=== PATIENT | female | born 1975 | race Caucasian/White ===

== ENCOUNTER 2018-01-10 06:19 | Inpatient (IN) ==
[2018-01-10] MEDS ORDERED: ASPIRIN 81 MG TAB.CHEW CHEWED ONE (06:25)
[2018-01-10] MEDS ORDERED: ASPIRIN 81 MG TAB.CHEW ONE (06:30)
[2018-01-10] MEDS ORDERED: LORazepam 2 MG/ML VIAL IV ONE ×2 (06:34→07:02)
--- NOTE | 2018-01-10 07:05 | Emergency Department Note ---
Chest Pain HPI - General Chief Complaint: Chest Pain Stated Complaint: chest pain Time Seen by Provider: 01/10/18 07:00 Source: patient Mode of arrival: ambulatory Limitations: no limitations - History of Present Illness HPI Narrative: This patient complains of chest pain with anxiety for last 2 hours. She was seen at [facility] several days ago with the same symptoms and workup was negative. She admits to using methamphetamine last which was 2 days ago. Pain is in the center of her chest. - Related Data Home Medications Medication Instructions Recorded Confirmed No Known Home Meds 01/10/18 01/10/18 Allergies Allergy/AdvReac Type Severity Reaction Status Date / Time Amoxicillin Allergy Unknown Verified 01/10/18 06:24 azithromycin [From Zithromax] Allergy Unknown Verified 01/10/18 06:24 Review of Systems All systems ED: reviewed and negative except as stated. Chest Pain PMH - Past Medical History Medical history: Reports: other (Methamphetamine drug abuse) - Social History smoking status: Current every day smoker Physical Exam Limitations: no limitations General appearance: alert, anxious Head: atraumatic Eye: Present: normal appearance ENT: normal exam Neck: Present: normal inspection Chest: Present: normal inspection Respiratory: Present: normal lung sounds bilaterally Cardiovascular: Present: regular rate, normal rhythm, normal heart sounds Abdominal: Present: soft. Absent: distention, tenderness Neurological: Present: alert Psychiatric: Present: normal affect Skin: Present: warm, dry, intact Course Vital Signs Temperature 97.5 F 01/10/18 06:19 Pulse Rate 79 01/10/18 06:19 Respiratory Rate 18 01/10/18 06:19 Blood Pressure 183/96 01/10/18 06:19 Pulse Oximetry (%) 99 01/10/18 06:19 Temperature 97.5 F 01/10/18 06:19 Pulse Rate 58 L 01/10/18 08:50 Respiratory Rate 15 01/10/18 08:50 Blood Pressure 180/108 01/10/18 08:50 Pulse Oximetry (%) 98 01/10/18 08:50 Chest Pain - [facility] Narrative Medical decision making narrative: This patient initially was treated with Ativan but when her labs came back showing elevated alk phos and liver function tests I ordered an ultrasound of her gallbladder. Final disposition will be per Dr. Null. - Lab Data Result diagrams: 01/10/18 06:37 01/10/18 06:37 Lab Results 01/10/18 01/10/18 01/10/18 Range/Units 06:33 06:37 06:37 WBC 9.1 (4.5-11.0) K/mcL RBC 4.20 (4.00-5.20) M/mcL Hgb 11.5 L (12.0-15.0) g/dL Hct 35.7 L (36.0-48.0) % MCV 85.0 (80.0-100.0) fL MCH 27.4 (26.0-34.0) pg MCHC 32.2 (31.0-36.0) g/dL RDW 17.0 H (11.5-14.5) % Plt Count 546 H (140-440) K/mcL MPV 8.4 (7.4-10.4) fL Gran % 76.0 (38.0-78.0) % Lymph % (Auto) 13.5 L (15.5-49.0) % [place] % (Auto) 8.6 (1.0-12.0) % Eos % (Auto) 1.5 (0.0-7.0) % Baso % (Auto) 0.4 (0.0-2.0) % Gran # 6.9 (1.8-8.0) K/mcL Lymph # (Auto) 1.2 L (1.5-4.8) K/mcL [place] # (Auto) 0.8 (0.1-0.9) K/mcL Eos # (Auto) 0.1 (0.0-0.7) K/mcL Baso # (Auto) 0 (0.0-0.3) K/mcL Sodium 137 (133-145) mmol/L Potassium 3.9 (3.3-5.1) mmol/L Chloride 100 (96-108) mmol/L Carbon Dioxide 27 (22-30) mmol/L Anion Gap 10.0 (8-16) BUN 13 (6-20) mg/dl Creatinine 0.8 (0.6-1.1) mg/dl GFR Calculation 90 Glucose 102 (70-105) mg/dL Calcium 9.5 (8.6-10.4) mg/dl Total Bilirubin 0.7 (0.0-1.0) mg/dL AST 202 H (0-37) U/l ALT 118 H (0-40) U/l Alkaline Phosphatase 507 H (39-117) U/L Total Creatine Kinase 24 (24-170) IU/L CK-MB (CK-2) < 1.0 (0-2.9) ng/ml Troponin T (0-0.03) ng/ml Total Protein 7.5 (5.9-8.4) gm/dL Albumin 3.6 (3.2-5.2) gm/dL Globulin 3.9 H (2.2-3.7) gm/dL Albumin/Globulin Ratio 0.9 L (1.0-2.3) 01/10/18 Range/Units 06:37 WBC (4.5-11.0) K/mcL RBC (4.00-5.20) M/mcL Hgb (12.0-15.0) g/dL Hct (36.0-48.0) % MCV (80.0-100.0) fL MCH (26.0-34.0) pg MCHC (31.0-36.0) g/dL RDW (11.5-14.5) % Plt Count (140-440) K/mcL MPV (7.4-10.4) fL Gran % (38.0-78.0) % Lymph % (Auto) (15.5-49.0) % [place] % (Auto) (1.0-12.0) % Eos % (Auto) (0.0-7.0) % Baso % (Auto) (0.0-2.0) % Gran # (1.8-8.0) K/mcL Lymph # (Auto) (1.5-4.8) K/mcL Scre[place] # (Auto) (0.1-0.9) K/mcL Eos # (Auto) (0.0-0.7) K/mcL Baso # (Auto) (0.0-0.3) K/mcL Sodium (133-145) mmol/L Potassium (3.3-5.1) mmol/L Chloride (96-108) mmol/L Carbon Dioxide (22-30) mmol/L Anion Gap (8-16) BUN (6-20) mg/dl Creatinine (0.6-1.1) mg/dl GFR Calculation Glucose (70-105) mg/dL Calcium (8.6-10.4) mg/dl Total Bilirubin (0.0-1.0) mg/dL AST (0-37) U/l ALT (0-40) U/l Alkaline Phosphatase (39-117) U/L Total Creatine Kinase (24-170) IU/L CK-MB (CK-2) (0-2.9) ng/ml Troponin T < 0.01 (0-0.03) ng/ml Total Protein (5.9-8.4) gm/dL Albumin (3.2-5.2) gm/dL Globulin (2.2-3.7) gm/dL Albumin/Globulin Ratio (1.0-2.3) Disposition Pt seen by DIRECTOR OF REIMBURSEMENT/PA only: No Clinical Impression: Chest pain Disposition: Still a Patient Referrals: No,PCP [Primary Care Provider] -
[2018-01-10] MEDS ORDERED: ONDANSETRON 4 MG/2 ML VIAL IV ONE (07:08)
[2018-01-10 07:19] LABS: Basophils # (Auto) 0 K/mcL (0.0-0.3); Basophils % (Auto) 0.4 % (0.0-2.0); Eosinophils # (Auto) 0.1 K/mcL (0.0-0.7); Eosinophils % (Auto) 1.5 % (0.0-7.0); Lymphocytes # (Auto) 1.2 K/mcL (1.5-4.8); Lymphocytes % (Auto) 13.5 % (15.5-49.0); Mean Corpuscular HGB Conc 32.2 g/dL (31.0-36.0); Mean Corpuscular Hemoglobin 27.4 pg (26.0-34.0); Monocytes # (Auto) 0.8 K/mcL (0.1-0.9); Monocytes % (Auto) 8.6 % (1.0-12.0); Platelet Count 546 K/mcL (140-440)
[2018-01-10 07:35] LABS: Creatine Kinase MB < 1.0 ng/ml (0-2.9)
[2018-01-10 07:36] LABS: Creatine Kinase 24 IU/L (24-170)
[2018-01-10 07:37] LABS: ALT/SGPT 118 U/l (0-40); Albumin 3.6 gm/dL (3.2-5.2); Albumin/Globulin Ratio 0.9 (1.0-2.3); Alkaline Phosphatase 507 U/L (39-117); Blood Urea Nitrogen 13 mg/dl (6-20)
--- NOTE | 2018-01-10 08:35 | XRay Report ---
HISTORY: Chest pain FINDINGS: The lungs are clear and well expanded. The heart size, pulmonary vasculature, mediastinum, ivon and bones are normal. IMPRESSION: Normal chest Interpreted and Authenticated by: John Thomason 01/10/18
--- NOTE | 2018-01-10 09:18 | Emergency Department Note ---
Chest Pain HPI - General Chief Complaint: Chest Pain Stated Complaint: chest pain Time Seen by Provider: 01/10/18 07:00 Source: patient Mode of arrival: ambulatory Limitations: no limitations - History of Present Illness HPI Narrative: See history and physical by Dr. Gresham. I am seeing patient because of change in shift. Location of her pain is the low substernal area or xiphoid area. - Related Data Home Medications Medication Instructions Recorded Confirmed No Known Home Meds 01/10/18 01/10/18 Allergies Allergy/AdvReac Type Severity Reaction Status Date / Time Amoxicillin Allergy Unknown Verified 01/10/18 06:24 azithromycin [From Zithromax] Allergy Unknown Verified 01/10/18 06:24 Chest Pain PMH - Past Medical History Medical history: Reports: other (Methamphetamine drug abuse) Family history: Reports: other (mother - angina.) - Social History smoking status: Current every day smoker Physical Exam Limitations: no limitations General appearance: alert, anxious Course Vital Signs Temperature 97.5 F 01/10/18 06:19 Pulse Rate 79 01/10/18 06:19 Respiratory Rate 18 01/10/18 06:19 Blood Pressure 183/96 01/10/18 06:19 Pulse Oximetry (%) 99 01/10/18 06:19 Temperature 97.5 F 01/10/18 06:19 Pulse Rate 58 L 01/10/18 08:50 Respiratory Rate 23 H 01/10/18 09:03 Blood Pressure 192/139 01/10/18 09:01 Pulse Oximetry (%) 98 01/10/18 08:50 Chest Pain - [facility] Narrative Medical decision making narrative: 9:45 AM Ultrasound demonstrates gallbladder wall is thickened with stones present. The common bile duct is enlarged at 13 mm but no visible stone. Intrahepatic biliaryducts are also dilated. 10:04 AM I spoke with Dr. Rahul Gamez, general surgeon, who kindly agrees to accept this patient's care inpatient for additional treatment of her cholecystitis. We discussed antibiotic choices for her. With her having an amoxicillin reaction in the past will go with meropenem and will provide pain control. - Lab Data Result diagrams: 01/10/18 06:37 01/10/18 06:37 Lab Results 01/10/18 01/10/18 01/10/18 Range/Units 06:33 06:37 06:37 WBC 9.1 (4.5-11.0) K/mcL RBC 4.20 (4.00-5.20) M/mcL Hgb 11.5 L (12.0-15.0) g/dL Hct 35.7 L (36.0-48.0) % MCV 85.0 (80.0-100.0) fL MCH 27.4 (26.0-34.0) pg MCHC 32.2 (31.0-36.0) g/dL RDW 17.0 H (11.5-14.5) % Plt Count 546 H (140-440) K/mcL MPV 8.4 (7.4-10.4) fL Gran % 76.0 (38.0-78.0) % Lymph % (Auto) 13.5 L (15.5-49.0) % [place] % (Auto) 8.6 (1.0-12.0) % Eos % (Auto) 1.5 (0.0-7.0) % Baso % (Auto) 0.4 (0.0-2.0) % Gran # 6.9 (1.8-8.0) K/mcL Lymph # (Auto) 1.2 L (1.5-4.8) K/mcL [place] # (Auto) 0.8 (0.1-0.9) K/mcL Eos # (Auto) 0.1 (0.0-0.7) K/mcL Baso # (Auto) 0 (0.0-0.3) K/mcL Sodium 137 (133-145) mmol/L Potassium 3.9 (3.3-5.1) mmol/L Chloride 100 (96-108) mmol/L Carbon Dioxide 27 (22-30) mmol/L Anion Gap 10.0 (8-16) BUN 13 (6-20) mg/dl Creatinine 0.8 (0.6-1.1) mg/dl GFR Calculation 90 Glucose 102 (70-105) mg/dL Calcium 9.5 (8.6-10.4) mg/dl Total Bilirubin 0.7 (0.0-1.0) mg/dL AST 202 H (0-37) U/l ALT 118 H (0-40) U/l Alkaline Phosphatase 507 H (39-117) U/L Total Creatine Kinase 24 (24-170) IU/L CK-MB (CK-2) < 1.0 (0-2.9) ng/ml Troponin T (0-0.03) ng/ml Total Protein 7.5 (5.9-8.4) gm/dL Albumin 3.6 (3.2-5.2) gm/dL Globulin 3.9 H (2.2-3.7) gm/dL Albumin/Globulin Ratio 0.9 L (1.0-2.3) 01/10/18 Range/Units 06:37 WBC (4.5-11.0) K/mcL RBC (4.00-5.20) M/mcL Hgb (12.0-15.0) g/dL Hct (36.0-48.0) % MCV (80.0-100.0) fL MCH (26.0-34.0) pg MCHC (31.0-36.0) g/dL RDW (11.5-14.5) % Plt Count (140-440) K/mcL MPV (7.4-10.4) fL Gran % (38.0-78.0) % Lymph % (Auto) (15.5-49.0) % Vernon % (Auto) (1.0-12.0) % Eos % (Auto) (0.0-7.0) % Baso % (Auto) (0.0-2.0) % Gran # (1.8-8.0) K/mcL Lymph # (Auto) (1.5-4.8) K/mcL Vernon # (Auto) (0.1-0.9) K/mcL Eos # (Auto) (0.0-0.7) K/mcL Baso # (Auto) (0.0-0.3) K/mcL Sodium (133-145) mmol/L Potassium (3.3-5.1) mmol/L Chloride (96-108) mmol/L Carbon Dioxide (22-30) mmol/L Anion Gap (8-16) BUN (6-20) mg/dl Creatinine (0.6-1.1) mg/dl GFR Calculation Glucose (70-105) mg/dL Calcium (8.6-10.4) mg/dl Total Bilirubin (0.0-1.0) mg/dL AST (0-37) U/l ALT (0-40) U/l Alkaline Phosphatase (39-117) U/L Total Creatine Kinase (24-170) IU/L CK-MB (CK-2) (0-2.9) ng/ml Troponin T < 0.01 (0-0.03) ng/ml Total Protein (5.9-8.4) gm/dL Albumin (3.2-5.2) gm/dL Globulin (2.2-3.7) gm/dL Albumin/Globulin Ratio (1.0-2.3) Disposition Pt seen by GALLERY ASSISTANT/PA only: No Clinical Impression: Thrombocytosis, Elevated LFTs, Elevated alkaline phosphatase level, Elevated blood pressure reading, Methamphetamine abuse, episodic, Anxiety, generalized, Acute cholecystitis, Dilated cbd, acquired Chest pain Qualifiers: Chest pain type: other chest pain Qualified Code(s): R07.89 - Other chest pain ; R07.8 - Other chest pain Anemia Qualifiers: Anemia type: unspecified type Qualified Code(s): D64.9 - Anemia, unspecified Cholelithiases Qualifiers: Cholelithiasis location: gallbladder Cholecystitis presence: with cholecystitis Cholecystitis acuity: acute Biliary obstruction: with biliary obstruction Qualified Code(s): K80.01 - Calculus of gallbladder with acute cholecystitis with obstruction Disposition: Xfer As Inpt ([facility] Condition: Fair Referrals: No,PCP [Primary Care Provider] -
[2018-01-10] MEDS ORDERED: ONDANSETRON 4 MG/2 ML VIAL IV PRN (10:10)
[2018-01-10 11:09] LABS: Appearance,Urine CLOUDY; Bacteria,Urine 0 /hpf (0); Bilirubin,Urine NEG (NEG); Color,Urine YELLOW; Glucose,Urine (UA) NEGATIVE (NEG); Leukocyte Esterase,Urine NEG /uL (NEG); Mucus,Urine FEW /hpf (0); Protein,Urine 30 mg/dL (NEG); Specific Gravity,Urine 1.016 (1.000-1.035); Sperm,Urine PRESENT /hpf (ABSENT); Urine Amorphous Crystals MANY /hpf (0); Urine Blood 0.2 mg/dL (<0.03); Urine Hyaline Cast 2 /lpf (0-2); Urine RBC 17 /hpf (0-1); Urine Squamous Epithelial Cell 4 /hpf (0-4); Urine WBC 0 /hpf (0-4)
[2018-01-10 11:29] LABS: Amphetamine Screen,Urine SUSPECT POSITIVE (NONDETECTED); Benzodiazepines Screen,Urine NONE DETECTED (NONDETECTED); Cocaine Screen,Urine NONE DETECTED (NONDETECTED); Opiate Screen,Urine NONE DETECTED (NONDETECTED); Oxycodone, Urine Screen NONE DETECTED (NONDETECTED)
[2018-01-10] MEDS: LACTATED RINGERS 1,000 ML IV SCH ×3 (12:52→20:35)
--- NOTE | 2018-01-10 13:36 | General Surg History&Physical ---
History of Present Illness Patient information: Note initiated : 01/10/18 at 1:27 pm Service Date, if different from initiated Date: [] Patient: Mojgan Mesa a 42 y/o F admitted on 01/10/18 for chest pain. Chief Complaint: [recurrent abdominal pain with nausea and vomiting] HPI: Ms. Mesa is a 42 year old F is admitted with severe abdominal pain, nausea and vomiting. She was awakened at 4 AM with epigastric pain and nausea. This continued over the next 2 hours and she was seen in the emergency room. On evaluation she was noted to have a tender abdomen. Lab work revealed elevated transaminases. Abdominal ultrasound shows increase thickness of the gallbladder wall with multiple gallstones. She also had dilated common bile duct and hepatic ducts. Her bilirubin, however, was only 0.7. Patient is admitted with cholelithiasis and cholecystitis with probable choledocholithiasis. Review of Systems All systems PM: reviewed and no additional remarkable complaints except as stated - Constitutional fatigue, weakness, no weight loss - EENT Nose, mouth and throat: bleeding gums, dental pain, dizziness, vertigo - Cardiovascular palpatations, rapid heart rate, no chest pain with activity, no dyspnea on exertion, no pedal edema - Respiratory no cough, no dyspnea on exertion, no wheezing, no chest congestion - Gastrointestinal abdominal pain, heartburn, nausea, vomiting - Psychiatric anxiety, depression Past History Past medical history: No documented chronic medical illness Past surgical history: Past family history: Mother age 65. Healthy without illness.. Father due to coronary artery disease. Grandparents with coronary artery disease Past social history: . Unemployed. Prior tobacco use 18 years, stopped 18 months ago. Occasional use of alcohol. Frequent marijuana and methamphetamine use; last methamphetamine use. 3 days prior to admission Medications and Allergies Home Medications Medication Instructions Recorded Confirmed Type Ibuprofen [I-Prin] 2 tab PO DAILYP PRN 01/10/18 01/10/18 History Allergies Allergy/AdvReac Type Severity Reaction Status Date / Time Amoxicillin Allergy Unknown Verified 01/10/18 06:24 azithromycin [From Zithromax] Allergy Unknown Verified 01/10/18 06:24 Exam Temp Pulse Resp BP Pulse Ox 97.8 F 84 16 109/70 99 01/10/18 12:00 01/10/18 11:26 01/10/18 12:00 01/10/18 12:00 01/10/18 12:00 - General physical appearance well developed, well nourished, no distress, chronically ill - Eyes PERRL, normal ocular movement - ENT normal pinna, normal nares, normal mucosa, no hearing loss, no congestion, poor longterm (severe dentition with no healthy teeth and most of teeth eroded down to the gums) - Head Head exam IM: Present: atraumatic, normocephalic - Neck no masses, no bruits, trachea midline, no lymphadectomy, no venous distension - Cardiovascular Cardiovascular exam IM: Present: normal rate and rhythm - Respiratory normal expansion, normal respiratory effort, clear to percussion, clear to auscultation - Abdomen Abdomen: Present: soft, tender (, mild epigastric tenderness;; no palpable masses), bowel sounds Hernia: Present: none - Genitourinary Present: normal external genitalia - Integumentary Present: no rash, no growths, no abnormal pigmentation - Neurologic Present: normal coordination, normal sensation - Musculoskeletal Present: normal gait, normal posture - Psychiatric Present: oriented to time, oriented to person, oriented to place, speech is normal, memory intact Assessment and Plan (1) Cholelithiasis and cholecystitis without obstruction Status: Acute (2) Choledocholithiasis with acute cholecystitis with obstruction We'll make arrangements for ERCP after which cholecystectomy will be completed. Zosyn 3.375 g IV every 6. Hours. Follow-up enzymes in the morning Status: Acute (3) Polysubstance dependence including opioid type drug, episodic abuse Status: Acute
[2018-01-10] MEDS ORDERED: traZODone HCL 50 MG TABLET PO PRN (13:39)
[2018-01-10] MEDS ORDERED: HYDROmorphone 2 MG/ML VIAL IV PRN (13:39)
[2018-01-10] MEDS: 0.9 % SODIUM CHLORIDE 10 ML SYRINGE IV SCH ×2 (13:51→22:29)
[2018-01-10] MEDS ORDERED: MEROPENEM 0.5 GM VIAL IV SCH (14:00)
[2018-01-10 14:13] LABS: Amylase 157 U/L (28-100); Lipase 226 U/L (7-60)
--- NOTE | 2018-01-10 14:27 | Ultrasound Report ---
History: Chest and upper abdominal pain FINDINGS: The gallbladder is filled with numerous small to intermediate size calcified stones. The wall is borderline thickened measuring 3.1 mm. The patient was nontender while scanning over the gallbladder. The common bile duct measures 13.3 mm proximally. This tapers distally. Distal common duct is difficult to clearly visualize and no obvious stone is seen within the duct. The liver is normal in size and homogeneous. The pancreas appears normal without evidence for mass or inflammation. The right kidney is normal in size. There is relative thinning of the renal cortex. No kidney stone or hydronephrosis are present. IMPRESSION: Cholelithiasis and dilated bile ducts suggesting a nonvisualized distal common bile duct stone Interpreted and Authenticated by: John Thomason 01/10/18
--- NOTE | 2018-01-10 14:30 | Magnetic Resonance Report ---
CLINICAL INFORMATION: Cholelithiasis and dilated bile ducts with elevated liver enzymes COMPARISON: Ultrasound on 01/10/18 TECHNIQUE: MRCP was performed using 3D FRFSE respiratory triggered and single-shot FSE thick slab technique. Axial T2 SSFSE and coronal SSFSE images were obtained through the upper abdomen as well. FINDINGS: The gallbladder contains numerous calcified stones. The range from 3 to 8 mm in size. The gallbladder wall is upper limits of normal in thickness. There is no para cholecystic fluid collection. The intra and extrahepatic bile ducts are dilated. Common bile duct measures up to 12 mm. There is a stone in the distal common bile duct above the ampulla. Measures approximately 5 x 6 mm. The pancreas and pancreatic duct are normal without evidence of inflammation or mass. The liver and spleen are normal in size and homogeneous. There couple small cysts in the right kidney. The kidneys otherwise appear normal. The cortex of the right kidney does not appear thin on the MRI scan. The aorta is normal in caliber. No ascites is present. IMPRESSION: Cholelithiasis and choledocholithiasis Dr. Gamez was called with results Interpreted and Authenticated by: John Thomason 01/10/18
[2018-01-10] MEDS: MEROPENEM 1 GM in 0.9 % SODIUM CHLORIDE 50 ML IV SCH ×2 (16:34→22:29)
[2018-01-11] MEDS: LACTATED RINGERS 1,000 ML IV SCH ×5 (00:28→19:44)
[2018-01-11 05:29] LABS: Basophils # (Auto) 0.1 K/mcL (0.0-0.3); Basophils % (Auto) 1.5 % (0.0-2.0); Eosinophils # (Auto) 0.2 K/mcL (0.0-0.7); Eosinophils % (Auto) 4.5 % (0.0-7.0); Granulocytes % (Auto) 56.8 % (38.0-78.0); Lymphocytes # (Auto) 1.4 K/mcL (1.5-4.8); Lymphocytes % (Auto) 26.9 % (15.5-49.0); Mean Cell Volume 84.9 fL (80.0-100.0); Mean Corpuscular HGB Conc 32.6 g/dL (31.0-36.0); Mean Corpuscular Hemoglobin 27.7 pg (26.0-34.0); Monocytes # (Auto) 0.5 K/mcL (0.1-0.9); Monocytes % (Auto) 10.3 % (1.0-12.0); Platelet Count 451 K/mcL (140-440); RBC 3.75 M/mcL (4.00-5.20); Red Cell Distribution Width 16.7 % (11.5-14.5)
[2018-01-11] MEDS: MEROPENEM 1 GM in 0.9 % SODIUM CHLORIDE 50 ML IV SCH ×3 (05:40→21:35)
[2018-01-11] MEDS: 0.9 % SODIUM CHLORIDE 10 ML SYRINGE IV SCH ×3 (05:43→21:35)
[2018-01-11 05:52] LABS: ALT/SGPT 175 U/l (0-40); Albumin 2.8 gm/dL (3.2-5.2); Albumin/Globulin Ratio 0.9 (1.0-2.3); Alkaline Phosphatase 441 U/L (39-117); Bilirubin,Direct 0.3 mg/dL (0.0-0.3); Blood Urea Nitrogen 6 mg/dl (6-20); Gamma Glutamyl Transpeptidase 606 U/L (5-36); Uric Acid 3.8 mg/dL (2.5-8.0)
--- NOTE | 2018-01-11 12:07 | General Surgery Progress Note ---
Subjective Patient reports: feels better, pain is less, flatus, no bowel movement, afebrile Narrative: Note initiated : 01/11/18 at 12:06 pm Service Date, if different from initiated Date: [] Patient: Mojgan Mesa 42 y/o F admitted on 01/10/18 for chest pain. Chief Complaint: [patient states that she feels better. She has not had any significant pain. She denies nausea, vomiting. She has been afebrile.er white blood count is normal. Transaminases are all elevated with bilirubin is only 0.8. Phosphorus 2.2..] Objective Temp Pulse Resp BP Pulse Ox 97.9 F 82 16 133/91 100 01/11/18 11:49 01/11/18 03:53 01/11/18 11:49 01/11/18 11:49 01/11/18 11:49 - Additional Data Intake & Output - Last 24 hours: Intake & Output 01/09/18 01/10/18 01/11/18 01/12/18 05:59 05:59 05:59 05:59 Intake Total 2905 / 2905 550 / 550 Output Total 1300 / 1300 1550 / 1550 Balance 1605 / 1605 -1000 / -1000 Weight 121 lb 8 oz - General physical appearance well developed, well nourished, no distress, severe distress - Eyes PERRL, normal ocular movement - ENT normal pinna, normal nares, normal mucosa, no hearing loss, no congestion, poor group home - Neck no masses, no bruits, trachea midline, no venous distension - Respiratory normal expansion, normal respiratory effort, clear to auscultation - Cardiovascular Cardiovascular exam: Present: normal rate and rhythm, RRR, +S1, +S2. Absent: JVD, tachycardia - Abdomen non tender, bowel sounds (present), surgical scars (none), masses (none) - Integumentary no rash, no growths, no abnormal pigmentation - Neurologic normal coordination, normal sensation - Musculoskeletal normal gait, normal posture - Psychiatric oriented to time, oriented to person, oriented to place, speech is normal, memory intact - Labs 01/11/18 04:05 01/11/18 04:05 Diabetes panel 01/11/18 Range/Units 04:05 Sodium 137 (133-145) mmol/L Potassium 3.9 (3.3-5.1) mmol/L Chloride 103 (96-108) mmol/L Carbon Dioxide 26 (22-30) mmol/L BUN 6 (6-20) mg/dl Creatinine 0.7 (0.6-1.1) mg/dl Glucose 81 (70-105) mg/dL Calcium 8.7 (8.6-10.4) mg/dl AST 251 H (0-37) U/l ALT 175 H (0-40) U/l Alkaline Phosphatase 441 H (39-117) U/L Total Protein 6.0 (5.9-8.4) gm/dL Albumin 2.8 L (3.2-5.2) gm/dL Triglycerides 98 (<150) mg/dl Calcium panel 01/11/18 Range/Units 04:05 Calcium 8.7 (8.6-10.4) mg/dl Phosphorus 2.2 L (2.7-4.5) mg/dL Albumin 2.8 L (3.2-5.2) gm/dL Pituitary panel 01/11/18 Range/Units 04:05 Sodium 137 (133-145) mmol/L Potassium 3.9 (3.3-5.1) mmol/L Chloride 103 (96-108) mmol/L Carbon Dioxide 26 (22-30) mmol/L BUN 6 (6-20) mg/dl Creatinine 0.7 (0.6-1.1) mg/dl Glucose 81 (70-105) mg/dL Calcium 8.7 (8.6-10.4) mg/dl Adrenal panel 01/11/18 Range/Units 04:05 Sodium 137 (133-145) mmol/L Potassium 3.9 (3.3-5.1) mmol/L Chloride 103 (96-108) mmol/L Carbon Dioxide 26 (22-30) mmol/L BUN 6 (6-20) mg/dl Creatinine 0.7 (0.6-1.1) mg/dl Glucose 81 (70-105) mg/dL Calcium 8.7 (8.6-10.4) mg/dl Total Bilirubin 0.8 (0.0-1.0) mg/dL AST 251 H (0-37) U/l ALT 175 H (0-40) U/l Alkaline Phosphatase 441 H (39-117) U/L Total Protein 6.0 (5.9-8.4) gm/dL Albumin 2.8 L (3.2-5.2) gm/dL Assessment and Plan (1) Cholelithiasis and cholecystitis without obstruction Status: Acute Assessment and plan: We'll wait for ERCP with stone extraction to be completed before cholecystectomy Current Visit: Yes (2) Choledocholithiasis with acute cholecystitis with obstruction Status: Acute Assessment and plan: We will get consultation with Dr. Lee in the morning to evaluate for ERCP with stone extraction Current Visit: Yes (3) Polysubstance dependence including opioid type drug, episodic abuse Status: Acute Assessment and plan: No current evidence of withdrawal Current Visit: Yes - Time Spent With Patient Total time spent is greater than 50% in coordination of care (as documented) at patient's floor/unit and/or counseling patient:
[2018-01-12] MEDS: LACTATED RINGERS 1,000 ML IV SCH ×3 (05:01→17:27)
[2018-01-12] MEDS: MEROPENEM 1 GM in 0.9 % SODIUM CHLORIDE 50 ML IV SCH ×3 (05:10→21:13)
[2018-01-12] MEDS: 0.9 % SODIUM CHLORIDE 10 ML SYRINGE IV SCH ×3 (05:10→21:56)
[2018-01-12 06:35] LABS: Basophils # (Auto) 0.1 K/mcL (0.0-0.3); Basophils % (Auto) 1.7 % (0.0-2.0); Eosinophils # (Auto) 0.3 K/mcL (0.0-0.7); Eosinophils % (Auto) 4.7 % (0.0-7.0); Granulocytes % (Auto) 52.6 % (38.0-78.0); Lymphocytes # (Auto) 1.7 K/mcL (1.5-4.8); Lymphocytes % (Auto) 29.9 % (15.5-49.0); Mean Cell Volume 84.6 fL (80.0-100.0); Mean Corpuscular HGB Conc 33.1 g/dL (31.0-36.0); Mean Corpuscular Hemoglobin 28.1 pg (26.0-34.0); Monocytes # (Auto) 0.6 K/mcL (0.1-0.9); Monocytes % (Auto) 11.1 % (1.0-12.0); Platelet Count 468 K/mcL (140-440); RBC 3.84 M/mcL (4.00-5.20); Red Cell Distribution Width 17.2 % (11.5-14.5)
[2018-01-12 07:05] LABS: ALT/SGPT 121 U/l (0-40); Albumin 3.1 gm/dL (3.2-5.2); Alkaline Phosphatase 381 U/L (39-117); Bilirubin,Direct < 0.2 mg/dL (0.0-0.3); Blood Urea Nitrogen 3 mg/dl (6-20); Gamma Glutamyl Transpeptidase 497 U/L (5-36); Uric Acid 3.9 mg/dL (2.5-8.0)
[2018-01-12] MEDS ORDERED: POTASSIUM PHOSPHATE 40 MEQ in DEXTROSE 5% IN WATER 500 ML IV ONE (11:31)
[2018-01-12] MEDS ORDERED: SCOPOLAMINE 1 PATCH PATCH TOPICAL PRN (12:00)
[2018-01-12] MEDS ORDERED: IPRATROPIUM/ALBUTEROL 3 ML AMPUL.NEB NEB PRN (12:00)
--- NOTE | 2018-01-12 12:56 | Internal Medicine Consult Note ---
Medical - CN: HPI - Data of Consult Patient: new to practice Consult date: 01/12/18 Requesting Physician: Rahul Gamez MD Primary Care Provider: PCP Marcy Family Provider: Leonidas Moya - Consult Narrative Reason for consult: Choledocholithiasis History of present illness: Ms. Mesa is a 42 year old F who presents for evaluation of a 1 year history of intermittent attacks of chest and epigastric pain that radiate throughout to the back. Pain is unaffected by eating and often awakens her at night time. Pain can last several hours at a time. She has not been jaundiced or febrile. On 01/10/18, she presented to ED with a particularly severe episode and was found to have an elevated alk phos (500) and elevated transaminases with normal bilirubin, so US was undertaken, which revealed a dilated common bile duct 13mm with cholelithiasis. MRCP showed choledocholithiasis with a 5mm stone in the distal common bile duct. Lipase elevated at 226. Today, she has been NPO for several days and denies any ongoing abdominal pain. Significant other is at the bedside. CC: Rahul Gamez MD - Constitutional Constitutional: Absent: anorexia, fever(s) - Gastrointestinal Gastrointestinal: Absent: change in bowel habits Medical - CN: PMH Medical history: Methamphetamine use. Surgical history: . Pertinent family history: Denies any family history. Social history: . Unemployed. Functional capacity: independent ambulation Smoking status: Current every day smoker Have you smoked in the last 12 months: Yes Drug use: other Alcohol use: none Medical - CN: Meds Home Medications Medication Instructions Recorded Confirmed Type Ibuprofen [I-Prin] 2 tab PO DAILYP PRN 01/10/18 01/10/18 History Allergies Allergy/AdvReac Type Severity Reaction Status Date / Time Amoxicillin Allergy Unknown Verified 01/10/18 06:24 azithromycin [From Zithromax] Allergy Unknown Verified 01/10/18 06:24 Medical - CN: Exam - Constitutional Vitals: Temp Pulse Resp BP Pulse Ox 98.2 F 74 16 130/80 97 01/12/18 11:47 01/12/18 11:47 01/12/18 11:47 01/12/18 11:47 01/12/18 11:47 General appearance: average body habitus, cooperative, no acute distress - Head Head exam: Present: atraumatic, normal inspection - Neck Neck exam: Present: normal inspection. Absent: lymphadenopathy, thyromegaly - Respiratory Respiratory exam: Present: normal respiratory exam, CTAB - Cardiovascular Cardiovascular exam: Present: normal rate and rhythm. Absent: rubs, systolic murmur - GI/Abdominal GI/Abdominal exam: Present: normal bowel sounds, soft. Absent: guarding, organomegaly, tenderness - Psychiatric Psychiatric exam: Present: normal affect, normal mood - Skin Skin exam: Present: dry, warm Medical - CN: Result - Labs CBC & Chem 7: 01/12/18 04:10 01/12/18 04:10 Labs: Short CBC 01/12/18 Range/Units 04:10 WBC 5.6 (4.5-11.0) K/mcL Hgb 10.8 L (12.0-15.0) g/dL Hct 32.5 L (36.0-48.0) % Plt Count 468 H (140-440) K/mcL BMP 01/12/18 04:10 Sodium 139 Potassium 3.8 Chloride 102 Carbon Dioxide 29 BUN 3 L Creatinine 0.6 Glucose 85 Calcium 8.8 Liver Function 01/12/18 Range/Units 04:10 Total Bilirubin 0.4 (0.0-1.0) mg/dL Direct Bilirubin < 0.2 (0.0-0.3) mg/dL GGT 497 H (5-36) U/L AST 85 H (0-37) U/l ALT 121 H (0-40) U/l Alkaline Phosphatase 381 H (39-117) U/L Albumin 3.1 L (3.2-5.2) gm/dL Medical - CN: A/P (1) Choledocholithiasis with acute cholecystitis with obstruction Status: Acute Assessment and plan: Discussed case with Dr. Lee. We will arrange for ERCP with stone extraction without any undue delay. I reviewed the procedure with the patient using an illustration to describe the procedure. We discussed the risks of bleeding, perforation, infection and pancreatitis. The patient and her significant other appear to understand and agree to proceed. Cholecystectomy to be undertaken when ERCP has been performed. Patient should follow up with me in clinic as an outpatient one week following ERCP.
[2018-01-12] MEDS ORDERED: INDOMETHACIN 25 MG CAPSULE PO ONE (14:00)
[2018-01-12] MEDS ORDERED: NITROGLYCERIN 0.6 MG/HR PATCH TD ONE (14:00)
--- NOTE | 2018-01-12 14:27 | General Surgery Progress Note ---
Subjective Patient reports: feels better, flatus, no bowel movement, afebrile Narrative: Note initiated : 01/12/18 at 2:24 pm Service Date, if different from initiated Date: [] Patient: Mojgan Mesa 42 y/o F admitted on 01/10/18 for Chest Pain/ Cholelithiasis and Cholecystitis. Chief Complaint: [Patient is doing well. She states that she does not have pain at this time. She denies nausea. She has been seen by GI and is scheduled for ERCP with stone extraction later today. Discussed with the patient the plan to proceed with cholecystectomy tomorrow.] Objective Temp Pulse Resp BP Pulse Ox 98.2 F 74 16 130/80 97 01/12/18 11:47 01/12/18 11:47 01/12/18 11:47 01/12/18 11:47 01/12/18 11:47 - Additional Data Intake & Output - Last 24 hours: Intake & Output 01/10/18 01/11/18 01/12/18 01/13/18 05:59 05:59 05:59 05:59 Intake Total 2905 / 2905 4490 / 4490 543 / 543 Output Total 1300 / 1300 6000 / 6000 500 / 500 Balance 1605 / 1605 -1510 / -1510 43 / 43 Weight 121 lb 8 oz 123 lb 8 oz - General physical appearance well developed, well nourished, no distress - Eyes PERRL, normal ocular movement - ENT normal pinna, normal nares, normal mucosa, no hearing loss, no congestion - Neck no masses, no bruits, trachea midline, no venous distension - Respiratory normal expansion, normal respiratory effort, clear to auscultation - Cardiovascular Cardiovascular exam: Present: normal rate and rhythm, RRR, +S1, +S2. Absent: JVD, tachycardia - Abdomen non tender, bowel sounds (present), surgical scars (none), masses (none) - Integumentary no rash, no growths, no abnormal pigmentation - Neurologic normal coordination, normal sensation - Musculoskeletal normal gait, normal posture - Psychiatric oriented to time, oriented to person, oriented to place, speech is normal, memory intact - Labs 01/12/18 04:10 01/12/18 04:10 Diabetes panel 01/12/18 Range/Units 04:10 Sodium 139 (133-145) mmol/L Potassium 3.8 (3.3-5.1) mmol/L Chloride 102 (96-108) mmol/L Carbon Dioxide 29 (22-30) mmol/L BUN 3 L (6-20) mg/dl Creatinine 0.6 (0.6-1.1) mg/dl Glucose 85 (70-105) mg/dL Calcium 8.8 (8.6-10.4) mg/dl AST 85 H (0-37) U/l ALT 121 H (0-40) U/l Alkaline Phosphatase 381 H (39-117) U/L Total Protein 6.2 (5.9-8.4) gm/dL Albumin 3.1 L (3.2-5.2) gm/dL Triglycerides 115 (<150) mg/dl Calcium panel 01/12/18 Range/Units 04:10 Calcium 8.8 (8.6-10.4) mg/dl Phosphorus 2.4 L (2.7-4.5) mg/dL Albumin 3.1 L (3.2-5.2) gm/dL Pituitary panel 01/12/18 Range/Units 04:10 Sodium 139 (133-145) mmol/L Potassium 3.8 (3.3-5.1) mmol/L Chloride 102 (96-108) mmol/L Carbon Dioxide 29 (22-30) mmol/L BUN 3 L (6-20) mg/dl Creatinine 0.6 (0.6-1.1) mg/dl Glucose 85 (70-105) mg/dL Calcium 8.8 (8.6-10.4) mg/dl Adrenal panel 01/12/18 Range/Units 04:10 Sodium 139 (133-145) mmol/L Potassium 3.8 (3.3-5.1) mmol/L Chloride 102 (96-108) mmol/L Carbon Dioxide 29 (22-30) mmol/L BUN 3 L (6-20) mg/dl Creatinine 0.6 (0.6-1.1) mg/dl Glucose 85 (70-105) mg/dL Calcium 8.8 (8.6-10.4) mg/dl Total Bilirubin 0.4 (0.0-1.0) mg/dL AST 85 H (0-37) U/l ALT 121 H (0-40) U/l Alkaline Phosphatase 381 H (39-117) U/L Total Protein 6.2 (5.9-8.4) gm/dL Albumin 3.1 L (3.2-5.2) gm/dL Assessment and Plan (1) Cholelithiasis and cholecystitis without obstruction Status: Acute Assessment and plan: We'll wait for ERCP with stone extraction to be completed before cholecystectomy Current Visit: Yes (2) Choledocholithiasis with acute cholecystitis with obstruction Status: Acute Assessment and plan: Discussed with Dr. Lee and he will proceed with ERCP later today Current Visit: Yes (3) Polysubstance dependence including opioid type drug, episodic abuse Status: Acute Assessment and plan: No current evidence of withdrawal Current Visit: Yes - Time Spent With Patient Total time spent is greater than 50% in coordination of care (as documented) at patient's floor/unit and/or counseling patient:
[2018-01-12] MEDS ORDERED: MIDAZOLAM 2 MG/2 ML VIAL ONE (14:39)
[2018-01-12] MEDS ORDERED: PROPOFOL 20 ML IV ONE ×2 (14:39)
[2018-01-12] MEDS ORDERED: IOPAMIDOL 100 ML BOTTLE IJ ONE (15:00)
[2018-01-12] MEDS ORDERED: MIDAZOLAM 2 MG/2 ML VIAL IV ONE (15:00)
[2018-01-12] MEDS ORDERED: PROPOFOL 200 MG/20 ML VIAL IV ONE (15:00)
[2018-01-12] MEDS ORDERED: ACETAMINOPHEN 325 MG TABLET PO ONE (21:42)
[2018-01-13] MEDS: LACTATED RINGERS 1,000 ML IV SCH ×7 (00:06→23:07)
[2018-01-13 05:14] LABS: Basophils # (Auto) 0.1 K/mcL (0.0-0.3); Basophils % (Auto) 0.7 % (0.0-2.0); Eosinophils # (Auto) 0.3 K/mcL (0.0-0.7); Eosinophils % (Auto) 2.9 % (0.0-7.0); Granulocytes % (Auto) 74.7 % (38.0-78.0); Lymphocytes # (Auto) 1.5 K/mcL (1.5-4.8); Lymphocytes % (Auto) 14.1 % (15.5-49.0); Mean Cell Volume 84.1 fL (80.0-100.0); Mean Corpuscular Hemoglobin 27.8 pg (26.0-34.0); Monocytes # (Auto) 0.8 K/mcL (0.1-0.9); Monocytes % (Auto) 7.6 % (1.0-12.0); Platelet Count 446 K/mcL (140-440); RBC 3.83 M/mcL (4.00-5.20)
[2018-01-13 05:46] LABS: ALT/SGPT 86 U/l (0-40); Albumin 3.1 gm/dL (3.2-5.2); Albumin/Globulin Ratio 1.1 (1.0-2.3); Alkaline Phosphatase 328 U/L (39-117); Bilirubin,Direct < 0.2 mg/dL (0.0-0.3); Blood Urea Nitrogen 5 mg/dl (6-20); Gamma Glutamyl Transpeptidase 440 U/L (5-36); Uric Acid 3.3 mg/dL (2.5-8.0)
[2018-01-13] MEDS: MEROPENEM 1 GM in 0.9 % SODIUM CHLORIDE 50 ML IV SCH ×3 (05:50→22:16)
[2018-01-13] MEDS: 0.9 % SODIUM CHLORIDE 10 ML SYRINGE IV SCH ×4 (05:51→23:08)
--- NOTE | 2018-01-13 10:57 | ERCP Procedure Note ---
ERCP Procedure Notes - Procedure Information Patient information: Note initiated : 01/13/18 at 10:56 am Service Date: 01/12/18 Patient: Mojgan Mesa 42 y/o F admitted on 01/10/18 for Chest Pain/ Cholelithiasis and Cholecystitis. Pre-op diagnosis general: Common bile duct stone. Post-op diagnosis general: Common bile duct stone. Procedure: ERCP Procedure narrative: The procedures, alternatives and risks were discussed with the patient and the patient's questions were answered. With endoscopist-administered intravenous sedation, the Olympus side viewing operating duodenoscope was introduced into the esophagus and advanced to the second part of the duodenum without difficulty. The ampulla of Vater appeared normal; papillotomy was performed. The bile duct was selectively cannulated taking care to avoid the pancreatic duct and cholangiogram obtained. The bile duct was markedly dilated and obstructed with a common duct stone. All visible stones were extracted with balloon technique. At the end of the procedure, the bile duct appeared to be cleared of all stones. The scope was withdrawn. Assessment: Common bile duct stone.
[2018-01-13] MEDS ORDERED: GLYCOPYRROLATE 0.2 MG/ML VIAL IV ONE (11:10)
[2018-01-13] MEDS ORDERED: PROPOFOL 200 MG/20 ML VIAL IV ONE (11:10)
[2018-01-13] MEDS ORDERED: ONDANSETRON 4 MG/2 ML VIAL IV ONE (11:10)
[2018-01-13] MEDS ORDERED: MIDAZOLAM 2 MG/2 ML VIAL IV ONE (11:10)
[2018-01-13] MEDS ORDERED: ROCURONIUM 10 MG/ML ML IV ONE (11:10)
[2018-01-13] MEDS ORDERED: fentaNYL 100 MCG/2 ML VIAL IV ONE (11:10)
[2018-01-13] MEDS ORDERED: NEOSTIGMINE 1 MG/ML VIAL IV ONE (11:10)
[2018-01-13] MEDS ORDERED: KETAMINE 100 MG/ML ML IV ONE (11:10)
[2018-01-13] MEDS ORDERED: IPRATROPIUM/ALBUTEROL 3 ML AMPUL.NEB NEB PRN (11:46)
[2018-01-13] MEDS ORDERED: MEPERIDINE 50 MG/ML INJECTION IM PRN (11:46)
[2018-01-13] MEDS ORDERED: PROMETHAZINE 25 MG/ML VIAL IM PRN (11:46)
[2018-01-13] MEDS ORDERED: PROMETHAZINE 25 MG/ML VIAL IV PRN (11:46)
[2018-01-13] MEDS ORDERED: KETOROLAC 30 MG/ML VIAL IV PRN (11:46)
[2018-01-13] MEDS ORDERED: MEPERIDINE 25 MG/ML SYRINGE IV PRN (11:46)
[2018-01-13] MEDS ORDERED: LACTATED RINGERS 1,000 ML IV SCH (12:00)
--- NOTE | 2018-01-13 12:04 | Brief Operative Note ---
Date of procedure: 01/13/18 Pre-op diagnosis: CHOLELITHIASIS WITH CHOLECYSTITIS Post-op diagnosis: other (CHOLELITHIASI WITH EMPYEMA OF GALLBLADDER) Procedure: LAPAROSCOPIC CHOLECYSTECTOMY Grafts/Implants: No Anesthesia: GETA Findings: SEVERE INFLAMMATION OF GALLBLADDER WITH CYSTIC DUCT OBSTRUCTION AND GALLBLADDER FILLED WITH PUS Complications: none Surgeon: Rahul Gamez Estimated blood loss (cc): 5 Specimens Removed/Pathology: other (GALLBLADDER) Condition: stable Disposition: PACU
[2018-01-13] MEDS: fentaNYL 100 MCG/2 ML VIAL IV PRN ×4 (12:35→12:52)
[2018-01-13] MEDS ORDERED: traZODone HCL 50 MG TABLET PO PRN (13:20)
[2018-01-13] MEDS ORDERED: ONDANSETRON 4 MG/2 ML VIAL IV PRN (13:20)
[2018-01-13] MEDS: HYDROmorphone 2 MG/ML VIAL IV PRN ×3 (13:25→23:06)
[2018-01-14] MEDS: HYDROmorphone 2 MG/ML VIAL IV PRN ×4 (02:17→14:43)
[2018-01-14] MEDS: 0.9 % SODIUM CHLORIDE 10 ML SYRINGE IV SCH ×4 (02:18→14:43)
[2018-01-14] MEDS: LACTATED RINGERS 1,000 ML IV SCH ×3 (02:38→09:58)
[2018-01-14] MEDS: MEROPENEM 1 GM in 0.9 % SODIUM CHLORIDE 50 ML IV SCH ×2 (06:17→14:43)
--- NOTE | 2018-01-14 12:32 | Surgical Pathology Report ---
HISTOLOGY SPECIMEN MICROSCOPIC DIAGNOSIS GALLBLADDER, CHOLECYSTECTOMY: -- CHRONIC CHOLECYSTITIS. -- CHOLELITHIASIS. (DMT:delphine) PROCEDURAL IMPRESSION Acute cholecystitis with cholelithiasis without obstruction. GROSS DESCRIPTION Received in formalin labeled "A", is an 8.4 x 3.5 x 1.8 cm pink-myers gallbladder. There are three metal clips identified, none of which are on the duct. The duct does appear to be stapled. The lumen contains multiple multifaceted, smooth yellow stones ranging in size from 0.4 to 1.3 cm. The mucosa is velvety pink-myers. The wall is up to 0.2 cm. [employer] sections submitted - one cassette. (GAS:delphine) Electronically Signed by: Walter Ewing M.D.
--- NOTE | 2018-01-14 14:31 | Discharge Summary ---
Providers - Providers Patient information: Note initiated : 01/14/18 at 2:27 pm Service Date, if different from initiated Date: [] Patient: Mojgan Mesa 42 y/o F admitted on 01/10/18 for Chest Pain/ Cholelithiasis and Cholecystitis. Chief Complaint: [] Date of admission: 01/10/18 Discharge date: 01/14/18 Attending physician: Rahul Lee Hospitalization Hospital course: 2-year-old female admitted via the ER on 10 January with severe abdominal pain, elevated transaminases and normal bilirubin. Upper abdominal exam reveal mild right subcostal tenderness. Ultrasound shows multiple gallstones, but with normal common bile duct. MRCP revealed a distal common bile duct stone. We were unable to get any assistance with ERCP, so her treatment was delayed until she was seen on 12 January by GI. An ERCP with stone extraction was performed. She tolerated that well and a laparoscopic cholecystectomy was performed on 13 January. She has done well and has no complaints. Her bilirubin remains normal, but there is still some elevation in her transaminases. Her pain is well controlled at this time and she is discharged home in stable satisfactory condition. Discharge diagnosis: acute . Cholecystitis with cholelithiasis Secondary discharge diagnosis: Choledocholithiasis Exam Temp Pulse Resp BP Pulse Ox 97.6 F 72 16 135/81 98 01/14/18 12:00 01/14/18 12:00 01/14/18 12:00 01/14/18 12:00 01/14/18 12:00 - General physical appearance well developed, well nourished, no distress - Eyes PERRL, normal ocular movement - ENT normal pinna, normal nares, normal mucosa, no hearing loss, no congestion, poor usp - Head Head exam IM: Present: atraumatic, normocephalic - Neck no masses, no bruits, trachea midline, no lymphadectomy, no venous distension - Cardiovascular Cardiovascular exam IM: Present: normal rate and rhythm - Respiratory normal expansion, normal respiratory effort, clear to percussion, clear to auscultation - Abdomen Abdomen: Present: soft, non tender, bowel sounds, distended (mild abdominal distention with active bowel sounds; port sites unremarkable) Hernia: Present: none - Genitourinary Present: normal external genitalia - Integumentary Present: no rash, no growths, no abnormal pigmentation - Neurologic Present: normal coordination, normal sensation - Musculoskeletal Present: normal gait, normal posture - Psychiatric Present: oriented to time, oriented to person, oriented to place, speech is normal, memory intact Discharge Plan - Patient/Caregiver Discharge Instructions Activity: increase activity as tolerated Diet: Regular Diet Additional Instructions: Keep dressings intact until you return to the office. Follow-up in the office in 2 weeks Prescriptions: oxyCODONE HCL/ACETAMINOPHEN [Endocet 10-325 mg Tablet] 1 tab PO Q4H PRN #30 tab PRN Reason: Pain - Follow up Plan Follow up with: No,PCP [Primary Care Provider] - Disposition: Home, Self-Care Prognosis: Good Rehab Potential: Good I certify that the patient requires SNF services.: No Overall status at discharge: patient is not back to baseline Pending Studies Resuscitation Status Full Code Diet Regular Diet Start FriJan 14 0736 Hydromorphone HCl (Dilaudid) 1 mg IV Q2HP PRN PRN Reason: PAIN LEVEL > 6 Last Admin: 01/14/18 11:56 Dose: 1 mg Admin: 01/14/18 06:17 Dose: 1 mg Admin: 01/14/18 02:17 Dose: 1 mg Admin: 01/13/18 23:06 Dose: 1 mg Admin: 01/13/18 19:47 Dose: 1 mg Admin: 01/13/18 13:25 Dose: 1 mg Lactated Ringer's (Lactated Ringers) 1,000 mls @ 150 mls/hr IV .Q6H40M [facility] Last Admin: 01/14/18 09:58 Dose: Not Given Admin: 01/14/18 06:57 Dose: 150 mls/hr Infusion: 01/14/18 06:56 Dose: 0 mls/hr Admin: 01/14/18 02:38 Dose: Not Given Admin: 01/13/18 23:07 Dose: 150 mls/hr Admin: 01/13/18 19:34 Dose: Not Given Admin: 01/13/18 13:29 Dose: Not Given Meropenem 1 gm/ Sodium (Chloride) 50 mls @ 100 mls/hr IV Q8H [facility] Last Infusion: 01/14/18 06:47 Dose: 0 mls/hr Admin: 01/14/18 06:17 Dose: 100 mls/hr Infusion: 01/13/18 22:50 Dose: 0 mls/hr Admin: 01/13/18 22:16 Dose: 100 mls/hr Infusion: 01/13/18 18:36 Dose: 0 mls/hr Admin: 01/13/18 14:50 Dose: 100 mls/hr Sodium Chloride (Saline Flush) 10 ml IV Q8 [facility] Last Admin: 01/14/18 06:18 Dose: 10 ml Admin: 01/14/18 02:19 Dose: 10 ml Admin: 01/14/18 02:18 Dose: 10 ml Admin: 01/13/18 23:08 Dose: 10 ml Admin: 01/13/18 22:16 Dose: 10 ml Admin: 01/13/18 14:50 Dose: 10 ml Trazodone HCl (Desyrel) 25 mg PO HSP PRN PRN Reason: Insomnia Last Admin: 01/14/18 02:16 Dose: 25 mg Shift Summary 01/14/18 03:05 Shift Summary by Nidhi Patten. A&Ox4. Medicated for pain x 3 tonight with 0.5mg IV Dilaudid. Lap luisito sites covered with film dressing with scant drainage. Full liquid diet tolerated without nausea. Up with SBA to bathroom. IV to R wrist running LR at 150mls/hr. Possible discharge this afternoon. Initialized on 01/14/18 03:05 - END OF NOTE
--- NOTE | 2018-01-22 12:45 | Operative Note ---
DATE OF OPERATION: 01/13/2018 PREOPERATIVE DIAGNOSES: Cholelithiasis with cholecystitis. POSTOPERATIVE DIAGNOSES: Cholelithiasis with cholecystitis and empyema of the gallbladder. PROCEDURE: Laparoscopic cholecystectomy. SURGEON: Rahul Gamez M.D. FINDINGS: Severe inflammation of gallbladder with cystic duct obstruction, multiple large stones in the gallbladder filled with pus. DESCRIPTION: Under general anesthesia, the patient's abdomen was prepped and draped in a sterile field. Timeout procedure was carried out as per protocol. Supraumbilical midline incision was made and Veress needle was inserted uneventfully. Abdomen was insufflated with 2 liters of CO2. A 10 mm port was placed. Laparoscope was placed. Under videoscopic guidance, a 12 mm port and two 5 mm ports were placed in the right subcostal region. The gallbladder was too tensely inflamed and dilated to be grasped, so it was decompressed using a Weck needle. After this was done, the gallbladder was grasped and positioned. There was a large stone at the cystic duct and the infundibulum. This had to be gently pushed back in order to get good grasp of the infundibulum. Cystic duct was then identified and dissected. Cystic artery showed the major branch and then two dividing branches. Each divided branch was dissected, clipped with three clips and divided. This allowed more stretch of the cystic duct. The cystic duct was then followed back to the gallbladder where it was transected using an Endo EDUARDO stapler. The gallbladder was from the infrahepatic bed using electrocautery and blunt dissection. It was placed in an Endopouch and retrieved. Irrigation was carried out until the fluid was clear. CO2 was allowed to escape from the abdomen and the ports were removed. Fascia at the umbilicus was closed with 0 Vicryl interrupted. Skin incisions were closed with filiberto. Tegaderm dressings were placed. The patient tolerated the procedure well. She was awakened, transferred to a bed, and taken to the postanesthetic care unit in a stable, satisfactory condition. LCS:roseanne Job ID: [id number] Doc ID: [id number] Rahul Gamez M.D.
== END 2018-01-14 15:45 | disposition home or self-care (01) | DRG 418 ==
LOC: MEDSUR 06:19 → ED 06:19 → MEDSUR 12:17 → OBSVTOIN 12:20
PROVIDERS: ADMIT Family Medicine Adult Medicine; ATTEND Family Medicine Adult Medicine
PROC: ERCPSTO (2018-01-12 15:00)

== ENCOUNTER 2019-08-18 17:23 | Inpatient (IN) ==
[2019-08-18] MEDS ORDERED: IOPAMIDOL 100 ML BOTTLE IV ONE (17:24)
[2019-08-18] MEDS ORDERED: ONDANSETRON 4 MG/2 ML VIAL IV ONE ×2 (17:54→21:12)
[2019-08-18] MEDS ORDERED: 0.9 % SODIUM CHLORIDE 1,000 ML IV ONE ×2 (17:54→18:43)
--- NOTE | 2019-08-18 17:59 | Emergency Department Note ---
Abdominal Pain HPI - General Chief Complaint: Abdominal Pain Stated Complaint: abdominal pain Time Seen by Provider: 08/18/19 17:53 Source: patient Mode of arrival: wheelchair Limitations: no limitations - History of Present Illness HPI Narrative: Patient is a 43-year-old female comes in the emergency department this evening with complaint of abdominal pain, swelling, and redness to the right lower quadrant of her abdomen that began 3 days ago and has grown larger in size with increasing redness, and pain. She describes the pain as sharp and aching sensation. She rates the pain 6 out of 10 on a 0-10 numerical pain scale. Pain is aggravated with palpation. She has had some constipation. She denies any melena or hematochezia. She does have mild nausea without vomiting. She denies having any fevers, but has felt chilled at times. - Related Data Home Medications Medication Instructions Recorded Confirmed No Known Home Meds 08/18/19 08/18/19 Allergies Allergy/AdvReac Type Severity Reaction Status Date / Time Amoxicillin Allergy Unknown Verified 08/18/19 17:28 ampicillin Allergy Verified 08/18/19 17:28 Erythromycin Base Allergy Unknown Verified 08/18/19 17:28 contact metal agent AdvReac Intermediate Other Verified 08/18/19 17:28 Review of Systems All systems ED: reviewed and negative except as stated. Abdominal Pain PMH - Past Medical History LMP comments: week(s) (2 weeks ago) Medical history: Reports: other (Methamphetamine drug abuse) Surgical history ED: Reports: Family history: Reports: other (mother - angina.) - Social History Smoking status: Current every day smoker Physical Exam Limitations: no limitations General appearance: alert, in no apparent distress Head: atraumatic, normocephalic Eye: Present: normal appearance ENT: Present: normal oropharynx, mucous membranes moist Neck: Present: normal inspection. Absent: lymphadenopathy Chest: Present: symmetric chest wall rise Respiratory: Present: normal lung sounds bilaterally. Absent: respiratory distress, rales/crackles, wheezes, stridor, accessory muscle use, prolonged expiratory phase Cardiovascular: Present: normal rhythm, tachycardia. Absent: systolic murmur, diastolic murmur Abdominal: Present: other (Abdomen has a 9 cm in diameter circular raised firm tender mass in the right lower quadrant. Erythema to the skin. Area is mildly warm to touch. Significantly tender to palpate.) Extremities: Present: normal inspection, full ROM, normal capillary refill. Absent: pedal edema, pretibial edema, calf tenderness Back: Present: normal inspection, full ROM. Absent: CVA tenderness (R), CVA tenderness (L), spinous process tenderness Neurological: Present: alert, oriented X3 Psychiatric: Present: normal affect, normal mood Skin: Present: warm, dry, intact Course Vital Signs Temperature 97.7 F 08/18/19 17:24 Pulse Rate 127 H 08/18/19 17:24 Respiratory Rate 20 08/18/19 17:24 Blood Pressure 117/81 08/18/19 17:24 Pulse Oximetry (%) 99 08/18/19 17:24 Temperature 97.7 F 08/18/19 17:24 Pulse Rate 126 H 08/18/19 18:46 Respiratory Rate 20 08/18/19 18:46 Blood Pressure 90/55 08/18/19 18:46 Pulse Oximetry (%) 100 08/18/19 18:46 Abdominal Pain - MDM Narrative Medical decision making narrative: Patient was assessed and ordered a POC chem 8 to proceed with abdominal CT scan. Abdominal CT Steed to my review shows an incarcerated hernia. I reviewed the CT today with Dr. Cooper. Radiology reports are pending at this time. Spoke with general surgeon, Dr. Gamez at 1825 about the patient and the findings seen on CT scan. Dr. Gamez will accept the patient for admission to the [facility] floor, and he will evaluate the patient on the floor to see about surgical procedure. Spoke with Dr. Bayron Gamez again at 1840 about patient's CBC that shows H emoglobin 7 and hematocrit 23.5. White count 22.5. Platelets 981. Ordered 1 additional liter of normal saline IV for a total of 2 L. H&H is being typed and crossed with 2 units of packed red blood cells per standby. Dr. Gamez will come into the hospital to the patient and plan on surgery. - Lab Data Result diagrams: 08/18/19 18:03 08/18/19 18:03 Lab Results 08/18/19 08/18/19 Range/Units 18:03 18:03 WBC 22.5 H (4.50-11.00) K/mcL RBC 3.12 L (3.59-5.38) M/mcL Hgb 7.0 L* (11.2-15.7) g/dL Hct 23.5 L (34.1-44.9) % POC Hct 22.0 L (36.0-48.0) % MCV 75.3 L (80.0-100.0) fL MCH 22.4 L (26.0-34.0) pg MCHC 29.8 L (31.0-36.0) g/dL RDW 19.2 H (11.5-14.5) % Plt Count 981 H* (140-440) K/mcL MPV 8.3 (7.4-10.4) fL Gran % 87.6 H (38.0-78.0) % Lymph % (Auto) 4.1 L (15.5-49.0) % Pickett % (Auto) 7.5 (1.0-12.0) % Eos % (Auto) 0.5 (0.0-7.0) % Baso % (Auto) 0.3 (0.0-2.0) % Gran # 19.67 H (1.80-8.00) K/mcL Lymph # (Auto) 0.92 L (1.50-4.80) K/mcL Pickett # (Auto) 1.69 H (0.10-0.90) K/mcL Eos # (Auto) 0.11 (0.00-0.70) K/mcL Baso # (Auto) 0.06 (0.00-0.30) K/mcL POC Sodium 133 (133-145) mmol/L Sodium 132 L (133-145) mmol/L POC Potassium 3.2 L (3.3-5.1) mmol/L Potassium 3.2 L (3.3-5.1) mmol/L POC Chloride 98 (96-108) mmol/L Chloride 93 L (96-108) mmol/L Carbon Dioxide 23 (22-30) mmol/L POC Total CO2 27 (22-30) mmol/L Anion Gap 16.0 (8-16) POC BUN 11 (6-20) mg/dl BUN 12 (6-20) mg/dl Creatinine 0.8 (0.6-1.1) mg/dl POC Creatinine 0.8 (0.6-1.1) mg/dl GFR Calculation 90 Glucose 113 H (70-105) mg/dL POC Glucose 102 (70-105) mg/dL Calcium 9.1 (8.6-10.4) mg/dl POC WB Ioniz Calcium 1.17 (1.16-1.32) mmol/L Total Bilirubin 0.3 (0.0-1.0) mg/dL AST 8 (0-37) U/l ALT 5 (0-40) U/l Alkaline Phosphatase 139 H (39-117) U/L Total Protein 7.1 (5.9-8.4) gm/dL Albumin 2.3 L (3.2-5.2) gm/dL Globulin 4.8 H (2.2-3.7) gm/dL Albumin/Globulin Ratio 0.5 L (1.0-2.3) - Radiology Data Ordering Physician: Lucho Simental Date of Service: 08/18/19 Procedure(s): CT abdomen pelvis w con Accession Number(s): [id number] CLINICAL INFORMATION: Abdominal pain COMPARISON: 01/16/[address] TECHNIQUE: Following enteric contrast, 80 cc of Isovue-370 were injected intravenously, and 60 seconds later, 0.625 mm helical slices were obtained from the mid heart through the subtrochanteric regions. Following reconstruction, 2.5 mm sagittal, coronal and axial reformatted images were processed and reviewed at bone, lung and soft tissue windows. Five minutes later, 0.625 mm helical slices were obtained from the mid heart through the kidneys and viewed at soft tissue windows.The exam was performed using radiation dose optimization techniques including, but not limited to, automated exposure control, adjustment of the mA and/or kV according to patient size and use of iterative reconstruction technique. FINDINGS: The lung bases show no abnormality - no effusion. The visualized heart is normal. Abdominal images show mild fatty change of the liver which are stable. Gallbladder is surgically absent. Common bile duct is mildly dilated to 9 mm compatible with post cholecystectomy state. Both kidneys, adrenal glands, spleen, pancreas and aorta including aortic branches are normal in size, configuration and attenuation without focal lesion. Pelvic images show urinary bladder is unremarkable. Uterus is anteflexed and normal size: 8 x 4 cm. Endometrium is normal thickness 12 mm. Both ovaries are normal. There is moderate wall thickening of a 10 cm segment of the mid sigmoid colon. In this same region, there is also moderate wall thickening of the terminal ileum and cecum. On image 114, in the right lower quadrant, there is a 6 mm calcification which may represent an appendicolith - the appendix, if present may be obscured by phlegmon. A 7 x 4 cm thick walled fluid collection in the retrocecal region contains air almost certainly representing a retrocecal abscess. A second 7.5 cm thick-walled fluid collection containing gas in the anterior mesenteric cavity of the false pelvis transgressed through the anterior abdominal wall into Camper's fascia. Stomach, small and large bowel show mild symmetric dilatation compatible with ileus - no evidence of obstruction. There is moderate inflammation in the adjacent right psoas suggest superimposed infection. The bone windows show no osseous abnormality IMPRESSION: 1. In the right lower quadrant, there is a complex constellation of findings including: Moderate wall thickening of the cecum, terminal ileum and adjacent an 10 cm segment of mid sigmoid colon. There is also moderate phlegmon. A 6 mm calcification in the right lower quadrant may represent an appendicolith indicating appendicitis. The appendix, if present, may be obscured by surrounding phlegmon. In addition, there are are two local abscesses: 7 cm in the posterior pericecal region and 7.5 cm the anterior central mesenteric cavity of the false pelvis just transgressed through the anterior abdominal wall into Camper's fascia. Suggest surgical consult. Interpreted and Authenticated by: Iván Espinoza 08/18/19 Disposition Pt seen by [facility]/PA only: No (Dr. Gamez) Clinical Impression: Incarcerated hernia of abdominal cavity, Abdominal pain Disposition: Xfer As Inpt ([facility]) Condition: Fair Referrals: No,PCP [Primary Care Provider] -
[2019-08-18] MEDS ORDERED: HYDROmorphone* 2 MG/ML VIAL IV SCH (18:00)
[2019-08-18 18:11] LABS: POC Blood Urea Nitrogen 11 mg/dl (6-20); POC CO2 27 mmol/L (22-30); POC Calcium, Ionized 1.17 mmol/L (1.16-1.32); POC Chloride 98 mmol/L (96-108); POC Creatinine 0.8 mg/dl (0.6-1.1); POC Glucose, Random 102 mg/dL (70-105); POC Potassium 3.2 mmol/L (3.3-5.1); POC Sodium 133 mmol/L (133-145)
[2019-08-18 18:30] LABS: Basophils # (Auto) 0.06 K/mcL (0.00-0.30); Basophils % (Auto) 0.3 % (0.0-2.0); Eosinophils # (Auto) 0.11 K/mcL (0.00-0.70); Eosinophils % (Auto) 0.5 % (0.0-7.0); Granulocytes % (Auto) 87.6 % (38.0-78.0); Hematocrit 23.5 % (34.1-44.9); Lymphocytes # (Auto) 0.92 K/mcL (1.50-4.80); Lymphocytes % (Auto) 4.1 % (15.5-49.0); Mean Cell Volume 75.3 fL (80.0-100.0); Mean Corpuscular HGB Conc 29.8 g/dL (31.0-36.0); Mean Platelet Volume 8.3 fL (7.4-10.4); Monocytes # (Auto) 1.69 K/mcL (0.10-0.90); Monocytes % (Auto) 7.5 % (1.0-12.0); Platelet Count 981 K/mcL (140-440); RBC 3.12 M/mcL (3.59-5.38); Red Cell Distribution Width 19.2 % (11.5-14.5); WBC 22.5 K/mcL (4.50-11.00)
[2019-08-18] MEDS ORDERED: LEVOFLOXACIN 750 MG/150 ML BAG IV ONE (18:30)
[2019-08-18] MEDS ORDERED: HYDROmorphone* 2 MG/ML VIAL IV PRN ×3 (18:31→23:57)
[2019-08-18] MEDS ORDERED: ONDANSETRON 4 MG/2 ML VIAL IV PRN ×5 (18:31→23:57)
[2019-08-18 18:45] LABS: ALT/SGPT 5 U/l (0-40); AST/SGOT 8 U/l (0-37); Albumin 2.3 gm/dL (3.2-5.2); Albumin/Globulin Ratio 0.5 (1.0-2.3); Alkaline Phosphatase 139 U/L (39-117); Bilirubin,Total 0.3 mg/dL (0.0-1.0); Blood Urea Nitrogen 12 mg/dl (6-20); Calcium 9.1 mg/dl (8.6-10.4); Carbon Dioxide 23 mmol/L (22-30); Globulin 4.8 gm/dL (2.2-3.7); Glomerular Filtration Rate 90; Glucose 113 mg/dL (70-105)
[2019-08-18] MEDS ORDERED: 0.9 % SODIUM CHLORIDE 250 ML IV SCH ×3 (18:45→23:57)
[2019-08-18] MEDS ORDERED: LEVOFLOXACIN 500 MG/100 ML BAG IV SCH (18:45)
[2019-08-18 18:53] LABS: Chloride 93 mmol/L (96-108)
--- NOTE | 2019-08-18 18:55 | Cat Scan Report ---
CLINICAL INFORMATION: Abdominal pain COMPARISON: 01/16/[address] TECHNIQUE: Following enteric contrast, 80 cc of Isovue-370 were injected intravenously, and 60 seconds later, 0.625 mm helical slices were obtained from the mid heart through the subtrochanteric regions. Following reconstruction, 2.5 mm sagittal, coronal and axial reformatted images were processed and reviewed at bone, lung and soft tissue windows. Five minutes later, 0.625 mm helical slices were obtained from the mid heart through the kidneys and viewed at soft tissue windows.The exam was performed using radiation dose optimization techniques including, but not limited to, automated exposure control, adjustment of the mA and/or kV according to patient size and use of iterative reconstruction technique. FINDINGS: The lung bases show no abnormality - no effusion. The visualized heart is normal. Abdominal images show mild fatty change of the liver which are stable. Gallbladder is surgically absent. Common bile duct is mildly dilated to 9 mm compatible with post cholecystectomy state. Both kidneys, adrenal glands, spleen, pancreas and aorta including aortic branches are normal in size, configuration and attenuation without focal lesion. Pelvic images show urinary bladder is unremarkable. Uterus is anteflexed and normal size: 8 x 4 cm. Endometrium is normal thickness 12 mm. Both ovaries are normal. There is moderate wall thickening of a 10 cm segment of the mid sigmoid colon. In this same region, there is also moderate wall thickening of the terminal ileum and cecum. On image 114, in the right lower quadrant, there is a 6 mm calcification which may represent an appendicolith - the appendix, if present may be obscured by phlegmon. A 7 x 4 cm thick walled fluid collection in the retrocecal region contains air almost certainly representing a retrocecal abscess. A second 7.5 cm thick-walled fluid collection containing gas in the anterior mesenteric cavity of the false pelvis transgressed through the anterior abdominal wall into Camper's fascia. Stomach, small and large bowel show mild symmetric dilatation compatible with ileus - no evidence of obstruction. There is moderate inflammation in the adjacent right psoas suggest superimposed infection. The bone windows show no osseous abnormality IMPRESSION: 1. In the right lower quadrant, there is a complex constellation of findings including: Moderate wall thickening of the cecum, terminal ileum and adjacent an 10 cm segment of mid sigmoid colon. There is also moderate phlegmon. A 6 mm calcification in the right lower quadrant may represent an appendicolith indicating appendicitis. The appendix, if present, may be obscured by surrounding phlegmon. In addition, there are are two local abscesses: 7 cm in the posterior pericecal region and 7.5 cm the anterior central mesenteric cavity of the false pelvis just transgressed through the anterior abdominal wall into Camper's fascia. Suggest surgical consult. Interpreted and Authenticated by: Iván Espinoza 08/18/19
[2019-08-18 19:12] LABS: C-Reactive Protein 33.2 mg/dl (0.0-0.8)
[2019-08-18 19:27] LABS: Erythrocyte Sedimentation Rate > 120 mm/hr (0-20)
[2019-08-18] MEDS ORDERED: ALBUMIN HUMAN 25 GM/100 ML BAG IV ONE (20:04)
[2019-08-18] MEDS ORDERED: ALBUMIN HUMAN 50 GM/200 ML BAG IV ONE ×2 (20:19→20:30)
--- NOTE | 2019-08-18 20:31 | General Surg History&Physical ---
History of Present Illness Patient information: Note initiated : 08/18/19 at 8:27 pm Service Date, if different from initiated Date: [] Patient: Mojgan Mesa 43 y/o F admitted on 08/18/19 for abdominal pain. Chief Complaint: [] HPI: Ms. Mesa is a 43 year old F admitted with extensive abscesses in the right i liopsoas area, retrocecal area and right sided abdominal wall. The abscess extends through the abdominal wall. 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 She presents with sepsis and hypotension with white count 22,000. The patient has been sick for greater than a while but has not come to the hospital because of lack of insurance. She states that the pain has persisted in the right lower quadrant. During this time and she finally came to the emergency room when she could no longer the pain. She denies having nausea vomiting. She has had some fever chills. She is extremely emaciated. Patient has been given IV fluids and started on antibiotics. Her blood pressure has risen from 80-104 systolic. She will be explored tonight with drainage of the multiple abscesses. Review of Systems - Constitutional chills, fatigue, fever(s), malaise, weakness, weight loss - Cardiovascular rapid heart rate, no dyspnea on exertion, no pedal edema, no syncope - Respiratory no cough, no wheezing, no chest congestion - Gastrointestinal abdominal pain, change in bowel habits, constipation, nausea - Genitourinary Genitourinary: flank pain, urinary hesitancy, urinary urgency - Musculoskeletal abnormal gait, muscle weakness, no back pain - Integumentary no pruritus, no rash - Neurological abnormal gait, weakness, no syncope, no vertigo - Psychiatric anxiety, depression - Endocrine fatigue - Hematologic/Lymphatic no easy bleeding, no easy bruising, no lymphadenopathy - Allergic/Immunologic no tongue swelling, no throat swelling, no uticaria, no wheezing, no lip swelling Past History Past medical history: No chronic medical illness Past surgical history: Laparoscopic cholecystectomy 2018 ERCP 2018 Past family history: Father with history of coronary artery disease. Grandparents with coronary artery disease Past social history: Employment Prior history of alcohol use. Prior history of polysubstance abuse including marijuana and amphetamine Medications and Allergies Home Medications Medication Instructions Recorded Confirmed Type Ibuprofen [Addaprin] 400 mg PO Q4-6HP PRN 08/18/19 08/18/19 History Allergies Allergy/AdvReac Type Severity Reaction Status Date / Time Amoxicillin Allergy Unknown Verified 08/18/19 17:28 ampicillin Allergy Unknown Verified 08/18/19 19:28 Erythromycin Base Allergy Unknown Verified 08/18/19 17:28 contact metal agent AdvReac Intermediate Other Verified 08/18/19 19:28 Exam Temp Pulse Resp BP Pulse Ox 97.7 F 126 H 20 90/55 100 08/18/19 17:24 08/18/19 18:46 08/18/19 18:46 08/18/19 18:46 08/18/19 18:46 - General physical appearance severe distress, severe pain, cachectic, chronically ill - Eyes PERRL, normal ocular movement - ENT normal pinna, normal nares, normal mucosa, no hearing loss, no congestion - Head Head exam IM: Present: atraumatic, normocephalic - Neck no masses, no bruits, trachea midline, no lymphadenopathy, no venous distension - Cardiovascular Cardiovascular exam IM: Present: normal rate and rhythm, RRR, +S1, +S2, tachycardia. Absent: JVD - Respiratory normal expansion, normal respiratory effort, clear to auscultation - Abdomen Abdomen: Present: tender (distended, large palpable tenderness, inflammatory mass right lower quadrant abdominal), bowel sounds Hernia: Present: none - Genitourinary Present: normal external genitalia - Integumentary Present: no rash, no growths, no abnormal pigmentation - Neurologic Present: normal coordination, normal sensation - Musculoskeletal Present: other ( positive psoas sign with inability to straighten right lower extremity due to iliopsoas abscess) - Psychiatric Present: oriented to time, oriented to person, oriented to place, speech is normal, memory intact Assessment and Plan (1) Iliopsoas abscess on right Normal saline 2 L. Albumin 50 g IV. Levaquin 750 mg IV. Flagyl 500 mg IV. operating room tonight for laparotomy with drainage of multiple abscesses Status: Acute (2) Abdominal wall abscess Status: Acute (3) Sepsis Status: Acute
[2019-08-18] MEDS ORDERED: SENNOSIDES 1 TABLET PO SCH (21:00)
[2019-08-18] MEDS ORDERED: DOCUSATE SODIUM 100 MG CAPSULE PO SCH (21:00)
[2019-08-18] MEDS ORDERED: metroNIDAZOLE 500 MG/100 ML BAG IV SCH ×2 (21:00→23:57)
[2019-08-18] MEDS: LACTATED RINGERS 1,000 ML IV SCH (21:01)
[2019-08-18 21:11] LABS: Amphetamine Screen,Urine SUSPECT POSITIVE (NONDETECTED); Barbiturate Screen,Urine NONE DETECTED (NONDETECTED); Benzodiazepines Screen,Urine NONE DETECTED (NONDETECTED); Cannabinoid Screen,Urine SUSPECT POSITIVE (NONDETECTED); Cocaine Screen,Urine NONE DETECTED (NONDETECTED); Opiate Screen,Urine NONE DETECTED (NONDETECTED); Oxycodone, Urine Screen NONE DETECTED (NONDETECTED); Phencyclidine Screen,Urine NONE DETECTED (NONDETECTED)
[2019-08-18] MEDS ORDERED: SUGAMMADEX SODIUM 200 MG/2 ML VIAL IV ONE (21:12)
[2019-08-18] MEDS ORDERED: fentaNYL 250 MCG/5 ML VIAL IV ONE (21:12)
[2019-08-18] MEDS ORDERED: LIDOCAINE HCL/PF 100 MG/5 ML SYRINGE IV ONE (21:12)
[2019-08-18] MEDS ORDERED: DEXAMETHASONE 10 MG/ML VIAL IV ONE (21:12)
[2019-08-18] MEDS ORDERED: PROPOFOL 200 MG/20 ML VIAL IV ONE (21:12)
[2019-08-18] MEDS ORDERED: KETAMINE 100 MG/ML ML IV ONE (21:12)
[2019-08-18] MEDS ORDERED: ROCURONIUM 10 MG/ML ML IV ONE (21:12)
[2019-08-18] MEDS ORDERED: TRANEXAMIC ACID 1,000 MG/10 ML VIAL IV ONE (21:12)
[2019-08-18] MEDS ORDERED: 0.9 % SODIUM CHLORIDE 10 ML SYRINGE IV SCH (22:00)
[2019-08-18] MEDS ORDERED: ACETAMINOPHEN 1,000 MG/100 ML BOTTLE IV ONE ×2 (22:14→23:04)
[2019-08-18] MEDS ORDERED: PROMETHAZINE 25 MG/ML VIAL IV PRN ×3 (22:14→23:57)
[2019-08-18] MEDS ORDERED: IPRATROPIUM/ALBUTEROL 3 ML AMPUL.NEB NEB PRN ×2 (22:14→23:57)
[2019-08-18] MEDS ORDERED: KETOROLAC 30 MG/ML VIAL IV PRN ×2 (22:14→23:57)
[2019-08-18] MEDS ORDERED: MEPERIDINE 25 MG/ML SYRINGE IV PRN ×2 (22:14→23:57)
[2019-08-18] MEDS ORDERED: NALOXONE HCL 0.4 MG/ML VIAL IV PRN ×2 (22:14→23:57)
[2019-08-18] MEDS ORDERED: diphenhydrAMINE 50 MG/ML VIAL IV PRN ×2 (22:14→23:57)
[2019-08-18] MEDS ORDERED: LACTATED RINGERS 250 ML IV PRN ×2 (22:14→23:57)
[2019-08-18] MEDS ORDERED: LACTATED RINGERS 1,000 ML IV SCH ×3 (22:15→23:57)
--- NOTE | 2019-08-18 22:44 | Brief Operative Note ---
Date of procedure: 08/18/19 Pre-op diagnosis: subcutaneous,retrocecal and iliopsoas abscess Post-op diagnosis: same (subcutaneous,retrocecal and iliopsoas abscess) Procedure: exploratory laparotomy with drainage of subcutaneous,retrocecal and iliopsoas abscess Grafts/Implants: No Anesthesia: GETA Findings: large abscess that extended from retrocecal area to iliopsoas area superiorly and inferiorly in retroperitoneal space to supravesicle area and through lower rectus fascia into subcutaneous space appendix not definitively identified;right tube secondarily involved but not destroyed Complications: none Surgeon: Rahul Gamez Estimated blood loss (cc): 200 Specimens Removed/Pathology: other (fluid for culture) Condition: stable Disposition: ICU
[2019-08-18] MEDS ORDERED: GELATIN SPONGE,ABSORBABLE 1 EACH SPONGE TOPICAL ONE ×2 (23:00→23:57)
[2019-08-18] MEDS ORDERED: fentaNYL 100 MCG/2 ML VIAL IV ONE (23:10)
[2019-08-18] MEDS: fentaNYL 100 MCG/2 ML VIAL IV PRN ×4 (23:11→23:30)
[2019-08-18] MEDS: HYDROmorphone* 2 MG/ML VIAL IV PRN ×2 (23:33→23:44)
[2019-08-18] MEDS ORDERED: LEVOFLOXACIN 750 MG/150 ML BAG IV SCH (23:57)
[2019-08-18] MEDS ORDERED: fentaNYL 100 MCG/2 ML VIAL IV PRN (23:57)
[2019-08-19] MEDS: LACTATED RINGERS 1,000 ML IV SCH ×4 (00:10→19:50)
[2019-08-19] MEDS: ACETAMINOPHEN 1,000 MG in PREMIX 1 BAG IV SCH ×2 (00:32→11:45)
[2019-08-19] MEDS ORDERED: HYDROmorphone* 2 MG/ML VIAL ONE ×2 (01:31→03:40)
[2019-08-19] MEDS: HYDROmorphone* 2 MG/ML VIAL IV PRN ×4 (01:39→15:42)
[2019-08-19 01:47] LABS: Appearance,Urine CLEAR; Bacteria,Urine MOD /hpf (0); Bilirubin,Urine NEG (NEG); Color,Urine STRAW; Culture Indicated,Urine YES; Glucose,Urine (UA) NEGATIVE (NEG); Ketones,Urine NEG (NEG); Leukocyte Esterase,Urine NEG /uL (NEG); Nitrate,Urine POS (NEG); Protein,Urine NEG (NEG); Specific Gravity,Urine 1.024 (1.000-1.035); Urine Blood 0.2 mg/dL (<0.03); Urine RBC 2 /hpf (0-1); Urine Squamous Epithelial Cell 2 /hpf (0-4); Urine WBC 3 /hpf (0-4); Urobilinogen,Urine NEG (NEG)
[2019-08-19] MEDS ORDERED: metroNIDAZOLE 500 MG/100 ML BAG IV ONE (02:36)
[2019-08-19] MEDS: metroNIDAZOLE 500 MG/100 ML BAG IV SCH ×5 (02:42→17:39)
[2019-08-19] MEDS ORDERED: ONDANSETRON 4 MG/2 ML VIAL ONE (05:53)
[2019-08-19] MEDS: 0.9 % SODIUM CHLORIDE 10 ML SYRINGE IV SCH ×3 (06:12→22:00)
[2019-08-19 06:18] LABS: Basophils # (Auto) 0.04 K/mcL (0.00-0.30); Basophils % (Auto) 0.1 % (0.0-2.0); Eosinophils # (Auto) 0.01 K/mcL (0.00-0.70); Eosinophils % (Auto) 0 % (0.0-7.0); Granulocytes % (Auto) 96.3 % (38.0-78.0); Hematocrit 29.4 % (34.1-44.9); Hemoglobin 9.4 g/dL (11.2-15.7); Lymphocytes % (Auto) 2.6 % (15.5-49.0); Mean Cell Volume 81.7 fL (80.0-100.0); Mean Platelet Volume 8.3 fL (7.4-10.4); Monocytes # (Auto) 0.27 K/mcL (0.10-0.90); Platelet Count 712 K/mcL (140-440); Red Cell Distribution Width 19.5 % (11.5-14.5); WBC 27.2 K/mcL (4.50-11.00)
[2019-08-19 06:52] LABS: ALT/SGPT 5 U/l (0-40); AST/SGOT 9 U/l (0-37); Albumin 2.6 gm/dL (3.2-5.2); Albumin/Globulin Ratio 0.7 (1.0-2.3); Alkaline Phosphatase 113 U/L (39-117); Bilirubin,Direct 0.2 mg/dL (0.0-0.3); Bilirubin,Total 0.5 mg/dL (0.0-1.0); Blood Urea Nitrogen 8 mg/dl (6-20); Calcium 8.6 mg/dl (8.6-10.4); Carbon Dioxide 21 mmol/L (22-30); Chloride 101 mmol/L (96-108); Globulin 3.7 gm/dL (2.2-3.7); Glomerular Filtration Rate 111; Glucose 128 mg/dL (70-105); Lactate Dehydrogenase 151 U/L (94-250); Phosphorous 3.8 mg/dL (2.7-4.5); Triglycerides 71 mg/dl (<150); Uric Acid 3.5 mg/dL (2.5-8.0)
[2019-08-19] MEDS: PANTOPRAZOLE 40 MG VIAL IV SCH ×2 (07:43→17:27)
[2019-08-19] MEDS: ACETAMINOPHEN 650 MG/65 ML BOTTLE IV SCH ×2 (07:45→12:39)
[2019-08-19] MEDS ORDERED: DOCUSATE SODIUM 100 MG CAPSULE PO SCH (09:00)
[2019-08-19] MEDS ORDERED: METHYLNALTREXONE BROMIDE 12 MG/0.6 ML SYRINGE SQ SCH (09:00)
[2019-08-19] MEDS ORDERED: LEVOFLOXACIN 750 MG/150 ML BAG IV SCH (09:00)
[2019-08-19] MEDS ORDERED: MAGNESIUM SULFATE 32.48 MEQ in DEXTROSE 5% IN WATER 50 ML IV ONE (09:25)
[2019-08-19] MEDS ORDERED: MAGNESIUM SULFATE 4 GM/100 ML BAG IV ONE (10:00)
[2019-08-19] MEDS: METOCLOPRAMIDE 10 MG/2 ML VIAL IV SCH ×3 (12:06→17:40)
--- NOTE | 2019-08-19 15:55 | Operative Note ---
DATE OF OPERATION: 08/18/2019 PREOPERATIVE DIAGNOSES: Subcutaneous retrocecal and iliopsoas abscess. POSTOPERATIVE DIAGNOSES: Subcutaneous retrocecal and iliopsoas abscess. PROCEDURE: Exploratory laparotomy with drainage of subcutaneous retrocecal and iliopsoas abscess. SURGEON: Rahul Gamez M.D. FINDINGS: Large abscess that extended from retrocecal area to iliopsoas area with further extension superiorly and inferiorly in the retroperitoneal space to the supravesical area and the dome of the bladder, extending through the lower rectus fascia into the subcutaneous area in the hypogastrium. Large inflammatory, tender mass ___ lower quadrant. The right tube was secondarily involved but was not severely destroyed. The appendix was not definitively identified, though it is my impression that all of this started with a ruptured appendix. DESCRIPTION OF PROCEDURE: Under general anesthesia, the patient's abdomen was prepped and draped in a sterile field. Timeout procedure was carried out as per protocol. An 18-gauge needle was used to aspirate the large abscess on the right lower abdominal wall. The abscess contained a large amount of creamy, purulent fluid but was extremely thick. An incision was then made in the midline, starting supraumbilically and then extending infraumbilically in the midline. The abscess cavity of the abdominal wall was entered and cultures were taken, and this area was then irrigated. Once this was irrigated, at the end of the abscess cavity immediately above the pubis, there was evidence of destruction of the muscle, and there was a tract that extended into the retroperitoneal space behind the pubis, along the course of the dome of the bladder. This was copiously irrigated. The fascia was then opened and the peritoneal cavity was entered. There was a small amount of clear fluid. There was an extensive amount of inflammation involving the cecum. The cecum was densely adherent to the lateral wall in the right gutter and into the pelvis. Using blunt dissection, the right tube and ovary were from the inflammatory mass. They appeared to be viable and were not transected. Once this was done, the abscess at the base of the cecum was entered, and it was irrigated and suctioned. Lateral to this abscess, there was another tract that extended into the deep right retrocecal area and extended up close to the lower margin of the ascending colon. This also extended laterally along the path of the psoas muscle. Using blunt dissection, finger fractionation was carried out and the fluid was irrigated. Next, the cecum was further dissected until it was elevated. The end of the cecum was seen, but there was no appendix identifiable, although the tissue was extremely friable and inflamed. It was my impression based on the path of this abscess that it started as a retrocecal appendix with perforation. I copiously irrigated each of the three major cavities and decided that I would reevaluate her in about 48 hours to make sure that all purulence was removed. Once all of the abscesses were adequately drained and irrigated, sponge, needle, instrument, and blade counts were verified as correct. Because of oozing from the retroperitoneum, multiple sheets of Gelfoam were placed in the deep cavity that extended along the iliopsoas. A Zafar drain was placed in this cavity and brought out in the right lower quadrant. Another drain was placed in the retrocecal area and brought out in the right lower quadrant. The pelvis was irrigated once more and the fascia was approximated using #1 Vicryl. The abscess cavity of the abdominal wall was packed with Aquacel AG gauze. The skin was left open. Next, 4 x 4s and Tegaderm dressings were placed. The patient was awakened, transferred to a bed, and taken to the postanesthetic care unit in much improved condition with stable vital signs. LCS:roseanne Job ID: [id number] Doc ID: [id number] Rahul Gamez M.D.
--- NOTE | 2019-08-19 16:11 | General Surgery Progress Note ---
Subjective Patient reports: still having pain, no flatus, no bowel movement, afebrile Narrative: Note initiated : 08/19/19 at 4:09 pm Service Date, if different from initiated Date: [] Patient: Mojgan Mesa 43 y/o F admitted on 08/18/19 for abdominal pain. Chief Complaint: [patient has been clinically stable. She has been afebrile. Her pain is still not well controlled. She denies nausea. She has not had fl atus or bowel movement. YISEL drains have a modest amount of serosanguineous drainage. White blood count 27.2, hemoglobin 9.4, hematocrit 29.4, potassium 3.7, magnesium 1.5. Urine drug screen from last evening shows positive THC and amphetamine. I was able to talk to patient she finally admits that she use amphetamines as recent As prior to coming to the hospital.] Objective Temp Pulse Resp BP Pulse Ox 97.2 F 79 18 115/59 96 08/19/19 12:02 08/19/19 12:13 08/19/19 12:13 08/19/19 12:02 08/19/19 12:13 - Additional Data Intake & Output - Last 24 hours: Intake & Output 08/17/19 08/18/19 08/19/19 08/20/19 05:59 05:59 05:59 05:59 Intake Total 5197 1615 Output Total 1335 440 Balance 3862 1175 Weight 98 lb 98 lb - General physical appearance severe pain, cachectic, chronically ill - Eyes PERRL, normal ocular movement - ENT normal pinna, normal nares, normal mucosa, no hearing loss, no congestion - Neck no masses, no bruits, trachea midline, no lymphadenopathy, no venous distension - Respiratory normal expansion, normal respiratory effort, clear to auscultation - Cardiovascular Cardiovascular exam: Present: normal rate and rhythm, RRR, +S1, +S2. Absent: JVD, tachycardia - Abdomen tender (tender abdomen diffusely), distended (. Moderate abdominal distention with a few active bowel sounds) - Integumentary no rash, no growths, no abnormal pigmentation - Neurologic normal coordination, normal sensation - Musculoskeletal normal gait, normal posture - Psychiatric oriented to time, oriented to person, oriented to place, speech is normal, memory intact - Labs 08/19/19 05:00 08/19/19 05:00 Diabetes panel 08/18/19 08/19/19 Range/Units 18:03 05:00 Sodium 132 L 137 (133-145) mmol/L Potassium 3.2 L 3.7 (3.3-5.1) mmol/L Chloride 93 L 101 (96-108) mmol/L Carbon Dioxide 23 21 L (22-30) mmol/L BUN 12 8 (6-20) mg/dl Creatinine 0.8 0.6 (0.6-1.1) mg/dl Glucose 113 H 128 H (70-105) mg/dL Calcium 9.1 8.6 (8.6-10.4) mg/dl AST 8 9 (0-37) U/l ALT 5 5 (0-40) U/l Alkaline Phosphatase 139 H 113 (39-117) U/L Total Protein 7.1 6.3 (5.9-8.4) gm/dL Albumin 2.3 L 2.6 L (3.2-5.2) gm/dL Triglycerides 71 (<150) mg/dl Calcium panel 08/18/19 08/19/19 Range/Units 18:03 05:00 Calcium 9.1 8.6 (8.6-10.4) mg/dl Phosphorus 3.8 (2.7-4.5) mg/dL Albumin 2.3 L 2.6 L (3.2-5.2) gm/dL Pituitary panel 08/18/19 08/19/19 Range/Units 18:03 05:00 Sodium 132 L 137 (133-145) mmol/L Potassium 3.2 L 3.7 (3.3-5.1) mmol/L Chloride 93 L 101 (96-108) mmol/L Carbon Dioxide 23 21 L (22-30) mmol/L BUN 12 8 (6-20) mg/dl Creatinine 0.8 0.6 (0.6-1.1) mg/dl Glucose 113 H 128 H (70-105) mg/dL Calcium 9.1 8.6 (8.6-10.4) mg/dl Adrenal panel 08/18/19 08/19/19 Range/Units 18:03 05:00 Sodium 132 L 137 (133-145) mmol/L Potassium 3.2 L 3.7 (3.3-5.1) mmol/L Chloride 93 L 101 (96-108) mmol/L Carbon Dioxide 23 21 L (22-30) mmol/L BUN 12 8 (6-20) mg/dl Creatinine 0.8 0.6 (0.6-1.1) mg/dl Glucose 113 H 128 H (70-105) mg/dL Calcium 9.1 8.6 (8.6-10.4) mg/dl Total Bilirubin 0.3 0.5 (0.0-1.0) mg/dL AST 8 9 (0-37) U/l ALT 5 5 (0-40) U/l Alkaline Phosphatase 139 H 113 (39-117) U/L Total Protein 7.1 6.3 (5.9-8.4) gm/dL Albumin 2.3 L 2.6 L (3.2-5.2) gm/dL Assessment and Plan (1) Iliopsoas abscess on right Status: Acute Assessment and plan: Patient is clinically improved. It is anticipated that her white blood count will decrease tomorrow. Discussed with patient the need for second look procedure. Further debridement and drainage as well as placement of wound VAC. This will be performed tomorrow Current Visit: Yes (2) Abdominal wall abscess Status: Acute Current Visit: Yes (3) Sepsis Status: Acute Current Visit: Yes - Time Spent With Patient Total time spent is greater than 50% in coordination of care (as documented) at patient's floor/unit and/or counseling patient:
[2019-08-19] MEDS ORDERED: PROMETHAZINE 25 MG/ML VIAL IV PRN (17:28)
[2019-08-19] MEDS ORDERED: ONDANSETRON 4 MG/2 ML VIAL IV PRN (17:28)
[2019-08-19] MEDS ORDERED: ACETAMINOPHEN 650 MG/65 ML BOTTLE IV SCH (19:00)
[2019-08-19] MEDS: DOCUSATE SODIUM 100 MG CAPSULE PO SCH (22:00)
[2019-08-20] MEDS: METOCLOPRAMIDE 10 MG/2 ML VIAL IV SCH ×5 (00:02→23:52)
[2019-08-20] MEDS: metroNIDAZOLE 500 MG/100 ML BAG IV SCH ×5 (00:02→23:51)
[2019-08-20] MEDS: HYDROmorphone* 2 MG/ML VIAL IV PRN ×7 (00:10→22:47)
[2019-08-20] MEDS: LACTATED RINGERS 1,000 ML IV SCH ×5 (00:41→21:49)
[2019-08-20] MEDS: 0.9 % SODIUM CHLORIDE 10 ML SYRINGE IV SCH ×3 (06:18→20:54)
[2019-08-20 06:24] LABS: Basophils # (Auto) 0.02 K/mcL (0.00-0.30); Basophils % (Auto) 0.1 % (0.0-2.0); Eosinophils # (Auto) 0 K/mcL (0.00-0.70); Eosinophils % (Auto) 0 % (0.0-7.0); Granulocytes % (Auto) 92.2 % (38.0-78.0); Hematocrit 26.2 % (34.1-44.9); Hemoglobin 8.4 g/dL (11.2-15.7); Lymphocytes # (Auto) 0.91 K/mcL (1.50-4.80); Lymphocytes % (Auto) 3.9 % (15.5-49.0); Mean Cell Volume 80.4 fL (80.0-100.0); Mean Corpuscular HGB Conc 32.1 g/dL (31.0-36.0); Mean Platelet Volume 8.3 fL (7.4-10.4); Monocytes # (Auto) 0.89 K/mcL (0.10-0.90); Monocytes % (Auto) 3.8 % (1.0-12.0); Platelet Count 747 K/mcL (140-440); RBC 3.26 M/mcL (3.59-5.38); Red Cell Distribution Width 20.5 % (11.5-14.5); WBC 23.6 K/mcL (4.50-11.00)
[2019-08-20 07:03] LABS: Chloride 99 mmol/L (96-108)
[2019-08-20 07:15] LABS: ALT/SGPT < 5 U/l (0-40); AST/SGOT 10 U/l (0-37); Albumin 2.2 gm/dL (3.2-5.2); Albumin/Globulin Ratio 0.6 (1.0-2.3); Alkaline Phosphatase 116 U/L (39-117); Bilirubin,Direct < 0.2 mg/dL (0.0-0.3); Bilirubin,Total 0.3 mg/dL (0.0-1.0); Blood Urea Nitrogen 7 mg/dl (6-20); Calcium 8.4 mg/dl (8.6-10.4); Carbon Dioxide 24 mmol/L (22-30); Globulin 3.6 gm/dL (2.2-3.7); Glomerular Filtration Rate 105; Glucose 96 mg/dL (70-105); Lactate Dehydrogenase 166 U/L (94-250); Phosphorous 2.9 mg/dL (2.7-4.5); Triglycerides 45 mg/dl (<150); Uric Acid 4.1 mg/dL (2.5-8.0)
[2019-08-20] MEDS ORDERED: PANTOPRAZOLE 40 MG VIAL IV SCH (07:30)
[2019-08-20] MEDS: METHYLNALTREXONE BROMIDE 12 MG/0.6 ML SYRINGE SQ SCH ×2 (08:38→13:20)
[2019-08-20] MEDS ORDERED: ALBUMIN HUMAN 25 GM/100 ML BAG IV ONE ×3 (08:51→13:27)
[2019-08-20] MEDS ORDERED: LEVOFLOXACIN 750 MG/150 ML BAG IV SCH (09:00)
[2019-08-20] MEDS ORDERED: DEXAMETHASONE 10 MG/ML VIAL IV ONE (09:10)
[2019-08-20] MEDS ORDERED: LIDOCAINE HCL/PF 100 MG/5 ML SYRINGE IV ONE (09:10)
[2019-08-20] MEDS ORDERED: ONDANSETRON 4 MG/2 ML VIAL IV ONE (09:10)
[2019-08-20] MEDS ORDERED: ROCURONIUM 10 MG/ML ML IV ONE (09:10)
[2019-08-20] MEDS ORDERED: KETAMINE 100 MG/ML ML IV ONE (09:10)
[2019-08-20] MEDS ORDERED: SUCCINYLCHOLINE 20 MG/ML ML IV ONE (09:10)
[2019-08-20] MEDS ORDERED: SUGAMMADEX SODIUM 200 MG/2 ML VIAL IV ONE (09:10)
[2019-08-20] MEDS ORDERED: PROPOFOL 200 MG/20 ML VIAL IV ONE (09:10)
[2019-08-20] MEDS ORDERED: fentaNYL 100 MCG/2 ML VIAL IV ONE (09:10)
[2019-08-20] MEDS ORDERED: FLU VACC QS2019-20(6MOS UP)/PF 60 MCG/0.5 ML SYRINGE IM ONE (10:00)
[2019-08-20] MEDS ORDERED: NALOXONE HCL 0.4 MG/ML VIAL IV PRN (10:47)
[2019-08-20] MEDS ORDERED: HYDROmorphone* 2 MG/ML VIAL IV PRN (10:47)
[2019-08-20] MEDS ORDERED: fentaNYL 100 MCG/2 ML VIAL IV PRN (10:47)
[2019-08-20] MEDS ORDERED: METOPROLOL TARTRATE 5 MG/5 ML VIAL IV PRN (10:47)
[2019-08-20] MEDS ORDERED: PROMETHAZINE 25 MG/ML VIAL IV PRN (10:47)
[2019-08-20] MEDS ORDERED: ePHEDrine 50 MG/ML AMPUL IV PRN (10:47)
[2019-08-20] MEDS ORDERED: MEPERIDINE 25 MG/ML SYRINGE IV PRN (10:47)
[2019-08-20] MEDS ORDERED: ATROPINE SULFATE 0.4 MG/ML VIAL IV PRN (10:47)
[2019-08-20] MEDS ORDERED: IPRATROPIUM/ALBUTEROL 3 ML AMPUL.NEB NEB PRN (10:47)
[2019-08-20] MEDS ORDERED: ONDANSETRON 4 MG/2 ML VIAL IV PRN (10:47)
[2019-08-20] MEDS ORDERED: diphenhydrAMINE 50 MG/ML VIAL IV PRN (10:47)
[2019-08-20] MEDS ORDERED: METHOCARBAMOL 1,000 MG/10 ML VIAL IV PRN (10:47)
[2019-08-20] MEDS ORDERED: LACTATED RINGERS 1,000 ML IV SCH (11:00)
[2019-08-20] MEDS ORDERED: BACITRACIN 50,000 UNIT VIAL IR ONE ×2 (11:08→11:15)
[2019-08-20] MEDS: DOCUSATE SODIUM 100 MG CAPSULE PO SCH ×2 (11:25→20:14)
--- NOTE | 2019-08-20 11:44 | Brief Operative Note ---
Date of procedure: 08/20/19 Pre-op diagnosis: multiple peritoneal and retroperitoneal absceses Post-op diagnosis: other (multiple peritoneal and retroperitoneal abscesses;terminal ileum perforation) Procedure: exploratory laparotomy (second look );peritoneal washout;closure of ileum pe rforation;wound vac placement Grafts/Implants: No (padma drain x 3) Anesthesia: GETA Findings: very small amount of succus entericus noted upon opening the incision close to junction of terminal ileum and cecum; very short appendiceal stump but without leak;old perforation of terminal ileum about 3cm proximal to ileocecal junction;no residual pus noted Complications: none Surgeon: Rahul Gamez Estimated blood loss (cc): 50 Specimens Removed/Pathology: none sent Condition: stable Disposition: PACU
--- NOTE | 2019-08-20 14:50 | Operative Note ---
DATE OF OPERATION: 08/20/2019 PREOPERATIVE DIAGNOSIS: Multiple peritoneal and retroperitoneal abscesses. POSTOPERATIVE DIAGNOSIS: Multiple peritoneal and retroperitoneal abscesses with perforation of the terminal ileum. PROCEDURE: Exploratory laparotomy, second-look procedure; peritoneal washout; closure of ileum perforation; wound V.A.C. placement. SURGEON: Rahul Gamez M.D. FINDINGS: Very small amount of succuss entericus noted upon entering the incision close to the junction of the terminal ileum and cecum. A very short appendiceal stump, but no leak from the appendix. Old perforation of terminal ileum about 3 cm proximal to the ileocecal valve. No residual purulence noted. DESCRIPTION OF PROCEDURE: Under general anesthesia, the patient's abdomen was prepped and draped in a sterile field. A time-out procedure was carried out as per protocol. The old incision was opened and upon entering the peritoneal cavity there was a very small, about 2 mL puddle of succuss entericus noted. Initial evaluation of this area did not reveal any evidence of perforation. The cecum was further mobilized until I could bring it into the operative field. It was mobilized up to the hepatic flexure. The very tip of the appendix was noted and using blunt dissection, it was dissected back to its junction with the cecum. The appendix was very short, but there was no evidence of leak coming from this stump. The stump was transected using a TA30 and the residual stump was invaginated using interrupted 3-0 silk. All the adhesions to the area were taken down so that the terminal ileum and cecum could be thoroughly evaluated. I could not find an opening, so I was able to gently push that in the small bowel towards the ileocecal valve. At an area about 2.5 to 3 cm proximal to the ileocecal junction, a small amount of gas escaped with a very few drops of succuss noted. There was an old chronically inflamed opening in this area. This was felt to be the area of probable contamination origination. The tissue surrounding this area was cleaned very thoroughly. There was no major contamination other than what had been cleared out previously. Rather than do a resection for this tiny perforation of the small bowel, it was elected to close it. The opening was closed with two layers of 3-0 Vicryl and imbricating layer of 3-0 Prolene. There were some epiploica that were in the area and these were sutured over the area of the closure to give a good patch over the opening. This was done with interrupted 3-0 silk. Copious irrigation was carried out once more. The pelvis was inspected. Rectum was inspected. No other abnormalities were noted. Drains were placed in the pelvis and in the retroperitoneum along the psoas muscle on the right side. Another drain was placed in the base of the mesentery close to the area of the patch. Sponge, needle, instrument and blade counts were verified as correct. The fascia was closed with interrupted #1 Vicryl. The superior portion of the incision was closed with 2-0 Monocryl on the subcutaneous tissue and filiberto on the skin and down to the umbilicus. The lower incision was covered with a wound V.A.C., using black foam. There was adequate closure without a leak. The drains were secured with 2-0 nylon. The patient was awakened from anesthesia uneventfully, transferred to a bed and taken to the postanesthetic care unit in stable, satisfactory condition. LCS:armin Job ID: [id number] Doc ID: [id number] Rahul Gamez M.D.
[2019-08-20] MEDS: PANTOPRAZOLE 40 MG VIAL IV SCH (17:33)
[2019-08-21] MEDS: HYDROmorphone* 2 MG/ML VIAL IV PRN ×9 (01:14→20:59)
[2019-08-21] MEDS: LACTATED RINGERS 1,000 ML IV SCH ×4 (02:25→15:21)
[2019-08-21] MEDS: metroNIDAZOLE 500 MG/100 ML BAG IV SCH ×3 (05:37→19:56)
[2019-08-21] MEDS: METOCLOPRAMIDE 10 MG/2 ML VIAL IV SCH ×3 (05:37→18:07)
[2019-08-21] MEDS: 0.9 % SODIUM CHLORIDE 10 ML SYRINGE IV SCH ×3 (06:10→22:57)
[2019-08-21] MEDS: PANTOPRAZOLE 40 MG VIAL IV SCH ×2 (06:54→16:29)
[2019-08-21] MEDS ORDERED: METHYLNALTREXONE BROMIDE 12 MG/0.6 ML SYRINGE SQ SCH (09:00)
--- NOTE | 2019-08-21 09:06 | General Surgery Progress Note ---
Subjective Patient reports: no new complaints, feels better, no flatus, no bowel movement Narrative: Note initiated : 08/21/19 at 9:04 am Service Date, if different from initiated Date: [] Patient: Mojgan Mesa 43 y/o F admitted on 08/18/19 for abdominal pain. Chief Complaint: [] Objective Temp Pulse Resp BP Pulse Ox 99.1 F H 103 H 20 115/78 98 08/21/19 07:00 08/21/19 07:00 08/21/19 07:00 08/21/19 07:00 08/21/19 07:00 - Additional Data Intake & Output - Last 24 hours: Intake & Output 08/19/19 08/20/19 08/21/19 08/22/19 05:59 05:59 05:59 05:59 Intake Total 5197 3720 6190 100 Output Total 1335 1677.5 910 Balance 3862 2042.5 5280 100 Weight 98 lb 106 lb 1.6 oz 114 lb - General physical appearance well developed, well nourished, no distress - Eyes PERRL, normal ocular movement - Respiratory normal expansion - Cardiovascular Cardiovascular exam: Present: normal rate and rhythm - Abdomen soft, non tender, wound (Multiple drains in place all draining serro-sanguinous fluid, no magdalena puss, VAC in place) Hernia: none - Genitourinary other (landon in place will D/C today) - Labs 08/20/19 05:10 08/20/19 05:10 Assessment and Plan (1) Iliopsoas abscess on right Status: Acute Assessment and plan: continue with present drainage Current Visit: Yes (2) Abdominal wall abscess Status: Acute Assessment and plan: drainage Current Visit: Yes (3) Sepsis Status: Resolved Assessment and plan: Sepsis resolving but WBC still up. Cultures still pending gram stain not helpful. will continue same antibiotics Current Visit: Yes - Time Spent With Patient Total time spent is greater than 50% in coordination of care (as documented) at patient's floor/unit and/or counseling patient: 15 - 24 minutes
[2019-08-21] MEDS: DOCUSATE SODIUM 100 MG CAPSULE PO SCH ×2 (09:22→21:00)
[2019-08-21] MEDS: LEVOFLOXACIN 750 MG/150 ML BAG IV SCH (09:24)
[2019-08-21] MEDS ORDERED: 0.9 % SODIUM CHLORIDE 500 ML IV ONE (16:11)
[2019-08-22] MEDS: HYDROmorphone* 2 MG/ML VIAL IV PRN ×7 (00:34→19:22)
[2019-08-22] MEDS: METOCLOPRAMIDE 10 MG/2 ML VIAL IV SCH ×5 (00:34→23:20)
[2019-08-22] MEDS: LACTATED RINGERS 1,000 ML IV SCH ×5 (00:35→23:20)
[2019-08-22] MEDS: metroNIDAZOLE 500 MG/100 ML BAG IV SCH ×5 (00:36→23:20)
[2019-08-22] MEDS: 0.9 % SODIUM CHLORIDE 10 ML SYRINGE IV SCH ×3 (05:02→21:32)
[2019-08-22 07:11] LABS: Basophils # (Auto) 0.03 K/mcL (0.00-0.30); Basophils % (Auto) 0.2 % (0.0-2.0); Eosinophils # (Auto) 0.02 K/mcL (0.00-0.70); Eosinophils % (Auto) 0.1 % (0.0-7.0); Granulocytes % (Auto) 91.2 % (38.0-78.0); Hematocrit 25.5 % (34.1-44.9); Lymphocytes # (Auto) 0.84 K/mcL (1.50-4.80); Lymphocytes % (Auto) 4.3 % (15.5-49.0); Mean Corpuscular HGB Conc 31.4 g/dL (31.0-36.0); Mean Platelet Volume 8.5 fL (7.4-10.4); Monocytes # (Auto) 0.83 K/mcL (0.10-0.90); Monocytes % (Auto) 4.2 % (1.0-12.0); Platelet Count 755 K/mcL (140-440); RBC 3.11 M/mcL (3.59-5.38); Red Cell Distribution Width 21.6 % (11.5-14.5); WBC 19.7 K/mcL (4.50-11.00)
[2019-08-22 07:22] LABS: ALT/SGPT 5 U/l (0-40); AST/SGOT 11 U/l (0-37); Albumin/Globulin Ratio 0.7 (1.0-2.3); Alkaline Phosphatase 64 U/L (39-117); Bilirubin,Direct < 0.2 mg/dL (0.0-0.3); Bilirubin,Total 0.3 mg/dL (0.0-1.0); Blood Urea Nitrogen 8 mg/dl (6-20); Calcium 7.9 mg/dl (8.6-10.4); Carbon Dioxide 21 mmol/L (22-30); Chloride 95 mmol/L (96-108); Glomerular Filtration Rate 118; Glucose 82 mg/dL (70-105); Lactate Dehydrogenase 129 U/L (94-250); Phosphorous 2.1 mg/dL (2.7-4.5); Triglycerides 78 mg/dl (<150); Uric Acid 4.8 mg/dL (2.5-8.0)
[2019-08-22] MEDS: PANTOPRAZOLE 40 MG VIAL IV SCH ×2 (07:34→17:53)
[2019-08-22] MEDS: DOCUSATE SODIUM 100 MG CAPSULE PO SCH ×2 (08:34→21:31)
[2019-08-22] MEDS: LEVOFLOXACIN 750 MG/150 ML BAG IV SCH (09:30)
--- NOTE | 2019-08-22 10:04 | General Surgery Progress Note ---
Subjective Patient reports: no new complaints, feels better, pain is less, tolerating liquids well, flatus, no bowel movement Narrative: Note initiated : 08/22/19 at 10:01 am Service Date, if different from initiated Date: [] Patient: Mojgan Mesa 43 y/o F admitted on 08/18/19 for abdominal pain. Chief Complaint: [] Objective Temp Pulse Resp BP Pulse Ox 97.8 F 94 H 18 130/76 96 08/22/19 07:59 08/22/19 08:00 08/22/19 08:00 08/22/19 07:59 08/22/19 08:00 - Additional Data Intake & Output - Last 24 hours: Intake & Output 08/20/19 08/21/19 08/22/19 08/23/19 05:59 05:59 05:59 05:59 Intake Total 3720 6190 2950 1500 Output Total 1677.5 910 1230 758 Balance 2042.5 5280 1720 742 Weight 106 lb 1.6 oz 114 lb 119 lb 1.6 oz - General physical appearance no distress - Eyes PERRL, normal ocular movement - Respiratory normal expansion, clear to auscultation - Cardiovascular Cardiovascular exam: Present: normal rate and rhythm - Abdomen tender (as expected in incision, and around drains) - Genitourinary other (voiding better) - Labs 08/22/19 06:11 08/22/19 06:11 Diabetes panel 08/22/19 Range/Units 06:11 Sodium 131 L (133-145) mmol/L Potassium 3.4 (3.3-5.1) mmol/L Chloride 95 L (96-108) mmol/L Carbon Dioxide 21 L (22-30) mmol/L BUN 8 (6-20) mg/dl Creatinine 0.5 L (0.6-1.1) mg/dl Glucose 82 (70-105) mg/dL Calcium 7.9 L (8.6-10.4) mg/dl AST 11 (0-37) U/l ALT 5 (0-40) U/l Alkaline Phosphatase 64 (39-117) U/L Total Protein 5.0 L (5.9-8.4) gm/dL Albumin 2.0 L (3.2-5.2) gm/dL Triglycerides 78 (<150) mg/dl Calcium panel 08/22/19 Range/Units 06:11 Calcium 7.9 L (8.6-10.4) mg/dl Phosphorus 2.1 L (2.7-4.5) mg/dL Albumin 2.0 L (3.2-5.2) gm/dL Pituitary panel 08/22/19 Range/Units 06:11 Sodium 131 L (133-145) mmol/L Potassium 3.4 (3.3-5.1) mmol/L Chloride 95 L (96-108) mmol/L Carbon Dioxide 21 L (22-30) mmol/L BUN 8 (6-20) mg/dl Creatinine 0.5 L (0.6-1.1) mg/dl Glucose 82 (70-105) mg/dL Calcium 7.9 L (8.6-10.4) mg/dl Adrenal panel 08/22/19 Range/Units 06:11 Sodium 131 L (133-145) mmol/L Potassium 3.4 (3.3-5.1) mmol/L Chloride 95 L (96-108) mmol/L Carbon Dioxide 21 L (22-30) mmol/L BUN 8 (6-20) mg/dl Creatinine 0.5 L (0.6-1.1) mg/dl Glucose 82 (70-105) mg/dL Calcium 7.9 L (8.6-10.4) mg/dl Total Bilirubin 0.3 (0.0-1.0) mg/dL AST 11 (0-37) U/l ALT 5 (0-40) U/l Alkaline Phosphatase 64 (39-117) U/L Total Protein 5.0 L (5.9-8.4) gm/dL Albumin 2.0 L (3.2-5.2) gm/dL Assessment and Plan (1) Abdominal wall abscess Status: Acute Assessment and plan: drainage improving Current Visit: Yes (2) Iliopsoas abscess on right Status: Acute Assessment and plan: continue with present drainage Current Visit: Yes (3) Sepsis Status: Resolved Assessment and plan: Sepsis resolving but WBC still up. Cultures still pending gram stain not helpful. will continue same antibiotics Current Visit: Yes (4) Oligouria Status: Resolved Assessment and plan: Voiding better on her own Current Visit: Yes - Time Spent With Patient Total time spent is greater than 50% in coordination of care (as documented) at patient's floor/unit and/or counseling patient: 15 - 24 minutes
[2019-08-22] MEDS: oxyCODONE/APAP 5/325MG TABLET PO PRN (22:14)
[2019-08-22] MEDS ORDERED: oxyCODONE/APAP 5/325MG TABLET PO ONE (22:15)
[2019-08-23] MEDS ORDERED: DIAZEPAM 5 MG TABLET ONE (02:58)
[2019-08-23] MEDS: DIAZEPAM 5 MG TABLET PO PRN (02:58)
[2019-08-23] MEDS: ONDANSETRON 4 MG/2 ML VIAL IV PRN ×2 (03:06→08:57)
[2019-08-23] MEDS: PROMETHAZINE 25 MG/ML VIAL IV PRN (05:12)
[2019-08-23] MEDS: HYDROmorphone* 2 MG/ML VIAL IV PRN (05:13)
[2019-08-23] MEDS: METOCLOPRAMIDE 10 MG/2 ML VIAL IV SCH ×3 (05:40→16:30)
[2019-08-23] MEDS: metroNIDAZOLE 500 MG/100 ML BAG IV SCH ×3 (05:41→17:41)
[2019-08-23] MEDS: 0.9 % SODIUM CHLORIDE 10 ML SYRINGE IV SCH ×4 (05:41→22:08)
[2019-08-23] MEDS ORDERED: BISACODYL 10 MG SUPP.RECT PR PRN (08:53)
[2019-08-23] MEDS: PANTOPRAZOLE 40 MG VIAL IV SCH ×2 (08:57→16:30)
[2019-08-23] MEDS: oxyCODONE/APAP 5/325MG TABLET PO PRN ×2 (08:58→20:03)
[2019-08-23] MEDS: DOCUSATE SODIUM 100 MG CAPSULE PO SCH ×2 (08:59→20:04)
--- NOTE | 2019-08-23 09:02 | General Surgery Progress Note ---
Subjective Patient reports: feels better, tolerating liquids well, tolerating a regular diet, voiding w/o difficulty, flatus, no bowel movement, nausea (Mild Nausea no BM yet but overall improving) Narrative: Note initiated : 08/23/19 at 8:59 am Service Date, if different from initiated Date: [] Patient: Mojgan Mesa 43 y/o F admitted on 08/18/19 for abdominal pain. Chief Complaint: [] Objective Temp Pulse Resp BP Pulse Ox 97.7 F 92 H 16 131/86 99 08/23/19 03:07 08/23/19 03:07 08/23/19 03:07 08/23/19 03:07 08/23/19 03:07 - Additional Data Intake & Output - Last 24 hours: Intake & Output 08/21/19 08/22/19 08/23/19 08/24/19 05:59 05:59 05:59 05:59 Intake Total 6190 2950 3830 Output Total 910 1230 3378 Balance 5280 1720 452 Weight 114 lb 119 lb 1.6 oz 119 lb 1.6 oz - General physical appearance no distress, moderate pain - Eyes PERRL, normal ocular movement - Respiratory normal expansion, clear to percussion, clear to auscultation - Cardiovascular Cardiovascular exam: Present: normal rate and rhythm - Abdomen non tender, wound (Multiple drains , no puss, clear serrous fluid only, VAC in place) - Labs 08/22/19 06:11 08/22/19 06:11 Assessment and Plan (1) Abdominal wall abscess Status: Acute Assessment and plan: drainage improving Current Visit: Yes (2) Iliopsoas abscess on right Status: Acute Assessment and plan: continue with present drainage Current Visit: Yes (3) Sepsis Status: Resolved Assessment and plan: Sepsis resolving but WBC still up. Cultures still pending gram stain not helpful. will continue same antibiotics Current Visit: Yes (4) Surgical wound present Problem details: VAC in place to prevent wound infection Status: Acute Assessment and plan: VAC change today. SHe will probably be D/C'd with VAC in place Current Visit: Yes - Time Spent With Patient Total time spent is greater than 50% in coordination of care (as documented) at patient's floor/unit and/or counseling patient: 15 - 24 minutes
--- NOTE | 2019-08-23 13:33 | Surgical Pathology Report ---
HISTOLOGY SPECIMEN MICROSCOPIC DIAGNOSIS APPENDIX, SUBMITTED "TIP", EXCISION: -- SEROSAL ACUTE AND CHRONIC INFLAMMATION WITH ATTACHED FIBRINOPURULENT EXUDATE, CONSISTENT WITH ACUTE SEROSITIS; SEE COMMENT. -- FIBROUS OBLITERATION OF THE APPENDICEAL LUMEN. (DMT:adj) COMMENT: Sections show a fibromuscular wall with central luminal replacement by fibroadipose tissue, consistent with fibrous obliteration of the appendiceal tip. The surface of the appendix has marked acute serositis. The absence of an appendiceal lumen suggests that the serositis is not secondary to appendicitis at the appendiceal tip. Appendicitis involving unsampled proximal appendix or other non-appendiceal causes for acute serositis should be considered. Clinical correlation is necessary. PROCEDURAL IMPRESSION Sepsis. GROSS DESCRIPTION Received in formalin designated appendix tip per requisition, is a jordan-myers segment of tissue. It is 2.1 cm in length by up to 0.9 cm in diameter. The margin is opened. It is inked black. The serosal surface is pink-myers. Cut surfaces are myers with no fecal material identified. Bisected, entirely submitted in one cassette. (SCB:adj) Electronically Signed by: Walter Ewing M.D.
[2019-08-23] MEDS: LEVOFLOXACIN 750 MG/150 ML BAG IV SCH (13:47)
[2019-08-23] MEDS: LACTATED RINGERS 1,000 ML IV SCH (17:44)
[2019-08-24] MEDS: metroNIDAZOLE 500 MG/100 ML BAG IV SCH ×5 (01:14→23:01)
[2019-08-24] MEDS: METOCLOPRAMIDE 10 MG/2 ML VIAL IV SCH ×5 (01:15→23:00)
[2019-08-24] MEDS: HYDROmorphone* 2 MG/ML VIAL IV PRN ×2 (05:19→18:08)
[2019-08-24 06:11] LABS: Basophils # (Auto) 0.03 K/mcL (0.00-0.30); Basophils % (Auto) 0.2 % (0.0-2.0); Eosinophils # (Auto) 0.01 K/mcL (0.00-0.70); Eosinophils % (Auto) 0.1 % (0.0-7.0); Granulocytes % (Auto) 92.1 % (38.0-78.0); Hematocrit 27.1 % (34.1-44.9); Hemoglobin 8.5 g/dL (11.2-15.7); Lymphocytes # (Auto) 0.68 K/mcL (1.50-4.80); Lymphocytes % (Auto) 3.4 % (15.5-49.0); Mean Cell Volume 81.9 fL (80.0-100.0); Mean Corpuscular HGB Conc 31.4 g/dL (31.0-36.0); Mean Platelet Volume 8.4 fL (7.4-10.4); Monocytes # (Auto) 0.82 K/mcL (0.10-0.90); Monocytes % (Auto) 4.2 % (1.0-12.0); Platelet Count 737 K/mcL (140-440); RBC 3.31 M/mcL (3.59-5.38); Red Cell Distribution Width 23.1 % (11.5-14.5); WBC 19.7 K/mcL (4.50-11.00)
[2019-08-24] MEDS: 0.9 % SODIUM CHLORIDE 10 ML SYRINGE IV SCH ×3 (06:19→20:21)
[2019-08-24 06:34] LABS: Blood Urea Nitrogen 3 mg/dl (6-20); Calcium 7.8 mg/dl (8.6-10.4); Carbon Dioxide 18 mmol/L (22-30); Chloride 96 mmol/L (96-108); Glomerular Filtration Rate 127; Glucose 93 mg/dL (70-105)
--- NOTE | 2019-08-24 09:02 | General Surgery Progress Note ---
Subjective Patient reports: no new complaints, feels better, tolerating a regular diet, voiding w/o difficulty, flatus, no bowel movement Narrative: Note initiated : 08/24/19 at 9:00 am Service Date, if different from initiated Date: [] Patient: Mojgan Mesa 43 y/o F admitted on 08/18/19 for abdominal pain. Chief Complaint: [] Objective Temp Pulse Resp BP Pulse Ox 98.0 F 90 18 128/82 95 08/24/19 03:23 08/24/19 03:23 08/24/19 03:23 08/24/19 03:23 08/24/19 03:23 - Additional Data Intake & Output - Last 24 hours: Intake & Output 08/22/19 08/23/19 08/24/19 08/25/19 05:59 05:59 05:59 05:59 Intake Total 2950 3830 1520 Output Total 1230 3378 2240 Balance 1720 452 -720 Weight 119 lb 1.6 oz 119 lb 1.6 oz 119 lb 8 oz - General physical appearance well developed, well nourished - Respiratory normal expansion, normal respiratory effort, clear to percussion, clear to auscultation - Cardiovascular Cardiovascular exam: Present: normal rate and rhythm - Abdomen soft, non tender, wound - Labs 08/24/19 05:32 08/24/19 05:32 Diabetes panel 08/24/19 Range/Units 05:32 Sodium 134 (133-145) mmol/L Potassium 3.0 L (3.3-5.1) mmol/L Chloride 96 (96-108) mmol/L Carbon Dioxide 18 L (22-30) mmol/L BUN 3 L (6-20) mg/dl Creatinine 0.4 L (0.6-1.1) mg/dl Glucose 93 (70-105) mg/dL Calcium 7.8 L (8.6-10.4) mg/dl Calcium panel 08/24/19 Range/Units 05:32 Calcium 7.8 L (8.6-10.4) mg/dl Pituitary panel 08/24/19 Range/Units 05:32 Sodium 134 (133-145) mmol/L Potassium 3.0 L (3.3-5.1) mmol/L Chloride 96 (96-108) mmol/L Carbon Dioxide 18 L (22-30) mmol/L BUN 3 L (6-20) mg/dl Creatinine 0.4 L (0.6-1.1) mg/dl Glucose 93 (70-105) mg/dL Calcium 7.8 L (8.6-10.4) mg/dl Adrenal panel 08/24/19 Range/Units 05:32 Sodium 134 (133-145) mmol/L Potassium 3.0 L (3.3-5.1) mmol/L Chloride 96 (96-108) mmol/L Carbon Dioxide 18 L (22-30) mmol/L BUN 3 L (6-20) mg/dl Creatinine 0.4 L (0.6-1.1) mg/dl Glucose 93 (70-105) mg/dL Calcium 7.8 L (8.6-10.4) mg/dl Assessment and Plan (1) Abdominal wall abscess Status: Acute Assessment and plan: drainage improving Current Visit: Yes (2) Iliopsoas abscess on right Status: Acute Assessment and plan: continue with present drainage Current Visit: Yes (3) Sepsis Status: Resolved Assessment and plan: Sepsis resolving but WBC still up. Cultures still pending gram stain not helpful. will continue same antibiotics Current Visit: Yes (4) Surgical wound present Problem details: VAC in place to prevent wound infection Status: Acute Assessment and plan: VAC change today. SHe will probably be D/C'd with VAC in place Current Visit: Yes - Time Spent With Patient Total time spent is greater than 50% in coordination of care (as documented) at patient's floor/unit and/or counseling patient:
[2019-08-24 09:34] LABS: Cannabinoid Confirmation POSITIVE (N)
[2019-08-24] MEDS: LEVOFLOXACIN 750 MG/150 ML BAG IV SCH (10:12)
[2019-08-24] MEDS: PANTOPRAZOLE 40 MG VIAL IV SCH ×2 (10:14→17:15)
[2019-08-24] MEDS: DOCUSATE SODIUM 100 MG CAPSULE PO SCH ×2 (10:17→20:20)
[2019-08-24] MEDS: HYDROCODONE/APAP 7.5/325MG TABLET PO PRN ×3 (10:33→20:19)
[2019-08-24] MEDS ORDERED: POTASSIUM CHLORIDE 20 MEQ TABLET PO SCH (17:30)
[2019-08-24] MEDS: DIAZEPAM 5 MG TABLET PO PRN (22:59)
[2019-08-25] MEDS: metroNIDAZOLE 500 MG/100 ML BAG IV SCH ×4 (05:37→23:33)
[2019-08-25] MEDS: 0.9 % SODIUM CHLORIDE 10 ML SYRINGE IV SCH ×3 (05:38→23:33)
[2019-08-25] MEDS: METOCLOPRAMIDE 10 MG/2 ML VIAL IV SCH ×4 (05:38→23:33)
[2019-08-25 06:23] LABS: Basophils # (Auto) 0.03 K/mcL (0.00-0.30); Basophils % (Auto) 0.2 % (0.0-2.0); Eosinophils # (Auto) 0 K/mcL (0.00-0.70); Eosinophils % (Auto) 0 % (0.0-7.0); Hematocrit 27.5 % (34.1-44.9); Hemoglobin 8.9 g/dL (11.2-15.7); Lymphocytes # (Auto) 0.72 K/mcL (1.50-4.80); Lymphocytes % (Auto) 4.1 % (15.5-49.0); Mean Cell Volume 80.6 fL (80.0-100.0); Mean Corpuscular HGB Conc 32.4 g/dL (31.0-36.0); Mean Platelet Volume 8.7 fL (7.4-10.4); Monocytes # (Auto) 0.99 K/mcL (0.10-0.90); Monocytes % (Auto) 5.7 % (1.0-12.0); Platelet Count 792 K/mcL (140-440); RBC 3.41 M/mcL (3.59-5.38); Red Cell Distribution Width 23.6 % (11.5-14.5); WBC 17.5 K/mcL (4.50-11.00)
[2019-08-25 06:53] LABS: Blood Urea Nitrogen 3 mg/dl (6-20); Calcium 7.8 mg/dl (8.6-10.4); Chloride 98 mmol/L (96-108); Glomerular Filtration Rate 127; Glucose 112 mg/dL (70-105)
[2019-08-25 06:56] LABS: Carbon Dioxide 24 mmol/L (22-30)
[2019-08-25] MEDS: PANTOPRAZOLE 40 MG VIAL IV SCH ×2 (07:33→16:21)
[2019-08-25] MEDS: POTASSIUM CHLORIDE 20 MEQ TABLET PO SCH ×2 (09:22→16:43)
[2019-08-25] MEDS: LEVOFLOXACIN 750 MG/150 ML BAG IV SCH (09:23)
[2019-08-25] MEDS: DOCUSATE SODIUM 100 MG CAPSULE PO SCH ×2 (09:23→20:41)
[2019-08-25] MEDS: HYDROmorphone* 2 MG/ML VIAL IV PRN ×3 (09:30→18:44)
--- NOTE | 2019-08-25 09:37 | General Surgery Progress Note ---
Subjective Patient reports: no new complaints, feels better, still having pain, tolerating a regular diet, flatus, bowel movement Narrative: Note initiated : 08/25/19 at 9:35 am Service Date, if different from initiated Date: [] Patient: Mojgan Mesa 43 y/o F admitted on 08/18/19 for abdominal pain. Chief Complaint: [] Objective Temp Pulse Resp BP Pulse Ox 98.7 F 87 18 130/82 95 08/25/19 08:00 08/25/19 08:00 08/25/19 08:00 08/25/19 08:00 08/25/19 08:00 - Additional Data Intake & Output - Last 24 hours: Intake & Output 08/23/19 08/24/19 08/25/19 08/26/19 05:59 05:59 05:59 05:59 Intake Total 3830 1520 1700 Output Total 3378 2240 1950 Balance 452 -720 -250 Weight 119 lb 1.6 oz 119 lb 8 oz 122 lb 4.8 oz - General physical appearance well developed, well nourished, no distress - Respiratory normal expansion, clear to percussion, clear to auscultation - Cardiovascular Cardiovascular exam: Present: normal rate and rhythm - Abdomen soft, tender, wound (multiple J-P drains, draining serrous fluid, VAC in place ) - Labs 08/25/19 05:21 08/25/19 05:21 Diabetes panel 08/25/19 Range/Units 05:21 Sodium 137 (133-145) mmol/L Potassium 2.7 L* (3.3-5.1) mmol/L Chloride 98 (96-108) mmol/L Carbon Dioxide 24 (22-30) mmol/L BUN 3 L (6-20) mg/dl Creatinine 0.4 L (0.6-1.1) mg/dl Glucose 112 H (70-105) mg/dL Calcium 7.8 L (8.6-10.4) mg/dl Calcium panel 08/25/19 Range/Units 05:21 Calcium 7.8 L (8.6-10.4) mg/dl Pituitary panel 08/25/19 Range/Units 05:21 Sodium 137 (133-145) mmol/L Potassium 2.7 L* (3.3-5.1) mmol/L Chloride 98 (96-108) mmol/L Carbon Dioxide 24 (22-30) mmol/L BUN 3 L (6-20) mg/dl Creatinine 0.4 L (0.6-1.1) mg/dl Glucose 112 H (70-105) mg/dL Calcium 7.8 L (8.6-10.4) mg/dl Adrenal panel 08/25/19 Range/Units 05:21 Sodium 137 (133-145) mmol/L Potassium 2.7 L* (3.3-5.1) mmol/L Chloride 98 (96-108) mmol/L Carbon Dioxide 24 (22-30) mmol/L BUN 3 L (6-20) mg/dl Creatinine 0.4 L (0.6-1.1) mg/dl Glucose 112 H (70-105) mg/dL Calcium 7.8 L (8.6-10.4) mg/dl Assessment and Plan (1) Abdominal wall abscess Status: Acute Assessment and plan: drainage improving Current Visit: Yes (2) Iliopsoas abscess on right Status: Acute Assessment and plan: continue with present drainage Current Visit: Yes (3) Sepsis Status: Resolved Assessment and plan: Sepsis resolving but WBC still up. Cultures still pending gram stain not helpful. will continue same antibiotics Current Visit: Yes (4) Surgical wound present Problem details: VAC in place to prevent wound infection Status: Acute Assessment and plan: VAC change today. SHe will probably be D/C'd with VAC in place Current Visit: Yes - Time Spent With Patient Total time spent is greater than 50% in coordination of care (as documented) at patient's floor/unit and/or counseling patient:
[2019-08-25] MEDS ORDERED: IOPAMIDOL 100 ML BOTTLE IV ONE (11:04)
--- NOTE | 2019-08-25 11:34 | Cat Scan Report ---
CLINICAL INFORMATION: Follow-up without abscess drainage COMPARISON: Preoperative abdomen and pelvic CT one week prior - 08/18/2019 TECHNIQUE: Following enteric contrast, 80 cc of Isovue-370 were injected intravenously, and 60 seconds later, 0.625 mm helical slices were obtained from the mid heart through the subtrochanteric regions. Following reconstruction, 2.5 mm sagittal, coronal and axial reformatted images were processed and reviewed at bone, lung and soft tissue windows. Five minutes later, 0.625 mm helical slices were obtained from the mid heart through the kidneys and viewed at soft tissue windows.The exam was performed using radiation dose optimization techniques including, but not limited to, automated exposure control, adjustment of the mA and/or kV according to patient size and use of iterative reconstruction technique. FINDINGS: Lung bases show new small bilateral pleural effusions and moderate subsegmental atelectasis in both posterior lower lobes. The visualized heart is normal. Abdominal images show mild fatty changes of the liver, but no focal hepatic lesion. The gallbladder is surgically absent. Common bile duct is mildly dilated, 10 mm, compatible with post cholecystectomy state. This is stable. The pancreas, both adrenal glands, spleen, kidneys and aorta are normal in size configuration and attenuation without focal lesion. There is no free air. A small amount of free fluid is present within the right upper quadrant of the true pelvis Images should the pelvis show urinary bladder, ovaries and uterus are unremarkable. Since the previous exam the appendix and cecum have been resected. Primary anastomosis is seen between distal ileum and the mid right colon. The two abscesses, previously seen in the retrocecal region and the anterior mesenteric cavity of the false pelvis, have been drained and there are surgical drains within these regions: One in the retrocecal region and a second drain extending through the anterior abdominal wall in the left upper quadrant traversing rightward and inferiorly to be within the central mesenteric cavity. The stomach, residual small bowel and large bowel show moderate symmetric dilatation compatible with moderate ileus. Bone windows show no osseous abnormalities IMPRESSION: 1. Interval resection of the cecum and appendix with primary anastomosis of the distal ileum to the mid right colon. The abscesses, previously seen in the retrocecal and anterior mesenteric cavity false pelvis, have been successfully drained. Surgical drains as described. 2. Marked ileus 3. New small bilateral pleural effusions and subsegmental atelectasis in both posterior lower lobes. Interpreted and Authenticated by: Iván Espinoza 08/25/19
[2019-08-25 13:16] LABS: POC Blood Urea Nitrogen < 3 mg/dl (6-20); POC CO2 26 mmol/L (22-30); POC Calcium, Ionized 1.04 mmol/L (1.16-1.32); POC Chloride 94 mmol/L (96-108); POC Creatinine 0.4 mg/dl (0.6-1.1); POC Glucose, Random 103 mg/dL (70-105); POC Potassium 2.8 mmol/L (3.3-5.1); POC Sodium 134 mmol/L (133-145)
[2019-08-25] MEDS: HYDROCODONE/APAP 7.5/325MG TABLET PO PRN ×2 (16:43→22:16)
[2019-08-26] MEDS: HYDROCODONE/APAP 7.5/325MG TABLET PO PRN ×5 (02:15→19:30)
[2019-08-26] MEDS: metroNIDAZOLE 500 MG/100 ML BAG IV SCH (05:22)
[2019-08-26] MEDS: METOCLOPRAMIDE 10 MG/2 ML VIAL IV SCH ×3 (05:23→17:25)
[2019-08-26] MEDS: 0.9 % SODIUM CHLORIDE 10 ML SYRINGE IV SCH ×3 (05:23→21:29)
[2019-08-26] MEDS: PANTOPRAZOLE 40 MG VIAL IV SCH ×2 (07:35→17:24)
[2019-08-26] MEDS: POTASSIUM CHLORIDE 20 MEQ TABLET PO SCH ×2 (07:35→17:25)
--- NOTE | 2019-08-26 08:23 | General Surgery Progress Note ---
Subjective Patient reports: no new complaints, feels better, still having pain, flatus, bowel movement (Having small BM's but still bloated and x-rays show small bowel ileus) Narrative: Note initiated : 08/26/19 at 8:21 am Service Date, if different from initiated Date: [] Patient: Mojgan Mesa 43 y/o F admitted on 08/18/19 for abdominal pain. Chief Complaint: [] Objective Temp Pulse Resp BP Pulse Ox 98.3 F 132 H 14 119/82 96 08/26/19 03:36 08/26/19 03:36 08/26/19 03:36 08/26/19 03:36 08/26/19 03:36 - Additional Data Intake & Output - Last 24 hours: Intake & Output 08/24/19 08/25/19 08/26/19 08/27/19 05:59 05:59 05:59 05:59 Intake Total 1520 1700 1610 100 Output Total 2240 1950 2413 170 Balance -720 -250 -803 -70 Weight 119 lb 8 oz 122 lb 4.8 oz 121 lb 4.8 oz - General physical appearance well developed, well nourished, no distress - Respiratory normal expansion, normal respiratory effort - Cardiovascular Cardiovascular exam: Present: normal rate and rhythm - Abdomen soft, non tender, bowel sounds, wound - Labs 08/25/19 05:21 08/25/19 05:21 - Imaging CT scan - abdomen: report reviewed, image reviewed Assessment and Plan (1) Abdominal wall abscess Status: Acute Assessment and plan: drainage improving Current Visit: Yes (2) Iliopsoas abscess on right Status: Acute Assessment and plan: continue with present drainage Current Visit: Yes (3) Sepsis Status: Resolved Assessment and plan: Sepsis resolving but WBC still up. Cultures still pending gram stain not helpful. will continue same antibiotics Current Visit: Yes (4) Surgical wound present Status: Acute Assessment and plan: has drainage c/w small low output fistula, but not seen on CT. VAC removed will continue with dry dressing changes and follow. Current Visit: Yes - Time Spent With Patient Total time spent is greater than 50% in coordination of care (as documented) at patient's floor/unit and/or counseling patient: 15 - 24 minutes
[2019-08-26] MEDS: DOCUSATE SODIUM 100 MG CAPSULE PO SCH ×2 (09:34→21:29)
[2019-08-26] MEDS: LEVOFLOXACIN 750 MG/150 ML BAG IV SCH (09:35)
[2019-08-26] MEDS: HYDROmorphone* 2 MG/ML VIAL IV PRN ×2 (11:49→21:47)
[2019-08-27] MEDS: HYDROCODONE/APAP 7.5/325MG TABLET PO PRN ×4 (00:01→19:22)
[2019-08-27] MEDS: METOCLOPRAMIDE 10 MG/2 ML VIAL IV SCH ×4 (00:02→17:45)
[2019-08-27] MEDS: 0.9 % SODIUM CHLORIDE 10 ML SYRINGE IV SCH ×3 (05:27→22:05)
[2019-08-27 05:49] LABS: Basophils # (Auto) 0.04 K/mcL (0.00-0.30); Basophils % (Auto) 0.2 % (0.0-2.0); Eosinophils # (Auto) 0.08 K/mcL (0.00-0.70); Eosinophils % (Auto) 0.4 % (0.0-7.0); Granulocytes % (Auto) 89.7 % (38.0-78.0); Hematocrit 28.7 % (34.1-44.9); Hemoglobin 9.1 g/dL (11.2-15.7); Lymphocytes # (Auto) 0.76 K/mcL (1.50-4.80); Lymphocytes % (Auto) 4.1 % (15.5-49.0); Mean Cell Volume 83.7 fL (80.0-100.0); Mean Corpuscular HGB Conc 31.7 g/dL (31.0-36.0); Mean Platelet Volume 8.8 fL (7.4-10.4); Monocytes # (Auto) 1.03 K/mcL (0.10-0.90); Monocytes % (Auto) 5.6 % (1.0-12.0); Platelet Count 824 K/mcL (140-440); RBC 3.43 M/mcL (3.59-5.38); Red Cell Distribution Width 25.5 % (11.5-14.5); WBC 18.4 K/mcL (4.50-11.00)
[2019-08-27 06:22] LABS: ALT/SGPT 6 U/l (0-40); AST/SGOT 12 U/l (0-37); Albumin 2.4 gm/dL (3.2-5.2); Albumin/Globulin Ratio 0.8 (1.0-2.3); Alkaline Phosphatase 69 U/L (39-117); Bilirubin,Total 0.2 mg/dL (0.0-1.0); Calcium 8.2 mg/dl (8.6-10.4); Carbon Dioxide 30 mmol/L (22-30); Chloride 97 mmol/L (96-108); Globulin 3.1 gm/dL (2.2-3.7); Glomerular Filtration Rate 127; Glucose 107 mg/dL (70-105)
[2019-08-27 06:25] LABS: Blood Urea Nitrogen 6 mg/dl (6-20)
[2019-08-27] MEDS: PANTOPRAZOLE 40 MG VIAL IV SCH ×2 (07:22→16:46)
[2019-08-27] MEDS: DOCUSATE SODIUM 100 MG CAPSULE PO SCH ×2 (09:11→22:05)
[2019-08-27] MEDS: LEVOFLOXACIN 750 MG/150 ML BAG IV SCH (09:11)
--- NOTE | 2019-08-27 09:24 | General Surgery Progress Note ---
Subjective Patient reports: no new complaints, feels better, pain is less, tolerating a regular diet, flatus, bowel movement, other (Eating but not a lot. still distended and showing signs of ileus. ) Narrative: Note initiated : 08/27/19 at 9:22 am Service Date, if different from initiated Date: [] Patient: Mojgan Mesa 43 y/o F admitted on 08/18/19 for abdominal pain. Chief Complaint: [] Objective Temp Pulse Resp BP Pulse Ox 97.8 F 108 H 20 132/88 94 08/27/19 07:17 08/27/19 02:56 08/27/19 07:17 08/27/19 07:17 08/27/19 07:17 - Additional Data Intake & Output - Last 24 hours: Intake & Output 08/25/19 08/26/19 08/27/19 08/28/19 05:59 05:59 05:59 05:59 Intake Total 1700 1610 925 Output Total 9533 7550 1808 Balance -000 -513 -423 Weight 122 lb 4.8 oz 121 lb 4.8 oz 119 lb 3.2 oz - General physical appearance well developed, well nourished - Respiratory clear to percussion, clear to auscultation - Cardiovascular Cardiovascular exam: Present: normal rate and rhythm - Abdomen wound (wound drainage still dark and bile stained. J-P's minimal serrous output will D/C ), distended - Labs 08/27/19 05:15 08/27/19 05:15 Diabetes panel 08/27/19 Range/Units 05:15 Sodium 135 (133-145) mmol/L Potassium 4.1 (3.3-5.1) mmol/L Chloride 97 (96-108) mmol/L Carbon Dioxide 30 (22-30) mmol/L BUN 6 (6-20) mg/dl Creatinine 0.4 L (0.6-1.1) mg/dl Glucose 107 H (70-105) mg/dL Calcium 8.2 L (8.6-10.4) mg/dl AST 12 (0-37) U/l ALT 6 (0-40) U/l Alkaline Phosphatase 69 (39-117) U/L Total Protein 5.5 L (5.9-8.4) gm/dL Albumin 2.4 L (3.2-5.2) gm/dL Calcium panel 08/27/19 Range/Units 05:15 Calcium 8.2 L (8.6-10.4) mg/dl Albumin 2.4 L (3.2-5.2) gm/dL Pituitary panel 08/27/19 Range/Units 05:15 Sodium 135 (133-145) mmol/L Potassium 4.1 (3.3-5.1) mmol/L Chloride 97 (96-108) mmol/L Carbon Dioxide 30 (22-30) mmol/L BUN 6 (6-20) mg/dl Creatinine 0.4 L (0.6-1.1) mg/dl Glucose 107 H (70-105) mg/dL Calcium 8.2 L (8.6-10.4) mg/dl Adrenal panel 08/27/19 Range/Units 05:15 Sodium 135 (133-145) mmol/L Potassium 4.1 (3.3-5.1) mmol/L Chloride 97 (96-108) mmol/L Carbon Dioxide 30 (22-30) mmol/L BUN 6 (6-20) mg/dl Creatinine 0.4 L (0.6-1.1) mg/dl Glucose 107 H (70-105) mg/dL Calcium 8.2 L (8.6-10.4) mg/dl Total Bilirubin 0.2 (0.0-1.0) mg/dL AST 12 (0-37) U/l ALT 6 (0-40) U/l Alkaline Phosphatase 69 (39-117) U/L Total Protein 5.5 L (5.9-8.4) gm/dL Albumin 2.4 L (3.2-5.2) gm/dL Assessment and Plan (1) Abdominal wall abscess Status: Acute Assessment and plan: drainage improving Current Visit: Yes (2) Iliopsoas abscess on right Status: Acute Assessment and plan: continue with present drainage Current Visit: Yes (3) Sepsis Status: Resolved Assessment and plan: Sepsis resolving but WBC still up. Cultures still pending gram stain not helpful. will continue same antibiotics Current Visit: Yes (4) Surgical wound present Status: Acute Assessment and plan: has drainage c/w small low output fistula, but not seen on CT. VAC removed will continue with dry dressing changes and follow. Current Visit: Yes - Time Spent With Patient Total time spent is greater than 50% in coordination of care (as documented) at patient's floor/unit and/or counseling patient:
[2019-08-27] MEDS: HYDROmorphone* 2 MG/ML VIAL IV PRN ×2 (16:36→22:05)
[2019-08-28] MEDS: METOCLOPRAMIDE 10 MG/2 ML VIAL IV SCH ×5 (00:43→23:55)
[2019-08-28] MEDS: ONDANSETRON 4 MG/2 ML VIAL IV PRN ×2 (03:14→17:52)
[2019-08-28] MEDS: DIAZEPAM 5 MG TABLET PO PRN ×2 (03:14→20:56)
[2019-08-28] MEDS: HYDROmorphone* 2 MG/ML VIAL IV PRN (05:06)
[2019-08-28] MEDS: 0.9 % SODIUM CHLORIDE 10 ML SYRINGE IV SCH ×4 (05:25→20:56)
[2019-08-28] MEDS: PANTOPRAZOLE 40 MG VIAL IV SCH ×2 (07:33→17:16)
[2019-08-28] MEDS ORDERED: TPN PER PHARMACY PO ONE (08:11)
[2019-08-28] MEDS ORDERED: DEXTROSE 5% IN WATER 1,000 ML IV SCH (08:15)
--- NOTE | 2019-08-28 08:22 | General Surgery Progress Note ---
Subjective Patient reports: no new complaints, still having pain, no bowel movement Narrative: Note initiated : 08/28/19 at 8:20 am Service Date, if different from initiated Date: [] still has not progressed satisfactorily Objective Temp Pulse Resp BP Pulse Ox 98.5 F 110 H 16 122/76 94 08/28/19 07:21 08/28/19 03:10 08/28/19 07:36 08/28/19 07:21 08/28/19 07:21 - Additional Data Intake & Output - Last 24 hours: Intake & Output 08/26/19 08/27/19 08/28/19 08/29/19 05:59 05:59 05:59 05:59 Intake Total 2030 877 0201 Output Total 2413 1808 1730 200 Balance -803 -883 -400 -200 Weight 121 lb 4.8 oz 119 lb 3.2 oz 120 lb 9.6 oz - General physical appearance moderate pain, chronically ill - Abdomen tender, wound (minimal flatus and small BM's but she is still very distended. Wound still has bile stained drainage in small amounts), distended - Labs 08/27/19 05:15 08/27/19 05:15 Assessment and Plan (1) Abdominal wall abscess Status: Acute Assessment and plan: drainage improving Current Visit: Yes (2) Iliopsoas abscess on right Status: Acute Assessment and plan: continue with present drainage Current Visit: Yes (3) Sepsis Status: Resolved Assessment and plan: Sepsis resolving but WBC still up. Cultures still pending gram stain not helpful. will continue same antibiotics Current Visit: Yes (4) Surgical wound present Status: Acute Assessment and plan: has drainage c/w small low output fistula, but not seen on CT. VAC removed will continue with dry dressing changes and follow. Current Visit: Yes (5) Postoperative ileus Status: Acute Assessment and plan: post op day 8 and 10 and she still has a post op ileus. We have tried feeding her an elemental diet but without success. Will start a period of bowel rest and start TPN Current Visit: Yes - Time Spent With Patient Total time spent is greater than 50% in coordination of care (as documented) at patient's floor/unit and/or counseling patient:
[2019-08-28] MEDS: HYDROCODONE/APAP 7.5/325MG TABLET PO PRN ×2 (09:12→17:52)
[2019-08-28] MEDS: DOCUSATE SODIUM 100 MG CAPSULE PO SCH ×2 (09:12→20:56)
[2019-08-28] MEDS: LEVOFLOXACIN 750 MG/150 ML BAG IV SCH (09:13)
[2019-08-28] MEDS: BISACODYL 10 MG SUPP.RECT PR SCH (09:13)
[2019-08-28 09:29] LABS: ALT/SGPT 7 U/l (0-40); AST/SGOT 15 U/l (0-37); Albumin 2.7 gm/dL (3.2-5.2); Albumin/Globulin Ratio 1.1 (1.0-2.3); Alkaline Phosphatase 69 U/L (39-117); Bilirubin,Direct < 0.2 mg/dL (0.0-0.3); Bilirubin,Total 0.2 mg/dL (0.0-1.0); Blood Urea Nitrogen 8 mg/dl (6-20); Calcium 8.6 mg/dl (8.6-10.4); Carbon Dioxide 31 mmol/L (22-30); Globulin 2.5 gm/dL (2.2-3.7); Glucose 93 mg/dL (70-105); Lactate Dehydrogenase 190 U/L (94-250); Triglycerides 128 mg/dl (<150); Uric Acid 3.6 mg/dL (2.5-8.0)
[2019-08-28 09:37] LABS: Chloride 89 mmol/L (96-108); Glomerular Filtration Rate 118; Phosphorous 3.8 mg/dL (2.7-4.5)
[2019-08-28] MEDS: INSULIN LISPRO 1 UNIT/0.01 ML UNIT SQ SCH ×3 (11:34→23:55)
[2019-08-28] MEDS ORDERED: TPN PER PHARMACY IV SCH (12:30)
[2019-08-28] MEDS ORDERED: CALCIUM GLUCONATE IV SCH (14:00)
[2019-08-28] MEDS ORDERED: [UNRECOGNIZED DRUG - OTHER] IV SCH (14:00)
[2019-08-28] MEDS ORDERED: MVI IV SCH (14:00)
[2019-08-28] MEDS ORDERED: MAGNESIUM SULFATE IV SCH (14:00)
[2019-08-28] MEDS ORDERED: SODIUM CHLORIDE IV SCH (14:00)
--- NOTE | 2019-08-28 15:04 | XRay Report ---
CLINICAL INFORMATION: PICC PLACEMENT COMPARISON: 01/10/2018 FINDINGS: Left PICC line tip overlies the SVC /'right atrial junction. Heart size, mediastinum and pulmonary vessels are normal. The lungs are clear. No effusion. Bones and soft tissues normal IMPRESSION: Negative chest. PICC line in satisfactory position Interpreted and Authenticated by: Iván Espinoza 08/28/19
[2019-08-28] MEDS: FAT EMULSION 20% 250 ML in PREMIX 1 BAG IV SCH (17:16)
[2019-08-29] MEDS: HYDROCODONE/APAP 7.5/325MG TABLET PO PRN ×2 (00:10→14:30)
[2019-08-29] MEDS: HYDROmorphone* 2 MG/ML VIAL IV PRN ×4 (03:46→21:09)
[2019-08-29] MEDS: INSULIN LISPRO 1 UNIT/0.01 ML UNIT SQ SCH (05:28)
[2019-08-29] MEDS: 0.9 % SODIUM CHLORIDE 10 ML SYRINGE IV SCH ×3 (05:28→21:10)
[2019-08-29] MEDS: METOCLOPRAMIDE 10 MG/2 ML VIAL IV SCH ×4 (05:28→23:43)
[2019-08-29 06:28] LABS: Basophils # (Auto) 0.03 K/mcL (0.00-0.30); Basophils % (Auto) 0.2 % (0.0-2.0); Eosinophils # (Auto) 0.24 K/mcL (0.00-0.70); Eosinophils % (Auto) 1.3 % (0.0-7.0); Granulocytes % (Auto) 89.4 % (38.0-78.0); Hematocrit 27.7 % (34.1-44.9); Hemoglobin 8.5 g/dL (11.2-15.7); Lymphocytes # (Auto) 0.69 K/mcL (1.50-4.80); Lymphocytes % (Auto) 3.7 % (15.5-49.0); Mean Cell Volume 86.6 fL (80.0-100.0); Mean Corpuscular HGB Conc 30.7 g/dL (31.0-36.0); Mean Platelet Volume 9.4 fL (7.4-10.4); Monocytes # (Auto) 1.01 K/mcL (0.10-0.90); Monocytes % (Auto) 5.4 % (1.0-12.0); Platelet Count 739 K/mcL (140-440); WBC 18.6 K/mcL (4.50-11.00)
[2019-08-29 07:14] LABS: ALT/SGPT 7 U/l (0-40); AST/SGOT 14 U/l (0-37); Albumin 2.4 gm/dL (3.2-5.2); Albumin/Globulin Ratio 0.8 (1.0-2.3); Alkaline Phosphatase 61 U/L (39-117); Bilirubin,Direct < 0.2 mg/dL (0.0-0.3); Bilirubin,Total 0.2 mg/dL (0.0-1.0); Blood Urea Nitrogen 7 mg/dl (6-20); Calcium 8.4 mg/dl (8.6-10.4); Carbon Dioxide 32 mmol/L (22-30); Globulin 3.2 gm/dL (2.2-3.7); Glomerular Filtration Rate 127; Glucose 119 mg/dL (70-105); Lactate Dehydrogenase 181 U/L (94-250); Triglycerides 110 mg/dl (<150); Uric Acid 3.6 mg/dL (2.5-8.0)
[2019-08-29 07:15] LABS: Chloride 93 mmol/L (96-108); Phosphorous 4.8 mg/dL (2.7-4.5)
[2019-08-29] MEDS: PANTOPRAZOLE 40 MG VIAL IV SCH ×2 (08:01→17:37)
--- NOTE | 2019-08-29 09:08 | General Surgery Progress Note ---
Subjective Narrative: Note initiated : 08/29/19 at 9:06 am Service Date, if different from initiated Date: [] Patient: Mojgan Mesa 43 y/o F admitted on 08/18/19 for abdominal pain. Chief Complaint: [Abscess POST OP day # 10 and 8 after drainage of abdominal abscess and drainage of Psoas abscess] Day one of TPN for prolonged post operative ileus Tearful this AM ; she misses her family otherwise no new complaints Objective Temp Pulse Resp BP Pulse Ox 98.0 F 108 H 20 112/70 94 08/29/19 03:40 08/29/19 03:40 08/29/19 03:40 08/29/19 03:40 08/29/19 03:40 - Additional Data Intake & Output - Last 24 hours: Intake & Output 08/27/19 08/28/19 08/29/19 08/30/19 05:59 05:59 05:59 05:59 Intake Total 925 1330 825 Output Total 1808 1730 1475 200 Balance -883 -400 -650 -200 Weight 119 lb 3.2 oz 120 lb 9.6 oz 107 lb 8 oz - General physical appearance well developed, well nourished, no distress, chronically ill - Respiratory normal expansion, normal respiratory effort, clear to percussion, clear to auscultation - Cardiovascular Cardiovascular exam: Present: normal rate and rhythm - Abdomen soft, non tender, wound (Still has bile stained drainage from wound but small amopunts), distended - Labs 08/29/19 05:28 08/29/19 05:28 Diabetes panel 08/28/19 08/29/19 Range/Units 08:25 05:28 Sodium 130 L 135 (133-145) mmol/L Potassium 4.7 3.6 (3.3-5.1) mmol/L Chloride 89 L 93 L (96-108) mmol/L Carbon Dioxide 31 H 32 H (22-30) mmol/L BUN 8 7 (6-20) mg/dl Creatinine 0.5 L 0.4 L (0.6-1.1) mg/dl Glucose 93 119 H (70-105) mg/dL Calcium 8.6 8.4 L (8.6-10.4) mg/dl AST 15 14 (0-37) U/l ALT 7 7 (0-40) U/l Alkaline Phosphatase 69 61 (39-117) U/L Total Protein 5.2 L 5.6 L (5.9-8.4) gm/dL Albumin 2.7 L 2.4 L (3.2-5.2) gm/dL Triglycerides 128 110 (<150) mg/dl Calcium panel 08/28/19 08/29/19 Range/Units 08:25 05:28 Calcium 8.6 8.4 L (8.6-10.4) mg/dl Phosphorus 3.8 4.8 H (2.7-4.5) mg/dL Albumin 2.7 L 2.4 L (3.2-5.2) gm/dL Pituitary panel 08/28/19 08/29/19 Range/Units 08:25 05:28 Sodium 130 L 135 (133-145) mmol/L Potassium 4.7 3.6 (3.3-5.1) mmol/L Chloride 89 L 93 L (96-108) mmol/L Carbon Dioxide 31 H 32 H (22-30) mmol/L BUN 8 7 (6-20) mg/dl Creatinine 0.5 L 0.4 L (0.6-1.1) mg/dl Glucose 93 119 H (70-105) mg/dL Calcium 8.6 8.4 L (8.6-10.4) mg/dl Adrenal panel 08/28/19 08/29/19 Range/Units 08:25 05:28 Sodium 130 L 135 (133-145) mmol/L Potassium 4.7 3.6 (3.3-5.1) mmol/L Chloride 89 L 93 L (96-108) mmol/L Carbon Dioxide 31 H 32 H (22-30) mmol/L BUN 8 7 (6-20) mg/dl Creatinine 0.5 L 0.4 L (0.6-1.1) mg/dl Glucose 93 119 H (70-105) mg/dL Calcium 8.6 8.4 L (8.6-10.4) mg/dl Total Bilirubin 0.2 0.2 (0.0-1.0) mg/dL AST 15 14 (0-37) U/l ALT 7 7 (0-40) U/l Alkaline Phosphatase 69 61 (39-117) U/L Total Protein 5.2 L 5.6 L (5.9-8.4) gm/dL Albumin 2.7 L 2.4 L (3.2-5.2) gm/dL Assessment and Plan (1) Abdominal wall abscess Status: Acute Assessment and plan: drainage improving Current Visit: Yes (2) Iliopsoas abscess on right Status: Acute Assessment and plan: continue with present drainage Current Visit: Yes (3) Sepsis Status: Resolved Assessment and plan: Sepsis resolving but WBC still up. Cultures still pending gram stain not helpful. will continue same antibiotics Current Visit: Yes (4) Surgical wound present Status: Acute Assessment and plan: has drainage c/w small low output fistula, but not seen on CT. VAC removed will continue with dry dressing changes and follow. Current Visit: Yes (5) Postoperative ileus Status: Acute Assessment and plan: post op day 8 and 10 and she still has a post op ileus. We have tried feeding h er an elemental diet but without success. Day one of TPN started no significant change in ileus pattern Current Visit: Yes - Time Spent With Patient Total time spent is greater than 50% in coordination of care (as documented) at patient's floor/unit and/or counseling patient:
[2019-08-29] MEDS: LEVOFLOXACIN 750 MG/150 ML BAG IV SCH (09:26)
[2019-08-29] MEDS: DOCUSATE SODIUM 100 MG CAPSULE PO SCH ×3 (11:21→21:10)
[2019-08-29] MEDS: BISACODYL 10 MG SUPP.RECT PR SCH ×2 (11:22→11:50)
[2019-08-29] MEDS ORDERED: MVI IV SCH (14:00)
[2019-08-29] MEDS ORDERED: [UNRECOGNIZED DRUG - OTHER] IV SCH (14:00)
[2019-08-29] MEDS ORDERED: SODIUM CHLORIDE IV SCH (14:00)
[2019-08-29] MEDS ORDERED: CALCIUM GLUCONATE IV SCH (14:00)
[2019-08-29] MEDS ORDERED: MAGNESIUM SULFATE IV SCH (14:00)
[2019-08-29] MEDS: FAT EMULSION 20% 250 ML in PREMIX 1 BAG IV SCH (16:18)
[2019-08-29] MEDS: DIAZEPAM 5 MG TABLET PO PRN (23:54)
[2019-08-30] MEDS: HYDROCODONE/APAP 7.5/325MG TABLET PO PRN ×8 (01:46→23:36)
[2019-08-30] MEDS: ONDANSETRON 4 MG/2 ML VIAL IV PRN (01:51)
[2019-08-30] MEDS: METOCLOPRAMIDE 10 MG/2 ML VIAL IV SCH ×4 (06:04→23:36)
[2019-08-30] MEDS: 0.9 % SODIUM CHLORIDE 10 ML SYRINGE IV SCH ×3 (06:04→20:58)
[2019-08-30 07:00] LABS: ALT/SGPT 5 U/l (0-40); AST/SGOT 12 U/l (0-37); Albumin 2.5 gm/dL (3.2-5.2); Albumin/Globulin Ratio 0.7 (1.0-2.3); Alkaline Phosphatase 55 U/L (39-117); Bilirubin,Direct < 0.2 mg/dL (0.0-0.3); Bilirubin,Total 0.2 mg/dL (0.0-1.0); Blood Urea Nitrogen 10 mg/dl (6-20); Calcium 8.4 mg/dl (8.6-10.4); Carbon Dioxide 31 mmol/L (22-30); Chloride 98 mmol/L (96-108); Globulin 3.5 gm/dL (2.2-3.7); Glomerular Filtration Rate 118; Glucose 96 mg/dL (70-105); Lactate Dehydrogenase 174 U/L (94-250); Phosphorous 3.3 mg/dL (2.7-4.5); Triglycerides 114 mg/dl (<150); Uric Acid 3.2 mg/dL (2.5-8.0)
[2019-08-30] MEDS: PANTOPRAZOLE 40 MG VIAL IV SCH ×2 (08:02→17:07)
[2019-08-30] MEDS ORDERED: DEXTROSE 50% 50 ML VIAL IV PRN (08:09)
[2019-08-30] MEDS: DOCUSATE SODIUM 100 MG CAPSULE PO SCH ×2 (09:07→20:58)
[2019-08-30] MEDS: LEVOFLOXACIN 750 MG/150 ML BAG IV SCH (09:07)
[2019-08-30] MEDS: BISACODYL 10 MG SUPP.RECT PR SCH (09:08)
[2019-08-30] MEDS: SODIUM CHLORIDE IV SCH (09:28)
[2019-08-30] MEDS: MVI IV SCH (09:28)
[2019-08-30] MEDS: CALCIUM GLUCONATE IV SCH (09:28)
[2019-08-30] MEDS: MAGNESIUM SULFATE IV SCH (09:28)
[2019-08-30] MEDS: [UNRECOGNIZED DRUG - OTHER] IV SCH (09:28)
--- NOTE | 2019-08-30 11:12 | General Surgery Progress Note ---
Subjective Patient reports: no new complaints, other (TPN day # 3 ) Narrative: Note initiated : 08/30/19 at 11:10 am Service Date, if different from initiated Date: [] Patient: Mojgan Mesa 43 y/o F admitted on 08/18/19 for abdominal pain. Chief Complaint: [] Objective Temp Pulse Resp BP Pulse Ox 98.6 F 117 H 20 109/74 96 08/30/19 08:00 08/30/19 08:00 08/30/19 08:00 08/30/19 08:00 08/30/19 08:00 - Additional Data Intake & Output - Last 24 hours: Intake & Output 08/28/19 08/29/19 08/30/19 08/31/19 05:59 05:59 05:59 05:59 Intake Total 4843 862 0266 150 Output Total 1730 1475 2052 950 Balance -400 -500 -411 -800 Weight 120 lb 9.6 oz 107 lb 8 oz 105 lb 14.4 oz - General physical appearance well developed, well nourished, other (Depressed affect) - Abdomen wound (Growing Scarlett and lactobacillus), distended - Labs 08/29/19 05:28 08/30/19 05:31 Diabetes panel 08/30/19 Range/Units 05:31 Sodium 135 (133-145) mmol/L Potassium 4.3 (3.3-5.1) mmol/L Chloride 98 (96-108) mmol/L Carbon Dioxide 31 H (22-30) mmol/L BUN 10 (6-20) mg/dl Creatinine 0.5 L (0.6-1.1) mg/dl Glucose 96 (70-105) mg/dL Calcium 8.4 L (8.6-10.4) mg/dl AST 12 (0-37) U/l ALT 5 (0-40) U/l Alkaline Phosphatase 55 (39-117) U/L Total Protein 6.0 (5.9-8.4) gm/dL Albumin 2.5 L (3.2-5.2) gm/dL Triglycerides 114 (<150) mg/dl Calcium panel 08/30/19 Range/Units 05:31 Calcium 8.4 L (8.6-10.4) mg/dl Phosphorus 3.3 (2.7-4.5) mg/dL Albumin 2.5 L (3.2-5.2) gm/dL Pituitary panel 08/30/19 Range/Units 05:31 Sodium 135 (133-145) mmol/L Potassium 4.3 (3.3-5.1) mmol/L Chloride 98 (96-108) mmol/L Carbon Dioxide 31 H (22-30) mmol/L BUN 10 (6-20) mg/dl Creatinine 0.5 L (0.6-1.1) mg/dl Glucose 96 (70-105) mg/dL Calcium 8.4 L (8.6-10.4) mg/dl Adrenal panel 08/30/19 Range/Units 05:31 Sodium 135 (133-145) mmol/L Potassium 4.3 (3.3-5.1) mmol/L Chloride 98 (96-108) mmol/L Carbon Dioxide 31 H (22-30) mmol/L BUN 10 (6-20) mg/dl Creatinine 0.5 L (0.6-1.1) mg/dl Glucose 96 (70-105) mg/dL Calcium 8.4 L (8.6-10.4) mg/dl Total Bilirubin 0.2 (0.0-1.0) mg/dL AST 12 (0-37) U/l ALT 5 (0-40) U/l Alkaline Phosphatase 55 (39-117) U/L Total Protein 6.0 (5.9-8.4) gm/dL Albumin 2.5 L (3.2-5.2) gm/dL Assessment and Plan (1) Abdominal wall abscess Status: Acute Assessment and plan: drainage improving Current Visit: Yes (2) Iliopsoas abscess on right Status: Acute Assessment and plan: continue with present drainage Current Visit: Yes (3) Sepsis Status: Resolved Assessment and plan: Sepsis resolving but WBC still up. Cultures still pending gram stain not helpful. will continue same antibiotics Current Visit: Yes (4) Surgical wound present Status: Acute Assessment and plan: has drainage c/w small low output fistula, but not seen on CT. VAC removed will continue with dry dressing changes and follow. Current Visit: Yes (5) Postoperative ileus Status: Acute Assessment and plan: post op day 8 and 10 and she still has a post op ileus. We have tried feeding her an elemental diet but without success. TPN started no significant change in ileus pattern Current Visit: Yes - Time Spent With Patient Total time spent is greater than 50% in coordination of care (as documented) at patient's floor/unit and/or counseling patient:
[2019-08-30] MEDS: INSULIN LISPRO 1 UNIT/0.01 ML UNIT SQ SCH ×3 (13:02→23:39)
--- NOTE | 2019-08-30 14:31 | XRay Report ---
CLINICAL INFORMATION: Enterocutaneous fistula TECHNIQUE: An 8 Mongolian feeding tube was placed with in an enterocutaneous fistula. Water-soluble contrast material was injected. 50 seconds fluoroscopy utilized. 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 Contrast injection initially demonstrates a round cavity. There is communication with the cecum. There is also communication with dilated small bowel in the left side of the pelvis. No free intraperitoneal fluid. IMPRESSION: 1. Fistulous communication with the cecum 2. Fistulous communication with dilated small bowel in the left side of the pelvis Interpreted and Authenticated by: Iván Ulrich 08/30/19
[2019-08-30] MEDS: FAT EMULSION 20% 250 ML in PREMIX 1 BAG IV SCH (17:07)
[2019-08-31] MEDS: HYDROmorphone* 2 MG/ML VIAL IV PRN ×5 (00:46→23:59)
[2019-08-31] MEDS: CALCIUM GLUCONATE IV SCH ×2 (03:36→22:30)
[2019-08-31] MEDS: MVI IV SCH ×2 (03:36→22:30)
[2019-08-31] MEDS: SODIUM CHLORIDE IV SCH ×2 (03:36→22:30)
[2019-08-31] MEDS: MAGNESIUM SULFATE IV SCH ×2 (03:36→22:30)
[2019-08-31] MEDS: [UNRECOGNIZED DRUG - OTHER] IV SCH (03:36)
[2019-08-31] MEDS: HYDROCODONE/APAP 7.5/325MG TABLET PO PRN ×4 (05:42→22:31)
[2019-08-31] MEDS: METOCLOPRAMIDE 10 MG/2 ML VIAL IV SCH ×3 (05:43→17:48)
[2019-08-31] MEDS: 0.9 % SODIUM CHLORIDE 10 ML SYRINGE IV SCH ×3 (05:44→20:26)
[2019-08-31] MEDS: INSULIN LISPRO 1 UNIT/0.01 ML UNIT SQ SCH ×3 (05:56→17:36)
[2019-08-31 06:54] LABS: ALT/SGPT 7 U/l (0-40); AST/SGOT 14 U/l (0-37); Albumin 2.9 gm/dL (3.2-5.2); Albumin/Globulin Ratio 0.8 (1.0-2.3); Alkaline Phosphatase 62 U/L (39-117); Bilirubin,Direct < 0.2 mg/dL (0.0-0.3); Bilirubin,Total 0.2 mg/dL (0.0-1.0); Blood Urea Nitrogen 14 mg/dl (6-20); Calcium 8.6 mg/dl (8.6-10.4); Carbon Dioxide 28 mmol/L (22-30); Chloride 96 mmol/L (96-108); Globulin 3.7 gm/dL (2.2-3.7); Glomerular Filtration Rate 127; Glucose 121 mg/dL (70-105); Lactate Dehydrogenase 204 U/L (94-250); Triglycerides 108 mg/dl (<150); Uric Acid 2.7 mg/dL (2.5-8.0)
[2019-08-31 06:55] LABS: Phosphorous 2.1 mg/dL (2.7-4.5)
[2019-08-31 06:56] LABS: Prealbumin 17.4 mg/dl (20-40)
[2019-08-31] MEDS: DOCUSATE SODIUM 100 MG CAPSULE PO SCH ×2 (08:21→20:26)
[2019-08-31] MEDS: PANTOPRAZOLE 40 MG VIAL IV SCH ×2 (08:22→16:26)
[2019-08-31] MEDS: LEVOFLOXACIN 750 MG/150 ML BAG IV SCH (08:29)
--- NOTE | 2019-08-31 10:22 | General Surgery Progress Note ---
Subjective Patient reports: no new complaints, flatus, no bowel movement (Abd Still distended ileus persists ) Narrative: Note initiated : 08/31/19 at 10:19 am Service Date, if different from initiated Date: [] Patient: Mojgan Mesa 43 y/o F admitted on 08/18/19 for abdominal pain. Chief Complaint: [] Objective Temp Pulse Resp BP Pulse Ox 98.2 F 98 H 20 120/81 96 08/31/19 07:36 08/31/19 07:36 08/31/19 07:36 08/31/19 07:36 08/31/19 07:36 - Additional Data Intake & Output - Last 24 hours: Intake & Output 08/29/19 08/30/19 08/31/19 09/01/19 05:59 05:59 05:59 05:59 Intake Total 975 1641 3117.2526 Output Total 1475 2052 2450 350 Balance -500 -625 163.9863 -350 Weight 107 lb 8 oz 105 lb 14.4 oz 104 lb 4.8 oz - General physical appearance well developed - Eyes PERRL, normal ocular movement - Respiratory normal respiratory effort, clear to percussion, clear to auscultation - Cardiovascular Cardiovascular exam: Present: normal rate and rhythm - Abdomen wound (drainage persists bile stained ) - Labs 08/29/19 05:28 08/31/19 05:55 Diabetes panel 08/31/19 Range/Units 05:55 Sodium 130 L (133-145) mmol/L Potassium 4.3 (3.3-5.1) mmol/L Chloride 96 (96-108) mmol/L Carbon Dioxide 28 (22-30) mmol/L BUN 14 (6-20) mg/dl Creatinine 0.4 L (0.6-1.1) mg/dl Glucose 121 H (70-105) mg/dL Calcium 8.6 (8.6-10.4) mg/dl AST 14 (0-37) U/l ALT 7 (0-40) U/l Alkaline Phosphatase 62 (39-117) U/L Total Protein 6.6 (5.9-8.4) gm/dL Albumin 2.9 L (3.2-5.2) gm/dL Triglycerides 108 (<150) mg/dl Calcium panel 04/14/20 Range/Units 05:55 Calcium 8.6 (8.6-10.4) mg/dl Phosphorus 2.1 L (2.7-4.5) mg/dL Albumin 2.9 L (3.2-5.2) gm/dL Pituitary panel 08/31/19 Range/Units 05:55 Sodium 130 L (133-145) mmol/L Potassium 4.3 (3.3-5.1) mmol/L Chloride 96 (96-108) mmol/L Carbon Dioxide 28 (22-30) mmol/L BUN 14 (6-20) mg/dl Creatinine 0.4 L (0.6-1.1) mg/dl Glucose 121 H (70-105) mg/dL Calcium 8.6 (8.6-10.4) mg/dl Adrenal panel 08/31/19 Range/Units 05:55 Sodium 130 L (133-145) mmol/L Potassium 4.3 (3.3-5.1) mmol/L Chloride 96 (96-108) mmol/L Carbon Dioxide 28 (22-30) mmol/L BUN 14 (6-20) mg/dl Creatinine 0.4 L (0.6-1.1) mg/dl Glucose 121 H (70-105) mg/dL Calcium 8.6 (8.6-10.4) mg/dl Total Bilirubin 0.2 (0.0-1.0) mg/dL AST 14 (0-37) U/l ALT 7 (0-40) U/l Alkaline Phosphatase 62 (39-117) U/L Total Protein 6.6 (5.9-8.4) gm/dL Albumin 2.9 L (3.2-5.2) gm/dL - Imaging Abdominal x-ray: other (Fistula study shws connection to a small pocket and then to the Small bowel and Cecum ) Assessment and Plan (1) Abdominal wall abscess Status: Acute Assessment and plan: drainage improving Current Visit: Yes (2) Iliopsoas abscess on right Status: Acute Assessment and plan: continue with present drainage Current Visit: Yes (3) Sepsis Status: Resolved Assessment and plan: Sepsis resolving but WBC still up. Cultures still pending gram stain not helpful. will continue same antibiotics Current Visit: Yes (4) Surgical wound present Status: Acute Assessment and plan: has drainage c/w small low output fistula, but not seen on CT. VAC removed will continue with dry dressing changes and follow. Current Visit: Yes (5) Postoperative ileus Status: Acute Assessment and plan: post op day 8 and 10 and she still has a post op ileus. We have tried feeding her an elemental diet but without success. TPN started no significant change in ileus pattern Current Visit: Yes - Narrative A/P Narrative: Plan is to continue clear liquids only, TPN and wait untl the ileus resolves. She may need Out patient TPN to allow the fistula time to heal. - Time Spent With Patient Total time spent is greater than 50% in coordination of care (as documented) at patient's floor/unit and/or counseling patient: 15 - 24 minutes
[2019-08-31] MEDS: FAT EMULSION 20% 250 ML in PREMIX 1 BAG IV SCH (16:27)
[2019-08-31] MEDS: [UNRECOGNIZED DRUG - OTHER] IV SCH (22:30)
[2019-09-01] MEDS: METOCLOPRAMIDE 10 MG/2 ML VIAL IV SCH ×5 (00:10→23:37)
[2019-09-01] MEDS: INSULIN LISPRO 1 UNIT/0.01 ML UNIT SQ SCH ×5 (00:12→23:39)
[2019-09-01] MEDS: HYDROCODONE/APAP 7.5/325MG TABLET PO PRN ×5 (02:32→21:19)
[2019-09-01] MEDS: HYDROmorphone* 2 MG/ML VIAL IV PRN ×6 (04:05→23:28)
[2019-09-01] MEDS: 0.9 % SODIUM CHLORIDE 10 ML SYRINGE IV SCH ×4 (04:16→21:31)
[2019-09-01 05:29] LABS: ALT/SGPT 5 U/l (0-40); AST/SGOT 13 U/l (0-37); Albumin 2.8 gm/dL (3.2-5.2); Albumin/Globulin Ratio 0.8 (1.0-2.3); Alkaline Phosphatase 58 U/L (39-117); Bilirubin,Direct < 0.2 mg/dL (0.0-0.3); Bilirubin,Total < 0.2 mg/dL (0.0-1.0); Blood Urea Nitrogen 12 mg/dl (6-20); Calcium 8.6 mg/dl (8.6-10.4); Carbon Dioxide 27 mmol/L (22-30); Chloride 99 mmol/L (96-108); Globulin 3.4 gm/dL (2.2-3.7); Glomerular Filtration Rate 127; Glucose 107 mg/dL (70-105); Lactate Dehydrogenase 164 U/L (94-250); Triglycerides 114 mg/dl (<150); Uric Acid 2.4 mg/dL (2.5-8.0)
[2019-09-01 05:33] LABS: Phosphorous 2.8 mg/dL (2.7-4.5)
--- NOTE | 2019-09-01 07:25 | General Surgery Progress Note ---
Subjective Patient reports: no new complaints, feels better, flatus Narrative: Note initiated : 09/01/19 at 7:22 am Service Date, if different from initiated Date: [] Patient: Mojgan Mesa 43 y/o F admitted on 08/18/19 for abdominal pain. Chief Complaint: [] Objective Temp Pulse Resp BP Pulse Ox 98.1 F 115 H 12 120/80 96 09/01/19 03:39 09/01/19 03:39 09/01/19 03:39 09/01/19 03:39 09/01/19 03:39 - Additional Data Intake & Output - Last 24 hours: Intake & Output 08/30/19 08/31/19 09/01/19 09/02/19 05:59 05:59 05:59 05:59 Intake Total 1641 3117.2526 1840 Output Total 2 2450 2450 Balance -438 053.6781 -610 Weight 105 lb 14.4 oz 104 lb 4.8 oz 104 lb 3.2 oz - General physical appearance well developed, well nourished, chronically ill - Respiratory normal respiratory effort, clear to percussion, clear to auscultation - Cardiovascular Cardiovascular exam: Present: normal rate and rhythm - Abdomen soft, wound (Fistula drainage, small amount on dressings), distended - Labs 08/29/19 05:28 09/01/19 04:30 Diabetes panel 09/01/19 Range/Units 04:30 Sodium 135 (133-145) mmol/L Potassium 4.1 (3.3-5.1) mmol/L Chloride 99 (96-108) mmol/L Carbon Dioxide 27 (22-30) mmol/L BUN 12 (6-20) mg/dl Creatinine 0.4 L (0.6-1.1) mg/dl Glucose 107 H (70-105) mg/dL Calcium 8.6 (8.6-10.4) mg/dl AST 13 (0-37) U/l ALT 5 (0-40) U/l Alkaline Phosphatase 58 (39-117) U/L Total Protein 6.2 (5.9-8.4) gm/dL Albumin 2.8 L (3.2-5.2) gm/dL Triglycerides 114 (<150) mg/dl Calcium panel 09/01/19 Range/Units 04:30 Calcium 8.6 (8.6-10.4) mg/dl Phosphorus 2.8 (2.7-4.5) mg/dL Albumin 2.8 L (3.2-5.2) gm/dL Pituitary panel 09/01/19 Range/Units 04:30 Sodium 135 (133-145) mmol/L Potassium 4.1 (3.3-5.1) mmol/L Chloride 99 (96-108) mmol/L Carbon Dioxide 27 (22-30) mmol/L BUN 12 (6-20) mg/dl Creatinine 0.4 L (0.6-1.1) mg/dl Glucose 107 H (70-105) mg/dL Calcium 8.6 (8.6-10.4) mg/dl Adrenal panel 09/01/19 Range/Units 04:30 Sodium 135 (133-145) mmol/L Potassium 4.1 (3.3-5.1) mmol/L Chloride 99 (96-108) mmol/L Carbon Dioxide 27 (22-30) mmol/L BUN 12 (6-20) mg/dl Creatinine 0.4 L (0.6-1.1) mg/dl Glucose 107 H (70-105) mg/dL Calcium 8.6 (8.6-10.4) mg/dl Total Bilirubin < 0.2 (0.0-1.0) mg/dL AST 13 (0-37) U/l ALT 5 (0-40) U/l Alkaline Phosphatase 58 (39-117) U/L Total Protein 6.2 (5.9-8.4) gm/dL Albumin 2.8 L (3.2-5.2) gm/dL Assessment and Plan (1) Abdominal wall abscess Status: Acute Assessment and plan: drainage improving Current Visit: Yes (2) Iliopsoas abscess on right Status: Acute Assessment and plan: continue with present drainage Current Visit: Yes (3) Sepsis Status: Resolved Assessment and plan: Sepsis resolving but WBC still up. Cultures still pending gram stain not helpful. will continue same antibiotics Current Visit: Yes (4) Surgical wound present Status: Acute Assessment and plan: has drainage c/w small low output fistula, but not seen on CT. VAC removed will continue with dry dressing changes and follow. Current Visit: Yes (5) Postoperative ileus Status: Acute Assessment and plan: ileus persists but abdominal distension is less Current Visit: Yes (6) Fistula Status: Acute Assessment and plan: dressing changes, and follow, TPN Current Visit: Yes - Time Spent With Patient Total time spent is greater than 50% in coordination of care (as documented) at patient's floor/unit and/or counseling patient:
[2019-09-01] MEDS: PANTOPRAZOLE 40 MG VIAL IV SCH ×2 (07:35→17:05)
[2019-09-01] MEDS: DOCUSATE SODIUM 100 MG CAPSULE PO SCH ×2 (09:23→20:06)
[2019-09-01] MEDS: LEVOFLOXACIN 750 MG/150 ML BAG IV SCH (09:24)
[2019-09-01] MEDS: FAT EMULSION 20% 250 ML in PREMIX 1 BAG IV SCH (16:04)
[2019-09-01] MEDS: SODIUM CHLORIDE IV SCH (17:41)
[2019-09-01] MEDS: CALCIUM GLUCONATE IV SCH (17:41)
[2019-09-01] MEDS: [UNRECOGNIZED DRUG - OTHER] IV SCH (17:41)
[2019-09-01] MEDS: MAGNESIUM SULFATE IV SCH (17:41)
[2019-09-01] MEDS: MVI IV SCH (17:41)
[2019-09-01] MEDS: ZOLPIDEM 5 MG TABLET PO PRN (21:19)
[2019-09-02] MEDS: HYDROCODONE/APAP 7.5/325MG TABLET PO PRN ×4 (01:54→21:06)
[2019-09-02] MEDS: HYDROmorphone* 2 MG/ML VIAL IV PRN ×3 (03:39→15:50)
[2019-09-02] MEDS: 0.9 % SODIUM CHLORIDE 10 ML SYRINGE IV SCH ×3 (06:04→21:07)
[2019-09-02] MEDS: METOCLOPRAMIDE 10 MG/2 ML VIAL IV SCH ×4 (06:04→23:56)
[2019-09-02] MEDS: INSULIN LISPRO 1 UNIT/0.01 ML UNIT SQ SCH ×4 (06:06→23:56)
--- NOTE | 2019-09-02 08:19 | General Surgery Progress Note ---
Subjective Patient reports: no new complaints, feels better, pain is less Narrative: Note initiated : 09/02/19 at 8:17 am Service Date, if different from initiated Date: [] Patient: Mojgan Mesa 43 y/o F admitted on 08/18/19 for abdominal pain. Chief Complaint: [] Objective Temp Pulse Resp BP Pulse Ox 98.0 F 108 H 12 117/81 95 09/02/19 03:46 09/02/19 03:46 09/02/19 03:46 09/02/19 03:46 09/02/19 03:46 - Additional Data Intake & Output - Last 24 hours: Intake & Output 08/31/19 09/01/19 09/02/19 09/03/19 05:59 05:59 05:59 05:59 Intake Total 3117.2526 2090 2199.4193 Output Total 2450 2450 2125 Balance 667.2526 -360 74.4193 Weight 104 lb 4.8 oz 104 lb 3.2 oz 103 lb 3.2 oz - General physical appearance well developed, well nourished - Respiratory clear to percussion, clear to auscultation - Cardiovascular Cardiovascular exam: Present: normal rate and rhythm Additional comments: Occasional runs of Sinus Tach - Abdomen soft, non tender, distended - Labs 08/29/19 05:28 09/01/19 04:30 Assessment and Plan (1) Abdominal wall abscess Status: Acute Assessment and plan: drainage improving Current Visit: Yes (2) Iliopsoas abscess on right Status: Acute Assessment and plan: continue with present drainage Current Visit: Yes (3) Sepsis Status: Resolved Assessment and plan: Sepsis resolving but WBC still up. Cultures still pending gram stain not h elpful. will continue same antibiotics Current Visit: Yes (4) Surgical wound present Status: Acute Assessment and plan: has drainage c/w small low output fistula, but not seen on CT. VAC removed will continue with dry dressing changes and follow. Current Visit: Yes (5) Postoperative ileus Status: Acute Assessment and plan: passing flatus and liquid stools/ but still pretty distended and still tympanitic Current Visit: Yes (6) Fistula Status: Acute Assessment and plan: dressing changes, and follow, TPN Current Visit: Yes - Time Spent With Patient Total time spent is greater than 50% in coordination of care (as documented) at patient's floor/unit and/or counseling patient:
[2019-09-02] MEDS: PANTOPRAZOLE 40 MG VIAL IV SCH ×2 (09:12→15:49)
[2019-09-02] MEDS: DOCUSATE SODIUM 100 MG CAPSULE PO SCH ×2 (09:12→21:06)
[2019-09-02] MEDS: LEVOFLOXACIN 750 MG/150 ML BAG IV SCH (09:34)
[2019-09-02 10:01] LABS: ALT/SGPT 6 U/l (0-40); AST/SGOT 15 U/l (0-37); Albumin/Globulin Ratio 1.1 (1.0-2.3); Alkaline Phosphatase 63 U/L (39-117); Bilirubin,Direct < 0.2 mg/dL (0.0-0.3); Bilirubin,Total < 0.2 mg/dL (0.0-1.0); Blood Urea Nitrogen 15 mg/dl (6-20); Calcium 8.7 mg/dl (8.6-10.4); Carbon Dioxide 26 mmol/L (22-30); Chloride 99 mmol/L (96-108); Globulin 2.8 gm/dL (2.2-3.7); Glomerular Filtration Rate 127; Glucose 109 mg/dL (70-105); Lactate Dehydrogenase 220 U/L (94-250); Triglycerides 100 mg/dl (<150); Uric Acid 2.7 mg/dL (2.5-8.0)
--- NOTE | 2019-09-02 10:09 | XRay Report ---
INDICATION: follow up post op ileus TECHNIQUE: Supine and upright abdomen. COMPARISON: CT scans dated 08/25/2019, 08/18/2019. Previous fistulogram dated 08/30/2019 FINDINGS:There is contrast material within the colon and small bowel. There is some contrast material within the stomach. There is no record of oral contrast ingestion. Patient was given water-soluble contrast material during the fistulogram on 08/25/2019. The fistula did communicate with the GI tract as described previously. There is contrast material throughout the colon. No colonic dilatation. There is mild contrast within small bowel and even within the stomach. The stomach is mildly dilated. The small bowel is mildly prominent but less distended than on previous CT scans. Overall appearance appears improved. Findings are most consistent with ileus There are some small bowel air fluid levels on upright examination. There is no pneumoperitoneum. No pneumatosis. No biliary or portal venous gas. IMPRESSION: 1. Contrast material within the colon. There is some contrast material in small bowel and stomach. This is apparently secondary to previous fistulogram 2. Mildly prominent small bowel with air-fluid levels 3. No pneumoperitoneum. 4. No evidence for high-grade mechanical small bowel obstruction Interpreted and Authenticated by: Iván Ulrich 09/02/19
[2019-09-02] MEDS: SODIUM CHLORIDE IV SCH (13:30)
[2019-09-02] MEDS: CALCIUM GLUCONATE IV SCH (13:30)
[2019-09-02] MEDS: [UNRECOGNIZED DRUG - OTHER] IV SCH (13:30)
[2019-09-02] MEDS: MAGNESIUM SULFATE IV SCH (13:30)
[2019-09-02] MEDS: MVI IV SCH (13:30)
[2019-09-02] MEDS: FAT EMULSION 20% 250 ML in PREMIX 1 BAG IV SCH (15:49)
[2019-09-02] MEDS: DIAZEPAM 5 MG TABLET PO PRN (19:16)
[2019-09-02] MEDS: ZOLPIDEM 5 MG TABLET PO PRN (21:06)
[2019-09-03] MEDS: HYDROCODONE/APAP 7.5/325MG TABLET PO PRN ×5 (01:50→21:14)
[2019-09-03] MEDS: METOCLOPRAMIDE 10 MG/2 ML VIAL IV SCH ×4 (05:28→23:52)
[2019-09-03] MEDS: HYDROmorphone* 2 MG/ML VIAL IV PRN ×3 (05:28→23:53)
[2019-09-03] MEDS: INSULIN LISPRO 1 UNIT/0.01 ML UNIT SQ SCH ×4 (05:29→23:59)
[2019-09-03] MEDS: 0.9 % SODIUM CHLORIDE 10 ML SYRINGE IV SCH ×3 (05:29→21:15)
[2019-09-03] MEDS: ONDANSETRON 4 MG/2 ML VIAL IV PRN (05:41)
[2019-09-03 06:50] LABS: ALT/SGPT 6 U/l (0-40); AST/SGOT 14 U/l (0-37); Alkaline Phosphatase 68 U/L (39-117); Bilirubin,Direct < 0.2 mg/dL (0.0-0.3); Bilirubin,Total < 0.2 mg/dL (0.0-1.0); Blood Urea Nitrogen 14 mg/dl (6-20); Calcium 8.9 mg/dl (8.6-10.4); Carbon Dioxide 25 mmol/L (22-30); Chloride 96 mmol/L (96-108); Glucose 99 mg/dL (70-105); Lactate Dehydrogenase 185 U/L (94-250); Triglycerides 101 mg/dl (<150); Uric Acid 2.9 mg/dL (2.5-8.0)
[2019-09-03 06:55] LABS: Albumin/Globulin Ratio 0.8 (1.0-2.3); Glomerular Filtration Rate 118
--- NOTE | 2019-09-03 07:44 | General Surgery Progress Note ---
Subjective Patient reports: feels better, pain is less, tolerating liquids well Narrative: Note initiated : 09/03/19 at 7:42 am Service Date, if different from initiated Date: [] Patient: Mojgan Mesa 43 y/o F admitted on 08/18/19 for abdominal pain. Chief Complaint: [] Objective Temp Pulse Resp BP Pulse Ox 98.5 F 100 H 16 106/72 95 09/03/19 07:01 09/03/19 07:01 09/03/19 07:01 09/03/19 07:01 09/03/19 07:01 - Additional Data Intake & Output - Last 24 hours: Intake & Output 09/01/19 09/02/19 09/03/19 09/04/19 05:59 05:59 05:59 05:59 Intake Total 2090 2199.4193 750 Output Total 2450 2125 2450 Balance -360 74.4193 -1700 Weight 104 lb 3.2 oz 103 lb 3.2 oz 102 lb 1.6 oz - General physical appearance well developed, no pain - Respiratory clear to percussion, clear to auscultation - Cardiovascular Cardiovascular exam: Present: normal rate and rhythm - Abdomen soft, non tender, surgical scars (Fistula out put minimal but still present. Ileus appears to be resolving some ), wound - Labs 08/29/19 05:28 09/03/19 05:30 Diabetes panel 09/02/19 09/03/19 Range/Units 05:00 05:30 Sodium 136 131 L (133-145) mmol/L Potassium 4.5 4.4 (3.3-5.1) mmol/L Chloride 99 96 (96-108) mmol/L Carbon Dioxide 26 25 (22-30) mmol/L BUN 15 14 (6-20) mg/dl Creatinine 0.4 L 0.5 L (0.6-1.1) mg/dl Glucose 109 H 99 (70-105) mg/dL Calcium 8.7 8.9 (8.6-10.4) mg/dl AST 15 14 (0-37) U/l ALT 6 6 (0-40) U/l Alkaline Phosphatase 63 68 (39-117) U/L Total Protein 5.8 L 7.0 (5.9-8.4) gm/dL Albumin 3.0 L 3.0 L (3.2-5.2) gm/dL Triglycerides 100 101 (<150) mg/dl Calcium panel 09/02/19 09/03/19 Range/Units 05:00 05:30 Calcium 8.7 8.9 (8.6-10.4) mg/dl Phosphorus 4.0 3.0 (2.7-4.5) mg/dL Albumin 3.0 L 3.0 L (3.2-5.2) gm/dL Pituitary panel 09/02/19 09/03/19 Range/Units 05:00 05:30 Sodium 136 131 L (133-145) mmol/L Potassium 4.5 4.4 (3.3-5.1) mmol/L Chloride 99 96 (96-108) mmol/L Carbon Dioxide 26 25 (22-30) mmol/L BUN 15 14 (6-20) mg/dl Creatinine 0.4 L 0.5 L (0.6-1.1) mg/dl Glucose 109 H 99 (70-105) mg/dL Calcium 8.7 8.9 (8.6-10.4) mg/dl Adrenal panel 09/02/19 09/03/19 Range/Units 05:00 05:30 Sodium 136 131 L (133-145) mmol/L Potassium 4.5 4.4 (3.3-5.1) mmol/L Chloride 99 96 (96-108) mmol/L Carbon Dioxide 26 25 (22-30) mmol/L BUN 15 14 (6-20) mg/dl Creatinine 0.4 L 0.5 L (0.6-1.1) mg/dl Glucose 109 H 99 (70-105) mg/dL Calcium 8.7 8.9 (8.6-10.4) mg/dl Total Bilirubin < 0.2 < 0.2 (0.0-1.0) mg/dL AST 15 14 (0-37) U/l ALT 6 6 (0-40) U/l Alkaline Phosphatase 63 68 (39-117) U/L Total Protein 5.8 L 7.0 (5.9-8.4) gm/dL Albumin 3.0 L 3.0 L (3.2-5.2) gm/dL - Imaging Abdominal x-ray: report reviewed, image reviewed Assessment and Plan (1) Abdominal wall abscess Status: Acute Assessment and plan: drainage improving Current Visit: Yes (2) Iliopsoas abscess on right Status: Acute Assessment and plan: continue with present drainage Current Visit: Yes (3) Sepsis Status: Resolved Assessment and plan: Sepsis resolving but WBC still up. Cultures still pending gram stain not help ful. will continue same antibiotics Current Visit: Yes (4) Surgical wound present Status: Acute Assessment and plan: has drainage c/w small low output fistula, but not seen on CT. VAC removed will continue with dry dressing changes and follow. Current Visit: Yes (5) Postoperative ileus Status: Acute Assessment and plan: less distended, having more regular BM's X-rays show all contrast in Colon and minimal small bowel dilatation may be feady to start full liquids Current Visit: Yes (6) Fistula Status: Acute Assessment and plan: dressing changes, and follow, TPN Current Visit: Yes - Time Spent With Patient Total time spent is greater than 50% in coordination of care (as documented) at patient's floor/unit and/or counseling patient:
[2019-09-03] MEDS: DOCUSATE SODIUM 100 MG CAPSULE PO SCH ×2 (10:04→21:12)
[2019-09-03] MEDS: LEVOFLOXACIN 750 MG/150 ML BAG IV SCH (10:07)
[2019-09-03] MEDS: PANTOPRAZOLE 40 MG VIAL IV SCH ×2 (10:08→17:04)
[2019-09-03] MEDS: [UNRECOGNIZED DRUG - OTHER] IV SCH (10:08)
[2019-09-03] MEDS: MVI IV SCH ×2 (10:08)
[2019-09-03] MEDS: [UNRECOGNIZED DRUG - OTHER] IV SCH (10:08)
[2019-09-03] MEDS: SODIUM CHLORIDE IV SCH ×2 (10:08)
[2019-09-03] MEDS: MAGNESIUM SULFATE IV SCH ×2 (10:08)
[2019-09-03] MEDS: CALCIUM GLUCONATE IV SCH ×2 (10:08)
[2019-09-03] MEDS: FAT EMULSION 20% 250 ML in PREMIX 1 BAG IV SCH (15:50)
[2019-09-03] MEDS: ZOLPIDEM 5 MG TABLET PO PRN (21:12)
[2019-09-03] MEDS: DIAZEPAM 5 MG TABLET PO PRN (23:52)
[2019-09-04] MEDS: HYDROCODONE/APAP 7.5/325MG TABLET PO PRN ×6 (01:57→22:13)
[2019-09-04] MEDS: SODIUM CHLORIDE IV SCH (04:31)
[2019-09-04] MEDS: MVI IV SCH (04:31)
[2019-09-04] MEDS: MAGNESIUM SULFATE IV SCH (04:31)
[2019-09-04] MEDS: CALCIUM GLUCONATE IV SCH (04:31)
[2019-09-04] MEDS: [UNRECOGNIZED DRUG - OTHER] IV SCH (04:31)
[2019-09-04] MEDS: METOCLOPRAMIDE 10 MG/2 ML VIAL IV SCH ×4 (05:48→23:34)
[2019-09-04] MEDS: 0.9 % SODIUM CHLORIDE 10 ML SYRINGE IV SCH ×3 (05:48→21:30)
[2019-09-04] MEDS: INSULIN LISPRO 1 UNIT/0.01 ML UNIT SQ SCH ×4 (05:50→23:45)
[2019-09-04 07:02] LABS: ALT/SGPT 6 U/l (0-40); AST/SGOT 15 U/l (0-37); Albumin/Globulin Ratio 0.8 (1.0-2.3); Alkaline Phosphatase 74 U/L (39-117); Bilirubin,Direct < 0.2 mg/dL (0.0-0.3); Bilirubin,Total < 0.2 mg/dL (0.0-1.0); Blood Urea Nitrogen 20 mg/dl (6-20); Calcium 9.1 mg/dl (8.6-10.4); Carbon Dioxide 27 mmol/L (22-30); Chloride 97 mmol/L (96-108); Globulin 3.8 gm/dL (2.2-3.7); Glomerular Filtration Rate 118; Glucose 110 mg/dL (70-105); Lactate Dehydrogenase 198 U/L (94-250); Phosphorous 4.2 mg/dL (2.7-4.5); Triglycerides 115 mg/dl (<150); Uric Acid 2.8 mg/dL (2.5-8.0)
[2019-09-04] MEDS: PANTOPRAZOLE 40 MG VIAL IV SCH ×2 (07:44→16:27)
[2019-09-04] MEDS: HYDROmorphone* 2 MG/ML VIAL IV PRN (07:50)
--- NOTE | 2019-09-04 08:43 | General Surgery Progress Note ---
Subjective Patient reports: no new complaints, feels better, bowel movement, diarrhea Narrative: Note initiated : 09/04/19 at 8:41 am Service Date, if different from initiated Date: [] Patient: Mojgan Mesa 43 y/o F admitted on 08/18/19 for abdominal pain. Chief Complaint: [] She has a fistula from the cecum and small bowel to the wound, which is low output. She is malnourished with albumin around 3.0. She is taking moderately large amounts of Dilaudid IV also. Objective Temp Pulse Resp BP Pulse Ox 98.4 F 114 H 16 111/75 96 09/04/19 07:04 09/04/19 04:00 09/04/19 07:04 09/04/19 07:04 09/04/19 07:04 - Additional Data Intake & Output - Last 24 hours: Intake & Output 09/02/19 09/03/19 09/04/19 09/05/19 05:59 05:59 05:59 05:59 Intake Total 2199.4193 1000 3086.2526 Output Total 2125 2450 2050 Balance 74.4193 -1450 1036.2526 Weight 103 lb 3.2 oz 102 lb 1.6 oz 102 lb 4.8 oz - General physical appearance well developed, chronically ill, other (Bloated, with peripheral edema) - Respiratory normal expansion, normal respiratory effort, clear to percussion, clear to auscultation - Cardiovascular Cardiovascular exam: Present: normal rate and rhythm - Abdomen soft, non tender, wound (Wound has purulent bile stained drainage in small amounts. ) - Musculoskeletal normal gait, normal posture - Psychiatric oriented to time, oriented to person, oriented to place, speech is normal, memory intact - Labs 08/29/19 05:28 09/04/19 05:30 Diabetes panel 09/04/19 Range/Units 05:30 Sodium 134 (133-145) mmol/L Potassium 4.4 (3.3-5.1) mmol/L Chloride 97 (96-108) mmol/L Carbon Dioxide 27 (22-30) mmol/L BUN 20 (6-20) mg/dl Creatinine 0.5 L (0.6-1.1) mg/dl Glucose 110 H (70-105) mg/dL Calcium 9.1 (8.6-10.4) mg/dl AST 15 (0-37) U/l ALT 6 (0-40) U/l Alkaline Phosphatase 74 (39-117) U/L Total Protein 6.8 (5.9-8.4) gm/dL Albumin 3.0 L (3.2-5.2) gm/dL Triglycerides 115 (<150) mg/dl Calcium panel 09/04/19 Range/Units 05:30 Calcium 9.1 (8.6-10.4) mg/dl Phosphorus 4.2 (2.7-4.5) mg/dL Albumin 3.0 L (3.2-5.2) gm/dL Pituitary panel 09/04/19 Range/Units 05:30 Sodium 134 (133-145) mmol/L Potassium 4.4 (3.3-5.1) mmol/L Chloride 97 (96-108) mmol/L Carbon Dioxide 27 (22-30) mmol/L BUN 20 (6-20) mg/dl Creatinine 0.5 L (0.6-1.1) mg/dl Glucose 110 H (70-105) mg/dL Calcium 9.1 (8.6-10.4) mg/dl Adrenal panel 09/04/19 Range/Units 05:30 Sodium 134 (133-145) mmol/L Potassium 4.4 (3.3-5.1) mmol/L Chloride 97 (96-108) mmol/L Carbon Dioxide 27 (22-30) mmol/L BUN 20 (6-20) mg/dl Creatinine 0.5 L (0.6-1.1) mg/dl Glucose 110 H (70-105) mg/dL Calcium 9.1 (8.6-10.4) mg/dl Total Bilirubin < 0.2 (0.0-1.0) mg/dL AST 15 (0-37) U/l ALT 6 (0-40) U/l Alkaline Phosphatase 74 (39-117) U/L Total Protein 6.8 (5.9-8.4) gm/dL Albumin 3.0 L (3.2-5.2) gm/dL Assessment and Plan (1) Abdominal wall abscess Status: Resolved Assessment and plan: abscess pretty much resolved Current Visit: Yes (2) Iliopsoas abscess on right Status: Acute Assessment and plan: abscess resolved on most recent CT Current Visit: Yes (3) Sepsis Status: Resolved Assessment and plan: Sepsis resolving but WBC still up. Cultures still pending gram stain not helpful. will continue same antibiotics It has been 17 days on Levo and Flagyl ?? time to D/C antibiotics in spite of fistula?? Current Visit: Yes (4) Surgical wound present Status: Acute Assessment and plan: has drainage c/w small low output fistula, confirmed on Fistula gram; will continue with dry dressing changes and follow. Current Visit: Yes (5) Postoperative ileus Status: Acute Assessment and plan: less distended, having more regular BM's X-rays show all contrast in Colon and minimal small bowel dilatation may be ready to start full liquids Current Visit: Yes (6) Fistula Status: Acute Assessment and plan: dressing changes, and follow, TPN, possibly taper TPN if she tolerates PO diet Current Visit: Yes - Time Spent With Patient Total time spent is greater than 50% in coordination of care (as documented) at patient's floor/unit and/or counseling patient: 25 - 35 minutes
[2019-09-04] MEDS: DOCUSATE SODIUM 100 MG CAPSULE PO SCH ×2 (10:01→21:30)
[2019-09-04] MEDS: LEVOFLOXACIN 750 MG/150 ML BAG IV SCH (10:02)
[2019-09-04] MEDS: DIAZEPAM 5 MG TABLET PO PRN ×2 (10:39→16:27)
[2019-09-04] MEDS: FAT EMULSION 20% 250 ML in PREMIX 1 BAG IV SCH (16:27)
[2019-09-04] MEDS: ZOLPIDEM 5 MG TABLET PO PRN (22:16)
[2019-09-04] MEDS ORDERED: [UNRECOGNIZED DRUG - REMARK] IV SCH (23:00)
[2019-09-05] MEDS: ONDANSETRON 4 MG/2 ML VIAL IV PRN ×2 (00:05→23:53)
[2019-09-05] MEDS: HYDROCODONE/APAP 7.5/325MG TABLET PO PRN ×5 (02:30→21:37)
[2019-09-05] MEDS: METOCLOPRAMIDE 10 MG/2 ML VIAL IV SCH ×4 (06:06→23:44)
[2019-09-05] MEDS: 0.9 % SODIUM CHLORIDE 10 ML SYRINGE IV SCH ×3 (06:06→21:25)
[2019-09-05] MEDS: INSULIN LISPRO 1 UNIT/0.01 ML UNIT SQ SCH ×4 (06:09→23:51)
[2019-09-05 07:06] LABS: Basophils # (Auto) 0.05 K/mcL (0.00-0.30); Basophils % (Auto) 0.5 % (0.0-2.0); Eosinophils # (Auto) 0.12 K/mcL (0.00-0.70); Eosinophils % (Auto) 1.3 % (0.0-7.0); Granulocytes % (Auto) 80.1 % (38.0-78.0); Hematocrit 27.3 % (34.1-44.9); Hemoglobin 8.5 g/dL (11.2-15.7); Lymphocytes # (Auto) 0.59 K/mcL (1.50-4.80); Lymphocytes % (Auto) 6.5 % (15.5-49.0); Mean Cell Volume 87.2 fL (80.0-100.0); Mean Corpuscular HGB Conc 31.1 g/dL (31.0-36.0); Mean Platelet Volume 9.1 fL (7.4-10.4); Monocytes # (Auto) 1.06 K/mcL (0.10-0.90); Monocytes % (Auto) 11.6 % (1.0-12.0); Platelet Count 539 K/mcL (140-440); RBC 3.13 M/mcL (3.59-5.38); Red Cell Distribution Width 23.3 % (11.5-14.5); WBC 9.1 K/mcL (4.50-11.00)
[2019-09-05 07:17] LABS: ALT/SGPT 6 U/l (0-40); AST/SGOT 16 U/l (0-37); Albumin/Globulin Ratio 0.8 (1.0-2.3); Alkaline Phosphatase 82 U/L (39-117); Bilirubin,Direct < 0.2 mg/dL (0.0-0.3); Bilirubin,Total 0.2 mg/dL (0.0-1.0); Blood Urea Nitrogen 23 mg/dl (6-20); Calcium 9.3 mg/dl (8.6-10.4); Carbon Dioxide 28 mmol/L (22-30); Globulin 3.8 gm/dL (2.2-3.7); Glomerular Filtration Rate 127; Glucose 101 mg/dL (70-105); Lactate Dehydrogenase 179 U/L (94-250); Phosphorous 3.6 mg/dL (2.7-4.5); Triglycerides 91 mg/dl (<150); Uric Acid 2.6 mg/dL (2.5-8.0)
[2019-09-05 07:20] LABS: Chloride 95 mmol/L (96-108)
[2019-09-05] MEDS: PANTOPRAZOLE 40 MG VIAL IV SCH ×2 (07:50→17:15)
--- NOTE | 2019-09-05 08:50 | General Surgery Progress Note ---
Subjective Patient reports: bowel movement (BM+ afterEnema but still very distended, ), vomiting Narrative: Note initiated : 09/05/19 at 8:47 am Service Date, if different from initiated Date: [] Patient: Mojgan Mesa 43 y/o F admitted on 08/18/19 for abdominal pain. Chief Complaint: [] Objective Temp Pulse Resp BP Pulse Ox 98.3 F 120 H 16 119/73 95 09/05/19 04:25 09/05/19 07:34 09/05/19 07:34 09/05/19 04:25 09/05/19 07:34 - Additional Data Intake & Output - Last 24 hours: Intake & Output 09/03/19 09/04/19 09/05/19 09/06/19 05:59 05:59 05:59 05:59 Intake Total 1000 3236.2526 3270 Output Total 2450 2050 3250 Balance -1450 1186.2526 20 Weight 102 lb 1.6 oz 102 lb 4.8 oz 102 lb 12.8 oz - General physical appearance moderate pain, chronically ill - Respiratory normal expansion, clear to percussion, clear to auscultation - Cardiovascular Cardiovascular exam: Present: normal rate and rhythm - Abdomen wound (still draining bile stained and purulent), distended - Labs 09/05/19 05:00 09/05/19 05:00 Diabetes panel 09/05/19 Range/Units 05:00 Sodium 135 (133-145) mmol/L Potassium 4.0 (3.3-5.1) mmol/L Chloride 95 L (96-108) mmol/L Carbon Dioxide 28 (22-30) mmol/L BUN 23 H (6-20) mg/dl Creatinine 0.4 L (0.6-1.1) mg/dl Glucose 101 (70-105) mg/dL Calcium 9.3 (8.6-10.4) mg/dl AST 16 (0-37) U/l ALT 6 (0-40) U/l Alkaline Phosphatase 82 (39-117) U/L Total Protein 6.8 (5.9-8.4) gm/dL Albumin 3.0 L (3.2-5.2) gm/dL Triglycerides 91 (<150) mg/dl Calcium panel 09/05/19 Range/Units 05:00 Calcium 9.3 (8.6-10.4) mg/dl Phosphorus 3.6 (2.7-4.5) mg/dL Albumin 3.0 L (3.2-5.2) gm/dL Pituitary panel 09/05/19 Range/Units 05:00 Sodium 135 (133-145) mmol/L Potassium 4.0 (3.3-5.1) mmol/L Chloride 95 L (96-108) mmol/L Carbon Dioxide 28 (22-30) mmol/L BUN 23 H (6-20) mg/dl Creatinine 0.4 L (0.6-1.1) mg/dl Glucose 101 (70-105) mg/dL Calcium 9.3 (8.6-10.4) mg/dl Adrenal panel 09/05/19 Range/Units 05:00 Sodium 135 (133-145) mmol/L Potassium 4.0 (3.3-5.1) mmol/L Chloride 95 L (96-108) mmol/L Carbon Dioxide 28 (22-30) mmol/L BUN 23 H (6-20) mg/dl Creatinine 0.4 L (0.6-1.1) mg/dl Glucose 101 (70-105) mg/dL Calcium 9.3 (8.6-10.4) mg/dl Total Bilirubin 0.2 (0.0-1.0) mg/dL AST 16 (0-37) U/l ALT 6 (0-40) U/l Alkaline Phosphatase 82 (39-117) U/L Total Protein 6.8 (5.9-8.4) gm/dL Albumin 3.0 L (3.2-5.2) gm/dL Assessment and Plan (1) Abdominal wall abscess Status: Resolved Assessment and plan: abscess pretty much resolved WBC normal now Current Visit: Yes (2) Iliopsoas abscess on right Status: Acute Assessment and plan: abscess resolved on most recent CT Current Visit: Yes (3) Sepsis Status: Resolved Assessment and plan: Sepsis resolving but WBC still up. Cultures still pending gram stain not helpful. will continue same antibiotics It has been 19 days on Levo and Flagyl WBC normal now will D/C antibiotics and follow Current Visit: Yes (4) Surgical wound present Status: Acute Assessment and plan: has drainage c/w small low output fistula, confirmed on Fistula gram; will continue with dry dressing changes and follow. Current Visit: Yes (5) Postoperative ileus Status: Acute Assessment and plan: less distended, having more regular BM's X-rays show all contrast in Colon and minimal small bowel dilatation Tried full liquids but she is more distended today and she has vomited this AM. Had Large BM after enema but she still has too much gas. Current Visit: Yes (6) Fistula Status: Acute Assessment and plan: dressing changes, and follow, TPN, possibly taper TPN if she tolerates PO diet Current Visit: Yes - Time Spent With Patient Total time spent is greater than 50% in coordination of care (as documented) at patient's floor/unit and/or counseling patient:
[2019-09-05] MEDS: DOCUSATE SODIUM 100 MG CAPSULE PO SCH ×2 (09:05→21:23)
[2019-09-05] MEDS: FAT EMULSION 20% 250 ML in PREMIX 1 BAG IV SCH (16:06)
[2019-09-05] MEDS: [UNRECOGNIZED DRUG - REMARK] IV SCH (17:09)
[2019-09-05] MEDS: ZOLPIDEM 5 MG TABLET PO PRN (21:37)
[2019-09-06] MEDS: PROMETHAZINE 25 MG/ML VIAL IV PRN (02:30)
[2019-09-06] MEDS: HYDROCODONE/APAP 7.5/325MG TABLET PO PRN ×3 (02:31→21:48)
[2019-09-06] MEDS: 0.9 % SODIUM CHLORIDE 10 ML SYRINGE IV SCH ×3 (05:09→21:49)
[2019-09-06] MEDS: METOCLOPRAMIDE 10 MG/2 ML VIAL IV SCH ×3 (05:09→17:55)
[2019-09-06] MEDS: INSULIN LISPRO 1 UNIT/0.01 ML UNIT SQ SCH ×3 (05:14→17:55)
--- NOTE | 2019-09-06 06:53 | XRay Report ---
INDICATION: Ileus post op TECHNIQUE: Supine and upright abdomen. COMPARISON: Previous plain film examination dated 09/02/2019. Previous CT scans dated 08/25/2019 and 08/18/2019 FINDINGS:There continues to be contrast material within the ascending colon and transverse colon. There is some contrast material in the descending colon. There is persistent mildly dilated small bowel with air-fluid levels. Overall bowel gas pattern has not changed appreciably since 09/02/2019. Findings remain consistent with ileus. There is no pneumoperitoneum. No biliary or portal venous gas. No pneumatosis. No new abnormality. IMPRESSION: 1. No significant interval change since 09/02/2019 2. Mildly prominent gas-filled small bowel with air fluid levels. Appearance remains consistent with ileus Interpreted and Authenticated by: Iván Ulrich 09/06/19
[2019-09-06] MEDS: PANTOPRAZOLE 40 MG VIAL IV SCH ×2 (08:28→17:54)
[2019-09-06] MEDS: DOCUSATE SODIUM 100 MG CAPSULE PO SCH ×2 (08:28→21:49)
[2019-09-06 08:42] LABS: ALT/SGPT 7 U/l (0-40); AST/SGOT 14 U/l (0-37); Albumin 2.8 gm/dL (3.2-5.2); Albumin/Globulin Ratio 0.7 (1.0-2.3); Alkaline Phosphatase 81 U/L (39-117); Bilirubin,Direct < 0.2 mg/dL (0.0-0.3); Bilirubin,Total 0.2 mg/dL (0.0-1.0); Blood Urea Nitrogen 24 mg/dl (6-20); Calcium 9.2 mg/dl (8.6-10.4); Carbon Dioxide 27 mmol/L (22-30); Chloride 97 mmol/L (96-108); Globulin 3.8 gm/dL (2.2-3.7); Glucose 115 mg/dL (70-105); Lactate Dehydrogenase 168 U/L (94-250); Triglycerides 103 mg/dl (<150); Uric Acid 2.6 mg/dL (2.5-8.0)
[2019-09-06 08:44] LABS: Glomerular Filtration Rate 118
[2019-09-06] MEDS: [UNRECOGNIZED DRUG - REMARK] IV SCH (14:38)
[2019-09-06] MEDS: FAT EMULSION 20% 250 ML in PREMIX 1 BAG IV SCH (16:01)
--- NOTE | 2019-09-06 16:02 | General Surgery Progress Note ---
Subjective Patient reports: feels better, pain is less, voiding w/o difficulty, flatus, nausea, afebrile Narrative: Note initiated : 09/06/19 at 3:56 pm Service Date, if different from initiated Date: [] Patient: Mojgan Mesa 43 y/o F admitted on 08/18/19 for abdominal pain. Chief Complaint: [patient states that she is feeling much better. She states that she is passing gas, however her abdomen is significantly distended still. She has minimal drainage through her fistula and the abdominal wall is healing n icely. She denies nausea. She had a bowel movement with the enema but has not had any since that time. White blood count dropped from 18,000-9000, and this may be lab error. Her hemoglobin is 8.5, BUN is 24 and creatinine 0.5.] Objective Temp Pulse Resp BP Pulse Ox 99.2 F H 108 H 18 126/85 95 09/06/19 12:00 09/06/19 12:00 09/06/19 12:00 09/06/19 12:00 09/06/19 12:00 - Additional Data Intake & Output - Last 24 hours: Intake & Output 09/04/19 09/05/19 09/06/19 09/07/19 05:59 05:59 05:59 05:59 Intake Total 3236.2526 3270 120 1059.4193 Output Total 2050 3250 1225 900 Balance 1186.2526 20 -3738 310.7236 Weight 102 lb 4.8 oz 102 lb 12.8 oz 101 lb 11.2 oz - General physical appearance no distress, no pain, cachectic, chronically ill - Eyes PERRL, normal ocular movement - ENT normal pinna, normal nares, normal mucosa, no hearing loss, no congestion - Neck no masses, no bruits, trachea midline, no lymphadenopathy, no venous distension - Respiratory normal expansion, normal respiratory effort, clear to percussion, clear to auscultation - Cardiovascular Cardiovascular exam: Present: normal rate and rhythm, RRR, +S1, +S2, tachycardia. Absent: JVD - Abdomen tender (abdomen is distended and mildly tender. She does have good active bowel sounds), distended - Integumentary no rash, no growths, no abnormal pigmentation - Neurologic normal coordination, normal sensation - Musculoskeletal normal gait - Psychiatric oriented to time, oriented to person, oriented to place, speech is normal, memory intact - Labs 09/05/19 05:00 09/06/19 07:46 Diabetes panel 09/06/19 Range/Units 07:46 Sodium 135 (133-145) mmol/L Potassium 4.2 (3.3-5.1) mmol/L Chloride 97 (96-108) mmol/L Carbon Dioxide 27 (22-30) mmol/L BUN 24 H (6-20) mg/dl Creatinine 0.5 L (0.6-1.1) mg/dl Glucose 115 H (70-105) mg/dL Calcium 9.2 (8.6-10.4) mg/dl AST 14 (0-37) U/l ALT 7 (0-40) U/l Alkaline Phosphatase 81 (39-117) U/L Total Protein 6.6 (5.9-8.4) gm/dL Albumin 2.8 L (3.2-5.2) gm/dL Triglycerides 103 (<150) mg/dl Calcium panel 09/06/19 Range/Units 07:46 Calcium 9.2 (8.6-10.4) mg/dl Phosphorus 4.0 (2.7-4.5) mg/dL Albumin 2.8 L (3.2-5.2) gm/dL Pituitary panel 09/06/19 Range/Units 07:46 Sodium 135 (133-145) mmol/L Potassium 4.2 (3.3-5.1) mmol/L Chloride 97 (96-108) mmol/L Carbon Dioxide 27 (22-30) mmol/L BUN 24 H (6-20) mg/dl Creatinine 0.5 L (0.6-1.1) mg/dl Glucose 115 H (70-105) mg/dL Calcium 9.2 (8.6-10.4) mg/dl Adrenal panel 09/06/19 Range/Units 07:46 Sodium 135 (133-145) mmol/L Potassium 4.2 (3.3-5.1) mmol/L Chloride 97 (96-108) mmol/L Carbon Dioxide 27 (22-30) mmol/L BUN 24 H (6-20) mg/dl Creatinine 0.5 L (0.6-1.1) mg/dl Glucose 115 H (70-105) mg/dL Calcium 9.2 (8.6-10.4) mg/dl Total Bilirubin 0.2 (0.0-1.0) mg/dL AST 14 (0-37) U/l ALT 7 (0-40) U/l Alkaline Phosphatase 81 (39-117) U/L Total Protein 6.6 (5.9-8.4) gm/dL Albumin 2.8 L (3.2-5.2) gm/dL Assessment and Plan (1) Iliopsoas abscess on right Status: Acute Assessment and plan: Resolved Current Visit: Yes (2) Abdominal wall abscess Status: Resolved Current Visit: Yes (3) Sepsis Status: Resolved Current Visit: Yes (4) Enterocutaneous fistula Status: Acute Current Visit: Yes - Time Spent With Patient Total time spent is greater than 50% in coordination of care (as documented) at patient's floor/unit and/or counseling patient:
[2019-09-06] MEDS: METHYLNALTREXONE BROMIDE 12 MG/0.6 ML SYRINGE SQ SCH (17:54)
[2019-09-06] MEDS: METHOCARBAMOL 1,000 MG/10 ML VIAL IV PRN (17:55)
[2019-09-06] MEDS: ZOLPIDEM 5 MG TABLET PO PRN (21:49)
[2019-09-06] MEDS: ONDANSETRON 4 MG/2 ML VIAL IV PRN (21:53)
[2019-09-07] MEDS: INSULIN LISPRO 1 UNIT/0.01 ML UNIT SQ SCH ×4 (00:20→17:58)
[2019-09-07] MEDS: METOCLOPRAMIDE 10 MG/2 ML VIAL IV SCH ×5 (00:21→23:26)
[2019-09-07] MEDS: METHOCARBAMOL 1,000 MG/10 ML VIAL IV PRN ×3 (01:51→17:54)
[2019-09-07] MEDS: HYDROCODONE/APAP 7.5/325MG TABLET PO PRN ×4 (05:47→20:39)
[2019-09-07] MEDS: 0.9 % SODIUM CHLORIDE 10 ML SYRINGE IV SCH ×3 (05:48→20:29)
[2019-09-07 06:46] LABS: ALT/SGPT 7 U/l (0-40); AST/SGOT 14 U/l (0-37); Albumin/Globulin Ratio 0.9 (1.0-2.3); Alkaline Phosphatase 84 U/L (39-117); Bilirubin,Direct < 0.2 mg/dL (0.0-0.3); Bilirubin,Total 0.2 mg/dL (0.0-1.0); Blood Urea Nitrogen 21 mg/dl (6-20); Calcium 8.6 mg/dl (8.6-10.4); Carbon Dioxide 25 mmol/L (22-30); Chloride 99 mmol/L (96-108); Globulin 3.5 gm/dL (2.2-3.7); Glomerular Filtration Rate 127; Glucose 90 mg/dL (70-105); Lactate Dehydrogenase 151 U/L (94-250); Triglycerides 82 mg/dl (<150); Uric Acid 2.7 mg/dL (2.5-8.0)
[2019-09-07] MEDS ORDERED: DIATRIZOATE MEGLU/DIATRIZO SOD 30 ML BOTTLE PO ONE (10:03)
[2019-09-07] MEDS: PANTOPRAZOLE 40 MG VIAL IV SCH ×2 (10:07→16:24)
[2019-09-07] MEDS: DOCUSATE SODIUM 100 MG CAPSULE PO SCH ×2 (10:09→20:28)
[2019-09-07] MEDS: [UNRECOGNIZED DRUG - REMARK] IV SCH (10:30)
[2019-09-07] MEDS: METHYLNALTREXONE BROMIDE 12 MG/0.6 ML SYRINGE SQ SCH (10:30)
[2019-09-07] MEDS: [UNRECOGNIZED DRUG - REMARK] IV SCH (10:41)
--- NOTE | 2019-09-07 11:19 | XRay Report ---
INDICATION: to rule out distal colonic obstruction TECHNIQUE: Routine single contrast, nonprepped Gastrografin enema. COMPARISON: CT scan dated 08/25/2019. Fistulogram dated 08/30/2019. FINDINGS: Global Logistics Analyst film demonstrates multiple surgical clips in the right side of the abdomen. There is pneumobilia. There is contrast material within the ascending colon and transverse colon secondary to previous fistulogram. 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 This cutaneous cecal fistula is not opacified or visualized during this examination. The entire colon was opacified. There are no obstructing or constricting lesions. No diverticulosis. No focal abnormality. Post drainage examination demonstrates persistent contrast material transverse colon. There is moderate contrast material in the descending and sigmoid colons. Contrast material in the ascending colon is decreased from previous enema domestic technician film. IMPRESSION: 1. Normal appearance of the colon. No obstructing lesions. 2. Residual contrast material within the transverse colon. Mild residual contrast in the descending and sigmoid colons on postdrainage images. The decreased contrast material within the ascending colon as compared with domestic technician image. 3. Nonvisualization of the cutaneous cecal fistula Interpreted and Authenticated by: Iván Ulrich 09/07/19
--- NOTE | 2019-09-07 14:08 | General Surgery Progress Note ---
Subjective Patient reports: feels better, pain is less, tolerating liquids well, flatus, bowel movement, afebrile Narrative: Note initiated : 09/07/19 at 2:05 pm Service Date, if different from initiated Date: [] Patient: Mojgan Mesa 43 y/o F admitted on 08/18/19 for abdominal pain. Chief Complaint: [Patient feels better. She had barium enema earlier today which reveals that her colon is totally patent. She had moderate amount of output after the procedure. She remains dilated with most of this being from her small bowel. She has not had nausea or vomiting. She remains afebrile] Objective Temp Pulse Resp BP Pulse Ox 98.6 F 106 H 18 110/76 94 09/07/19 11:24 09/07/19 11:24 09/07/19 11:24 09/07/19 11:24 09/07/19 11:24 - Additional Data Intake & Output - Last 24 hours: Intake & Output 09/05/19 09/06/19 09/07/19 09/08/19 05:59 05:59 05:59 05:59 Intake Total 3270 370 1089.4193 1059.4193 Output Total 3250 1225 901 Balance 20 -009 328.3577 1059.4193 Weight 102 lb 12.8 oz 101 lb 11.2 oz 103 lb 2 oz - General physical appearance well developed, well nourished, no distress - Eyes PERRL, normal ocular movement - ENT normal pinna, normal nares, normal mucosa, no hearing loss, no congestion - Neck no masses, no bruits, trachea midline, no lymphadenopathy, no venous distension - Respiratory normal expansion, normal respiratory effort, clear to auscultation - Cardiovascular Cardiovascular exam: Present: normal rate and rhythm, RRR, +S1, +S2. Absent: JVD, tachycardia - Abdomen distended (abdomen is still moderately distended, diffusely; active bowel sounds; lower abdominal incision is clearing up nicely) - Integumentary no rash, no growths, no abnormal pigmentation - Musculoskeletal normal gait, normal posture - Psychiatric oriented to time, oriented to person, oriented to place, speech is normal, memory intact - Labs 09/05/19 05:00 09/07/19 05:12 Diabetes panel 09/07/19 Range/Units 05:12 Sodium 134 (133-145) mmol/L Potassium 4.2 (3.3-5.1) mmol/L Chloride 99 (96-108) mmol/L Carbon Dioxide 25 (22-30) mmol/L BUN 21 H (6-20) mg/dl Creatinine 0.4 L (0.6-1.1) mg/dl Glucose 90 (70-105) mg/dL Calcium 8.6 (8.6-10.4) mg/dl AST 14 (0-37) U/l ALT 7 (0-40) U/l Alkaline Phosphatase 84 (39-117) U/L Total Protein 6.5 (5.9-8.4) gm/dL Albumin 3.0 L (3.2-5.2) gm/dL Triglycerides 82 (<150) mg/dl Calcium panel 09/07/19 Range/Units 05:12 Calcium 8.6 (8.6-10.4) mg/dl Phosphorus 4.0 (2.7-4.5) mg/dL Albumin 3.0 L (3.2-5.2) gm/dL Pituitary panel 09/07/19 Range/Units 05:12 Sodium 134 (133-145) mmol/L Potassium 4.2 (3.3-5.1) mmol/L Chloride 99 (96-108) mmol/L Carbon Dioxide 25 (22-30) mmol/L BUN 21 H (6-20) mg/dl Creatinine 0.4 L (0.6-1.1) mg/dl Glucose 90 (70-105) mg/dL Calcium 8.6 (8.6-10.4) mg/dl Adrenal panel 09/07/19 Range/Units 05:12 Sodium 134 (133-145) mmol/L Potassium 4.2 (3.3-5.1) mmol/L Chloride 99 (96-108) mmol/L Carbon Dioxide 25 (22-30) mmol/L BUN 21 H (6-20) mg/dl Creatinine 0.4 L (0.6-1.1) mg/dl Glucose 90 (70-105) mg/dL Calcium 8.6 (8.6-10.4) mg/dl Total Bilirubin 0.2 (0.0-1.0) mg/dL AST 14 (0-37) U/l ALT 7 (0-40) U/l Alkaline Phosphatase 84 (39-117) U/L Total Protein 6.5 (5.9-8.4) gm/dL Albumin 3.0 L (3.2-5.2) gm/dL Assessment and Plan (1) Iliopsoas abscess on right Status: Acute Assessment and plan: Resolved Current Visit: Yes (2) Abdominal wall abscess Status: Resolved Assessment and plan: Wound is continuing to granulate in Current Visit: Yes (3) Sepsis Status: Resolved Current Visit: Yes (4) Enterocutaneous fistula Status: Acute Assessment and plan: No significant drainage on the dressings over the past 48 hours Current Visit: Yes - Time Spent With Patient Total time spent is greater than 50% in coordination of care (as documented) at patient's floor/unit and/or counseling patient:
[2019-09-07] MEDS: FAT EMULSION 20% 250 ML in PREMIX 1 BAG IV SCH (16:24)
[2019-09-07] MEDS: ZOLPIDEM 5 MG TABLET PO PRN (20:29)
[2019-09-07] MEDS: PROMETHAZINE 25 MG/ML VIAL IV PRN (23:42)
[2019-09-08] MEDS: INSULIN LISPRO 1 UNIT/0.01 ML UNIT SQ SCH ×5 (00:10→23:42)
[2019-09-08] MEDS: METHOCARBAMOL 1,000 MG/10 ML VIAL IV PRN ×3 (02:12→18:32)
[2019-09-08] MEDS: [UNRECOGNIZED DRUG - REMARK] IV SCH (04:51)
[2019-09-08] MEDS: METOCLOPRAMIDE 10 MG/2 ML VIAL IV SCH ×4 (05:38→23:37)
[2019-09-08] MEDS: 0.9 % SODIUM CHLORIDE 10 ML SYRINGE IV SCH ×3 (05:40→21:06)
[2019-09-08 06:20] LABS: ALT/SGPT 7 U/l (0-40); AST/SGOT 12 U/l (0-37); Albumin 2.9 gm/dL (3.2-5.2); Albumin/Globulin Ratio 0.8 (1.0-2.3); Alkaline Phosphatase 90 U/L (39-117); Bilirubin,Direct < 0.2 mg/dL (0.0-0.3); Bilirubin,Total 0.2 mg/dL (0.0-1.0); Blood Urea Nitrogen 20 mg/dl (6-20); Calcium 8.6 mg/dl (8.6-10.4); Carbon Dioxide 22 mmol/L (22-30); Chloride 100 mmol/L (96-108); Globulin 3.7 gm/dL (2.2-3.7); Glomerular Filtration Rate 127; Glucose 103 mg/dL (70-105); Lactate Dehydrogenase 192 U/L (94-250); Phosphorous 3.4 mg/dL (2.7-4.5); Triglycerides 78 mg/dl (<150)
[2019-09-08] MEDS: PANTOPRAZOLE 40 MG VIAL IV SCH ×2 (07:20→17:31)
[2019-09-08] MEDS: DOCUSATE SODIUM 100 MG CAPSULE PO SCH ×2 (08:45→21:06)
[2019-09-08] MEDS: METHYLNALTREXONE BROMIDE 12 MG/0.6 ML SYRINGE SQ SCH (08:45)
[2019-09-08] MEDS: HYDROCODONE/APAP 7.5/325MG TABLET PO PRN ×2 (08:48→21:07)
[2019-09-08] MEDS: ONDANSETRON 4 MG/2 ML VIAL IV PRN ×2 (12:10→23:51)
--- NOTE | 2019-09-08 14:59 | General Surgery Progress Note ---
Subjective Patient reports: feels better, pain is less, no flatus, no bowel movement, nausea, vomiting, afebrile Narrative: Note initiated : 09/08/19 at 2:56 pm Service Date, if different from initiated Date: [] Patient: Mojgan Mesa 43 y/o F admitted on 08/18/19 for abdominal pain. Chief Complaint: [patient had nausea and vomiting last evening. She has not had any flatus or bowel movement since that time. She does not have crampy abdominal pain. She still has some distention but her abdomen remained soft and she has good active bowel sounds. Abdominal x-rays were not done this morning. Serum potassium 3.9, BUN 20, creatinine 0.4. Culture of her wound, only grew out yeast.] Objective Temp Pulse Resp BP Pulse Ox 98.7 F 108 H 18 130/88 97 09/08/19 12:00 09/08/19 12:00 09/08/19 12:00 09/08/19 12:00 09/08/19 12:00 - Additional Data Intake & Output - Last 24 hours: Intake & Output 09/06/19 09/07/19 09/08/19 09/09/19 05:59 05:59 05:59 05:59 Intake Total 370 1339.4193 2388.4193 Output Total 1225 198 822 2044 Balance -064 788.4317 2188.4193 -1150 Weight 101 lb 11.2 oz 103 lb 2 oz 104 lb 9.6 oz - General physical appearance well developed, well nourished, no distress - Eyes PERRL, normal ocular movement - ENT normal pinna, normal nares, normal mucosa, no hearing loss, no congestion - Neck no masses, no bruits, trachea midline, no lymphadenopathy, no venous distension - Respiratory normal expansion, normal respiratory effort, clear to auscultation - Cardiovascular Cardiovascular exam: Present: normal rate and rhythm, RRR, +S1, +S2. Absent: JVD, tachycardia - Abdomen soft, non tender, distended (; no major drainage) - Integumentary no rash, no growths, no abnormal pigmentation - Neurologic normal coordination, normal sensation - Musculoskeletal normal gait, normal posture - Psychiatric oriented to time, oriented to person, oriented to place, speech is normal, memory intact - Labs 09/05/19 05:00 09/08/19 04:58 Diabetes panel 09/08/19 Range/Units 04:58 Sodium 133 (133-145) mmol/L Potassium 3.9 (3.3-5.1) mmol/L Chloride 100 (96-108) mmol/L Carbon Dioxide 22 (22-30) mmol/L BUN 20 (6-20) mg/dl Creatinine 0.4 L (0.6-1.1) mg/dl Glucose 103 (70-105) mg/dL Calcium 8.6 (8.6-10.4) mg/dl AST 12 (0-37) U/l ALT 7 (0-40) U/l Alkaline Phosphatase 90 (39-117) U/L Total Protein 6.6 (5.9-8.4) gm/dL Albumin 2.9 L (3.2-5.2) gm/dL Triglycerides 78 (<150) mg/dl Calcium panel 09/08/19 Range/Units 04:58 Calcium 8.6 (8.6-10.4) mg/dl Phosphorus 3.4 (2.7-4.5) mg/dL Albumin 2.9 L (3.2-5.2) gm/dL Pituitary panel 09/08/19 Range/Units 04:58 Sodium 133 (133-145) mmol/L Potassium 3.9 (3.3-5.1) mmol/L Chloride 100 (96-108) mmol/L Carbon Dioxide 22 (22-30) mmol/L BUN 20 (6-20) mg/dl Creatinine 0.4 L (0.6-1.1) mg/dl Glucose 103 (70-105) mg/dL Calcium 8.6 (8.6-10.4) mg/dl Adrenal panel 09/08/19 Range/Units 04:58 Sodium 133 (133-145) mmol/L Potassium 3.9 (3.3-5.1) mmol/L Chloride 100 (96-108) mmol/L Carbon Dioxide 22 (22-30) mmol/L BUN 20 (6-20) mg/dl Creatinine 0.4 L (0.6-1.1) mg/dl Glucose 103 (70-105) mg/dL Calcium 8.6 (8.6-10.4) mg/dl Total Bilirubin 0.2 (0.0-1.0) mg/dL AST 12 (0-37) U/l ALT 7 (0-40) U/l Alkaline Phosphatase 90 (39-117) U/L Total Protein 6.6 (5.9-8.4) gm/dL Albumin 2.9 L (3.2-5.2) gm/dL Assessment and Plan (1) Iliopsoas abscess on right Status: Acute Assessment and plan: Resolved Current Visit: Yes (2) Abdominal wall abscess Status: Resolved Assessment and plan: Wound is continuing to granulate in Current Visit: Yes (3) Sepsis Status: Resolved Current Visit: Yes (4) Enterocutaneous fistula Status: Acute Assessment and plan: No significant drainage on the dressings over the past 72 hr Current Visit: Yes - Time Spent With Patient Total time spent is greater than 50% in coordination of care (as documented) at patient's floor/unit and/or counseling patient:
[2019-09-08] MEDS: FAT EMULSION 20% 250 ML in PREMIX 1 BAG IV SCH (15:51)
[2019-09-08] MEDS: ZOLPIDEM 5 MG TABLET PO PRN (21:06)
[2019-09-08] MEDS: [UNRECOGNIZED DRUG - REMARK] IV SCH (23:31)
[2019-09-08] MEDS: DIAZEPAM 5 MG TABLET PO PRN (23:51)
[2019-09-09] MEDS: METHOCARBAMOL 1,000 MG/10 ML VIAL IV PRN ×3 (02:33→18:58)
[2019-09-09] MEDS: HYDROCODONE/APAP 7.5/325MG TABLET PO PRN ×2 (05:23→22:09)
[2019-09-09] MEDS: 0.9 % SODIUM CHLORIDE 10 ML SYRINGE IV SCH ×4 (05:24→20:28)
[2019-09-09] MEDS: INSULIN LISPRO 1 UNIT/0.01 ML UNIT SQ SCH ×3 (05:24→17:43)
[2019-09-09] MEDS: METOCLOPRAMIDE 10 MG/2 ML VIAL IV SCH ×3 (05:24→20:25)
[2019-09-09 06:26] LABS: Basophils # (Auto) 0.04 K/mcL (0.00-0.30); Basophils % (Auto) 0.6 % (0.0-2.0); Eosinophils # (Auto) 0.15 K/mcL (0.00-0.70); Eosinophils % (Auto) 2.2 % (0.0-7.0); Granulocytes % (Auto) 78.2 % (38.0-78.0); Hematocrit 30.1 % (34.1-44.9); Hemoglobin 9.2 g/dL (11.2-15.7); Lymphocytes # (Auto) 0.65 K/mcL (1.50-4.80); Lymphocytes % (Auto) 9.5 % (15.5-49.0); Mean Cell Volume 86.5 fL (80.0-100.0); Mean Corpuscular HGB Conc 30.6 g/dL (31.0-36.0); Mean Platelet Volume 9.5 fL (7.4-10.4); Monocytes # (Auto) 0.65 K/mcL (0.10-0.90); Monocytes % (Auto) 9.5 % (1.0-12.0); Platelet Count 433 K/mcL (140-440); RBC 3.48 M/mcL (3.59-5.38); Red Cell Distribution Width 22.1 % (11.5-14.5); WBC 6.8 K/mcL (4.50-11.00)
[2019-09-09 06:49] LABS: ALT/SGPT 10 U/l (0-40); AST/SGOT 24 U/l (0-37); Albumin 2.8 gm/dL (3.2-5.2); Albumin/Globulin Ratio 0.7 (1.0-2.3); Alkaline Phosphatase 95 U/L (39-117); Bilirubin,Direct < 0.2 mg/dL (0.0-0.3); Bilirubin,Total 0.2 mg/dL (0.0-1.0); Blood Urea Nitrogen 20 mg/dl (6-20); Calcium 8.8 mg/dl (8.6-10.4); Carbon Dioxide 22 mmol/L (22-30); Chloride 99 mmol/L (96-108); Globulin 3.9 gm/dL (2.2-3.7); Glomerular Filtration Rate 127; Glucose 92 mg/dL (70-105); Lactate Dehydrogenase 218 U/L (94-250); Phosphorous 3.6 mg/dL (2.7-4.5); Triglycerides 72 mg/dl (<150); Uric Acid 2.9 mg/dL (2.5-8.0)
[2019-09-09] MEDS: PANTOPRAZOLE 40 MG VIAL IV SCH ×2 (07:00→17:42)
[2019-09-09] MEDS: HYDROmorphone* 2 MG/ML VIAL IV PRN ×2 (07:00→15:57)
--- NOTE | 2019-09-09 07:18 | XRay Report ---
INDICATION: FOLLOW -UP OF SMALL BOWEL OBSTRUCTION TECHNIQUE: Supine and upright abdomen. COMPARISON: Previous Gastrografin enema dated 09/07/2019. Previous plain film examinations of the abdomen dated 09/06/2019, 09/02/2019. Previous CT scans dated 08/25/2019 and 08/18/2019. Patient also had a fistulogram dated 08/30/2019. FINDINGS:There is a left-sided PICC line with its tip within the heart. This may be within the proximal right ventricle or distal right atrium. There is gaseous distention of the stomach. Small bowel is partially gas filled and mildly distended. There continues to be contrast material within the colon. Colon is not significantly distended. There is no pneumoperitoneum. No biliary or portal venous gas. There are surgical clips in the right upper abdominal quadrant. IMPRESSION: 1. Gaseous distention of the stomach and mild small bowel 2. Persistent contrast material within the colon. Colon appears morphologically unremarkable Interpreted and Authenticated by: Iván Ulrich 09/09/19
[2019-09-09] MEDS: METHYLNALTREXONE BROMIDE 12 MG/0.6 ML SYRINGE SQ SCH (10:05)
[2019-09-09] MEDS: DOCUSATE SODIUM 100 MG CAPSULE PO SCH ×2 (10:05→20:25)
[2019-09-09] MEDS: FAT EMULSION 20% 250 ML in PREMIX 1 BAG IV SCH (15:56)
--- NOTE | 2019-09-09 17:32 | General Surgery Progress Note ---
Subjective Patient reports: feels better, pain is less, flatus, no bowel movement, afebrile Narrative: Note initiated : 09/09/19 at 5:29 pm Service Date, if different from initiated Date: [] Patient: Mojgan Mesa 43 y/o F admitted on 08/18/19 for abdominal pain. Chief Complaint: [patient states that she feels better. She has minimal pain. She is still having flatus, however. Her abdomen is mildly distended though soft. Plain films revealed dilated stomach and proximal bowel. The contrast in her large intestines Is still not moving significantly. Discussed with her the plan to do small bowel follow-through with Gastrografin tomorrow.] Objective Temp Pulse Resp BP Pulse Ox 98.7 F 97 H 16 118/84 96 09/09/19 12:00 09/09/19 12:00 09/09/19 12:00 09/09/19 12:00 09/09/19 12:00 - Additional Data Intake & Output - Last 24 hours: Intake & Output 09/07/19 09/08/19 09/09/19 09/10/19 05:59 05:59 05:59 05:59 Intake Total 1339.4193 2638.4193 950 Output Total 223 513 2937 Balance 438.4193 2438.4193 -800 Weight 103 lb 2 oz 104 lb 9.6 oz 101 lb 4 oz 101 lb 4 oz - General physical appearance well developed, well nourished, no distress - Eyes PERRL, normal ocular movement - ENT normal pinna, normal nares, normal mucosa, no hearing loss, no congestion - Neck no masses, no bruits, trachea midline, no lymphadenopathy, no venous distension - Respiratory normal expansion, normal respiratory effort, clear to auscultation - Cardiovascular Cardiovascular exam: Present: normal rate and rhythm, RRR, +S1, +S2. Absent: JVD, tachycardia - Abdomen distended (abdomen is distended but soft; she has good active bowel sounds; there is no significant tenderness; her abdominal wound continues to granulate i n and there is minimal drainage) - Integumentary no rash, no growths, no abnormal pigmentation - Neurologic normal coordination, normal sensation - Musculoskeletal normal gait, normal posture - Psychiatric oriented to time, oriented to person, oriented to place, speech is normal, memory intact - Labs 09/09/19 05:00 09/09/19 05:34 Diabetes panel 09/09/19 Range/Units 05:34 Sodium 132 L (133-145) mmol/L Potassium 4.2 (3.3-5.1) mmol/L Chloride 99 (96-108) mmol/L Carbon Dioxide 22 (22-30) mmol/L BUN 20 (6-20) mg/dl Creatinine 0.4 L (0.6-1.1) mg/dl Glucose 92 (70-105) mg/dL Calcium 8.8 (8.6-10.4) mg/dl AST 24 (0-37) U/l ALT 10 (0-40) U/l Alkaline Phosphatase 95 (39-117) U/L Total Protein 6.7 (5.9-8.4) gm/dL Albumin 2.8 L (3.2-5.2) gm/dL Triglycerides 72 (<150) mg/dl Calcium panel 09/09/19 Range/Units 05:34 Calcium 8.8 (8.6-10.4) mg/dl Phosphorus 3.6 (2.7-4.5) mg/dL Albumin 2.8 L (3.2-5.2) gm/dL Pituitary panel 09/09/19 Range/Units 05:34 Sodium 132 L (133-145) mmol/L Potassium 4.2 (3.3-5.1) mmol/L Chloride 99 (96-108) mmol/L Carbon Dioxide 22 (22-30) mmol/L BUN 20 (6-20) mg/dl Creatinine 0.4 L (0.6-1.1) mg/dl Glucose 92 (70-105) mg/dL Calcium 8.8 (8.6-10.4) mg/dl Adrenal panel 09/09/19 Range/Units 05:34 Sodium 132 L (133-145) mmol/L Potassium 4.2 (3.3-5.1) mmol/L Chloride 99 (96-108) mmol/L Carbon Dioxide 22 (22-30) mmol/L BUN 20 (6-20) mg/dl Creatinine 0.4 L (0.6-1.1) mg/dl Glucose 92 (70-105) mg/dL Calcium 8.8 (8.6-10.4) mg/dl Total Bilirubin 0.2 (0.0-1.0) mg/dL AST 24 (0-37) U/l ALT 10 (0-40) U/l Alkaline Phosphatase 95 (39-117) U/L Total Protein 6.7 (5.9-8.4) gm/dL Albumin 2.8 L (3.2-5.2) gm/dL Assessment and Plan (1) Iliopsoas abscess on right Status: Acute Assessment and plan: Resolved Current Visit: Yes (2) Abdominal wall abscess Status: Inactive Assessment and plan: Wound is continuing to granulate in Current Visit: Yes (3) Sepsis Status: Resolved Current Visit: Yes (4) Enterocutaneous fistula Status: Acute Assessment and plan: No significant drainage on the dressings over the past 72 hr Current Visit: Yes - Time Spent With Patient Total time spent is greater than 50% in coordination of care (as documented) at patient's floor/unit and/or counseling patient:
[2019-09-09] MEDS: [UNRECOGNIZED DRUG - REMARK] IV SCH (17:42)
[2019-09-09] MEDS: [UNRECOGNIZED DRUG - REMARK] IV SCH (19:10)
[2019-09-09] MEDS: ZOLPIDEM 5 MG TABLET PO PRN (20:25)
[2019-09-10] MEDS: METOCLOPRAMIDE 10 MG/2 ML VIAL IV SCH ×5 (00:16→23:25)
[2019-09-10] MEDS: 0.9 % SODIUM CHLORIDE 10 ML SYRINGE IV SCH ×4 (00:17→20:11)
[2019-09-10] MEDS: INSULIN LISPRO 1 UNIT/0.01 ML UNIT SQ SCH ×5 (00:17→22:48)
[2019-09-10] MEDS: HYDROmorphone* 2 MG/ML VIAL IV PRN ×7 (01:43→20:10)
[2019-09-10] MEDS: METHOCARBAMOL 1,000 MG/10 ML VIAL IV PRN ×3 (05:47→22:43)
[2019-09-10 06:37] LABS: Basophils # (Auto) 0.05 K/mcL (0.00-0.30); Basophils % (Auto) 0.9 % (0.0-2.0); Eosinophils # (Auto) 0.18 K/mcL (0.00-0.70); Eosinophils % (Auto) 3.1 % (0.0-7.0); Granulocytes % (Auto) 73.4 % (38.0-78.0); Hematocrit 29.9 % (34.1-44.9); Hemoglobin 9.2 g/dL (11.2-15.7); Lymphocytes % (Auto) 12.2 % (15.5-49.0); Mean Cell Volume 86.9 fL (80.0-100.0); Mean Corpuscular HGB Conc 30.8 g/dL (31.0-36.0); Mean Platelet Volume 9.3 fL (7.4-10.4); Monocytes % (Auto) 10.4 % (1.0-12.0); Platelet Count 501 K/mcL (140-440); RBC 3.44 M/mcL (3.59-5.38); WBC 5.8 K/mcL (4.50-11.00)
[2019-09-10] MEDS: ONDANSETRON 4 MG/2 ML VIAL IV PRN ×2 (07:05→13:36)
[2019-09-10] MEDS: PANTOPRAZOLE 40 MG VIAL IV SCH ×2 (07:08→17:31)
[2019-09-10 07:10] LABS: ALT/SGPT 10 U/l (0-40); AST/SGOT 18 U/l (0-37); Albumin 2.8 gm/dL (3.2-5.2); Albumin/Globulin Ratio 0.7 (1.0-2.3); Alkaline Phosphatase 102 U/L (39-117); Bilirubin,Direct < 0.2 mg/dL (0.0-0.3); Bilirubin,Total 0.2 mg/dL (0.0-1.0); Blood Urea Nitrogen 20 mg/dl (6-20); Carbon Dioxide 23 mmol/L (22-30); Chloride 101 mmol/L (96-108); Globulin 3.8 gm/dL (2.2-3.7); Glomerular Filtration Rate 127; Glucose 75 mg/dL (70-105); Lactate Dehydrogenase 176 U/L (94-250); Phosphorous 3.7 mg/dL (2.7-4.5); Triglycerides 60 mg/dl (<150)
[2019-09-10] MEDS: DOCUSATE SODIUM 100 MG CAPSULE PO SCH ×2 (08:32→20:11)
[2019-09-10] MEDS: HYDROCODONE/APAP 7.5/325MG TABLET PO PRN ×4 (08:32→17:31)
[2019-09-10] MEDS: DIAZEPAM 5 MG TABLET PO PRN (08:32)
[2019-09-10] MEDS: [UNRECOGNIZED DRUG - REMARK] IV SCH (13:36)
--- NOTE | 2019-09-10 13:44 | General Surgery Progress Note ---
Subjective Patient reports: still having pain, no bowel movement, nausea, vomiting, afebrile Narrative: Note initiated : 09/10/19 at 1:42 pm Service Date, if different from initiated Date: [] Patient: Mojgan Mesa 43 y/o F admitted on 08/18/19 for abdominal pain. Chief Complaint: [Patient did not have flatus during the night. A small bowel follow-through was attempted but she does not have movement of contrast. She has major distention and would benefit from nasogastric decompression but she absolutely refuses to have NG tube placed. Patient was counseled for exploratory laparotomy which will be performed tomorrow. She is advised that she will have right colectomy with primary anastomosis of small bowel and ascending colon to correct her obstruction and remove the severely diseased bowel. She gives her informed consent. White blood count 5.8; hemoglobin 9.2; hematocrit 29.9; potassium 4.3; BUN 20; creatinine 0.4] Objective Temp Pulse Resp BP Pulse Ox 98.1 F 101 H 16 116/82 95 09/10/19 11:05 09/10/19 11:05 09/10/19 11:05 09/10/19 11:05 09/10/19 11:05 - Additional Data Intake & Output - Last 24 hours: Intake & Output 09/08/19 09/09/19 09/10/19 09/11/19 05:59 05:59 05:59 05:59 Intake Total 2638.4193 302 464 3785.4193 Output Total 200 1750 1150 Balance 2438.4193 -800 -240 1074.4193 Weight 104 lb 9.6 oz 101 lb 4 oz 107 lb 14.4 oz - General physical appearance moderate pain, cachectic, chronically ill - Eyes PERRL, normal ocular movement - ENT normal pinna, normal nares, normal mucosa, no hearing loss, no congestion, poor half-way - Neck no masses, no bruits, trachea midline, no lymphadenopathy, no venous distension - Respiratory normal expansion, normal respiratory effort, clear to auscultation - Cardiovascular Cardiovascular exam: Present: normal rate and rhythm, RRR, +S1, +S2. Absent: JVD, tachycardia - Abdomen distended (severely distended abdomen with hypoactive bowel sounds; tenderness of the upper abdomen; small amount of feculent drainage through lower abdominal incision) - Integumentary no rash, no growths, no abnormal pigmentation - Neurologic normal coordination, normal sensation - Musculoskeletal normal gait, normal posture - Psychiatric oriented to time, oriented to person, oriented to place, speech is normal, memory intact - Labs 09/10/19 04:43 09/10/19 04:43 Diabetes panel 09/10/19 Range/Units 04:43 Sodium 133 (133-145) mmol/L Potassium 4.3 (3.3-5.1) mmol/L Chloride 101 (96-108) mmol/L Carbon Dioxide 23 (22-30) mmol/L BUN 20 (6-20) mg/dl Creatinine 0.4 L (0.6-1.1) mg/dl Glucose 75 (70-105) mg/dL Calcium 9.0 (8.6-10.4) mg/dl AST 18 (0-37) U/l ALT 10 (0-40) U/l Alkaline Phosphatase 102 (39-117) U/L Total Protein 6.6 (5.9-8.4) gm/dL Albumin 2.8 L (3.2-5.2) gm/dL Triglycerides 60 (<150) mg/dl Calcium panel 09/10/19 Range/Units 04:43 Calcium 9.0 (8.6-10.4) mg/dl Phosphorus 3.7 (2.7-4.5) mg/dL Albumin 2.8 L (3.2-5.2) gm/dL Pituitary panel 09/10/19 Range/Units 04:43 Sodium 133 (133-145) mmol/L Potassium 4.3 (3.3-5.1) mmol/L Chloride 101 (96-108) mmol/L Carbon Dioxide 23 (22-30) mmol/L BUN 20 (6-20) mg/dl Creatinine 0.4 L (0.6-1.1) mg/dl Glucose 75 (70-105) mg/dL Calcium 9.0 (8.6-10.4) mg/dl Adrenal panel 09/10/19 Range/Units 04:43 Sodium 133 (133-145) mmol/L Potassium 4.3 (3.3-5.1) mmol/L Chloride 101 (96-108) mmol/L Carbon Dioxide 23 (22-30) mmol/L BUN 20 (6-20) mg/dl Creatinine 0.4 L (0.6-1.1) mg/dl Glucose 75 (70-105) mg/dL Calcium 9.0 (8.6-10.4) mg/dl Total Bilirubin 0.2 (0.0-1.0) mg/dL AST 18 (0-37) U/l ALT 10 (0-40) U/l Alkaline Phosphatase 102 (39-117) U/L Total Protein 6.6 (5.9-8.4) gm/dL Albumin 2.8 L (3.2-5.2) gm/dL Assessment and Plan (1) Iliopsoas abscess on right Status: Acute Assessment and plan: Resolved Current Visit: Yes (2) Abdominal wall abscess Status: Inactive Assessment and plan: Wound is continuing to granulate in Current Visit: Yes (3) Sepsis Status: Resolved Current Visit: Yes (4) Enterocutaneous fistula Status: Acute Assessment and plan: No significant drainage on the dressings over the past 72 hr Current Visit: Yes (5) Small bowel obstruction due to postoperative adhesions Status: Acute Assessment and plan: Patient is counseled for exploratory laparotomy and probable right colectomy. This will be performed tomorrow. Current Visit: Yes - Time Spent With Patient Total time spent is greater than 50% in coordination of care (as documented) at patient's floor/unit and/or counseling patient:
[2019-09-10] MEDS ORDERED: 0.9 % SODIUM CHLORIDE 250 ML IV SCH (14:00)
[2019-09-10] MEDS: LEVOFLOXACIN 750 MG/150 ML BAG IV SCH (14:48)
[2019-09-10] MEDS: FAT EMULSION 20% 250 ML in PREMIX 1 BAG IV SCH (14:48)
[2019-09-10] MEDS: metroNIDAZOLE 500 MG/100 ML BAG IV SCH ×2 (16:36→20:11)
--- NOTE | 2019-09-10 17:30 | XRay Report ---
INDICATION: Follow-up with small bowel obstruction TECHNIQUE: Oral Gastrografin was ingested. Overhead images were obtained at 2 hours and 4.5 hours post ingestion COMPARISON: Multiple previous plain film examinations FINDINGS: Human Performance Technologist film demonstrates persistent contrast material throughout the colon. There is gaseous distention of the small bowel and stomach. At 4.5 hours the small bowel appears to be completely opacified. Small bowel is dilated. Appearance is most consistent with ileus rather than mechanical small bowel obstruction. Contrast material within the colon is unchanged. Stomach remains distended and partially contrast-filled. Follow-up examination at 24 hours post ingestion will be ordered. IMPRESSION: 1. Dilated stomach and small bowel. 2. Small bowel appears to be completely opacified by 4.5 hours post ingestion. 24 hour follow-up will be performed. Interpreted and Authenticated by: Iván Ulrich 09/10/19
[2019-09-11] MEDS: HYDROmorphone* 2 MG/ML VIAL IV PRN ×4 (00:45→20:49)
[2019-09-11] MEDS: metroNIDAZOLE 500 MG/100 ML BAG IV SCH ×3 (03:16→17:58)
[2019-09-11] MEDS ORDERED: SCOPOLAMINE 1 PATCH PATCH TOPICAL PRN (05:00)
[2019-09-11] MEDS: METOCLOPRAMIDE 10 MG/2 ML VIAL IV SCH ×3 (05:10→18:35)
[2019-09-11] MEDS: INSULIN LISPRO 1 UNIT/0.01 ML UNIT SQ SCH ×3 (05:10→18:19)
[2019-09-11] MEDS: 0.9 % SODIUM CHLORIDE 10 ML SYRINGE IV SCH ×3 (05:10→21:41)
[2019-09-11 06:56] LABS: Basophils # (Auto) 0.06 K/mcL (0.00-0.30); Basophils % (Auto) 0.8 % (0.0-2.0); Eosinophils % (Auto) 3.8 % (0.0-7.0); Granulocytes % (Auto) 79.9 % (38.0-78.0); Hemoglobin 9.2 g/dL (11.2-15.7); Lymphocytes # (Auto) 0.44 K/mcL (1.50-4.80); Lymphocytes % (Auto) 5.6 % (15.5-49.0); Mean Corpuscular HGB Conc 30.7 g/dL (31.0-36.0); Mean Platelet Volume 9.5 fL (7.4-10.4); Monocytes # (Auto) 0.78 K/mcL (0.10-0.90); Monocytes % (Auto) 9.9 % (1.0-12.0); Platelet Count 468 K/mcL (140-440); RBC 3.45 M/mcL (3.59-5.38); Red Cell Distribution Width 21.3 % (11.5-14.5); WBC 7.9 K/mcL (4.50-11.00)
[2019-09-11] MEDS ORDERED: IPRATROPIUM/ALBUTEROL 3 ML AMPUL.NEB NEB PRN ×4 (07:00→15:58)
[2019-09-11 07:14] LABS: ALT/SGPT 13 U/l (0-40); AST/SGOT 19 U/l (0-37); Albumin/Globulin Ratio 0.8 (1.0-2.3); Alkaline Phosphatase 111 U/L (39-117); Bilirubin,Direct < 0.2 mg/dL (0.0-0.3); Bilirubin,Total 0.2 mg/dL (0.0-1.0); Calcium 9.1 mg/dl (8.6-10.4); Carbon Dioxide 23 mmol/L (22-30); Chloride 100 mmol/L (96-108); Globulin 3.7 gm/dL (2.2-3.7); Glomerular Filtration Rate 127; Glucose 98 mg/dL (70-105); Lactate Dehydrogenase 171 U/L (94-250); Phosphorous 3.9 mg/dL (2.7-4.5); Triglycerides 42 mg/dl (<150)
[2019-09-11 07:21] LABS: Blood Urea Nitrogen 27 mg/dl (6-20)
[2019-09-11] MEDS: DOCUSATE SODIUM 100 MG CAPSULE PO SCH ×2 (07:24→21:26)
[2019-09-11] MEDS ORDERED: MAGNESIUM SULFATE 2 GM/50 ML BAG IV ONE ×3 (08:31→15:58)
--- NOTE | 2019-09-11 08:44 | XRay Report ---
INDICATION: FOLLOW -UP OF SMALL BOWEL OBSTRUCTION TECHNIQUE: Supine and upright abdomen. COMPARISON: Multiple previous plain film examinations. Previous small bowel study dated 09/10/2019. FINDINGS:The patient ingested water-soluble contrast material approximately 24 hours prior to this examination. There is contrast material throughout the entire small and large bowel. There is small bowel dilatation. Appearance is most consistent with ileus. No high grade mechanical small bowel obstruction. There was contrast material within the colon from previous contrast study. There is more contrast material in the colon after this small bowel examination. This indicates there is no high-grade mechanical obstruction. There is no pneumoperitoneum. IMPRESSION: 1. Dilated contrast-filled small and large bowel. 2. No significant mechanical small bowel obstruction. Interpreted and Authenticated by: Iván Ulrich 09/11/19
[2019-09-11] MEDS ORDERED: METOPROLOL TARTRATE 5 MG/5 ML VIAL IV ONE (09:10)
[2019-09-11] MEDS ORDERED: LIDOCAINE HCL/PF 100 MG/5 ML SYRINGE IV ONE (09:10)
[2019-09-11] MEDS ORDERED: SUGAMMADEX SODIUM 200 MG/2 ML VIAL IV ONE (09:10)
[2019-09-11] MEDS ORDERED: METOCLOPRAMIDE 10 MG/2 ML VIAL IV ONE (09:10)
[2019-09-11] MEDS ORDERED: DEXAMETHASONE 10 MG/ML VIAL IV ONE (09:10)
[2019-09-11] MEDS ORDERED: KETAMINE 100 MG/ML ML IV ONE (09:10)
[2019-09-11] MEDS ORDERED: ONDANSETRON 4 MG/2 ML VIAL IV ONE (09:10)
[2019-09-11] MEDS ORDERED: fentaNYL 250 MCG/5 ML VIAL IV ONE (09:10)
[2019-09-11] MEDS ORDERED: MIDAZOLAM 5 MG/5 ML VIAL IV ONE (09:10)
[2019-09-11] MEDS ORDERED: CALCIUM CHLORIDE 1,000 MG/10 ML SYRINGE IV ONE (09:10)
[2019-09-11] MEDS ORDERED: FAMOTIDINE/PF 20 MG/2 ML VIAL IV ONE (09:10)
[2019-09-11] MEDS ORDERED: PHENYLEPHRINE 10 MG/ML VIAL IV ONE (09:10)
[2019-09-11] MEDS ORDERED: HETASTARCH 6% 500 ML BAG IV ONE (09:10)
[2019-09-11] MEDS ORDERED: GLYCOPYRROLATE 0.2 MG/ML VIAL IV ONE (09:10)
[2019-09-11] MEDS ORDERED: PROPOFOL 200 MG/20 ML VIAL IV ONE (09:10)
[2019-09-11] MEDS ORDERED: ROCURONIUM 10 MG/ML ML IV ONE (09:10)
[2019-09-11] MEDS ORDERED: METHOCARBAMOL 1,000 MG/10 ML VIAL IV PRN ×3 (09:39→15:58)
[2019-09-11] MEDS ORDERED: NALOXONE HCL 0.4 MG/ML VIAL IV PRN ×3 (09:39→15:58)
[2019-09-11] MEDS ORDERED: FLUMAZENIL 0.1 MG/ML ML IV PRN ×3 (09:39→15:58)
[2019-09-11] MEDS ORDERED: LACTATED RINGERS 250 ML IV PRN ×3 (09:39→15:58)
[2019-09-11] MEDS ORDERED: BENZOCAINE/MENTHOL 1 LOZENGE PO PRN (09:39)
[2019-09-11] MEDS ORDERED: MEPERIDINE 25 MG/ML SYRINGE IV PRN ×3 (09:39→15:58)
[2019-09-11] MEDS ORDERED: ACETAMINOPHEN 700 MG/70 ML BOTTLE IV ONE (09:39)
[2019-09-11] MEDS ORDERED: fentaNYL 100 MCG/2 ML VIAL IV PRN ×2 (09:39→15:58)
[2019-09-11] MEDS ORDERED: LACTATED RINGERS 1,000 ML IV SCH ×3 (09:45→15:58)
[2019-09-11] MEDS: PANTOPRAZOLE 40 MG VIAL IV SCH ×2 (10:17→17:25)
[2019-09-11] MEDS: [UNRECOGNIZED DRUG - REMARK] IV SCH ×2 (10:20→16:15)
[2019-09-11] MEDS ORDERED: BACITRACIN 50,000 UNIT VIAL IR ONE (11:34)
[2019-09-11] MEDS ORDERED: HYDROmorphone* 2 MG/ML VIAL IV PRN ×2 (14:35→15:58)
--- NOTE | 2019-09-11 15:05 | Brief Operative Note ---
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
[2019-09-11] MEDS ORDERED: ROPIVACAINE HCL/PF 20 ML VIAL IJ ONE (15:17)
[2019-09-11] MEDS: fentaNYL 100 MCG/2 ML VIAL IV PRN ×4 (15:44→15:50)
[2019-09-11] MEDS ORDERED: DIAZEPAM 5 MG TABLET PO PRN (15:58)
[2019-09-11] MEDS ORDERED: PROMETHAZINE 25 MG/ML VIAL IV PRN (15:58)
[2019-09-11] MEDS ORDERED: ONDANSETRON 4 MG/2 ML VIAL IV PRN (15:58)
[2019-09-11] MEDS ORDERED: TPN PER PHARMACY IV SCH (15:58)
[2019-09-11] MEDS ORDERED: DEXTROSE 50% 50 ML VIAL IV PRN (15:58)
[2019-09-11] MEDS ORDERED: LEVOFLOXACIN 750 MG/150 ML BAG IV SCH (16:00)
[2019-09-11] MEDS: FAT EMULSION 20% 250 ML in PREMIX 1 BAG IV SCH (16:15)
[2019-09-11] MEDS: METHOCARBAMOL 1,000 MG/10 ML VIAL IV PRN (17:21)
[2019-09-11] MEDS ORDERED: 0.9 % SODIUM CHLORIDE 1,000 ML IV ONE (17:33)
[2019-09-11] MEDS ORDERED: 0.9 % SODIUM CHLORIDE 250 ML IV SCH (17:45)
[2019-09-11] MEDS ORDERED: 0.9 % SODIUM CHLORIDE 1,000 ML IV SCH (17:45)
[2019-09-11] MEDS: ALBUMIN HUMAN 25 GM/100 ML BAG IV SCH (17:49)
[2019-09-11] MEDS ORDERED: METOCLOPRAMIDE 10 MG/2 ML VIAL IV SCH (18:00)
[2019-09-11] MEDS: LEVOFLOXACIN 750 MG/150 ML BAG IV SCH (18:19)
[2019-09-11] MEDS ORDERED: LORazepam 2 MG/ML VIAL ONE (20:14)
[2019-09-11] MEDS: LORazepam 2 MG/ML VIAL IV PRN (20:16)
[2019-09-11] MEDS ORDERED: ALBUMIN HUMAN 25 GM/100 ML BAG IV SCH ×2 (21:00)
[2019-09-11] MEDS ORDERED: FUROSEMIDE 20 MG/2 ML VIAL IV ONE ×2 (23:48→23:55)
[2019-09-11] MEDS ORDERED: ACETAMINOPHEN 1,000 MG/100 ML BOTTLE IV PRN (23:49)
[2019-09-12] MEDS ORDERED: ACETAMINOPHEN 1,000 MG/100 ML BOTTLE IV ONE (00:01)
[2019-09-12] MEDS: ALBUMIN HUMAN 25 GM/100 ML BAG IV SCH ×5 (00:02→23:33)
[2019-09-12] MEDS: METOCLOPRAMIDE 10 MG/2 ML VIAL IV SCH ×5 (00:02→23:32)
[2019-09-12] MEDS: INSULIN LISPRO 1 UNIT/0.01 ML UNIT SQ SCH ×5 (00:03→23:34)
[2019-09-12] MEDS: 0.9 % SODIUM CHLORIDE 1,000 ML IV SCH ×2 (00:03→17:04)
[2019-09-12] MEDS: metroNIDAZOLE 500 MG/100 ML BAG IV SCH ×5 (00:03→23:33)
[2019-09-12] MEDS: HYDROmorphone* 2 MG/ML VIAL IV PRN ×9 (00:19→23:04)
[2019-09-12 05:10] LABS: Basophils # (Auto) 0.03 K/mcL (0.00-0.30); Basophils % (Auto) 0.3 % (0.0-2.0); Eosinophils # (Auto) 0.05 K/mcL (0.00-0.70); Eosinophils % (Auto) 0.5 % (0.0-7.0); Granulocytes % (Auto) 87.7 % (38.0-78.0); Hematocrit 30.8 % (34.1-44.9); Hemoglobin 10.4 g/dL (11.2-15.7); Lymphocytes # (Auto) 0.55 K/mcL (1.50-4.80); Lymphocytes % (Auto) 5.3 % (15.5-49.0); Mean Cell Volume 85.1 fL (80.0-100.0); Mean Corpuscular HGB Conc 33.8 g/dL (31.0-36.0); Mean Platelet Volume 9.6 fL (7.4-10.4); Monocytes # (Auto) 0.64 K/mcL (0.10-0.90); Monocytes % (Auto) 6.2 % (1.0-12.0); Platelet Count 276 K/mcL (140-440); RBC 3.62 M/mcL (3.59-5.38); Red Cell Distribution Width 17.5 % (11.5-14.5); WBC 10.3 K/mcL (4.50-11.00)
[2019-09-12] MEDS ORDERED: LORazepam 2 MG/ML VIAL ONE (05:13)
[2019-09-12] MEDS: METHOCARBAMOL 1,000 MG/10 ML VIAL IV PRN ×2 (05:18→19:23)
[2019-09-12] MEDS: LORazepam 2 MG/ML VIAL IV PRN ×2 (05:19→19:23)
[2019-09-12] MEDS: 0.9 % SODIUM CHLORIDE 10 ML SYRINGE IV SCH ×3 (05:20→20:46)
[2019-09-12 05:32] LABS: ALT/SGPT 7 U/l (0-40); AST/SGOT 12 U/l (0-37); Albumin 2.9 gm/dL (3.2-5.2); Alkaline Phosphatase 45 U/L (39-117); Bilirubin,Direct < 0.2 mg/dL (0.0-0.3); Bilirubin,Total 0.4 mg/dL (0.0-1.0); Calcium 8.2 mg/dl (8.6-10.4); Carbon Dioxide 23 mmol/L (22-30); Chloride 104 mmol/L (96-108); Glucose 100 mg/dL (70-105); Lactate Dehydrogenase 116 U/L (94-250); Phosphorous 4.2 mg/dL (2.7-4.5); Uric Acid 3.1 mg/dL (2.5-8.0)
[2019-09-12 05:35] LABS: Albumin/Globulin Ratio 1.5 (1.0-2.3); Blood Urea Nitrogen 17 mg/dl (6-20); Globulin 1.9 gm/dL (2.2-3.7); Glomerular Filtration Rate 118; Triglycerides 19 mg/dl (<150)
[2019-09-12] MEDS ORDERED: MAGNESIUM SULFATE 2 GM/50 ML BAG IV ONE (07:58)
[2019-09-12] MEDS: METOPROLOL TARTRATE 5 MG/5 ML VIAL IV PRN ×6 (08:13→23:03)
[2019-09-12] MEDS ORDERED: METOPROLOL TARTRATE 5 MG/5 ML VIAL IV ONE (08:14)
[2019-09-12] MEDS: PANTOPRAZOLE 40 MG VIAL IV SCH ×2 (08:38→17:04)
[2019-09-12] MEDS: DOCUSATE SODIUM 100 MG CAPSULE PO SCH ×2 (08:40→20:40)
--- NOTE | 2019-09-12 10:04 | Internal Medicine Consult Note ---
Medical - CN: HPI - Data of Consult Patient: new to practice Consult date: 09/12/19 Requesting physician: Rahul Gamez Primary Care Provider: PCP No - Consult Narrative Reason for consult: SVT, VT History of present illness: Ms. Mesa is a 43 year old F with a complicated medical history including incarcerated hernia of abd cavity, enterocutaneous fistula, small bowel obstr uction, meds methamphetamine abuse, and anxiety who was admitted to our hospital on August 18, 2019 due to iliopsoas abscess on right, sepsis and abdominal wall abscess. In the hospital, she has been under care of Dr. Gamez. Hospitalist consult was requested by Dr. Gamez due to SVT and VT. Patient was seen and examined in her room. She complains of abdominal pain from surgical site. She denies palpitation, chest pain, dizziness, nausea, or vomiting. No diaphoresis or tremor. CC: Rahul Gamez MD Review of systems: Positive for abdominal pain all other systems were reviewed and are negative. Medical - CN: PMH Family history: reviewed and not pertinent (Mother has a hiatal hernia and COPD) Have you smoked in the last 12 months: No Drug use: marijuana Alcohol use: none Medical - CN: Meds Home Medications Medication Instructions Recorded Confirmed Type Ibuprofen [Addaprin] 400 mg PO Q4-6HP PRN 08/18/19 08/18/19 History Allergies Allergy/AdvReac Type Severity Reaction Status Date / Time Erythromycin Base Allergy Unknown Unknown Verified 08/25/19 12:04 Penicillins Allergy Unknown Unknown Verified 09/01/19 08:10 contact metal agent AdvReac Intermediate Other Verified 08/18/19 19:28 Medical - CN: Exam - Constitutional Vitals: Temp Pulse Resp BP Pulse Ox 98.9 F 126 H 17 137/86 97 09/12/19 04:00 09/12/19 09:00 09/12/19 09:31 09/12/19 09:31 09/12/19 09:00 - Additional findings Additional findings: General - thin, No acute distress Eyes - PERRLA, EOM intact ENT no rhinorrhea, no noticeable or palpable swelling, no redness or rash around throat or on face Neck supple, no JVD, no thyromegaly Respiratory: Lungs -clear, no wheezing or crackles. Cardiovascular - RRR no m/r/g, GI - surgical site not open, colostomy bag in place, moderately diffuse tenderness Extremities - No edema, cyanosis or clubbing Hemo/lymphatic/immune no lymphadenopathy Neurological Alert and oriented x 3, no focal neurological deficits. Psychiatry flat affect Medical - CN: Result - Labs CBC & Chem 7: 09/12/19 04:20 09/12/19 04:20 Labs: Short CBC 09/11/19 09/12/19 Range/Units 17:50 04:20 WBC 10.3 (4.50-11.00) K/mcL Hgb 7.2 L 10.4 L (11.2-15.7) g/dL Hct 30.8 L (34.1-44.9) % Plt Count 276 (140-440) K/mcL BMP 09/12/19 04:20 Sodium 136 Potassium 3.5 Chloride 104 Carbon Dioxide 23 BUN 17 Creatinine 0.5 L Glucose 100 Calcium 8.2 L Liver Function 09/12/19 Range/Units 04:20 Total Bilirubin 0.4 (0.0-1.0) mg/dL Direct Bilirubin < 0.2 (0.0-0.3) mg/dL GGT 18 (5-36) U/L AST 12 (0-37) U/l ALT 7 (0-40) U/l Alkaline Phosphatase 45 (39-117) U/L Albumin 2.9 L (3.2-5.2) gm/dL Medical - CN: A/P - Narrative A/P Narrative: Assessment: 1. Iliopsoas abscess on right, 2. Abdominal wall abscess, 3. Enterocutaneous fistula 4. Small bowel obstruction due to postoperative adhesions 5. Episodes of SVT? Non-sustained VT Plan: 1. Surgical problems are managed by Dr. Gamez 2. Regarding her cardiac arrhythmia, RN reported she possibly had episodes of VT. EKG troponin < 0.01 TSH K 3.3, mag 1.7, phos 3.4, will give 1 g of Mag today. repeat mag tomorrow Metoprolol 12.5mg bid via ng tube if BP tolerates 3. DVT prophylaxis: by surgical team 4. Code status: full. Thank you Dr. Gamez for the opportunity to participate in the care of the patient.
[2019-09-12 10:09] LABS: ALT/SGPT 7 U/l (0-40); AST/SGOT 11 U/l (0-37); Albumin 3.3 gm/dL (3.2-5.2); Albumin/Globulin Ratio 2.1 (1.0-2.3); Alkaline Phosphatase 39 U/L (39-117); Bilirubin,Direct 0.2 mg/dL (0.0-0.3); Bilirubin,Total 0.7 mg/dL (0.0-1.0); Blood Urea Nitrogen 17 mg/dl (6-20); Calcium 8.3 mg/dl (8.6-10.4); Carbon Dioxide 23 mmol/L (22-30); Chloride 104 mmol/L (96-108); Globulin 1.6 gm/dL (2.2-3.7); Glomerular Filtration Rate 118; Glucose 109 mg/dL (70-105); Lactate Dehydrogenase 110 U/L (94-250); Phosphorous 3.4 mg/dL (2.7-4.5); Triglycerides 17 mg/dl (<150); Uric Acid 2.9 mg/dL (2.5-8.0)
[2019-09-12] MEDS ORDERED: MAGNESIUM SULFATE 8.12 MEQ in DEXTROSE 5% IN WATER 50 ML IV ONE (10:29)
[2019-09-12] MEDS: LEVOFLOXACIN 750 MG/150 ML BAG IV SCH (10:31)
[2019-09-12] MEDS: METOPROLOL TARTRATE 25 MG TABLET PO SCH ×2 (11:06→20:45)
[2019-09-12] MEDS: [UNRECOGNIZED DRUG - REMARK] IV SCH (12:47)
--- NOTE | 2019-09-12 13:16 | General Surgery Progress Note ---
Subjective Patient reports: still having pain, no flatus, no bowel movement, afebrile Narrative: Note initiated : 09/12/19 at 1:13 pm Service Date, if different from initiated Date: [] Patient: Mojgan Mesa 43 y/o F admitted on 08/18/19 for abdominal pain. Chief Complaint: [patient had a fairly stable. Though she did have some tachycardia. She had mild hypotension in the early postoperative period. This was treated with 2 units of packed red cells and albumin every 6 hours. Her blood pressure stabilized, but she has had continued tachycardia. Her pattern appears to be SVT and she was treated with metoprolol with marginal results. Her blood pressure remained stable and her oxygenation is good. Urine output is excellent. White blood count 10.3, hemoglobin 10.4, hematocrit 30.8, potassium 3.3, BUN 17, creatinine 0.5, magnesium 1.7, troponin less than 0.01] Objective Temp Pulse Resp BP Pulse Ox 98.6 F 126 H 20 107/72 97 09/12/19 11:00 09/12/19 09:00 09/12/19 11:00 09/12/19 11:00 09/12/19 09:00 - Additional Data Intake & Output - Last 24 hours: Intake & Output 09/10/19 09/11/19 09/12/19 09/13/19 05:59 05:59 05:59 05:59 Intake Total 910 1804.4193 7077.4193 1174.4193 Output Total 4940 035 4696 Balance -240 1403.4193 1567.4193 1174.4193 Weight 107 lb 14.4 oz 108 lb 11.2 oz 103 lb 3.2 oz - General physical appearance severe pain, cachectic, chronically ill - Eyes PERRL, normal ocular movement - ENT normal pinna, normal nares, normal mucosa, no hearing loss, no congestion - Neck no masses, no bruits, trachea midline, no lymphadenopathy, no venous distension - Respiratory normal expansion, normal respiratory effort, clear to auscultation - Cardiovascular Cardiovascular exam: Present: +S1, +S2, tachycardia. Absent: JVD - Abdomen tender (moderate tenderness the entire abdomen; incision looks good; stoma is healthy; mild distention), bowel sounds (present), surgical scars (none), masses (none) - Integumentary no rash, no growths, no abnormal pigmentation - Neurologic normal coordination, normal sensation - Musculoskeletal normal gait, normal posture - Psychiatric oriented to time, oriented to person, oriented to place, speech is normal, memory intact - Labs 09/12/19 04:20 09/12/19 08:35 Diabetes panel 09/12/19 09/12/19 Range/Units 04:20 08:35 Sodium 136 136 (133-145) mmol/L Potassium 3.5 3.3 (3.3-5.1) mmol/L Chloride 104 104 (96-108) mmol/L Carbon Dioxide 23 23 (22-30) mmol/L BUN 17 17 (6-20) mg/dl Creatinine 0.5 L 0.5 L (0.6-1.1) mg/dl Glucose 100 109 H (70-105) mg/dL Calcium 8.2 L 8.3 L (8.6-10.4) mg/dl AST 12 11 (0-37) U/l ALT 7 7 (0-40) U/l Alkaline Phosphatase 45 39 (39-117) U/L Total Protein 4.8 L 4.9 L (5.9-8.4) gm/dL Albumin 2.9 L 3.3 (3.2-5.2) gm/dL Triglycerides 19 17 (<150) mg/dl Calcium panel 09/12/19 09/12/19 Range/Units 04:20 08:35 Calcium 8.2 L 8.3 L (8.6-10.4) mg/dl Phosphorus 4.2 3.4 (2.7-4.5) mg/dL Albumin 2.9 L 3.3 (3.2-5.2) gm/dL Pituitary panel 09/12/19 09/12/19 Range/Units 04:20 08:35 Sodium 136 136 (133-145) mmol/L Potassium 3.5 3.3 (3.3-5.1) mmol/L Chloride 104 104 (96-108) mmol/L Carbon Dioxide 23 23 (22-30) mmol/L BUN 17 17 (6-20) mg/dl Creatinine 0.5 L 0.5 L (0.6-1.1) mg/dl Glucose 100 109 H (70-105) mg/dL Calcium 8.2 L 8.3 L (8.6-10.4) mg/dl Adrenal panel 09/12/19 09/12/19 Range/Units 04:20 08:35 Sodium 136 136 (133-145) mmol/L Potassium 3.5 3.3 (3.3-5.1) mmol/L Chloride 104 104 (96-108) mmol/L Carbon Dioxide 23 23 (22-30) mmol/L BUN 17 17 (6-20) mg/dl Creatinine 0.5 L 0.5 L (0.6-1.1) mg/dl Glucose 100 109 H (70-105) mg/dL Calcium 8.2 L 8.3 L (8.6-10.4) mg/dl Total Bilirubin 0.4 0.7 (0.0-1.0) mg/dL AST 12 11 (0-37) U/l ALT 7 7 (0-40) U/l Alkaline Phosphatase 45 39 (39-117) U/L Total Protein 4.8 L 4.9 L (5.9-8.4) gm/dL Albumin 2.9 L 3.3 (3.2-5.2) gm/dL Assessment and Plan (1) Iliopsoas abscess on right Status: Acute Assessment and plan: Resolved Current Visit: Yes (2) Abdominal wall abscess Status: Inactive Assessment and plan: Wound is continuing to granulate in Current Visit: Yes (3) Sepsis Status: Resolved Current Visit: Yes (4) Enterocutaneous fistula Status: Resolved Current Visit: Yes (5) Small bowel obstruction due to postoperative adhesions Status: Acute Current Visit: Yes - Time Spent With Patient Total time spent is greater than 50% in coordination of care (as documented) at patient's floor/unit and/or counseling patient:
[2019-09-12] MEDS: FAT EMULSION 20% 250 ML in PREMIX 1 BAG IV SCH (15:15)
[2019-09-12] MEDS: ACETAMINOPHEN 700 MG/70 ML BOTTLE IV PRN ×2 (15:29→23:04)
[2019-09-13] MEDS: 0.9 % SODIUM CHLORIDE 1,000 ML IV SCH ×3 (02:21→16:03)
[2019-09-13] MEDS: LORazepam 2 MG/ML VIAL IV PRN ×3 (04:00→20:20)
[2019-09-13] MEDS: HYDROmorphone* 2 MG/ML VIAL IV PRN ×7 (04:00→20:19)
[2019-09-13 04:50] LABS: POC Blood Urea Nitrogen 9 mg/dl (6-20); POC CO2 21 mmol/L (22-30); POC Calcium, Ionized 1.23 mmol/L (1.16-1.32); POC Chloride 107 mmol/L (96-108); POC Creatinine 0.4 mg/dl (0.6-1.1); POC Glucose, Random 103 mg/dL (70-105); POC Potassium 2.8 mmol/L (3.3-5.1); POC Sodium 141 mmol/L (133-145)
[2019-09-13] MEDS ORDERED: POTASSIUM CHLORIDE 80 MEQ in DEXTROSE 5% IN WATER 500 ML IV ONE (04:54)
[2019-09-13] MEDS ORDERED: POTASSIUM CHLORIDE 20 MEQ/10 ML VIAL IV ONE (05:02)
[2019-09-13 05:24] LABS: Basophils # (Auto) 0.02 K/mcL (0.00-0.30); Basophils % (Auto) 0.2 % (0.0-2.0); Eosinophils # (Auto) 0.06 K/mcL (0.00-0.70); Eosinophils % (Auto) 0.5 % (0.0-7.0); Granulocytes % (Auto) 90.5 % (38.0-78.0); Hematocrit 25.5 % (34.1-44.9); Hemoglobin 8.4 g/dL (11.2-15.7); Lymphocytes # (Auto) 0.45 K/mcL (1.50-4.80); Lymphocytes % (Auto) 3.7 % (15.5-49.0); Mean Cell Volume 86.4 fL (80.0-100.0); Mean Corpuscular HGB Conc 32.9 g/dL (31.0-36.0); Mean Platelet Volume 9.4 fL (7.4-10.4); Monocytes # (Auto) 0.63 K/mcL (0.10-0.90); Monocytes % (Auto) 5.1 % (1.0-12.0); Platelet Count 300 K/mcL (140-440); RBC 2.95 M/mcL (3.59-5.38); Red Cell Distribution Width 18.3 % (11.5-14.5); WBC 12.3 K/mcL (4.50-11.00)
[2019-09-13] MEDS: METOCLOPRAMIDE 10 MG/2 ML VIAL IV SCH ×3 (05:24→17:23)
[2019-09-13] MEDS: ALBUMIN HUMAN 25 GM/100 ML BAG IV SCH ×3 (05:24→17:40)
[2019-09-13] MEDS: metroNIDAZOLE 500 MG/100 ML BAG IV SCH ×3 (05:24→17:24)
[2019-09-13] MEDS: INSULIN LISPRO 1 UNIT/0.01 ML UNIT SQ SCH ×3 (05:25→17:36)
[2019-09-13] MEDS: 0.9 % SODIUM CHLORIDE 10 ML SYRINGE IV SCH ×3 (05:25→22:11)
[2019-09-13] MEDS: [UNRECOGNIZED DRUG - REMARK] IV SCH ×2 (05:25→10:01)
[2019-09-13 06:01] LABS: ALT/SGPT 6 U/l (0-40); AST/SGOT 10 U/l (0-37); Albumin 3.6 gm/dL (3.2-5.2); Albumin/Globulin Ratio 2.3 (1.0-2.3); Alkaline Phosphatase 39 U/L (39-117); Bilirubin,Direct 0.2 mg/dL (0.0-0.3); Bilirubin,Total 0.7 mg/dL (0.0-1.0); Blood Urea Nitrogen 10 mg/dl (6-20); Calcium 8.3 mg/dl (8.6-10.4); Carbon Dioxide 21 mmol/L (22-30); Chloride 107 mmol/L (96-108); Globulin 1.6 gm/dL (2.2-3.7); Glomerular Filtration Rate 127; Glucose 100 mg/dL (70-105); Lactate Dehydrogenase 114 U/L (94-250); Thyroid Stimulating Hormone 3.05 uIU/ml (0.27-5.01)
[2019-09-13] MEDS: METOPROLOL TARTRATE 5 MG/5 ML VIAL IV PRN ×3 (06:06→14:34)
[2019-09-13] MEDS: ACETAMINOPHEN 700 MG/70 ML BOTTLE IV PRN ×3 (06:19→17:58)
[2019-09-13 06:24] LABS: Phosphorous 2.1 mg/dL (2.7-4.5); Triglycerides 19 mg/dl (<150); Uric Acid 2.2 mg/dL (2.5-8.0)
[2019-09-13] MEDS: PANTOPRAZOLE 40 MG VIAL IV SCH ×2 (07:09→17:23)
[2019-09-13] MEDS ORDERED: MAGNESIUM SULFATE 2 GM/50 ML BAG IV PRN (07:50)
[2019-09-13] MEDS ORDERED: POTASSIUM CHLORIDE 40 MEQ in DEXTROSE 5% IN WATER 500 ML IV PRN (07:50)
[2019-09-13] MEDS: DOCUSATE SODIUM 100 MG CAPSULE PO SCH ×2 (07:58→20:31)
[2019-09-13] MEDS: LEVOFLOXACIN 750 MG/150 ML BAG IV SCH (08:24)
[2019-09-13] MEDS: METOPROLOL TARTRATE 25 MG TABLET PO SCH (08:24)
--- NOTE | 2019-09-13 08:47 | XRay Report ---
CLINICAL INFORMATION: FOLLOW -UP OF SMALL BOWEL OBSTRUCTION COMPARISON: 09/11/2019 FINDINGS: NG tube is well placed - coiled in the gastric body. Interval right colectomy as been performed. Stomach and small bowel are now decompressed. Enteric contrast is now confined to the transverse, descending and rectosigmoid colon segments which are normal caliber. Surgical drains are seen in the right midabdomen and pelvis. IMPRESSION: Right colectomy changes. Negative Interpreted and Authenticated by: Iván Espinoza 09/13/19
--- NOTE | 2019-09-13 09:14 | Internal Med Progress Note ---
Medical - PN: Subj Patient information: Note initiated : 09/13/19 at 9:12 am Service Date, if different from initiated Date: [] Patient: Mojgan Mesa a 43 y/o F admitted on 08/18/19 for abdominal pain. Chief Complaint: [] Interval history: Ms. Mesa is a 43 year old F with a complicated medical history including incarcerated hernia of abd cavity, enterocutaneous fistula, small bowel obstruction, meds methamphetamine abuse, and anxiety who was admitted to our hospital on August 18, 2019 due to iliopsoas abscess on right, sepsis and abdominal wall abscess. In the hospital, she has been under care of [facility] Dr. Gamez. Hospitalist consult was requested by Dr. Gamez due to SVT and VT. Patient was seen and examined in her room. She complains of abdominal pain from surgical site. She denies palpitation, chest pain, dizziness, nausea, or vomiting. No diaphoresis or tremor. 09/12-rate much improved now around 120s. Potassium 2.8 on IV replacement. On TPN. Postoperative care/antibiotics as per surgery. T-max 100. White count up trending. Continue IV metoprolol as needed for episodes of SVTs. Cardiac enzymes negative. Monitor electrolytes and replace as indicated. - Constitutional Vitals: Vital Signs Temp Pulse Resp BP Pulse Ox 98.9 F 138 H 18 129/81 95 09/13/19 09:11 09/13/19 06:00 09/13/19 06:00 09/13/19 06:00 09/13/19 07:59 Period Temp Pulse Resp BP Sys/Christiansen Pulse Ox Last 24 Hr 98.4 F-100.0 F 111-138 14-41 92-138/60-86 93-100 Intake and Output 09/12/19 09/13/19 09/13/19 21:59 05:59 13:59 Intake Total 822 520 70 Output Total 1750 Balance -928 -1570 70 Weight 102 lb 8 oz Intake & Output: Intake & Output 09/12/19 09/13/19 09/13/19 21:59 05:59 13:59 Intake Total 822 520 70 Output Total 1750 Balance -928 -1570 70 Weight 102 lb 8 oz Intake: IV 622 520 70 Intralipid 20% 250 ml In Premix 250 1 Bag @ 25 mls/hr IV Q24H [facility] Rx#:[id number] Magnesium Sulfate 8.12 Meq In 52 Dextrose 5% in Water 50 ml @ 52 mls/hr IV ONCE ONE Rx#: [id number] Oral 200 Output: Gastric Drainage 700 800 NG/OG 700 800 Drainage 50 15 YISEL 1 45 5 YISEL 2 5 10 Urine Catheter Amount 1000 1200 Stool 75 Other: Urine Appearance Clear Uretheral ([place]) Clear Clear Urine Color Dark Yellow Uretheral ([place]) Dark Yellow Dark Yellow Exam: Resting comfortably Tachycardia telemetry PEG tube Nonlabored breathing [place]allero draining clear urine Medical - PN: Obj Da - Labs CBC & Chem 7: 09/13/19 04:40 09/13/19 04:40 Labs: Abnormal Lab Results 09/13/19 09/13/19 09/13/19 04:40 04:40 04:40 WBC 12.3 H RBC 2.95 L Hgb 8.4 L Hct 25.5 L POC Hct 26.0 L MCHC RDW 18.3 H Plt Count Gran % 90.5 H Lymph % (Auto) 3.7 L Gran # 11.10 H Lymph # (Auto) 0.45 L POC Potassium 2.8 L* Potassium 2.9 L* Carbon Dioxide 21 L POC Total CO2 21 L BUN Creatinine 0.4 L POC Creatinine 0.4 L Glucose Uric Acid 2.2 L Calcium 8.3 L Phosphorus 2.1 L Magnesium Total Protein 5.2 L Albumin Globulin 1.6 L Albumin/Globulin Ratio 09/12/19 09/12/19 09/12/19 08:35 04:20 04:20 WBC RBC Hgb 10.4 L Hct 30.8 L POC Hct MCHC RDW 17.5 H Plt Count Gran % 87.7 H Lymph % (Auto) 5.3 L Gran # 9.03 H Lymph # (Auto) 0.55 L POC Potassium Potassium Carbon Dioxide POC Total CO2 BUN Creatinine 0.5 L 0.5 L POC Creatinine Glucose 109 H Uric Acid Calcium 8.3 L 8.2 L Phosphorus Magnesium 1.5 L Total Protein 4.9 L 4.8 L Albumin 2.9 L Globulin 1.6 L 1.9 L Albumin/Globulin Ratio 09/11/19 09/11/19 09/11/19 17:50 05:13 05:13 WBC RBC 3.45 L Hgb 7.2 L 9.2 L Hct 30.0 L POC Hct MCHC 30.7 L RDW 21.3 H Plt Count 468 H Gran % 79.9 H Lymph % (Auto) 5.6 L Gran # Lymph # (Auto) 0.44 L POC Potassium Potassium Carbon Dioxide POC Total CO2 BUN 27 H Creatinine 0.4 L POC Creatinine Glucose Uric Acid Calcium Phosphorus Magnesium Total Protein Albumin 3.0 L Globulin Albumin/Globulin Ratio 0.8 L Meds: Medications Hydrocodone Bitart/Acetaminophen ([place] 7.5/325mg) 1 - 2 tab PO Q4HP PRN; Protocol PRN Reason: Per Pain Protocol Dextrose (Dextrose 50%) 0 ml IV UD PRN PRN Reason: Hypoglycemia Diagnostic Test (Pha) (Accu-Chek) 1 each FS Q6 [facility] Last Admin: 09/13/19 05:25 Dose: 1 each Documented by: Diazepam (Valium) 5 mg PO Q6-8HP PRN PRN Reason: Anxiety Docusate Sodium (Colace) 100 mg PO BID [facility] Last Admin: 09/13/19 07:58 Dose: Not Given Documented by: Heparin Sodium (Porcine) (Heparin Flush) 2 ml IV Q12 [facility] Last Admin: 09/13/19 07:58 Dose: Not Given Documented by: Hydromorphone HCl (Dilaudid) 1 mg IV Q2HP PRN; Protocol PRN Reason: Per Pain Protocol Last Admin: 09/13/19 09:04 Dose: 1 mg Documented by: Fat Emulsion Intravenous 250 (ml/ Premix) 250 mls @ 25 mls/hr IV Q24H [facility] Last Infusion: 09/13/19 02:22 Dose: Infused Documented by: Magnesium Sulfate 8.12 meq/Sodium Chloride 100 meq/Multivitamins/Minerals 10 ml/Potassium Chloride 40 meq/Sodium Phosphate 20 mmol/Calcium Gluconate 5 meq/ Amino Acids 1,074.4193 mls @ 55 mls/hr IV Q19H [facility] Last Admin: 09/13/19 05:25 Dose: Not Given Documented by: Albumin Human (Buminate) 25 gm in 100 mls @ 200 mls/hr IV Q6 [facility] Last Admin: 09/13/19 05:24 Dose: 200 mls/hr Documented by: Sodium Chloride (Sodium Chloride 0.9%) 1,000 mls @ 75 mls/hr IV .[id number] [facility] Last Admin: 09/13/19 02:21 Dose: Not Given Documented by: Acetaminophen (Ofirmev) 700 mg in 70 mls @ 140 mls/hr IV Q6HP PRN; Protocol PRN Reason: Fever Last Infusion: 09/13/19 06:54 Dose: Infused Documented by: Levofloxacin (Levaquin) 750 mg in 150 mls @ 100 mls/hr IV Q24H [facility]; Protocol Last Admin: 09/13/19 08:24 Dose: 100 mls/hr Documented by: Metronidazole (Flagyl) 500 mg in 100 mls @ 100 mls/hr IV Q6H [facility]; Protocol Last Admin: 09/13/19 05:24 Dose: 100 mls/hr Documented by: Potassium Chloride 80 meq/ (Dextrose) 540 mls @ 67.5 mls/hr IV ONCE ONE Stop: 09/13/19 12:53 Last Admin: 09/13/19 05:06 Dose: 67.5 mls/hr Documented by: Potassium Chloride 40 meq/ (Dextrose) 520 mls @ 130 mls/hr IV UD PRN PRN Reason: K+ = or < 3.5 Magnesium Sulfate (Magnesium Sulfate) 2 gm in 50 mls @ 50 mls/hr IV UD PRN PRN Reason: Mag < or = 1.7 Insulin Human Lispro (Humalog) 0 unit SQ Q6 [facility]; Protocol Last Admin: 09/13/19 05:25 Dose: Not Given Documented by: Lorazepam (Ativan) 1 mg IV Q6H PRN PRN Reason: ANXIETY/SEDATION Last Admin: 09/13/19 04:00 Dose: 1 mg Documented by: Methocarbamol (Robaxin) 1,000 mg IV Q8HP PRN PRN Reason: Muscle Spasm Last Admin: 09/12/19 19:23 Dose: 1,000 mg Documented by: Metoclopramide HCl (Reglan) 10 mg IV Q6 [facility] Last Admin: 09/13/19 05:24 Dose: 10 mg Documented by: Metoprolol Tartrate (Lopressor) 5 mg IV Q2HP PRN PRN Reason: Tachyarrhythmias Last Admin: 09/13/19 08:59 Dose: 5 mg Documented by: Ondansetron HCl (Zofran) 4 mg IV Q4HP PRN; Protocol PRN Reason: Nausea/Vomiting Pantoprazole Sodium (Protonix) 40 mg IV BIDAC [facility] Last Admin: 09/13/19 07:09 Dose: 40 mg Documented by: Potassium Chloride (Kdur) 40 meq PO BIDCC [facility] Promethazine HCl (Phenergan) 12.5 mg IV Q4HP PRN; Protocol PRN Reason: Nausea/Vomiting Last Admin: 09/11/19 19:46 Dose: 12.5 mg Documented by: Sodium Chloride (Saline Flush) 10 ml IV Q8 [facility] Last Admin: 09/13/19 05:25 Dose: 10 ml Documented by: Zolpidem Tartrate (Ambien) 5 mg PO HSP PRN PRN Reason: Insomnia Medical - PN: A/P - Time Spent With Patient Total time spent is greater than 50% in coordination of care (as documented) at patient's floor/unit and/or counseling patient: 15 - 24 minutes - Narrative A/P Narrative: * Iliopsoas abscess-postoperative care as per surgery * Pain management/DVT prophylaxis per surgery Hospitalist consult for management of SVT/medical issues as below * SVT-precipitated by postoperative stress. Currently controlled. On metoprolol as needed. Close monitoring electrolytes and replacement as indicated * Hypokalemia 2.8 replace as indicated * Enteral nutrition Plan * Serial electrolyte monitoring * Replace as indicated * IV beta-ilan as needed Medical - PN: Qual - VTE Deep Vein Thrombosis/Pulmonary Embolism Present on Admission: No
--- NOTE | 2019-09-13 09:22 | XRay Report ---
CLINICAL INFORMATION: Tachyarrhythmias, confirm PICC line remains COMPARISON: None. FINDINGS: Left PICC line tip overlies the tricuspid valve plane.. NG tube coiled in the gastric fundus. Heart size, mediastinum and pulmonary vessels are normal. There is minor bibasilar atelectasis. No infiltrates or effusions. IMPRESSION: Minor bibasilar atelectasis. PICC line tip overlies tricuspid valve plane - nurses were instructed to withdraw the line 6 cm Interpreted and Authenticated by: Iván Espinoza 09/13/19
--- NOTE | 2019-09-13 15:35 | General Surgery Progress Note ---
Subjective Patient reports: still having pain, no flatus, no bowel movement, nausea, afebrile Narrative: Note initiated : 09/13/19 at 3:32 pm Service Date, if different from initiated Date: [] Patient: Mojgan Mesa 43 y/o F admitted on 08/18/19 for abdominal pain. Chief Complaint: [Patient looks clinically improved. She denies any respiratory difficulty. Her major problem is pain control. White blood count 12.3, hemoglobin 8.4, hematocrit 25.5, potassium 2.8, phosphorus 2.. Tachycardia is still poorly controlled] Objective Temp Pulse Resp BP Pulse Ox 98.0 F 129 H 18 118/77 95 09/13/19 14:08 09/13/19 14:00 09/13/19 14:00 09/13/19 14:00 09/13/19 14:00 - Additional Data Intake & Output - Last 24 hours: Intake & Output 09/11/19 09/12/19 09/13/19 09/14/19 05:59 05:59 05:59 05:59 Intake Total 1804.4193 7077.4193 3716.4193 3244.4193 Output Total 401 5510 3840 900 Balance 1403.4193 1567.4193 -123.5807 2344.4193 Weight 108 lb 11.2 oz 103 lb 3.2 oz 102 lb 8 oz - General physical appearance severe distress, severe pain, cachectic, chronically ill - Eyes PERRL, normal ocular movement - ENT normal pinna, normal nares, normal mucosa, no hearing loss, no congestion - Neck no masses, no bruits, trachea midline, no lymphadenopathy, no venous distension - Respiratory normal expansion, normal respiratory effort, clear to auscultation, other (no rales, rhonchi, wheezes) - Cardiovascular Cardiovascular exam: Present: normal rate and rhythm, JVD, RRR, +S1, +S2, tachycardia (supraventricular tachycardia persists) - Abdomen tender (incisional tenderness, but incision is otherwise unremarkable; few a ctive bowel sounds; stoma is healthy) - Integumentary no rash, no growths, no abnormal pigmentation - Neurologic normal coordination, normal sensation - Musculoskeletal normal gait, normal posture - Psychiatric oriented to time, oriented to person, oriented to place, speech is normal, memory intact - Labs 09/13/19 04:40 09/13/19 04:40 Diabetes panel 09/13/19 Range/Units 04:40 Sodium 139 (133-145) mmol/L Potassium 2.9 L* (3.3-5.1) mmol/L Chloride 107 (96-108) mmol/L Carbon Dioxide 21 L (22-30) mmol/L BUN 10 (6-20) mg/dl Creatinine 0.4 L (0.6-1.1) mg/dl Glucose 100 (70-105) mg/dL Calcium 8.3 L (8.6-10.4) mg/dl AST 10 (0-37) U/l ALT 6 (0-40) U/l Alkaline Phosphatase 39 (39-117) U/L Total Protein 5.2 L (5.9-8.4) gm/dL Albumin 3.6 (3.2-5.2) gm/dL Triglycerides 19 (<150) mg/dl Thyroid panel 09/13/19 Range/Units 04:40 TSH 3.05 (0.27-5.01) uIU/ml Calcium panel 09/13/19 Range/Units 04:40 Calcium 8.3 L (8.6-10.4) mg/dl Phosphorus 2.1 L (2.7-4.5) mg/dL Albumin 3.6 (3.2-5.2) gm/dL Pituitary panel 09/13/19 Range/Units 04:40 Sodium 139 (133-145) mmol/L Potassium 2.9 L* (3.3-5.1) mmol/L Chloride 107 (96-108) mmol/L Carbon Dioxide 21 L (22-30) mmol/L BUN 10 (6-20) mg/dl Creatinine 0.4 L (0.6-1.1) mg/dl Glucose 100 (70-105) mg/dL Calcium 8.3 L (8.6-10.4) mg/dl TSH 3.05 (0.27-5.01) uIU/ml Adrenal panel 09/13/19 Range/Units 04:40 Sodium 139 (133-145) mmol/L Potassium 2.9 L* (3.3-5.1) mmol/L Chloride 107 (96-108) mmol/L Carbon Dioxide 21 L (22-30) mmol/L BUN 10 (6-20) mg/dl Creatinine 0.4 L (0.6-1.1) mg/dl Glucose 100 (70-105) mg/dL Calcium 8.3 L (8.6-10.4) mg/dl Total Bilirubin 0.7 (0.0-1.0) mg/dL AST 10 (0-37) U/l ALT 6 (0-40) U/l Alkaline Phosphatase 39 (39-117) U/L Total Protein 5.2 L (5.9-8.4) gm/dL Albumin 3.6 (3.2-5.2) gm/dL Assessment and Plan (1) Iliopsoas abscess on right Status: Resolved Assessment and plan: Resolved Current Visit: Yes (2) Sepsis Status: Resolved Current Visit: Yes (3) Enterocutaneous fistula Status: Resolved Current Visit: Yes (4) Small bowel obstruction due to postoperative adhesions Status: Acute Assessment and plan: Nasogastric tube continued Current Visit: Yes - Time Spent With Patient Total time spent is greater than 50% in coordination of care (as documented) at patient's floor/unit and/or counseling patient:
[2019-09-13] MEDS: FAT EMULSION 20% 250 ML in PREMIX 1 BAG IV SCH (16:01)
[2019-09-13] MEDS: POTASSIUM CHLORIDE 20 MEQ TABLET PO SCH (17:23)
[2019-09-13] MEDS: METHOCARBAMOL 1,000 MG/10 ML VIAL IV PRN (20:27)
[2019-09-14] MEDS: metroNIDAZOLE 500 MG/100 ML BAG IV SCH ×4 (00:03→17:37)
[2019-09-14] MEDS: HYDROmorphone* 2 MG/ML VIAL IV PRN ×10 (00:04→23:56)
[2019-09-14] MEDS: METOCLOPRAMIDE 10 MG/2 ML VIAL IV SCH ×4 (00:04→17:37)
[2019-09-14] MEDS: ALBUMIN HUMAN 25 GM/100 ML BAG IV SCH ×3 (00:04→20:48)
[2019-09-14] MEDS: INSULIN LISPRO 1 UNIT/0.01 ML UNIT SQ SCH ×4 (00:04→18:06)
[2019-09-14] MEDS: METOPROLOL TARTRATE 5 MG/5 ML VIAL IV PRN ×2 (00:15→08:05)
[2019-09-14] MEDS: ACETAMINOPHEN 700 MG/70 ML BOTTLE IV PRN ×3 (00:15→17:44)
[2019-09-14] MEDS: [UNRECOGNIZED DRUG - REMARK] IV SCH (02:08)
[2019-09-14] MEDS: LORazepam 2 MG/ML VIAL IV PRN (02:09)
[2019-09-14] MEDS: 0.9 % SODIUM CHLORIDE 1,000 ML IV SCH ×3 (02:27→21:10)
[2019-09-14] MEDS: [UNRECOGNIZED DRUG - REMARK] IV SCH (04:26)
[2019-09-14] MEDS: 0.9 % SODIUM CHLORIDE 10 ML SYRINGE IV SCH ×4 (05:28→22:59)
[2019-09-14 06:29] LABS: Basophils # (Auto) 0.03 K/mcL (0.00-0.30); Basophils % (Auto) 0.3 % (0.0-2.0); Eosinophils # (Auto) 0.38 K/mcL (0.00-0.70); Eosinophils % (Auto) 3.6 % (0.0-7.0); Granulocytes % (Auto) 85.1 % (38.0-78.0); Hematocrit 23.9 % (34.1-44.9); Hemoglobin 7.7 g/dL (11.2-15.7); Lymphocytes # (Auto) 0.54 K/mcL (1.50-4.80); Lymphocytes % (Auto) 5.1 % (15.5-49.0); Mean Cell Volume 88.5 fL (80.0-100.0); Mean Corpuscular HGB Conc 32.2 g/dL (31.0-36.0); Mean Platelet Volume 9.9 fL (7.4-10.4); Monocytes # (Auto) 0.63 K/mcL (0.10-0.90); Monocytes % (Auto) 5.9 % (1.0-12.0); Platelet Count 312 K/mcL (140-440); Red Cell Distribution Width 17.7 % (11.5-14.5); WBC 10.7 K/mcL (4.50-11.00)
[2019-09-14 06:44] LABS: ALT/SGPT 6 U/l (0-40); AST/SGOT 8 U/l (0-37); Albumin 3.9 gm/dL (3.2-5.2); Albumin/Globulin Ratio 2.1 (1.0-2.3); Alkaline Phosphatase 38 U/L (39-117); Bilirubin,Direct < 0.2 mg/dL (0.0-0.3); Bilirubin,Total 0.5 mg/dL (0.0-1.0); Blood Urea Nitrogen 9 mg/dl (6-20); Calcium 8.8 mg/dl (8.6-10.4); Carbon Dioxide 20 mmol/L (22-30); Chloride 109 mmol/L (96-108); Globulin 1.9 gm/dL (2.2-3.7); Glomerular Filtration Rate 127; Glucose 107 mg/dL (70-105); Lactate Dehydrogenase 108 U/L (94-250); Phosphorous 2.2 mg/dL (2.7-4.5); Triglycerides 24 mg/dl (<150); Uric Acid 1.9 mg/dL (2.5-8.0)
[2019-09-14] MEDS: METHOCARBAMOL 1,000 MG/10 ML VIAL IV PRN ×3 (07:02→22:57)
[2019-09-14] MEDS: POTASSIUM CHLORIDE 20 MEQ TABLET PO SCH (08:05)
[2019-09-14] MEDS: PANTOPRAZOLE 40 MG VIAL IV SCH ×2 (08:05→17:37)
[2019-09-14] MEDS: DOCUSATE SODIUM 100 MG CAPSULE PO SCH (08:06)
[2019-09-14] MEDS: LEVOFLOXACIN 750 MG/150 ML BAG IV SCH (09:17)
[2019-09-14] MEDS ORDERED: POTASSIUM PHOSPHATE 40 MEQ in DEXTROSE 5% IN WATER 500 ML IV ONE (09:33)
[2019-09-14] MEDS ORDERED: 0.9 % SODIUM CHLORIDE 250 ML IV SCH (09:45)
--- NOTE | 2019-09-14 10:59 | Internal Med Progress Note ---
Medical - PN: Subj Patient information: Note initiated : 09/14/19 at 10:57 am Service Date, if different from initiated Date: [] Patient: Mojgan Mesa a 43 y/o F admitted on 08/18/19 for abdominal pain. Chief Complaint: [] Interval history: Ms. Mesa is a 43 year old F with a complicated medical history including incarcerated hernia of abd cavity, enterocutaneous fistula, small bowel obstruction, meds methamphetamine abuse, and anxiety who was admitted to our hospital on August 18, 2019 due to iliopsoas abscess on right, sepsis and abdominal wall abscess. In the hospital, she has been under care of [facility] Dr. Gamez. Hospitalist consult was requested by Dr. Gamez due to SVT and VT. Patient was seen and examined in her room. She complains of abdominal pain from surgical site. She denies palpitation, chest pain, dizziness, nausea, or vomiting. No diaphoresis or tremor. 09/12-rate much improved now around 120s. Potassium 2.8 on IV replacement. On TPN. Postoperative care/antibiotics as per surgery. T-max 100. White count up trending. Continue IV metoprolol as needed for episodes of SVTs. Cardiac enzymes negative. Monitor electrolytes and replace as indicated. -09/13-resting comfortably. On TPN. Potassium 4. Hemoglobin 7.7. No significant telemetry events or tachycardia or SVT. - Constitutional Vitals: Vital Signs Temp Pulse Resp BP Pulse Ox 101.2 F H 115 H 18 123/89 97 09/14/19 10:00 09/14/19 10:32 09/14/19 10:32 09/14/19 10:30 09/14/19 10:32 Period Temp Pulse Resp BP Sys/[place]ians[place] Pulse Ox Last 24 Hr 98.0 F-101.2 F 105-136 12-40 106-147/71-99 92-100 Intake and Output 09/13/19 09/14/19 09/14/19 21:59 05:59 13:59 Intake Total 1100 2714.4193 200 Output Total 2610 2060 Balance -7225 358.1607 200 Weight 103 lb Intake & Output: Intake & Output 09/13/19 09/14/19 09/14/19 21:59 05:59 13:59 Intake Total 1100 2714.4193 200 Output Total 2610 2060 Balance -4697 433.3732 200 Weight 103 lb Intake: IV 1010 2594.4193 200 Sodium Chloride 0.9% 1,000 ml @ 1000 75 mls/hr IV .[id number] [facility] Rx#: [id number] Intralipid 20% 250 ml In Premix 250 1 Bag @ 25 mls/hr IV Q24H [facility] Rx#:[id number] Magnesium Sulfate 8.12 Meq 1074.4193 Sodium Chloride 100 Meq Infuvite Adult 10 ml Potassium Chloride 40 Meq Sodium Phosphate 20 Mmol Calcium Gluconate 5 Meq In Clinimix 5%- 20% Solution 1,000 ml @ 55 mls/ hr IV Q19H [facility] Rx#:[id number] Potassium Chloride 80 Meq In 540 Dextrose 5% in Water 500 ml @ 67.5 mls/hr IV ONCE ONE Rx#: [id number] Oral 90 120 Output: Gastric Drainage 600 800 NG/OG 600 800 Drainage 10 10 YISEL 1 5 5 YISEL 2 5 5 Urine Catheter Amount 1900 1150 Uretheral ([place]) 900 Stool 100 100 Other: Urine Appearance Clear Clear Clear Uretheral ([place]) Clear Urine Color Dark Yellow Dark Yellow Dark Yellow Uretheral ([place]) Dark Yellow Urine Odor Normal Normal Stool Size Large Stool Color Brown Stool Consistency Watery General appearance: no acute distress Exam: On TPN Resting comfortably No anxiety Nonlabored breathing Medical - PN: Obj Da - Labs CBC & Chem 7: 09/14/19 05:00 09/14/19 05:00 Labs: Abnormal Lab Results 09/14/19 09/14/19 09/13/19 05:00 05:00 04:40 WBC RBC 2.70 L Hgb 7.7 L Hct 23.9 L POC Hct 26.0 L RDW 17.7 H Gran % 85.1 H Lymph % (Auto) 5.1 L Gran # 9.07 H Lymph # (Auto) 0.54 L POC Potassium 2.8 L* Potassium Chloride 109 H Carbon Dioxide 20 L POC Total CO2 21 L Creatinine 0.4 L POC Creatinine 0.4 L Glucose 107 H Uric Acid 1.9 L Calcium Phosphorus 2.2 L Magnesium Alkaline Phosphatase 38 L Total Protein 5.8 L Albumin Globulin 1.9 L 09/13/19 09/13/19 09/12/19 04:40 04:40 08:35 WBC 12.3 H RBC 2.95 L Hgb 8.4 L Hct 25.5 L POC Hct RDW 18.3 H Gran % 90.5 H Lymph % (Auto) 3.7 L Gran # 11.10 H Lymph # (Auto) 0.45 L POC Potassium Potassium 2.9 L* Chloride Carbon Dioxide 21 L POC Total CO2 Creatinine 0.4 L 0.5 L POC Creatinine Glucose 109 H Uric Acid 2.2 L Calcium 8.3 L 8.3 L Phosphorus 2.1 L Magnesium Alkaline Phosphatase Total Protein 5.2 L 4.9 L Albumin Globulin 1.6 L 1.6 L 09/12/19 09/12/19 09/11/19 04:20 04:20 17:50 WBC RBC Hgb 10.4 L 7.2 L Hct 30.8 L POC Hct RDW 17.5 H Gran % 87.7 H Lymph % (Auto) 5.3 L Gran # 9.03 H Lymph # (Auto) 0.55 L POC Potassium Potassium Chloride Carbon Dioxide POC Total CO2 Creatinine 0.5 L POC Creatinine Glucose Uric Acid Calcium 8.2 L Phosphorus Magnesium 1.5 L Alkaline Phosphatase Total Protein 4.8 L Albumin 2.9 L Globulin 1.9 L Meds: Medications Hydrocodone Bitart/Acetaminophen ([place] 7.5/325mg) 1 - 2 tab PO Q4HP PRN; Protocol PRN Reason: Per Pain Protocol Dextrose (Dextrose 50%) 0 ml IV UD PRN PRN Reason: Hypoglycemia Diagnostic Test (Pha) (Accu-Chek) 1 each FS Q6 [facility] Last Admin: 09/14/19 05:27 Dose: 1 each Documented by: Diazepam (Valium) 5 mg PO Q6-8HP PRN PRN Reason: Anxiety Docusate Sodium (Colace) 100 mg PO BID [facility] Last Admin: 09/14/19 08:06 Dose: Not Given Documented by: Heparin Sodium (Porcine) (Heparin Flush) 2 ml IV Q12 [facility] Last Admin: 09/14/19 08:06 Dose: Not Given Documented by: Hydromorphone HCl (Dilaudid) 1 mg IV Q2HP PRN; Protocol PRN Reason: Per Pain Protocol Last Admin: 09/14/19 09:16 Dose: 1 mg Documented by: Fat Emulsion Intravenous 250 (ml/ Premix) 250 mls @ 25 mls/hr IV Q24H [facility] Last Infusion: 09/14/19 02:26 Dose: Infused Documented by: Sodium Chloride (Sodium Chloride 0.9%) 1,000 mls @ 75 mls/hr IV .[id number] [facility] Last Admin: 09/14/19 05:01 Dose: Not Given Documented by: Acetaminophen (Ofirmev) 700 mg in 70 mls @ 140 mls/hr IV Q6HP PRN; Protocol PRN Reason: Fever Last Infusion: 09/14/19 02:08 Dose: Infused Documented by: Levofloxacin (Levaquin) 750 mg in 150 mls @ 100 mls/hr IV Q24H [facility]; Protocol Last Admin: 09/14/19 09:17 Dose: 100 mls/hr Documented by: Metronidazole (Flagyl) 500 mg in 100 mls @ 100 mls/hr IV Q6H [facility]; Protocol Last Infusion: 09/14/19 07:00 Dose: Infused Documented by: Potassium Chloride 40 meq/ (Dextrose) 520 mls @ 130 mls/hr IV UD PRN PRN Reason: K+ = or < 3.5 Magnesium Sulfate (Magnesium Sulfate) 2 gm in 50 mls @ 50 mls/hr IV UD PRN PRN Reason: Mag < or = 1.7 Magnesium Sulfate 8.12 meq/Sodium Chloride 80 meq/Multivitamins/Minerals 10 ml/Potassium Chloride 60 meq/Sodium Phosphate 30 mmol/Calcium Gluconate 5 meq/ Amino Acids 1,082.7526 mls @ 55 mls/hr IV Q19H [facility] Last Admin: 09/14/19 04:26 Dose: 55 mls/hr Documented by: Sodium Chloride (Sodium Chloride 0.9%) 250 mls @ 20 mls/hr IV .[id number] [facility] Stop: 09/14/19 22:14 Potassium Phosphate 40 meq/ (Dextrose) 509.0909 mls @ 127.273 mls/hr IV ONCE ONE Stop: 09/14/19 13:32 Albumin Human (Buminate) 25 gm in 100 mls @ 200 mls/hr IV BID [facility] Insulin Human Lispro (Humalog) 0 unit SQ Q6 [facility]; Protocol Last Admin: 09/14/19 05:28 Dose: Not Given Documented by: Lorazepam (Ativan) 1 mg IV Q6H PRN PRN Reason: ANXIETY/SEDATION Last Admin: 09/14/19 02:09 Dose: 1 mg Documented by: Methocarbamol (Robaxin) 1,000 mg IV Q8HP PRN PRN Reason: Muscle Spasm Last Admin: 09/14/19 07:02 Dose: 1,000 mg Documented by: Metoclopramide HCl (Reglan) 10 mg IV Q6 [facility] Last Admin: 09/14/19 05:27 Dose: 10 mg Documented by: Metoprolol Tartrate (Lopressor) 5 mg IV Q2HP PRN PRN Reason: Tachyarrhythmias Last Admin: 09/14/19 08:05 Dose: 5 mg Documented by: Ondansetron HCl (Zofran) 4 mg IV Q4HP PRN; Protocol PRN Reason: Nausea/Vomiting Pantoprazole Sodium (Protonix) 40 mg IV BIDAC [facility] Last Admin: 09/14/19 08:05 Dose: 40 mg Documented by: Promethazine HCl (Phenergan) 12.5 mg IV Q4HP PRN; Protocol PRN Reason: Nausea/Vomiting Last Admin: 09/11/19 19:46 Dose: 12.5 mg Documented by: Sodium Chloride (Saline Flush) 10 ml IV Q8 [facility] Last Admin: 09/14/19 05:28 Dose: 10 ml Documented by: Zolpidem Tartrate (Ambien) 5 mg PO HSP PRN PRN Reason: Insomnia Medical - PN: A/P - Time Spent With Patient Total time spent is greater than 50% in coordination of care (as documented) at patient's floor/unit and/or counseling patient: 15 - 24 minutes - Narrative A/P Narrative: * Iliopsoas abscess-postoperative care as per surgery * Pain management/DVT prophylaxis per surgery Hospitalist consult for management of SVT/medical issues as below * SVT-precipitated by postoperative stress. No further events. On as needed metoprolol * Anemia hemoglobin 7.7. PRBC transfusion per surgery * Hypokalemia resolved with replacement. * Parenteral nutrition-continue TPN as per surgery Plan * TPN/blood transfusion per surgery * Replace electrolytes as indicated * IV beta-ilan as needed * No further recommendations. Will sign off however hospitalist service will be available for future needs Medical - PN: Qual - VTE Deep Vein Thrombosis/Pulmonary Embolism Present on Admission: No
--- NOTE | 2019-09-14 14:05 | General Surgery Progress Note ---
Subjective Patient reports: feels better, pain is less, no flatus, no bowel movement, afebrile Narrative: Note initiated : 09/14/19 at 2:03 pm Service Date, if different from initiated Date: [] Patient: Mojgan Mesa 43 y/o F admitted on 08/18/19 for abdominal pain. Chief Complaint: [patient is feeling better. She states that she is much stronger. She denies chest pain or shortness of breath. She has not had flatus or bowel moveme White blood count , 10.7, hemoglobin 7.7, hematocrit 23.9, potassium 3.6, BUN 9, creatinine 0.4, phosphorus 2.3. She has had 200 cc of output through her stoma. Her incision looks good.] Objective Temp Pulse Resp BP Pulse Ox 98.6 F 113 H 18 126/90 97 09/14/19 12:00 09/14/19 12:17 09/14/19 12:17 09/14/19 12:00 09/14/19 12:17 - Additional Data Intake & Output - Last 24 hours: Intake & Output 09/12/19 09/13/19 09/14/19 09/15/19 05:59 05:59 05:59 05:59 Intake Total 7077.4193 3716.4193 6278.8386 450 Output Total 5510 3840 4670 700 Balance 1567.4193 -123.5807 1608.8386 -250 Weight 103 lb 3.2 oz 102 lb 8 oz 103 lb - General physical appearance cachectic, chronically ill - Eyes PERRL, normal ocular movement - ENT normal pinna, normal nares, normal mucosa, no hearing loss, no congestion - Neck no masses, no bruits, trachea midline, no lymphadenopathy, no venous distension - Respiratory normal expansion, normal respiratory effort, clear to auscultation - Cardiovascular Cardiovascular exam: Present: normal rate and rhythm, RRR, +S1, +S2, tachycardia. Absent: JVD - Abdomen distended (abdomen is mildly distended; active bowel sounds; incision stoma; YISEL drainage is significantly decreased) - Integumentary no rash, no growths, no abnormal pigmentation - Neurologic normal coordination, normal sensation - Musculoskeletal normal gait, normal posture - Psychiatric oriented to time, oriented to person, oriented to place, speech is normal, memory intact - Labs 09/14/19 05:00 09/14/19 05:00 Diabetes panel 09/14/19 Range/Units 05:00 Sodium 141 (133-145) mmol/L Potassium 3.6 (3.3-5.1) mmol/L Chloride 109 H (96-108) mmol/L Carbon Dioxide 20 L (22-30) mmol/L BUN 9 (6-20) mg/dl Creatinine 0.4 L (0.6-1.1) mg/dl Glucose 107 H (70-105) mg/dL Calcium 8.8 (8.6-10.4) mg/dl AST 8 (0-37) U/l ALT 6 (0-40) U/l Alkaline Phosphatase 38 L (39-117) U/L Total Protein 5.8 L (5.9-8.4) gm/dL Albumin 3.9 (3.2-5.2) gm/dL Triglycerides 24 (<150) mg/dl Calcium panel 09/14/19 Range/Units 05:00 Calcium 8.8 (8.6-10.4) mg/dl Phosphorus 2.2 L (2.7-4.5) mg/dL Albumin 3.9 (3.2-5.2) gm/dL Pituitary panel 09/14/19 Range/Units 05:00 Sodium 141 (133-145) mmol/L Potassium 3.6 (3.3-5.1) mmol/L Chloride 109 H (96-108) mmol/L Carbon Dioxide 20 L (22-30) mmol/L BUN 9 (6-20) mg/dl Creatinine 0.4 L (0.6-1.1) mg/dl Glucose 107 H (70-105) mg/dL Calcium 8.8 (8.6-10.4) mg/dl Adrenal panel 09/14/19 Range/Units 05:00 Sodium 141 (133-145) mmol/L Potassium 3.6 (3.3-5.1) mmol/L Chloride 109 H (96-108) mmol/L Carbon Dioxide 20 L (22-30) mmol/L BUN 9 (6-20) mg/dl Creatinine 0.4 L (0.6-1.1) mg/dl Glucose 107 H (70-105) mg/dL Calcium 8.8 (8.6-10.4) mg/dl Total Bilirubin 0.5 (0.0-1.0) mg/dL AST 8 (0-37) U/l ALT 6 (0-40) U/l Alkaline Phosphatase 38 L (39-117) U/L Total Protein 5.8 L (5.9-8.4) gm/dL Albumin 3.9 (3.2-5.2) gm/dL Assessment and Plan (1) Iliopsoas abscess on right Status: Resolved Assessment and plan: Resolved Current Visit: Yes (2) Sepsis Status: Resolved Current Visit: Yes (3) Enterocutaneous fistula Status: Resolved Current Visit: Yes (4) Small bowel obstruction due to postoperative adhesions Status: Acute Assessment and plan: Nasogastric tube continued Two-view abdominal x-ray in the a.m. Current Visit: Yes (5) Postoperative anemia due to acute blood loss Status: Acute Assessment and plan: transfuse 2 units packed red blood cells Current Visit: Yes - Time Spent With Patient Total time spent is greater than 50% in coordination of care (as documented) at patient's floor/unit and/or counseling patient:
[2019-09-14] MEDS: FAT EMULSION 20% 250 ML in PREMIX 1 BAG IV SCH (16:08)
[2019-09-15] MEDS: [UNRECOGNIZED DRUG - REMARK] IV SCH (00:11)
[2019-09-15] MEDS: metroNIDAZOLE 500 MG/100 ML BAG IV SCH ×5 (00:12→23:16)
[2019-09-15] MEDS: METOCLOPRAMIDE 10 MG/2 ML VIAL IV SCH ×5 (00:12→23:15)
[2019-09-15] MEDS: INSULIN LISPRO 1 UNIT/0.01 ML UNIT SQ SCH ×5 (00:25→23:17)
[2019-09-15] MEDS: ACETAMINOPHEN 700 MG/70 ML BOTTLE IV PRN (01:34)
[2019-09-15] MEDS: HYDROmorphone* 2 MG/ML VIAL IV PRN ×4 (02:39→09:59)
[2019-09-15] MEDS: LORazepam 2 MG/ML VIAL IV PRN ×3 (03:34→23:16)
[2019-09-15] MEDS: 0.9 % SODIUM CHLORIDE 10 ML SYRINGE IV SCH ×3 (05:54→20:11)
[2019-09-15 06:32] LABS: Basophils # (Auto) 0.05 K/mcL (0.00-0.30); Basophils % (Auto) 0.4 % (0.0-2.0); Eosinophils # (Auto) 0.66 K/mcL (0.00-0.70); Eosinophils % (Auto) 5.4 % (0.0-7.0); Granulocytes % (Auto) 84.8 % (38.0-78.0); Hematocrit 34.7 % (34.1-44.9); Hemoglobin 11.6 g/dL (11.2-15.7); Lymphocytes # (Auto) 0.38 K/mcL (1.50-4.80); Lymphocytes % (Auto) 3.1 % (15.5-49.0); Mean Cell Volume 85.9 fL (80.0-100.0); Mean Corpuscular HGB Conc 33.4 g/dL (31.0-36.0); Mean Platelet Volume 9.7 fL (7.4-10.4); Monocytes # (Auto) 0.77 K/mcL (0.10-0.90); Monocytes % (Auto) 6.3 % (1.0-12.0); Platelet Count 333 K/mcL (140-440); RBC 4.04 M/mcL (3.59-5.38); Red Cell Distribution Width 16.7 % (11.5-14.5); WBC 12.2 K/mcL (4.50-11.00)
[2019-09-15 06:44] LABS: Bilirubin,Direct < 0.2 mg/dL (0.0-0.3); Chloride 105 mmol/L (96-108)
[2019-09-15 06:53] LABS: ALT/SGPT 6 U/l (0-40); Alkaline Phosphatase 43 U/L (39-117); Lactate Dehydrogenase 130 U/L (94-250); Triglycerides 37 mg/dl (<150); Uric Acid 1.7 mg/dL (2.5-8.0)
[2019-09-15 06:54] LABS: Glomerular Filtration Rate 127
[2019-09-15 07:01] LABS: AST/SGOT 10 U/l (0-37); Albumin/Globulin Ratio 1.7 (1.0-2.3); Bilirubin,Total 0.7 mg/dL (0.0-1.0); Blood Urea Nitrogen 11 mg/dl (6-20); Calcium 9.4 mg/dl (8.6-10.4); Carbon Dioxide 18 mmol/L (22-30); Globulin 2.4 gm/dL (2.2-3.7); Glucose 109 mg/dL (70-105)
--- NOTE | 2019-09-15 07:03 | XRay Report ---
CLINICAL INFORMATION: FOLLOW -UP OF SMALL BOWEL OBSTRUCTION COMPARISON: 09/13/2019. FINDINGS: NG tube is well placed - coiled in the gastric body. Interval right colectomy as been performed. Stomach and small bowel are now decompressed. Enteric contrast is now confined to the transverse, descending and rectosigmoid colon segments which are normal caliber. No change from yesterday. Surgical drains are seen in the right midabdomen and pelvis. IMPRESSION: Right colectomy changes. No acute disease - stable Interpreted and Authenticated by: Iván Espinoza 09/15/19
[2019-09-15 07:08] LABS: Phosphorous 3.3 mg/dL (2.7-4.5)
[2019-09-15] MEDS: PANTOPRAZOLE 40 MG VIAL IV SCH ×2 (07:37→16:27)
[2019-09-15] MEDS: ALBUMIN HUMAN 25 GM/100 ML BAG IV SCH ×2 (10:02→20:11)
[2019-09-15] MEDS: LEVOFLOXACIN 750 MG/150 ML BAG IV SCH (10:36)
[2019-09-15] MEDS: METHOCARBAMOL 1,000 MG/10 ML VIAL IV PRN ×2 (11:31→20:10)
[2019-09-15] MEDS: HYDROmorphone 1 MG/ML SYRINGE IV PRN ×5 (13:07→22:04)
--- NOTE | 2019-09-15 13:47 | General Surgery Progress Note ---
Subjective Patient reports: feels better, pain is less, flatus, bowel movement, diarrhea, afebrile Narrative: Note initiated : 09/15/19 at 1:43 pm Service Date, if different from initiated Date: [] Patient: Mojgan Mesa 43 y/o F admitted on 08/18/19 for abdominal pain. Chief Complaint: [PATIENT STATES THAT SHE FEELS BETTER; SHE STILL HAS A MODERATE AMOUNT OF PAIN .SHE HAS INCREASED OUTPUT THROUGH HER STOMA. X-RAYS SHOW DILATED LOOPS OF PROXIMAL BOWEL . SHE HAS LIQUID OUTPUT..] Objective Temp Pulse Resp BP Pulse Ox 98.0 F 115 H 16 133/98 99 09/15/19 12:13 09/15/19 08:00 09/15/19 12:13 09/15/19 12:13 09/15/19 12:13 - Additional Data Intake & Output - Last 24 hours: Intake & Output 09/13/19 09/14/19 09/15/19 09/16/19 05:59 05:59 05:59 05:59 Intake Total 3716.4193 6278.8386 4451.8435 300 Output Total 3840 4670 5905 Balance -123.5807 1608.8386 -1453.1565 300 Weight 102 lb 8 oz 103 lb 103 lb 14.4 oz - General physical appearance well developed, well nourished, no distress - Eyes PERRL, normal ocular movement - ENT normal pinna, normal nares, normal mucosa, no hearing loss, no congestion - Neck no masses, no bruits, trachea midline, no lymphadenopathy, no venous distension - Respiratory normal expansion, normal respiratory effort, clear to auscultation - Cardiovascular Cardiovascular exam: Present: normal rate and rhythm, RRR, +S1, +S2, tachycardia - Abdomen non tender, bowel sounds (present), surgical scars (none), masses (none), distended (MILDLY DISTENDED) - Integumentary no rash, no growths, no abnormal pigmentation - Neurologic normal coordination, normal sensation - Musculoskeletal normal gait, normal posture - Psychiatric oriented to time, oriented to person, oriented to place, speech is normal, memory intact - Labs 09/15/19 05:00 09/15/19 05:00 Diabetes panel 09/15/19 Range/Units 05:00 Sodium 138 (133-145) mmol/L Potassium 3.8 (3.3-5.1) mmol/L Chloride 105 (96-108) mmol/L Carbon Dioxide 18 L (22-30) mmol/L BUN 11 (6-20) mg/dl Creatinine 0.4 L (0.6-1.1) mg/dl Glucose 109 H (70-105) mg/dL Calcium 9.4 (8.6-10.4) mg/dl AST 10 (0-37) U/l ALT 6 (0-40) U/l Alkaline Phosphatase 43 (39-117) U/L Total Protein 6.4 (5.9-8.4) gm/dL Albumin 4.0 (3.2-5.2) gm/dL Triglycerides 37 (<150) mg/dl Calcium panel 09/15/19 Range/Units 05:00 Calcium 9.4 (8.6-10.4) mg/dl Phosphorus 3.3 (2.7-4.5) mg/dL Albumin 4.0 (3.2-5.2) gm/dL Pituitary panel 09/15/19 Range/Units 05:00 Sodium 138 (133-145) mmol/L Potassium 3.8 (3.3-5.1) mmol/L Chloride 105 (96-108) mmol/L Carbon Dioxide 18 L (22-30) mmol/L BUN 11 (6-20) mg/dl Creatinine 0.4 L (0.6-1.1) mg/dl Glucose 109 H (70-105) mg/dL Calcium 9.4 (8.6-10.4) mg/dl Adrenal panel 09/15/19 Range/Units 05:00 Sodium 138 (133-145) mmol/L Potassium 3.8 (3.3-5.1) mmol/L Chloride 105 (96-108) mmol/L Carbon Dioxide 18 L (22-30) mmol/L BUN 11 (6-20) mg/dl Creatinine 0.4 L (0.6-1.1) mg/dl Glucose 109 H (70-105) mg/dL Calcium 9.4 (8.6-10.4) mg/dl Total Bilirubin 0.7 (0.0-1.0) mg/dL AST 10 (0-37) U/l ALT 6 (0-40) U/l Alkaline Phosphatase 43 (39-117) U/L Total Protein 6.4 (5.9-8.4) gm/dL Albumin 4.0 (3.2-5.2) gm/dL Assessment and Plan (1) Iliopsoas abscess on right Status: Resolved Assessment and plan: Resolved Current Visit: Yes (2) Sepsis Status: Resolved Current Visit: Yes (3) Enterocutaneous fistula Status: Resolved Assessment and plan: No significant drainage on the dressings over the past 72 hr Current Visit: Yes (4) Small bowel obstruction due to postoperative adhesions Status: Acute Assessment and plan: Nasogastric tube continued Two-view abdominal x-ray in the a.m. Current Visit: Yes (5) Postoperative anemia due to acute blood loss Status: Acute Assessment and plan: HGB IS STABLE Current Visit: Yes - Time Spent With Patient Total time spent is greater than 50% in coordination of care (as documented) at patient's floor/unit and/or counseling patient:
[2019-09-15] MEDS: 0.9 % SODIUM CHLORIDE 1,000 ML IV SCH ×3 (16:25→20:12)
[2019-09-15] MEDS: FAT EMULSION 20% 250 ML in PREMIX 1 BAG IV SCH (16:26)
[2019-09-15] MEDS ORDERED: [UNRECOGNIZED DRUG - REMARK] IV SCH (19:00)
[2019-09-16] MEDS: HYDROmorphone 1 MG/ML SYRINGE IV PRN ×6 (00:44→23:35)
[2019-09-16] MEDS: METHOCARBAMOL 1,000 MG/10 ML VIAL IV PRN ×3 (04:10→20:18)
[2019-09-16] MEDS: metroNIDAZOLE 500 MG/100 ML BAG IV SCH ×3 (05:04→18:04)
[2019-09-16] MEDS: 0.9 % SODIUM CHLORIDE 10 ML SYRINGE IV SCH ×4 (05:05→20:19)
[2019-09-16] MEDS: METOCLOPRAMIDE 10 MG/2 ML VIAL IV SCH ×3 (05:05→18:04)
[2019-09-16] MEDS: INSULIN LISPRO 1 UNIT/0.01 ML UNIT SQ SCH ×3 (05:12→18:08)
[2019-09-16] MEDS: ACETAMINOPHEN 700 MG/70 ML BOTTLE IV PRN ×3 (05:58→22:49)
--- NOTE | 2019-09-16 06:33 | XRay Report ---
CLINICAL INFORMATION: FOLLOW -UP OF SMALL BOWEL OBSTRUCTION COMPARISON: None. FINDINGS: NG tube is well placed - coiled in the gastric body. right colectomy changes again seen. Performed. Stomach and small bowel may decompressed. Enteric contrast persists within the transverse, descending and rectosigmoid colon segments which are normal caliber. No change from yesterday. Surgical drains are seen in the right midabdomen and pelvis. IMPRESSION: Right colectomy changes. Enteric contrast within the transverse, descending and rectosigmoid colon. This has not been evacuated over the past three days suggesting large bowel immotility. Interpreted and Authenticated by: Iván Espinoza 09/16/19
[2019-09-16] MEDS: PANTOPRAZOLE 40 MG VIAL IV SCH ×2 (07:34→16:29)
[2019-09-16] MEDS: LORazepam 2 MG/ML VIAL IV PRN (08:28)
[2019-09-16] MEDS: ALBUMIN HUMAN 25 GM/100 ML BAG IV SCH ×2 (09:02→20:18)
[2019-09-16 09:33] LABS: ALT/SGPT 6 U/l (0-40); AST/SGOT 20 U/l (0-37); Albumin 4.3 gm/dL (3.2-5.2); Albumin/Globulin Ratio 1.9 (1.0-2.3); Alkaline Phosphatase 45 U/L (39-117); Bilirubin,Direct < 0.2 mg/dL (0.0-0.3); Bilirubin,Total 0.6 mg/dL (0.0-1.0); Blood Urea Nitrogen 16 mg/dl (6-20); Calcium 9.2 mg/dl (8.6-10.4); Carbon Dioxide 16 mmol/L (22-30); Chloride 105 mmol/L (96-108); Globulin 2.3 gm/dL (2.2-3.7); Glucose 122 mg/dL (70-105); Lactate Dehydrogenase 146 U/L (94-250); Phosphorous 3.3 mg/dL (2.7-4.5); Triglycerides 37 mg/dl (<150); Uric Acid 1.8 mg/dL (2.5-8.0)
[2019-09-16 09:37] LABS: Glomerular Filtration Rate 118
[2019-09-16] MEDS: LEVOFLOXACIN 750 MG/150 ML BAG IV SCH (09:37)
[2019-09-16] MEDS: 0.9 % SODIUM CHLORIDE 1,000 ML IV SCH (09:37)
[2019-09-16 11:14] LABS: Basophils # (Auto) 0.04 K/mcL (0.00-0.30); Basophils % (Auto) 0.3 % (0.0-2.0); Eosinophils # (Auto) 0.66 K/mcL (0.00-0.70); Eosinophils % (Auto) 5.6 % (0.0-7.0); Granulocytes % (Auto) 83.9 % (38.0-78.0); Hematocrit 33.8 % (34.1-44.9); Hemoglobin 10.5 g/dL (11.2-15.7); Lymphocytes # (Auto) 0.44 K/mcL (1.50-4.80); Lymphocytes % (Auto) 3.7 % (15.5-49.0); Mean Cell Volume 90.9 fL (80.0-100.0); Mean Corpuscular HGB Conc 31.1 g/dL (31.0-36.0); Mean Platelet Volume 9.5 fL (7.4-10.4); Monocytes # (Auto) 0.77 K/mcL (0.10-0.90); Monocytes % (Auto) 6.5 % (1.0-12.0); Platelet Count 299 K/mcL (140-440); RBC 3.72 M/mcL (3.59-5.38); Red Cell Distribution Width 16.9 % (11.5-14.5); WBC 11.8 K/mcL (4.50-11.00)
[2019-09-16] MEDS: [UNRECOGNIZED DRUG - REMARK] IV SCH (14:35)
--- NOTE | 2019-09-16 14:55 | Surgical Pathology Report ---
HISTOLOGY SPECIMEN MICROSCOPIC DIAGNOSIS COLON AND SMALL BOWEL, TERMINAL ILEUM AND CECUM, RESECTION: -- SMALL BOWEL AND COLONIC MUCOSA WITH ULCERATION, GRANULATION TISSUE, ACUTE SEROSITIS AND SEROSAL ADHESIONS. -- FOUR BENIGN LYMPH NODES. -- VIABLE MARGINS OF RESECTION. -- NO DYSPLASIA OR MALIGNANCY IDENTIFIED. (RLF:adj) PROCEDURAL IMPRESSION Bowel obstruction. GROSS DESCRIPTION Received in formalin, designated cecum/ileum, is a 89.5 cm long portion of small intestine with attached cecum at one end. The small intestine ranges in diameter from 2.9 to 4.2 cm in greatest dimension and the portion of cecum is pouch-like and measures 5.5 x 3.5 x 3.5 cm. Both end margins are opened with the ileal margin red-brown and hemorrhagic. The external surface of the specimen shows numerous transmural defects within the terminal ileum, ranging from 0.8 to 5.5 cm in greatest dimension. The nearest defect to the small intestinal end is 2.5 cm and the nearest defect to the cecal end is 10.5 cm. In addition to the transmural defects, the serosal surface is covered with marked serosal adhesions as well as islands of probable adherent intestinal mucosa ranging up to 4.3 cm in greatest dimension. The surface has a cobblestone type appearance. The bowel is opened along its length to reveal a moderate amount of muddy brown fecal material. The usual plicated intestinal fold pattern is effaced with widening and flattening of the mucosa along its length. The mucosa at the distal 8 cm of the ileum near the ileocecal valve is completely flattened and the lumen is stenotic. The intestinal fold pattern at the cecum is largely intact. No mucosal mass lesions are identified. The small intestinal wall is up to 0.8 cm thick and the large intestinal wall is up to 0.7 cm thick. Machine Design Teacher sections are submitted as follows: A1 - end margins; A2-A3 - small intestine at sites of transmural defects; A4-A5 - small intestine with serosal adhesions; A6 - distal ileum at site of stricture; A7 - probable ileocecal valve; A8 - cecum; A9 - serosal surface with adherent intestinal mucosa; A10 - candidate mesenteric lymph nodes. (DMT:adj) Electronically Signed by: Maru Mayo M.D.
[2019-09-16] MEDS: METOPROLOL TARTRATE 5 MG/5 ML VIAL IV PRN (16:29)
[2019-09-16] MEDS: FAT EMULSION 20% 250 ML in PREMIX 1 BAG IV SCH (16:31)
--- NOTE | 2019-09-16 17:24 | General Surgery Progress Note ---
Subjective Patient reports: feels better, pain is less, flatus, diarrhea, afebrile Narrative: Note initiated : 09/16/19 at 5:22 pm Service Date, if different from initiated Date: [] Patient: Mojgan Mesa 43 y/o F admitted on 08/18/19 for abdominal pain. Chief Complaint: patient continues to improve. She has good increased output. Heart rate has been in the 120s. White blood count 11.8, hemoglobin 10.5, hemat ocrit 33.8, potassium 4.3, BUN 16, creatinine 0.5] Objective Temp Pulse Resp BP Pulse Ox 98.7 F 125 H 20 117/83 98 09/16/19 16:00 09/16/19 16:00 09/16/19 16:00 09/16/19 16:00 09/16/19 16:00 - Additional Data Intake & Output - Last 24 hours: Intake & Output 09/14/19 09/15/19 09/16/19 09/17/19 05:59 05:59 05:59 05:59 Intake Total 6278.8386 4451.8435 3122.7526 1520 Output Total 4670 5905 2830 1450 Balance 1608.8386 -1453.1194 657.2670 70 Weight 103 lb 103 lb 14.4 oz 103 lb 14.4 oz - General physical appearance moderate pain, cachectic, chronically ill - Eyes PERRL, normal ocular movement - ENT normal pinna, normal nares, normal mucosa, no hearing loss, no congestion - Neck no masses, no bruits, trachea midline, no lymphadenopathy, no venous distension - Respiratory normal expansion, normal respiratory effort, clear to auscultation - Cardiovascular Cardiovascular exam: Present: normal rate and rhythm, JVD, +S1, +S2, tachycardia - Abdomen tender (mild tenderness along the incision), bowel sounds (present), surgical scars (none), masses (none), distended (. No significant distention;; stoma looks good) - Integumentary no rash, no growths, no abnormal pigmentation - Neurologic normal coordination, normal sensation - Musculoskeletal normal gait, normal posture - Psychiatric oriented to time, oriented to person, oriented to place, speech is normal, memory intact - Labs 09/16/19 09:30 09/16/19 08:41 Diabetes panel 09/16/19 Range/Units 08:41 Sodium 136 (133-145) mmol/L Potassium 4.3 (3.3-5.1) mmol/L Chloride 105 (96-108) mmol/L Carbon Dioxide 16 L (22-30) mmol/L BUN 16 (6-20) mg/dl Creatinine 0.5 L (0.6-1.1) mg/dl Glucose 122 H (70-105) mg/dL Calcium 9.2 (8.6-10.4) mg/dl AST 20 (0-37) U/l ALT 6 (0-40) U/l Alkaline Phosphatase 45 (39-117) U/L Total Protein 6.6 (5.9-8.4) gm/dL Albumin 4.3 (3.2-5.2) gm/dL Triglycerides 37 (<150) mg/dl Calcium panel 09/16/19 Range/Units 08:41 Calcium 9.2 (8.6-10.4) mg/dl Phosphorus 3.3 (2.7-4.5) mg/dL Albumin 4.3 (3.2-5.2) gm/dL Pituitary panel 09/16/19 Range/Units 08:41 Sodium 136 (133-145) mmol/L Potassium 4.3 (3.3-5.1) mmol/L Chloride 105 (96-108) mmol/L Carbon Dioxide 16 L (22-30) mmol/L BUN 16 (6-20) mg/dl Creatinine 0.5 L (0.6-1.1) mg/dl Glucose 122 H (70-105) mg/dL Calcium 9.2 (8.6-10.4) mg/dl Adrenal panel 09/16/19 Range/Units 08:41 Sodium 136 (133-145) mmol/L Potassium 4.3 (3.3-5.1) mmol/L Chloride 105 (96-108) mmol/L Carbon Dioxide 16 L (22-30) mmol/L BUN 16 (6-20) mg/dl Creatinine 0.5 L (0.6-1.1) mg/dl Glucose 122 H (70-105) mg/dL Calcium 9.2 (8.6-10.4) mg/dl Total Bilirubin 0.6 (0.0-1.0) mg/dL AST 20 (0-37) U/l ALT 6 (0-40) U/l Alkaline Phosphatase 45 (39-117) U/L Total Protein 6.6 (5.9-8.4) gm/dL Albumin 4.3 (3.2-5.2) gm/dL Assessment and Plan (1) 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 discontinued. Caballero catheter . Clear liquid diet Current Visit: Yes (5) Postoperative anemia due to acute blood loss Status: Acute Assessment and plan: HGB IS STABLE Current Visit: Yes - Time Spent With Patient Total time spent is greater than 50% in coordination of care (as documented) at patient's floor/unit and/or counseling patient:
[2019-09-16] MEDS: HYDROCODONE/APAP 7.5/325MG TABLET PO PRN ×2 (18:48→19:46)
[2019-09-16] MEDS ORDERED: METOPROLOL TARTRATE 25 MG TABLET ONE (20:17)
[2019-09-16] MEDS: METOPROLOL TARTRATE 25 MG TABLET PO SCH (20:18)
[2019-09-16] MEDS: ZOLPIDEM 5 MG TABLET PO PRN (20:18)
[2019-09-17] MEDS: HYDROCODONE/APAP 7.5/325MG TABLET PO PRN ×4 (02:54→15:33)
[2019-09-17] MEDS: 0.9 % SODIUM CHLORIDE 1,000 ML IV SCH ×3 (02:54→19:40)
[2019-09-17] MEDS: INSULIN LISPRO 1 UNIT/0.01 ML UNIT SQ SCH ×4 (02:55→17:22)
[2019-09-17] MEDS: METHOCARBAMOL 1,000 MG/10 ML VIAL IV PRN ×3 (04:11→22:40)
[2019-09-17] MEDS: metroNIDAZOLE 500 MG/100 ML BAG IV SCH ×4 (05:45→17:22)
[2019-09-17] MEDS: METOCLOPRAMIDE 10 MG/2 ML VIAL IV SCH ×3 (05:45→12:27)
[2019-09-17] MEDS: 0.9 % SODIUM CHLORIDE 10 ML SYRINGE IV SCH ×3 (05:45→20:37)
[2019-09-17 06:21] LABS: Basophils # (Auto) 0.06 K/mcL (0.00-0.30); Basophils % (Auto) 0.4 % (0.0-2.0); Eosinophils # (Auto) 0.77 K/mcL (0.00-0.70); Eosinophils % (Auto) 5.3 % (0.0-7.0); Granulocytes % (Auto) 82.6 % (38.0-78.0); Hematocrit 38.5 % (34.1-44.9); Hemoglobin 12.7 g/dL (11.2-15.7); Lymphocytes # (Auto) 0.63 K/mcL (1.50-4.80); Lymphocytes % (Auto) 4.4 % (15.5-49.0); Mean Cell Volume 86.5 fL (80.0-100.0); Mean Platelet Volume 9.4 fL (7.4-10.4); Monocytes # (Auto) 1.06 K/mcL (0.10-0.90); Monocytes % (Auto) 7.3 % (1.0-12.0); Platelet Count 367 K/mcL (140-440); RBC 4.45 M/mcL (3.59-5.38); Red Cell Distribution Width 16.2 % (11.5-14.5); WBC 14.5 K/mcL (4.50-11.00)
[2019-09-17 07:03] LABS: ALT/SGPT 5 U/l (0-40); AST/SGOT 9 U/l (0-37); Albumin 4.7 gm/dL (3.2-5.2); Albumin/Globulin Ratio 1.8 (1.0-2.3); Alkaline Phosphatase 55 U/L (39-117); Bilirubin,Direct < 0.2 mg/dL (0.0-0.3); Bilirubin,Total 0.5 mg/dL (0.0-1.0); Blood Urea Nitrogen 16 mg/dl (6-20); Calcium 9.7 mg/dl (8.6-10.4); Carbon Dioxide 16 mmol/L (22-30); Chloride 105 mmol/L (96-108); Globulin 2.6 gm/dL (2.2-3.7); Glomerular Filtration Rate 118; Glucose 84 mg/dL (70-105); Lactate Dehydrogenase 135 U/L (94-250); Phosphorous 3.6 mg/dL (2.7-4.5); Triglycerides 49 mg/dl (<150); Uric Acid 2.1 mg/dL (2.5-8.0)
[2019-09-17] MEDS: PANTOPRAZOLE 40 MG VIAL IV SCH ×2 (07:09→17:21)
[2019-09-17] MEDS: ACETAMINOPHEN 700 MG/70 ML BOTTLE IV PRN (09:00)
[2019-09-17] MEDS: LEVOFLOXACIN 750 MG/150 ML BAG IV SCH (09:00)
[2019-09-17] MEDS: ALBUMIN HUMAN 25 GM/100 ML BAG IV SCH ×2 (09:00→20:37)
--- NOTE | 2019-09-17 09:16 | XRay Report ---
CLINICAL INFORMATION: FOLLOW -UP OF SMALL BOWEL OBSTRUCTION COMPARISON: 09/16/2019 FINDINGS: The stool gas pattern is unremarkable. Probable right colectomy changes noted. Enteric contrast within the transverse descending and rectosigmoid segments has been partially evacuated. No free air. Surgical drains in stable position IMPRESSION: Negative Interpreted and Authenticated by: Iván Espinoza 09/17/19
[2019-09-17] MEDS: [UNRECOGNIZED DRUG - REMARK] IV SCH (09:20)
[2019-09-17] MEDS: [UNRECOGNIZED DRUG - REMARK] IV SCH (09:30)
[2019-09-17] MEDS: METOPROLOL TARTRATE 25 MG TABLET PO SCH ×2 (09:37→20:36)
--- NOTE | 2019-09-17 14:34 | General Surgery Progress Note ---
Subjective Patient reports: feels better, pain is less, flatus, diarrhea, afebrile Narrative: Note initiated : 09/17/19 at 2:32 pm Service Date, if different from initiated Date: [] Patient: Mojgan Mesa 43 y/o F admitted on 08/18/19 for abdominal pain. Chief Complaint: [] Patient is gradually improving. She has started to have large volume output through her stoma. Vital signs is stable and heart rate is controlled. White blood count 14.5, hemoglobin 12.7, hematocrit 30.5, BUN 16, creatinine 0.5, albumin 2.4. Liver panel normal. YISEL drainage is serous Objective Temp Pulse Resp BP Pulse Ox 97.6 F 102 H 20 134/91 99 09/17/19 14:00 09/17/19 02:00 09/17/19 14:00 09/17/19 14:00 09/17/19 14:00 - Additional Data Intake & Output - Last 24 hours: Intake & Output 09/15/19 09/16/19 09/17/19 09/18/19 05:59 05:59 05:59 05:59 Intake Total 4451.8435 3122.7526 3750 1339.4193 Output Total 5905 2830 4445 2225 Balance -1453.7968 992.1621 -695 -885.5807 Weight 103 lb 14.4 oz 103 lb 14.4 oz 102 lb 11.2 oz - General physical appearance cachectic, chronically ill - Eyes PERRL, normal ocular movement - ENT normal pinna, normal nares, normal mucosa, no hearing loss, no congestion - Neck no masses, no bruits, trachea midline, no lymphadenopathy, no venous distension - Respiratory normal expansion, normal respiratory effort, clear to auscultation - Cardiovascular Cardiovascular exam: Present: normal rate and rhythm, RRR, +S1, +S2, tachycardia. Absent: JVD - Abdomen non tender, bowel sounds (present), surgical scars (none), masses (none), distended (stoma looks good) - Rectum normal sphincter tone, no hemorrhoids, no tenderness, no masses, no bleeding - Integumentary no rash, no growths, no abnormal pigmentation - Neurologic normal coordination, normal sensation - Musculoskeletal normal gait, normal posture - Psychiatric oriented to time, oriented to person, oriented to place, speech is normal, memory intact - Labs 09/17/19 05:20 09/17/19 05:20 Diabetes panel 09/17/19 Range/Units 05:20 Sodium 139 (133-145) mmol/L Potassium 4.2 (3.3-5.1) mmol/L Chloride 105 (96-108) mmol/L Carbon Dioxide 16 L (22-30) mmol/L BUN 16 (6-20) mg/dl Creatinine 0.5 L (0.6-1.1) mg/dl Glucose 84 (70-105) mg/dL Calcium 9.7 (8.6-10.4) mg/dl AST 9 (0-37) U/l ALT 5 (0-40) U/l Alkaline Phosphatase 55 (39-117) U/L Total Protein 7.3 (5.9-8.4) gm/dL Albumin 4.7 (3.2-5.2) gm/dL Triglycerides 49 (<150) mg/dl Calcium panel 09/17/19 Range/Units 05:20 Calcium 9.7 (8.6-10.4) mg/dl Phosphorus 3.6 (2.7-4.5) mg/dL Albumin 4.7 (3.2-5.2) gm/dL Pituitary panel 09/17/19 Range/Units 05:20 Sodium 139 (133-145) mmol/L Potassium 4.2 (3.3-5.1) mmol/L Chloride 105 (96-108) mmol/L Carbon Dioxide 16 L (22-30) mmol/L BUN 16 (6-20) mg/dl Creatinine 0.5 L (0.6-1.1) mg/dl Glucose 84 (70-105) mg/dL Calcium 9.7 (8.6-10.4) mg/dl Adrenal panel 09/17/19 Range/Units 05:20 Sodium 139 (133-145) mmol/L Potassium 4.2 (3.3-5.1) mmol/L Chloride 105 (96-108) mmol/L Carbon Dioxide 16 L (22-30) mmol/L BUN 16 (6-20) mg/dl Creatinine 0.5 L (0.6-1.1) mg/dl Glucose 84 (70-105) mg/dL Calcium 9.7 (8.6-10.4) mg/dl Total Bilirubin 0.5 (0.0-1.0) mg/dL AST 9 (0-37) U/l ALT 5 (0-40) U/l Alkaline Phosphatase 55 (39-117) U/L Total Protein 7.3 (5.9-8.4) gm/dL Albumin 4.7 (3.2-5.2) gm/dL Assessment and Plan (1) 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 GI soft diet Current Visit: Yes (5) Postoperative anemia due to acute blood loss Status: Resolved Assessment and plan: HGB IS STABLE Current Visit: Yes - Time Spent With Patient Total time spent is greater than 50% in coordination of care (as documented) at patient's floor/unit and/or counseling patient:
[2019-09-17] MEDS: FAT EMULSION 20% 250 ML in PREMIX 1 BAG IV SCH (15:34)
[2019-09-17] MEDS: LORazepam 2 MG/ML VIAL IV PRN (19:41)
[2019-09-17] MEDS: ZOLPIDEM 5 MG TABLET PO PRN (20:36)
[2019-09-18] MEDS: metroNIDAZOLE 500 MG/100 ML BAG IV SCH ×5 (00:45→23:42)
[2019-09-18] MEDS: LORazepam 2 MG/ML VIAL IV PRN ×2 (00:48→23:51)
[2019-09-18] MEDS: INSULIN LISPRO 1 UNIT/0.01 ML UNIT SQ SCH ×5 (00:52→23:47)
[2019-09-18] MEDS: HYDROCODONE/APAP 7.5/325MG TABLET PO PRN ×5 (03:09→20:39)
[2019-09-18] MEDS: 0.9 % SODIUM CHLORIDE 10 ML SYRINGE IV SCH ×3 (05:35→20:48)
[2019-09-18] MEDS: [UNRECOGNIZED DRUG - REMARK] IV SCH (05:36)
[2019-09-18] MEDS: 0.9 % SODIUM CHLORIDE 1,000 ML IV SCH ×2 (05:36→15:07)
[2019-09-18 06:10] LABS: Basophils # (Auto) 0.05 K/mcL (0.00-0.30); Basophils % (Auto) 0.4 % (0.0-2.0); Eosinophils # (Auto) 0.35 K/mcL (0.00-0.70); Eosinophils % (Auto) 2.8 % (0.0-7.0); Hematocrit 36.6 % (34.1-44.9); Hemoglobin 12.1 g/dL (11.2-15.7); Lymphocytes # (Auto) 0.57 K/mcL (1.50-4.80); Lymphocytes % (Auto) 4.6 % (15.5-49.0); Mean Cell Volume 86.7 fL (80.0-100.0); Mean Corpuscular HGB Conc 33.1 g/dL (31.0-36.0); Mean Platelet Volume 9.4 fL (7.4-10.4); Monocytes # (Auto) 0.89 K/mcL (0.10-0.90); Monocytes % (Auto) 7.2 % (1.0-12.0); Platelet Count 403 K/mcL (140-440); RBC 4.22 M/mcL (3.59-5.38); Red Cell Distribution Width 16.1 % (11.5-14.5); WBC 12.4 K/mcL (4.50-11.00)
[2019-09-18] MEDS: METOPROLOL TARTRATE 25 MG TABLET PO SCH ×2 (08:24→20:39)
[2019-09-18] MEDS: PANTOPRAZOLE 40 MG VIAL IV SCH ×2 (08:24→16:27)
[2019-09-18] MEDS ORDERED: LEVOFLOXACIN 750 MG/150 ML BAG IV SCH (09:00)
[2019-09-18 09:46] LABS: ALT/SGPT 5 U/l (0-40); AST/SGOT 12 U/l (0-37); Albumin 4.5 gm/dL (3.2-5.2); Albumin/Globulin Ratio 1.7 (1.0-2.3); Alkaline Phosphatase 58 U/L (39-117); Bilirubin,Direct < 0.2 mg/dL (0.0-0.3); Bilirubin,Total 0.3 mg/dL (0.0-1.0); Blood Urea Nitrogen 18 mg/dl (6-20); Calcium 9.8 mg/dl (8.6-10.4); Carbon Dioxide 19 mmol/L (22-30); Chloride 103 mmol/L (96-108); Globulin 2.6 gm/dL (2.2-3.7); Glomerular Filtration Rate 127; Glucose 95 mg/dL (70-105); Lactate Dehydrogenase 141 U/L (94-250); Phosphorous 3.3 mg/dL (2.7-4.5); Triglycerides 45 mg/dl (<150); Uric Acid 2.2 mg/dL (2.5-8.0)
[2019-09-18] MEDS: ALBUMIN HUMAN 25 GM/100 ML BAG IV SCH ×2 (10:26→20:38)
--- NOTE | 2019-09-18 13:40 | General Surgery Progress Note ---
Subjective Patient reports: feels better, pain is less, tolerating a regular diet, flatus, bowel movement, diarrhea, afebrile Narrative: Note initiated : 09/18/19 at 1:38 pm Service Date, if different from initiated Date: [] Patient: Mojgan Mesa 43 y/o F admitted on 08/18/19 for abdominal pain. Chief Complaint: [patient is doing well. She is afebrile. Her heart rate is controlled. She does have a large volume output through her ileostomy, though most of this liquid. White blood count 12.4, hemoglobin 12.1, hematocrit 36.6, BUN 18, creatinine 0.4, stoma output 1700 cc] Objective Temp Pulse Resp BP Pulse Ox 97.5 F 100 H 18 124/87 99 09/18/19 12:00 09/18/19 12:00 09/18/19 12:00 09/18/19 12:00 09/18/19 12:00 - Additional Data Intake & Output - Last 24 hours: Intake & Output 09/16/19 09/17/19 09/18/19 09/19/19 05:59 05:59 05:59 05:59 Intake Total 3122.7526 3750 4663.8386 1180 Output Total 2830 4445 4874 750 Balance 292.7526 -695 -210.1614 430 Weight 103 lb 14.4 oz 102 lb 11.2 oz 94 lb 14.4 oz - General physical appearance no distress, cachectic, chronically ill - Eyes PERRL, normal ocular movement - ENT normal pinna, normal nares, normal mucosa, no hearing loss, no congestion - Neck no masses, no bruits, trachea midline, no lymphadenopathy, no venous distension - Respiratory normal expansion, normal respiratory effort, clear to auscultation - Cardiovascular Cardiovascular exam: Present: normal rate and rhythm, +S1, +S2, tachycardia. Absent: JVD - Abdomen tender (mild incisional tenderness), surgical scars (. Midline incision is unremarkable) - Integumentary no rash, no growths, no abnormal pigmentation - Neurologic normal coordination, normal sensation - Musculoskeletal normal gait, normal posture - Psychiatric oriented to time, oriented to person, oriented to place, speech is normal, memory intact - Labs 09/18/19 05:00 09/18/19 05:00 Diabetes panel 09/18/19 Range/Units 05:00 Sodium 136 (133-145) mmol/L Potassium 4.1 (3.3-5.1) mmol/L Chloride 103 (96-108) mmol/L Carbon Dioxide 19 L (22-30) mmol/L BUN 18 (6-20) mg/dl Creatinine 0.4 L (0.6-1.1) mg/dl Glucose 95 (70-105) mg/dL Calcium 9.8 (8.6-10.4) mg/dl AST 12 (0-37) U/l ALT 5 (0-40) U/l Alkaline Phosphatase 58 (39-117) U/L Total Protein 7.1 (5.9-8.4) gm/dL Albumin 4.5 (3.2-5.2) gm/dL Triglycerides 45 (<150) mg/dl Calcium panel 09/18/19 Range/Units 05:00 Calcium 9.8 (8.6-10.4) mg/dl Phosphorus 3.3 (2.7-4.5) mg/dL Albumin 4.5 (3.2-5.2) gm/dL Pituitary panel 09/18/19 Range/Units 05:00 Sodium 136 (133-145) mmol/L Potassium 4.1 (3.3-5.1) mmol/L Chloride 103 (96-108) mmol/L Carbon Dioxide 19 L (22-30) mmol/L BUN 18 (6-20) mg/dl Creatinine 0.4 L (0.6-1.1) mg/dl Glucose 95 (70-105) mg/dL Calcium 9.8 (8.6-10.4) mg/dl Adrenal panel 09/18/19 Range/Units 05:00 Sodium 136 (133-145) mmol/L Potassium 4.1 (3.3-5.1) mmol/L Chloride 103 (96-108) mmol/L Carbon Dioxide 19 L (22-30) mmol/L BUN 18 (6-20) mg/dl Creatinine 0.4 L (0.6-1.1) mg/dl Glucose 95 (70-105) mg/dL Calcium 9.8 (8.6-10.4) mg/dl Total Bilirubin 0.3 (0.0-1.0) mg/dL AST 12 (0-37) U/l ALT 5 (0-40) U/l Alkaline Phosphatase 58 (39-117) U/L Total Protein 7.1 (5.9-8.4) gm/dL Albumin 4.5 (3.2-5.2) gm/dL Assessment and Plan (1) 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 GI soft diet Current Visit: Yes (5) Postoperative anemia due to acute blood loss Status: Resolved Assessment and plan: HGB IS STABLE Current Visit: Yes - Time Spent With Patient Total time spent is greater than 50% in coordination of care (as documented) at patient's floor/unit and/or counseling patient:
[2019-09-18] MEDS ORDERED: ACETAMINOPHEN 700 MG/70 ML BOTTLE IV PRN (14:01)
[2019-09-18] MEDS ORDERED: TPN PER PHARMACY IV SCH (14:01)
[2019-09-18] MEDS ORDERED: PROMETHAZINE 25 MG/ML VIAL IV PRN (14:01)
[2019-09-18] MEDS ORDERED: HYDROmorphone 1 MG/ML SYRINGE IV PRN (14:01)
[2019-09-18] MEDS ORDERED: METOPROLOL TARTRATE 5 MG/5 ML VIAL IV PRN (14:01)
[2019-09-18] MEDS ORDERED: DEXTROSE 50% 50 ML VIAL IV PRN (14:01)
[2019-09-18] MEDS ORDERED: POTASSIUM CHLORIDE 40 MEQ in DEXTROSE 5% IN WATER 500 ML IV PRN (14:01)
[2019-09-18] MEDS ORDERED: MAGNESIUM SULFATE 2 GM/50 ML BAG IV PRN (14:01)
[2019-09-18] MEDS: FAT EMULSION 20% 250 ML in PREMIX 1 BAG IV SCH (16:30)
[2019-09-18] MEDS: METHOCARBAMOL 1,000 MG/10 ML VIAL IV PRN (16:55)
[2019-09-18] MEDS: ZOLPIDEM 5 MG TABLET PO PRN (20:46)
[2019-09-18] MEDS ORDERED: [UNRECOGNIZED DRUG - REMARK] IV SCH (23:30)
[2019-09-19] MEDS: HYDROCODONE/APAP 7.5/325MG TABLET PO PRN ×5 (01:20→20:05)
[2019-09-19] MEDS: METHOCARBAMOL 1,000 MG/10 ML VIAL IV PRN ×3 (01:23→18:39)
[2019-09-19] MEDS: metroNIDAZOLE 500 MG/100 ML BAG IV SCH ×3 (06:03→17:52)
[2019-09-19] MEDS: INSULIN LISPRO 1 UNIT/0.01 ML UNIT SQ SCH ×3 (06:06→17:30)
[2019-09-19] MEDS: 0.9 % SODIUM CHLORIDE 10 ML SYRINGE IV SCH ×3 (06:15→20:24)
[2019-09-19] MEDS: 0.9 % SODIUM CHLORIDE 1,000 ML IV SCH ×3 (06:35→20:52)
[2019-09-19] MEDS: PANTOPRAZOLE 40 MG VIAL IV SCH ×2 (07:10→16:29)
[2019-09-19] MEDS: ONDANSETRON 4 MG/2 ML VIAL IV PRN ×3 (09:04→21:23)
[2019-09-19] MEDS: METOPROLOL TARTRATE 25 MG TABLET PO SCH ×2 (09:14→20:24)
[2019-09-19 09:15] LABS: Basophils # (Auto) 0.07 K/mcL (0.00-0.30); Basophils % (Auto) 0.7 % (0.0-2.0); Eosinophils # (Auto) 0.51 K/mcL (0.00-0.70); Eosinophils % (Auto) 5.2 % (0.0-7.0); Granulocytes % (Auto) 77.5 % (38.0-78.0); Hematocrit 38.1 % (34.1-44.9); Hemoglobin 12.2 g/dL (11.2-15.7); Lymphocytes # (Auto) 0.68 K/mcL (1.50-4.80); Lymphocytes % (Auto) 6.9 % (15.5-49.0); Mean Cell Volume 88.6 fL (80.0-100.0); Monocytes # (Auto) 0.95 K/mcL (0.10-0.90); Monocytes % (Auto) 9.7 % (1.0-12.0); Platelet Count 458 K/mcL (140-440); Red Cell Distribution Width 16.5 % (11.5-14.5); WBC 9.8 K/mcL (4.50-11.00)
[2019-09-19] MEDS: LEVOFLOXACIN 750 MG/150 ML BAG IV SCH (09:15)
[2019-09-19] MEDS: ALBUMIN HUMAN 25 GM/100 ML BAG IV SCH (11:01)
[2019-09-19 11:44] LABS: ALT/SGPT < 5 U/l (0-40); AST/SGOT 17 U/l (0-37); Albumin 4.9 gm/dL (3.2-5.2); Albumin/Globulin Ratio 2.1 (1.0-2.3); Alkaline Phosphatase 64 U/L (39-117); Bilirubin,Direct < 0.2 mg/dL (0.0-0.3); Bilirubin,Total 0.3 mg/dL (0.0-1.0); Blood Urea Nitrogen 21 mg/dl (6-20); Carbon Dioxide 20 mmol/L (22-30); Chloride 101 mmol/L (96-108); Globulin 2.3 gm/dL (2.2-3.7); Glomerular Filtration Rate 127; Glucose 58 mg/dL (70-105); Lactate Dehydrogenase 167 U/L (94-250); Phosphorous 3.8 mg/dL (2.7-4.5); Triglycerides 53 mg/dl (<150); Uric Acid 2.5 mg/dL (2.5-8.0)
--- NOTE | 2019-09-19 14:21 | General Surgery Progress Note ---
Subjective Patient reports: feels better, pain is less, tolerating a regular diet, flatus, bowel movement, diarrhea (were), afebrile Narrative: Note initiated : 09/19/19 at 2:18 pm Service Date, if different from initiated Date: [] Patient: Mojgan Mesa 43 y/o F admitted on 08/18/19 for abdominal pain. Chief Complaint] Objective Temp Pulse Resp BP Pulse Ox 98.2 F 96 H 18 104/74 96 09/19/19 11:25 09/19/19 11:25 09/19/19 11:25 09/19/19 11:25 09/19/19 11:25 - Additional Data Intake & Output - Last 24 hours: Intake & Output 09/17/19 09/18/19 09/19/19 09/20/19 05:59 05:59 05:59 05:59 Intake Total 3750 4663.8386 4180 570 Output Total 4445 4874 3960 1725 Balance -695 -210.1614 220 -1155 Weight 102 lb 11.2 oz 94 lb 14.4 oz 99 lb 12.8 oz - General physical appearance well developed, well nourished, no distress - Eyes PERRL, normal ocular movement - ENT normal pinna, normal nares, normal mucosa, no hearing loss, no congestion - Neck no masses, no bruits, trachea midline, no lymphadenopathy, no venous distension - Respiratory normal expansion, normal respiratory effort, clear to auscultation - Cardiovascular Cardiovascular exam: Present: normal rate and rhythm, RRR, +S1, +S2. Absent: JVD, tachycardia - Abdomen tender (mild incisional tenderness), surgical scars (incision is healing in gradually), distended (no abdominal distention) - Integumentary no rash, no growths, no abnormal pigmentation - Neurologic normal coordination, normal sensation - Musculoskeletal normal gait, normal posture - Psychiatric oriented to time, oriented to person, oriented to place, speech is normal, memory intact - Labs 09/19/19 06:15 09/19/19 06:15 Diabetes panel 09/19/19 Range/Units 06:15 Sodium 137 (133-145) mmol/L Potassium 4.5 (3.3-5.1) mmol/L Chloride 101 (96-108) mmol/L Carbon Dioxide 20 L (22-30) mmol/L BUN 21 H (6-20) mg/dl Creatinine 0.4 L (0.6-1.1) mg/dl Glucose 58 L (70-105) mg/dL Calcium 10.0 (8.6-10.4) mg/dl AST 17 (0-37) U/l ALT < 5 (0-40) U/l Alkaline Phosphatase 64 (39-117) U/L Total Protein 7.2 (5.9-8.4) gm/dL Albumin 4.9 (3.2-5.2) gm/dL Triglycerides 53 (<150) mg/dl Calcium panel 09/19/19 Range/Units 06:15 Calcium 10.0 (8.6-10.4) mg/dl Phosphorus 3.8 (2.7-4.5) mg/dL Albumin 4.9 (3.2-5.2) gm/dL Pituitary panel 09/19/19 Range/Units 06:15 Sodium 137 (133-145) mmol/L Potassium 4.5 (3.3-5.1) mmol/L Chloride 101 (96-108) mmol/L Carbon Dioxide 20 L (22-30) mmol/L BUN 21 H (6-20) mg/dl Creatinine 0.4 L (0.6-1.1) mg/dl Glucose 58 L (70-105) mg/dL Calcium 10.0 (8.6-10.4) mg/dl Adrenal panel 09/19/19 Range/Units 06:15 Sodium 137 (133-145) mmol/L Potassium 4.5 (3.3-5.1) mmol/L Chloride 101 (96-108) mmol/L Carbon Dioxide 20 L (22-30) mmol/L BUN 21 H (6-20) mg/dl Creatinine 0.4 L (0.6-1.1) mg/dl Glucose 58 L (70-105) mg/dL Calcium 10.0 (8.6-10.4) mg/dl Total Bilirubin 0.3 (0.0-1.0) mg/dL AST 17 (0-37) U/l ALT < 5 (0-40) U/l Alkaline Phosphatase 64 (39-117) U/L Total Protein 7.2 (5.9-8.4) gm/dL Albumin 4.9 (3.2-5.2) gm/dL Assessment and Plan (1) 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 GI soft diet Current Visit: Yes (5) Postoperative anemia due to acute blood loss Status: Resolved Assessment and plan: HGB IS STABLE Current Visit: Yes (6) Short gut syndrome Status: Acute Assessment and plan: Octreotide 100 g subcutaneous twice daily Current Visit: Yes - Time Spent With Patient Total time spent is greater than 50% in coordination of care (as documented) at patient's floor/unit and/or counseling patient:
[2019-09-19] MEDS: LORazepam 2 MG/ML VIAL IV PRN ×2 (16:08→22:47)
[2019-09-19] MEDS: FAT EMULSION 20% 250 ML in PREMIX 1 BAG IV SCH (16:26)
[2019-09-19] MEDS ORDERED: [UNRECOGNIZED DRUG - REMARK] IV SCH (18:30)
[2019-09-19] MEDS: ZOLPIDEM 5 MG TABLET PO PRN (20:05)
[2019-09-19] MEDS: OCTREOTIDE ACETATE 100 MCG/ML VIAL SQ SCH (20:23)
[2019-09-20] MEDS: metroNIDAZOLE 500 MG/100 ML BAG IV SCH ×5 (00:07→23:40)
[2019-09-20] MEDS: HYDROCODONE/APAP 7.5/325MG TABLET PO PRN ×5 (00:08→19:39)
[2019-09-20] MEDS: INSULIN LISPRO 1 UNIT/0.01 ML UNIT SQ SCH ×5 (00:12→23:45)
[2019-09-20] MEDS: METHOCARBAMOL 1,000 MG/10 ML VIAL IV PRN ×3 (04:06→22:15)
[2019-09-20] MEDS: 0.9 % SODIUM CHLORIDE 1,000 ML IV SCH (04:51)
[2019-09-20] MEDS: 0.9 % SODIUM CHLORIDE 10 ML SYRINGE IV SCH ×3 (05:28→22:15)
[2019-09-20 06:32] LABS: ALT/SGPT 8 U/l (0-40); AST/SGOT 16 U/l (0-37); Albumin 4.8 gm/dL (3.2-5.2); Albumin/Globulin Ratio 1.8 (1.0-2.3); Alkaline Phosphatase 83 U/L (39-117); Bilirubin,Direct < 0.2 mg/dL (0.0-0.3); Bilirubin,Total 0.3 mg/dL (0.0-1.0); Blood Urea Nitrogen 20 mg/dl (6-20); Calcium 10.2 mg/dl (8.6-10.4); Carbon Dioxide 22 mmol/L (22-30); Chloride 102 mmol/L (96-108); Globulin 2.6 gm/dL (2.2-3.7); Glucose 95 mg/dL (70-105); Lactate Dehydrogenase 115 U/L (94-250); Phosphorous 4.4 mg/dL (2.7-4.5); Triglycerides 55 mg/dl (<150); Uric Acid 3.4 mg/dL (2.5-8.0)
[2019-09-20 06:34] LABS: Glomerular Filtration Rate 118
[2019-09-20] MEDS: LORazepam 2 MG/ML VIAL IV PRN ×2 (08:01→16:49)
[2019-09-20] MEDS: PANTOPRAZOLE 40 MG VIAL IV SCH ×2 (08:04→16:51)
[2019-09-20] MEDS: METOPROLOL TARTRATE 25 MG TABLET PO SCH ×2 (10:04→22:13)
[2019-09-20] MEDS: OCTREOTIDE ACETATE 100 MCG/ML VIAL SQ SCH ×2 (10:31→22:14)
[2019-09-20] MEDS: LEVOFLOXACIN 750 MG/150 ML BAG IV SCH (10:41)
--- NOTE | 2019-09-20 16:33 | General Surgery Progress Note ---
Subjective Patient reports: feels better, pain is less, flatus, bowel movement, afebrile Narrative: Note initiated : 09/20/19 at 4:31 pm Service Date, if different from initiated Date: [] Patient: Mojgan Mesa 43 y/o F admitted on 08/18/19 for abdominal pain. Chief Complaint: [patient is continuing to improve. She still has large volume output through her stoma. Discussed with case management. The necessity of patient having access to octreotide prior to discharge because of high volume output through her ileostomy. They will work on this. I don't think it would be safe to discharge patient without this medication] Objective Temp Pulse Resp BP Pulse Ox 98.0 F 101 H 18 104/68 97 09/20/19 12:00 09/20/19 12:00 09/20/19 12:00 09/20/19 12:00 09/20/19 12:00 - Additional Data Intake & Output - Last 24 hours: Intake & Output 09/18/19 09/19/19 09/20/19 09/21/19 05:59 05:59 05:59 05:59 Intake Total 4663.8386 4430 4223 450 Output Total 4874 3960 4335 1865 Balance -210.1614 470 112 1415 Weight 94 lb 14.4 oz 99 lb 12.8 oz 100 lb 8 oz - General physical appearance well developed, well nourished, no distress - Eyes PERRL, normal ocular movement - ENT normal pinna, normal nares, normal mucosa, no hearing loss, no congestion - Neck no masses, no bruits, trachea midline, no lymphadenopathy, no venous distension - Respiratory normal expansion, normal respiratory effort, clear to auscultation - Cardiovascular Cardiovascular exam: Present: normal rate and rhythm, RRR, +S1, +S2. Absent: JVD, tachycardia - Abdomen soft, non tender, bowel sounds (present), surgical scars (none), masses (none) - Integumentary no rash, no growths, no abnormal pigmentation - Neurologic normal coordination, normal sensation - Musculoskeletal normal gait, normal posture - Psychiatric oriented to time, oriented to person, oriented to place, speech is normal, memory intact - Labs 09/19/19 06:15 09/20/19 05:40 Diabetes panel 09/20/19 Range/Units 05:40 Sodium 139 (133-145) mmol/L Potassium 4.5 (3.3-5.1) mmol/L Chloride 102 (96-108) mmol/L Carbon Dioxide 22 (22-30) mmol/L BUN 20 (6-20) mg/dl Creatinine 0.5 L (0.6-1.1) mg/dl Glucose 95 (70-105) mg/dL Calcium 10.2 (8.6-10.4) mg/dl AST 16 (0-37) U/l ALT 8 (0-40) U/l Alkaline Phosphatase 83 (39-117) U/L Total Protein 7.4 (5.9-8.4) gm/dL Albumin 4.8 (3.2-5.2) gm/dL Triglycerides 55 (<150) mg/dl Calcium panel 09/20/19 Range/Units 05:40 Calcium 10.2 (8.6-10.4) mg/dl Phosphorus 4.4 (2.7-4.5) mg/dL Albumin 4.8 (3.2-5.2) gm/dL Pituitary panel 09/20/19 Range/Units 05:40 Sodium 139 (133-145) mmol/L Potassium 4.5 (3.3-5.1) mmol/L Chloride 102 (96-108) mmol/L Carbon Dioxide 22 (22-30) mmol/L BUN 20 (6-20) mg/dl Creatinine 0.5 L (0.6-1.1) mg/dl Glucose 95 (70-105) mg/dL Calcium 10.2 (8.6-10.4) mg/dl Adrenal panel 09/20/19 Range/Units 05:40 Sodium 139 (133-145) mmol/L Potassium 4.5 (3.3-5.1) mmol/L Chloride 102 (96-108) mmol/L Carbon Dioxide 22 (22-30) mmol/L BUN 20 (6-20) mg/dl Creatinine 0.5 L (0.6-1.1) mg/dl Glucose 95 (70-105) mg/dL Calcium 10.2 (8.6-10.4) mg/dl Total Bilirubin 0.3 (0.0-1.0) mg/dL AST 16 (0-37) U/l ALT 8 (0-40) U/l Alkaline Phosphatase 83 (39-117) U/L Total Protein 7.4 (5.9-8.4) gm/dL Albumin 4.8 (3.2-5.2) gm/dL Assessment and Plan (1) 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 GI soft diet Current Visit: Yes (5) Postoperative anemia due to acute blood loss Status: Resolved Assessment and plan: HGB IS STABLE Current Visit: Yes (6) Short gut syndrome Status: Acute Assessment and plan: Octreotide 100 g subcutaneous twice daily Current Visit: Yes - Time Spent With Patient Total time spent is greater than 50% in coordination of care (as documented) at patient's floor/unit and/or counseling patient:
[2019-09-20 20:49] LABS: Basophils # (Auto) 0.06 K/mcL (0.00-0.30); Basophils % (Auto) 0.6 % (0.0-2.0); Eosinophils # (Auto) 0.31 K/mcL (0.00-0.70); Eosinophils % (Auto) 2.9 % (0.0-7.0); Granulocytes % (Auto) 82.9 % (38.0-78.0); Hematocrit 37.9 % (34.1-44.9); Lymphocytes # (Auto) 0.64 K/mcL (1.50-4.80); Lymphocytes % (Auto) 5.9 % (15.5-49.0); Mean Cell Volume 89.2 fL (80.0-100.0); Mean Corpuscular HGB Conc 31.7 g/dL (31.0-36.0); Mean Platelet Volume 10.4 fL (7.4-10.4); Monocytes # (Auto) 0.84 K/mcL (0.10-0.90); Monocytes % (Auto) 7.7 % (1.0-12.0); Platelet Count 530 K/mcL (140-440); RBC 4.25 M/mcL (3.59-5.38); Red Cell Distribution Width 16.2 % (11.5-14.5); WBC 10.9 K/mcL (4.50-11.00)
[2019-09-20] MEDS: ONDANSETRON 4 MG/2 ML VIAL IV PRN (21:46)
[2019-09-20] MEDS ORDERED: FAMOTIDINE/PF 20 MG/2 ML VIAL IV ONE (22:07)
[2019-09-20] MEDS: ZOLPIDEM 5 MG TABLET PO PRN (22:13)
[2019-09-21] MEDS: LORazepam 2 MG/ML VIAL IV PRN ×2 (01:24→18:13)
[2019-09-21] MEDS: 0.9 % SODIUM CHLORIDE 1,000 ML IV SCH ×2 (03:02→21:46)
[2019-09-21] MEDS: ONDANSETRON 4 MG/2 ML VIAL IV PRN ×3 (03:03→20:44)
[2019-09-21] MEDS: HYDROCODONE/APAP 7.5/325MG TABLET PO PRN ×6 (04:29→23:53)
[2019-09-21] MEDS: 0.9 % SODIUM CHLORIDE 10 ML SYRINGE IV SCH ×3 (05:53→20:38)
[2019-09-21] MEDS: metroNIDAZOLE 500 MG/100 ML BAG IV SCH ×4 (05:53→23:48)
[2019-09-21] MEDS: INSULIN LISPRO 1 UNIT/0.01 ML UNIT SQ SCH ×3 (06:03→17:05)
[2019-09-21 06:50] LABS: ALT/SGPT 10 U/l (0-40); AST/SGOT 16 U/l (0-37); Albumin 4.8 gm/dL (3.2-5.2); Albumin/Globulin Ratio 1.7 (1.0-2.3); Alkaline Phosphatase 88 U/L (39-117); Bilirubin,Direct < 0.2 mg/dL (0.0-0.3); Bilirubin,Total 0.3 mg/dL (0.0-1.0); Calcium 10.5 mg/dl (8.6-10.4); Carbon Dioxide 22 mmol/L (22-30); Chloride 98 mmol/L (96-108); Globulin 2.8 gm/dL (2.2-3.7); Glomerular Filtration Rate 111; Glucose 103 mg/dL (70-105); Lactate Dehydrogenase 123 U/L (94-250); Phosphorous 3.8 mg/dL (2.7-4.5); Triglycerides 111 mg/dl (<150); Uric Acid 4.4 mg/dL (2.5-8.0)
[2019-09-21 06:51] LABS: Blood Urea Nitrogen 25 mg/dl (6-20)
[2019-09-21] MEDS: PANTOPRAZOLE 40 MG VIAL IV SCH ×2 (07:00→17:18)
[2019-09-21] MEDS: METHOCARBAMOL 1,000 MG/10 ML VIAL IV PRN ×3 (07:00→21:49)
[2019-09-21] MEDS: METOPROLOL TARTRATE 25 MG TABLET PO SCH ×2 (09:49→20:32)
[2019-09-21] MEDS: LEVOFLOXACIN 750 MG/150 ML BAG IV SCH (09:51)
[2019-09-21] MEDS: OCTREOTIDE ACETATE 100 MCG/ML VIAL SQ SCH ×2 (09:54→20:33)
--- NOTE | 2019-09-21 16:31 | General Surgery Progress Note ---
Subjective Patient reports: feels better, pain is less, flatus, bowel movement, afebrile Narrative: Note initiated : 09/21/19 at 4:30 pm Service Date, if different from initiated Date: [] Patient: Mojgan Mesa 43 y/o F admitted on 08/18/19 for abdominal pain. Chief Complaint: [Patient is stable and is ready for discharge ,However , arrangements cannot be completed today to assure that she has all of her medicat ions and that she has adequate follow-up as an outpatient. Arrangements have been made in her discharge is delayed until all appointments can be verified and medications can be obtained.] Objective Temp Pulse Resp BP Pulse Ox 98.6 F 90 16 113/71 96 09/21/19 12:00 09/21/19 12:00 09/21/19 12:00 09/21/19 12:00 09/21/19 12:00 - Additional Data Intake & Output - Last 24 hours: Intake & Output 09/19/19 09/20/19 09/21/19 09/22/19 05:59 05:59 05:59 05:59 Intake Total 4430 4223 3077 250 Output Total 3960 4335 3310 325 Balance 470 -112 -233 -75 Weight 99 lb 12.8 oz 100 lb 8 oz 98 lb - Labs 09/20/19 17:52 09/21/19 05:26 Diabetes panel 09/21/19 Range/Units 05:26 Sodium 136 (133-145) mmol/L Potassium 4.6 (3.3-5.1) mmol/L Chloride 98 (96-108) mmol/L Carbon Dioxide 22 (22-30) mmol/L BUN 25 H (6-20) mg/dl Creatinine 0.6 (0.6-1.1) mg/dl Glucose 103 (70-105) mg/dL Calcium 10.5 H (8.6-10.4) mg/dl AST 16 (0-37) U/l ALT 10 (0-40) U/l Alkaline Phosphatase 88 (39-117) U/L Total Protein 7.6 (5.9-8.4) gm/dL Albumin 4.8 (3.2-5.2) gm/dL Triglycerides 111 (<150) mg/dl Calcium panel 09/21/19 Range/Units 05:26 Calcium 10.5 H (8.6-10.4) mg/dl Phosphorus 3.8 (2.7-4.5) mg/dL Albumin 4.8 (3.2-5.2) gm/dL Pituitary panel 09/21/19 Range/Units 05:26 Sodium 136 (133-145) mmol/L Potassium 4.6 (3.3-5.1) mmol/L Chloride 98 (96-108) mmol/L Carbon Dioxide 22 (22-30) mmol/L BUN 25 H (6-20) mg/dl Creatinine 0.6 (0.6-1.1) mg/dl Glucose 103 (70-105) mg/dL Calcium 10.5 H (8.6-10.4) mg/dl Adrenal panel 09/21/19 Range/Units 05:26 Sodium 136 (133-145) mmol/L Potassium 4.6 (3.3-5.1) mmol/L Chloride 98 (96-108) mmol/L Carbon Dioxide 22 (22-30) mmol/L BUN 25 H (6-20) mg/dl Creatinine 0.6 (0.6-1.1) mg/dl Glucose 103 (70-105) mg/dL Calcium 10.5 H (8.6-10.4) mg/dl Total Bilirubin 0.3 (0.0-1.0) mg/dL AST 16 (0-37) U/l ALT 10 (0-40) U/l Alkaline Phosphatase 88 (39-117) U/L Total Protein 7.6 (5.9-8.4) gm/dL Albumin 4.8 (3.2-5.2) gm/dL Assessment and Plan (1) 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 GI soft diet Current Visit: Yes (5) Postoperative anemia due to acute blood loss Status: Resolved Assessment and plan: HGB IS STABLE Current Visit: Yes (6) Short gut syndrome Status: Acute Assessment and plan: Octreotide 100 g subcutaneous 3 times daily. We'll discharge home tomorrow afternoon. Arrangements are made for her to receive the octreotide as an outpatient Current Visit: Yes - Time Spent With Patient Total time spent is greater than 50% in coordination of care (as documented) at patient's floor/unit and/or counseling patient:
[2019-09-21] MEDS: ZOLPIDEM 5 MG TABLET PO PRN (20:32)
[2019-09-22] MEDS: INSULIN LISPRO 1 UNIT/0.01 ML UNIT SQ SCH ×2 (02:00→06:36)
[2019-09-22] MEDS: LORazepam 2 MG/ML VIAL IV PRN ×3 (02:10→14:04)
[2019-09-22] MEDS: HYDROCODONE/APAP 7.5/325MG TABLET PO PRN ×3 (06:20→16:43)
[2019-09-22] MEDS: 0.9 % SODIUM CHLORIDE 10 ML SYRINGE IV SCH ×2 (06:21→14:25)
[2019-09-22] MEDS: METHOCARBAMOL 1,000 MG/10 ML VIAL IV PRN (06:24)
[2019-09-22] MEDS: ONDANSETRON 4 MG/2 ML VIAL IV PRN (06:25)
[2019-09-22] MEDS: metroNIDAZOLE 500 MG/100 ML BAG IV SCH ×2 (06:26→13:11)
[2019-09-22] MEDS: PANTOPRAZOLE 40 MG VIAL IV SCH (07:10)
[2019-09-22] MEDS: METOPROLOL TARTRATE 25 MG TABLET PO SCH (08:58)
[2019-09-22] MEDS: OCTREOTIDE ACETATE 100 MCG/ML VIAL SQ SCH ×2 (08:58→15:44)
[2019-09-22] MEDS: LEVOFLOXACIN 750 MG/150 ML BAG IV SCH (08:58)
--- NOTE | 2019-09-22 14:55 | Discharge Summary ---
Providers - Providers Patient information: Note initiated : 09/22/19 at 2:53 pm Service Date, if different from initiated Date: [] Patient: Mojgan Mesa 43 y/o F admitted on 08/18/19 for abdominal pain. Chief Complaint: [] Date of admission: 08/18/19 Discharge date: 09/22/19 Attending physician: Rahul Gamez HOSPITALIST Hospitalization Hospital Course: 43-year-old female admitted on 17 August with extensive abscesses in the right iliopsoas area, right cecal area and right sided abdominal wall. The abscess extended through the abdominal wall into the subcutaneous tissue. It was felt that she had a chronically perforated appendix in the retrocecal area. She presented with sepsis, hypotension and leukocytosis with white count of 22,000. The patient was symptomatic for greater than 4 weeks prior to coming to the emergency room. She showed evidence of extreme MAC. She was also hypotensive. She she was explored emergently with drainage of the subcutaneous retrocecal and iliopsoas abscesses. Because of the amount of infection. She was reexplored on 19 August and was found to have a small amount of succus entericus immediately under the abdominal wall close to the junction of the terminal ileum and cecum. Very short appendiceal stump was noted that there was no identifiable leak. There was an old perforation of the terminal ileum about 3 cm proximal to the ileocecal junction, but no pus is noted. A pelvic washout was carried out. The ileal perforation was closed primarily and wound VAC was placed. Over the next 3 weeks. The patient did not show any improvement and did not have flatus nor bowel movement. Small bowel follow-through was done and it showed no passage of contrast into the right colon. She finally was explored on 10 September. A hostile abdomen was encountered with extensive adhesions and a chronic fistula of the terminal ileum. A CK to nc with terminal ileal resection was carried out and makes and total small bowel adhesion lysis was necessary. There were multiple enterotomies made in the terminal ileum and this needed to be resected along with the cecum. The patient was treated with TPN during the major course of this hospitalization. 4 days post procedure on the she started having ileal output and was started on liquids which she tolerated relatively well. We were able to gradually increase her by mouth intake and on 20 september her TPN was discontinued. Patient is now tolerating diet. Her abdominal wound is healing gradually, and will be allowed to heal by secondary intention. Patient has obvious short gut syndrome and puts out over 2000 cc through her ileostomy daily. She has been started on octreotide to reduce his her secretions and it is anticipated that she will need this until such time that we can reexplore her and do primary ileal colonic anastomosis. This will probably take 3-4 months. Discharge diagnosis: multiple subcutaneous and intra-abdominal abscesses Secondary discharge diagnosis: Terminal ileal perforation. Chronic fistula terminal ileum. Extensive intra-abdominal adhesions with distal small bowel obstruction. Polysubstance abuse Reason for admission: multiple abscesses of abdominal wall. Retrocecal area and retroperitoneum Procedures: Exploratory laparotomy with drainage of subcutaneous retrocecal and iliopsoas abscesses. Second look laparotomy with peritoneal washout and closure of ileal perforation with wound VAC placement. Extensive intra-abdominal adhesioLysis with cecal resection and terminal ileal resection; ileostomy Pertinent studies/significant findings: CT of abdomen and pelvis with contrast CT of abdomen and pelvis with contrast Single contrast small bowel follow-through Complications: None Exam Temp Pulse Resp BP Pulse Ox 79.9 F L 109 H 20 114/80 98 09/22/19 11:32 09/22/19 11:32 09/22/19 11:32 09/22/19 11:32 09/22/19 11:32 - General physical appearance no distress, cachectic, chronically ill - Eyes PERRL, normal ocular movement - ENT normal pinna, normal nares, normal mucosa, no hearing loss, no congestion, poor fpc - Head Head exam IM: Present: atraumatic, normocephalic - Neck no masses, no bruits, trachea midline, no lymphadenopathy, no venous distension - Cardiovascular Cardiovascular exam IM: Present: normal rate and rhythm, RRR, +S1, +S2. Absent: JVD, tachycardia - Respiratory normal expansion, normal respiratory effort, clear to auscultation - Abdomen Abdomen: Present: soft, tender (mild midline incision tenderness; lower incision healing with 100% granulation; active bowel sounds; functioning ileostomy left lower quadrant), bowel sounds Hernia: Present: none - Genitourinary Present: normal external genitalia - Rectum Rectum: Present: normal sphincter tone, no hemorrhoids, no tenderness, no masses, no bleeding - Integumentary Present: no rash, no growths, no abnormal pigmentation - Neurologic Present: normal coordination, normal sensation - Musculoskeletal Present: normal gait, normal posture - Psychiatric Present: oriented to time, oriented to person, oriented to place, speech is normal, memory intact Discharge Plan - Patient/Caregiver Discharge Instructions Activity: increase activity as tolerated Diet: Regular Diet Additional Instructions: Office visit on Friday am and Friday am for dressing change. f/u with me on Friday for examination. Measure drainage from stoma daily so I can have a total. CONTACT ME VIA THE OFFICE [phone] IF YOU NEED ASSISTANCE OVER THE WEEKEND. May shower. Cover dressing while showering. No heavy lifting. Call the physician's office ([phone]) for fever greater than 100.5 or pain not controlled by medication. Prescriptions: Octreotide Acetate 100 mcg SC TID #90 ampul Transmission Status: Received by [facility] oxyCODONE/APAP [Percocet 5-325 mg] 1 tab PO Q4H PRN #60 tab PRN Reason: Pain Transmission Status: Received by [facility] Promethazine [Phenergan] 25 mg PO Q4HP PRN #100 tab MDD 4 PRN Reason: Nausea And Vomiting Transmission Status: Received by [facility] - Follow up Plan Follow up with: Rahul Gamez MD [Physician] - 09/24/19 10:00 am (FridaySeptember 23 at 10:00 am for a dressing change. FridaySeptember 26 at 2:45 pm for a dressing change. FridaySeptember 27 at 9:[address] Gamez.) Disposition: Home, Self-Care Care Plan Goals: This discharge packet is provided to you to help keep you informed about your care. We want to ensure you get everything you need when you go home. You will also be receiving a call from us in a few days to follow up with you and see h ow you are doing since your discharge. This gives us a chance to listen to any concerns you maybe experiencing since you were discharged or any additional needs you may have, as well as providing us feedback on your care experience. We strive to always provide excellent care and thank you for your feedback and for choosing [facility]. Prognosis: Good Rehab Potential: Good I certify that the patient requires SNF services.: No Overall status at discharge: patient is progressing back to baseline Pending Studies Resuscitation Status Full Code Diet Regular Diet Start FriSep 19 1656 Hydrocodone Bitart/Acetaminophen (Amelia 7.5/325mg) 1 - 2 tab PO Q4HP PRN; Protocol PRN Reason: Per Pain Protocol Last Admin: 09/22/19 10:44 Dose: 1 tab Documented by: Admin: 09/22/19 06:20 Dose: 2 tab Documented by: Admin: 09/21/19 23:53 Dose: 2 tab Documented by: Admin: 09/21/19 19:35 Dose: 1 tab Documented by: Admin: 09/21/19 14:55 Dose: 1 tab Documented by: Admin: 09/21/19 11:51 Dose: 1 tab Documented by: Admin: 09/21/19 10:29 Dose: 1 tab Documented by: Admin: 09/21/19 04:29 Dose: 1 tab Documented by: Admin: 09/20/19 19:39 Dose: 2 tab Documented by: Admin: 09/20/19 16:01 Dose: 1 tab Documented by: Admin: 09/20/19 08:04 Dose: 1 tab Documented by: Admin: 09/20/19 04:06 Dose: 2 tab Documented by: ANA MARÍA Admin: 09/20/19 00:08 Dose: 2 tab Documented by: ANA MARÍA Admin: 09/19/19 20:05 Dose: 2 tab Documented by: Admin: 09/19/19 13:31 Dose: 1 tab Documented by: Admin: 09/19/19 11:58 Dose: 1 tab Documented by: Admin: 09/19/19 06:03 Dose: 1 tab Documented by: Admin: 09/19/19 01:20 Dose: 2 tab Documented by: Admin: 09/18/19 20:39 Dose: 2 tab Documented by: Admin: 09/18/19 16:28 Dose: 2 tab Documented by: [id number] Heparin Sodium (Porcine) (Heparin Flush) 2 ml IV Q12 [facility] Last Admin: 09/22/19 09:00 Dose: 2 ml Documented by: Admin: 09/21/19 20:38 Dose: 2 ml Documented by: Admin: 09/21/19 09:50 Dose: Not Given Documented by: Admin: 09/20/19 21:04 Dose: Not Given Documented by: Admin: 09/20/19 10:32 Dose: Not Given Documented by: Admin: 09/19/19 20:24 Dose: Not Given Documented by: ANA MARÍA Admin: 09/19/19 09:19 Dose: Not Given Documented by: Admin: 09/18/19 20:48 Dose: Not Given Documented by: CARSON Sodium Chloride (Sodium Chloride 0.9%) 1,000 mls @ 75 mls/hr IV .[id number] [facility] Last Admin: 09/21/19 21:46 Dose: 75 mls/hr Documented by: Infusion: 09/21/19 16:22 Dose: 75 mls/hr Documented by: Admin: 09/21/19 03:02 Dose: 75 mls/hr Documented by: Infusion: 09/20/19 18:11 Dose: 75 mls/hr Documented by: Admin: 09/20/19 04:51 Dose: 75 mls/hr Documented by: ANA MARÍA Infusion: 09/20/19 00:30 Dose: 75 mls/hr Documented by: ANA MARÍA Admin: 09/19/19 20:52 Dose: Not Given Documented by: ANA MARÍA Admin: 09/19/19 11:10 Dose: 75 mls/hr Documented by: Admin: 09/19/19 06:35 Dose: Not Given Documented by: Infusion: 09/19/19 04:27 Dose: 75 mls/hr Documented by: Admin: 09/18/19 15:07 Dose: 75 mls/hr Documented by: LIANNE Levofloxacin (Levaquin) 750 mg in 150 mls @ 100 mls/hr IV DAILY [facility]; Protocol Last Admin: 09/22/19 08:58 Dose: 100 mls/hr Documented by: Infusion: 09/21/19 11:25 Dose: 0 mls/hr Documented by: Admin: 09/21/19 09:51 Dose: 100 mls/hr Documented by: [email or web address] Metronidazole (Flagyl) 500 mg in 100 mls @ 100 mls/hr IV Q6H [facility]; Protocol Last Admin: 09/22/19 13:11 Dose: 100 mls/hr Documented by: [email or web address] Infusion: 09/22/19 07:26 Dose: 100 mls/hr Documented by: [email or web address] Admin: 09/22/19 06:26 Dose: 100 mls/hr Documented by: Infusion: 09/22/19 00:48 Dose: 100 mls/hr Documented by: Admin: 09/21/19 23:48 Dose: 100 mls/hr Documented by: Infusion: 09/21/19 18:55 Dose: 0 mls/hr Documented by: Admin: 09/21/19 17:19 Dose: 100 mls/hr Documented by: Infusion: 09/21/19 17:07 Dose: 100 mls/hr Documented by: Admin: 09/21/19 11:58 Dose: 100 mls/hr Documented by: Infusion: 09/21/19 06:53 Dose: 100 mls/hr Documented by: Admin: 09/21/19 05:53 Dose: 100 mls/hr Documented by: Infusion: 09/21/19 00:40 Dose: 100 mls/hr Documented by: Admin: 09/20/19 23:40 Dose: 100 mls/hr Documented by: Infusion: 09/20/19 18:44 Dose: 100 mls/hr Documented by: Admin: 09/20/19 17:44 Dose: 100 mls/hr Documented by: [email or web address] Lorazepam (Ativan) 1 mg IV Q6HP PRN PRN Reason: ANXIETY/SEDATION Last Admin: 09/22/19 14:04 Dose: 1 mg Documented by: [email or web address] Admin: 09/22/19 07:43 Dose: 1 mg Documented by: Admin: 09/22/19 02:10 Dose: 1 mg Documented by: Admin: 09/21/19 18:13 Dose: 1 mg Documented by: Admin: 09/21/19 01:24 Dose: 1 mg Documented by: Admin: 09/20/19 16:49 Dose: 1 mg Documented by: Admin: 09/20/19 08:01 Dose: 1 mg Documented by: Admin: 09/19/19 22:47 Dose: 1 mg Documented by: Admin: 09/19/19 16:08 Dose: 1 mg Documented by: Admin: 09/18/19 23:51 Dose: 1 mg Documented by: CARSON Methocarbamol (Robaxin) 1,000 mg IV Q8HP PRN PRN Reason: Muscle Spasm Last Admin: 09/22/19 06:24 Dose: 1,000 mg Documented by: Admin: 09/21/19 21:49 Dose: 1,000 mg Documented by: Admin: 09/21/19 16:43 Dose: 1,000 mg Documented by: Admin: 09/21/19 07:00 Dose: 1,000 mg Documented by: Admin: 09/20/19 22:15 Dose: 1,000 mg Documented by: Admin: 09/20/19 13:46 Dose: 1,000 mg Documented by: Admin: 09/20/19 04:06 Dose: 1,000 mg Documented by: ANA MARÍA Admin: 09/19/19 18:39 Dose: 1,000 mg Documented by: ANA MARÍA Admin: 09/19/19 10:25 Dose: 1,000 mg Documented by: Admin: 09/19/19 01:23 Dose: 1,000 mg Documented by: Admin: 09/18/19 16:55 Dose: 1,000 mg Documented by: [email or web address] Metoprolol Tartrate (Lopressor) 25 mg PO BID [facility] Last Admin: 09/22/19 08:58 Dose: 25 mg Documented by: Admin: 09/21/19 20:32 Dose: 25 mg Documented by: Admin: 09/21/19 09:49 Dose: 25 mg Documented by: Admin: 09/20/19 22:13 Dose: 25 mg Documented by: Admin: 09/20/19 10:04 Dose: 25 mg Documented by: Admin: 09/19/19 20:24 Dose: 25 mg Documented by: ANA MARÍA Admin: 09/19/19 09:14 Dose: 25 mg Documented by: Admin: 09/18/19 20:39 Dose: 25 mg Documented by: CARSON Octreotide Acetate (Sandostatin) 100 mcg SQ BID [facility] Admin: 09/22/19 08:58 Dose: 100 mcg Documented by: Admin: 09/21/19 20:33 Dose: 100 mcg Documented by: Admin: 09/21/19 09:54 Dose: 100 mcg Documented by: Admin: 09/20/19 22:14 Dose: 100 mcg Documented by: Admin: 09/20/19 10:31 Dose: Not Given Documented by: Admin: 09/19/19 20:23 Dose: 100 mcg Documented by: ANA MARÍA Ondansetron HCl (Zofran) 4 mg IV Q4HP PRN; Protocol PRN Reason: Nausea/Vomiting Last Admin: 09/22/19 06:25 Dose: 4 mg Documented by: Admin: 09/21/19 20:44 Dose: 4 mg Documented by: Admin: 09/21/19 07:04 Dose: 4 mg Documented by: Admin: 09/21/19 03:03 Dose: 4 mg Documented by: Admin: 09/20/19 21:46 Dose: 4 mg Documented by: Admin: 09/19/19 21:23 Dose: 4 mg Documented by: ANA MARÍA Admin: 09/19/19 13:30 Dose: 4 mg Documented by: Admin: 09/19/19 09:04 Dose: 4 mg Documented by: [email or web address] Pantoprazole Sodium (Protonix) 40 mg IV BIDAC [facility] Admin: 09/22/19 07:10 Dose: 40 mg Documented by: Admin: 09/21/19 17:18 Dose: 40 mg Documented by: Admin: 09/21/19 07:00 Dose: 40 mg Documented by: Admin: 09/20/19 16:51 Dose: 40 mg Documented by: Admin: 09/20/19 08:04 Dose: 40 mg Documented by: Admin: 09/19/19 16:29 Dose: 40 mg Documented by: Admin: 09/19/19 07:10 Dose: 40 mg Documented by: Admin: 09/18/19 16:27 Dose: 40 mg Documented by: [id number] Promethazine HCl (Phenergan) 12.5 mg IV Q4HP PRN; Protocol PRN Reason: Nausea/Vomiting Last Admin: 09/22/19 09:08 Dose: 12.5 mg Documented by: FMF Sodium Chloride (Saline Flush) 10 ml IV Q8 [facility] Last Admin: 09/22/19 14:25 Dose: Not Given Documented by: [email or web address] Admin: 09/22/19 06:21 Dose: Not Given Documented by: Admin: 09/21/19 20:38 Dose: 10 ml Documented by: Admin: 09/21/19 14:57 Dose: Not Given Documented by: Admin: 09/21/19 05:53 Dose: 10 ml Documented by: Admin: 09/20/19 22:15 Dose: 10 ml Documented by: Admin: 09/20/19 13:30 Dose: 10 ml Documented by: Admin: 09/20/19 05:28 Dose: 10 ml Documented by: ANA MARÍA Admin: 09/19/19 20:24 Dose: Not Given Documented by: ANA MARÍA Admin: 09/19/19 13:26 Dose: Not Given Documented by: Admin: 09/19/19 06:15 Dose: 10 ml Documented by: Admin: 09/18/19 20:48 Dose: Not Given Documented by: CARSON Zolpidem Tartrate (Ambien) 5 mg PO HSP PRN PRN Reason: Insomnia Last Admin: 09/21/19 20:32 Dose: 5 mg Documented by: Admin: 09/20/19 22:13 Dose: 5 mg Documented by: Admin: 09/19/19 20:05 Dose: 5 mg Documented by: Admin: 09/18/19 20:46 Dose: 5 mg Documented by: CARSON Shift Summary 09/22/19 05:05 Shift Summary by Nicole Carranza Up w/SBA to BR, voiding well. Emptying iliostomy on own. Has had pain meds twice; robaxin once; ativan once. Slept well after midnight. Hoping to go home today, if CM can find a way for her meds to be paid for. PICC line in left arm w/good blood return. Abd dressing w/some shadow drainage. Pt having more back pain than abdominal pain tonight. Initialized on 09/22/19 05:05 - END OF NOTE
[2019-09-22] MEDS ORDERED: ONDANSETRON 4 MG ODT TABLET SL ONE (16:13)
--- NOTE | 2019-09-29 14:40 | Operative Note ---
DATE OF OPERATION: 09/11/2019 PREOPERATIVE DIAGNOSIS: Small bowel obstruction. POSTOPERATIVE DIAGNOSIS: Hostile abdomen with extensive adhesions and chronic fistula of the terminal ileum. PROCEDURE: Partial right colectomy with terminal ileal resection and ileostomy, extensive adhesiolysis. SURGEON: Rahul Gamez M.D. FINDINGS: Total peritoneal adhesions with thickened bowel throughout which was very friable. Because of the acute severe inflammation, multiple enterotomies were made even with gentle dissection of the bowel wall. DESCRIPTION OF PROCEDURE: Under general anesthesia, patient's abdomen was prepped and draped in a sterile field. Ahmet were removed and the fascia was opened. The bowel was densely adherent to the peritoneum throughout. It took an extended length of time to even gain access to the anterior aspect of the peritoneal cavity. The bowel was very thickened and friable. The terminal ileum which was close to the anterior peritoneum was exceptionally friable and multiple enterotomies were made. There were two areas that could be closed primarily and these were closed with two rows of 3-0 Monocryl and a row of 3-0 Prolene. There were other areas where the bowel simply could not be salvaged. Dissection was carried out until the cecum was identified. The cecum was very thickened and friable. The cecum was mobilized, as well as the ascending colon. The ascending colon was transected and doubly-stapled. Copious irrigation was carried out once more. The terminal ileum with multiple enterotomies were excised. This sacrificed probably 2 feet of small bowel in the terminal ileum, and there was concern that she would have a short bowel syndrome. Irrigation was carried out once more and two #10 Zafar drains were placed in the pelvis and the right gutter. Opening was made in the left lower quadrant away from the severe inflammatory process, and a stoma was made in the left lower quadrant. The bowel was brought out through that area. The bowel was sutured to the peritoneum with 3-0 silk. Inspection of the residual bowel did not reveal any enterotomies. Once I was satisfied that there were no areas of leakage, the fascia and peritoneum was closed with #1 Vicryl. The lower aspect of the incision was left open, and the upper aspect of this incision skin was closed with ahmet. Dressing was placed. The ileostomy was matured with suturing of the wall of the bowel to the anterior rectus sheath with 3-0 silk. The end of the bowel was sutured to the dermis using 3-0 Vicryl. Stoma appliance was placed. The patient tolerated the procedure well. She was awakened, transferred to a bed, and taken to the postanesthetic care unit in satisfactory condition. LCS:roseanne Job ID: [id number] Doc ID: [id number] Rahul Gamez M.D.
== END 2019-09-22 17:10 | disposition home or self-care (01) | DRG 329 ==
LOC: ED 17:23 → MEDSUR 19:05 → ICU 23:55 → MEDSUR 08-20 13:00 → ICU 09-11 16:10 → MEDSUR 09-18 13:57
PROVIDERS: ADMIT Family Medicine Adult Medicine; ATTEND Family Medicine Adult Medicine

== ENCOUNTER 2019-09-28 09:38 | Inpatient (IN) ==
[2019-09-28] MEDS ORDERED: 0.9 % SODIUM CHLORIDE 1,000 ML IV ONE ×2 (09:46→11:06)
[2019-09-28] MEDS ORDERED: ONDANSETRON 4 MG/2 ML VIAL IV ONE (09:46)
[2019-09-28] MEDS ORDERED: KETOROLAC 30 MG/ML VIAL IV ONE (09:46)
--- NOTE | 2019-09-28 10:12 | Emergency Department Note ---
Abdominal Pain HPI - General Chief Complaint: Abdominal Pain Stated Complaint: abd pain and nausea Time Seen by Provider: 09/28/19 09:45 Source: patient Mode of arrival: wheelchair Limitations: no limitations - History of Present Illness HPI Narrative: 43-year-old female comes in complaining of nausea and vomiting over the last day or so. She believes this is secondary to the Percocet she is taking for postoperative pain-she states that Dilaudid nor hydrocodone cause her the same nausea. She had several abdominal surgeries to repair a perforated terminal ileum/appendix. She has a colostomy bag in place but it is leaking-she reports no new stool over the last 24 hours-pain is noted with that. Her wound site does appear to be healing well but there is some clear yellowish drainage which I cultured. She denies any trouble breathing, fever, exposure to the COVID virus, injury or other concern She states she just urinated prior to coming in-though she does acknowledge that she is not urinating as well she had in the past - Related Data Home Medications Medication Instructions Recorded Confirmed Ibuprofen [Addaprin] 400 mg PO Q4-6HP PRN 08/18/19 09/28/19 Previous Rx's Medication Instructions Recorded Octreotide Acetate 100 mcg SC TID #90 ampul 09/22/19 Promethazine [Phenergan] 25 mg PO Q4HP PRN #100 tab MDD 4 09/22/19 oxyCODONE/APAP [Percocet 5-325 mg] 1 tab PO Q4H PRN #60 tab 09/22/19 Allergies Allergy/AdvReac Type Severity Reaction Status Date / Time Erythromycin Base Allergy Unknown Unknown Verified 09/28/19 09:41 Penicillins Allergy Unknown Unknown Verified 09/28/19 09:41 contact metal agent AdvReac Intermediate Other Verified 09/28/19 09:41 Review of Systems All systems ED: reviewed and negative except as stated. Abdominal Pain PMH - Past Medical History Attestation: Yes: The following information was validated with the patient. [facility] Narrative: Family History (Last Updated 01/29/18 @ 15:16 by Glenda Moreno CMA) Father CAD (coronary artery disease) Grandfather CAD (coronary artery disease) Grandmother CAD (coronary artery disease) Past Surgical History (Last Updated 01/29/18 @ 15:15 by Glenda Moreno CMA) History of (Acute) History of ERCP (Acute) History of laparoscopic cholecystectomy (Acute) Medical history: Reports: other (Methamphetamine drug abuse) Family history: Reports: other (mother - angina.) - Social History Smoking status: Former smoker Physical Exam Cachectic female in some distress secondary to pain and nausea. Normocephalic atraumatic. Conjunctive are clear sclerae white nonicteric. Heart is regular rate and rhythm no murmur appreciated. Lungs are clear to auscultation bilaterally without wheezes rales rhonchi or respiratory distress. Abdomen is soft diffusely tender but worse in the area around her wound site and around the colostomy bag. The colostomy bag is clearly leaking in the right lower quadrant so we will have to replace that. She has a wound site approximately 6 cm in length and 2 cm in depth with some yellowish-whitish thin drainage that I cultured. She is got good granulation tissue here and it does appear to be healing. Mildly tender. No pedal edema. She is alert oriented able to answer questions appropriately Limitations: no limitations Course Vital Signs Temperature 97.1 F 09/28/19 09:39 Pulse Rate 110 H 09/28/19 09:39 Respiratory Rate 20 09/28/19 09:39 Blood Pressure 106/76 09/28/19 09:39 Pulse Oximetry (%) 100 09/28/19 09:39 Temperature 97.1 F 09/28/19 09:39 Pulse Rate 124 H 09/28/19 12:40 Respiratory Rate 20 09/28/19 09:39 Blood Pressure 126/78 09/28/19 12:40 Pulse Oximetry (%) 98 09/28/19 12:40 Abdominal Pain - Lab Data Lab results reviewed: Yes I reviewed the patient's lab results. Result diagrams: 09/28/19 10:01 09/28/19 10:01 Lab Results 09/28/19 09/28/19 09/28/19 Range/Units 10:01 10:01 10:01 WBC 9.4 (4.50-11.00) K/mcL RBC 5.67 H (3.59-5.38) M/mcL Hgb 16.1 H (11.2-15.7) g/dL Hct 46.3 H (34.1-44.9) % MCV 81.7 (80.0-100.0) fL MCH 28.4 (26.0-34.0) pg MCHC 34.8 (31.0-36.0) g/dL RDW 14.4 (11.5-14.5) % Plt Count 1011 H* (140-440) K/mcL MPV 10.0 (7.4-10.4) fL Gran % 80.0 H (38.0-78.0) % Lymph % (Auto) 7.3 L (15.5-49.0) % [place] % (Auto) 7.3 (1.0-12.0) % Eos % (Auto) 4.2 (0.0-7.0) % Baso % (Auto) 1.2 (0.0-2.0) % Gran # 7.51 (1.80-8.00) K/mcL Lymph # (Auto) 0.68 L (1.50-4.80) K/mcL [place] # (Auto) 0.68 (0.10-0.90) K/mcL Eos # (Auto) 0.39 (0.00-0.70) K/mcL Baso # (Auto) 0.11 (0.00-0.30) K/mcL VBG Lactic Acid 2.1 H (0.5-2.0) mmol/L Sodium 122 L (133-145) mmol/L Potassium 6.6 H* (3.3-5.1) mmol/L Chloride 76 L (96-108) mmol/L Carbon Dioxide 23 (22-30) mmol/L Anion Gap 23.0 H (8-16) BUN 109 H* (6-20) mg/dl Creatinine 3.1 H (0.6-1.1) mg/dl GFR Calculation 17 Glucose 136 H (70-105) mg/dL Calcium 11.6 H (8.6-10.4) mg/dl Total Bilirubin 0.3 (0.0-1.0) mg/dL AST 15 (0-37) U/l ALT 12 (0-40) U/l Alkaline Phosphatase 109 (39-117) U/L Total Protein 9.6 H (5.9-8.4) gm/dL Albumin 5.4 H (3.2-5.2) gm/dL Globulin 4.2 H (2.2-3.7) gm/dL Albumin/Globulin Ratio 1.3 (1.0-2.3) Lipase 85 H (7-60) U/L - Radiology Data Radiology results reviewed: Yes I reviewed the patient's radiology results. X-ray 2 views of the abdomen show no acute findings - EKG Data EKG attestation: Yes I reviewed and interpreted this EKG., Yes There are no EKG findings of acute coronary syndrome Disposition Pt seen by AUTHORIZATION COORDINATOR/PA only: No Clinical Impression: Drug-induced nausea and vomiting, Colostomy complication, Hyperkalemia, Thrombocytosis Constipation Qualifiers: Constipation type: drug induced constipation Qualified Code(s): K59.03 - Drug induced constipation Acute renal failure Qualifiers: Acute renal failure type: unspecified Qualified Code(s): N17.9 - Acute kidney failure, unspecified Summary: It sounds like she has nausea and vomiting secondary to her Percocet usage and may have some constipation secondary to that. Her colostomy bag does have green evangelina loose stool in it but she reports decreased output. It is clearly leaking and requires replacement. Nursing staff cleaned her up and put a new colostomy bag on. We treated her pain initially with Toradol and Dilaudid. IV fluids and Zofran are given as well. Routine laboratory and a 2 view x-ray of the abdomen ordered 2 view x-ray of the abdomen showed no acute findings. Laboratory shows dehydration and acute renal failure with hyperkalemia. Hyperkalemia order set initiated along with another bag of IV fluid. She notes that she still makes urine Discussed results briefly with patient. She will need to come in the hospital for acute renal failure with hyperkalemia. Discussed case with Dr. Ledesma, puncher and fastener, and he recommended we get ultrasound of the kidneys as well as fu rther urine testing. He agreed to consult on the patient I then discussed the case with the hospitalist Dr. Sam. He agreed to accept the patient as well but recommended to get a CT without contrast to further evaluate for possible blockages or abscesses. These are ordered I then called Dr. Gamez, who agreed to consult on the patient and the recommendation for CT. he will see her as an inpatient Disposition: Xfer As Inpt ([facility]) Condition: Serious Referrals: Rahul Gamez MD [Primary Care Provider] - Andreas Ledesma MD [Physician] -
--- NOTE | 2019-09-28 10:30 | XRay Report ---
CLINICAL INFORMATION: constipation COMPARISON: None. FINDINGS: , Small amounts of residual enteric contrast are scattered throughout the transverse descending and rectosigmoid colonic segments. Stool gas pattern is, otherwise, normal. No free air, soft tissue mass or organomegaly. IMPRESSION: Negative Interpreted and Authenticated by: Iván Espinoza 09/28/19
[2019-09-28] MEDS: HYDROmorphone 0.5 MG/0.5 ML SYRINGE IV PRN ×5 (10:42→20:47)
[2019-09-28 10:53] LABS: ALT/SGPT 12 U/l (0-40); AST/SGOT 15 U/l (0-37); Albumin 5.4 gm/dL (3.2-5.2); Albumin/Globulin Ratio 1.3 (1.0-2.3); Alkaline Phosphatase 109 U/L (39-117); Bilirubin,Total 0.3 mg/dL (0.0-1.0); Calcium 11.6 mg/dl (8.6-10.4); Carbon Dioxide 23 mmol/L (22-30); Globulin 4.2 gm/dL (2.2-3.7); Glomerular Filtration Rate 17; Glucose 136 mg/dL (70-105)
[2019-09-28 11:00] LABS: Basophils # (Auto) 0.11 K/mcL (0.00-0.30); Basophils % (Auto) 1.2 % (0.0-2.0); Blood Urea Nitrogen 109 mg/dl (6-20); Chloride 76 mmol/L (96-108); Eosinophils # (Auto) 0.39 K/mcL (0.00-0.70); Eosinophils % (Auto) 4.2 % (0.0-7.0); Hematocrit 46.3 % (34.1-44.9); Hemoglobin 16.1 g/dL (11.2-15.7); Lymphocytes # (Auto) 0.68 K/mcL (1.50-4.80); Lymphocytes % (Auto) 7.3 % (15.5-49.0); Mean Cell Volume 81.7 fL (80.0-100.0); Mean Corpuscular HGB Conc 34.8 g/dL (31.0-36.0); Monocytes # (Auto) 0.68 K/mcL (0.10-0.90); Monocytes % (Auto) 7.3 % (1.0-12.0); Platelet Count 1011 K/mcL (140-440); RBC 5.67 M/mcL (3.59-5.38); Red Cell Distribution Width 14.4 % (11.5-14.5); WBC 9.4 K/mcL (4.50-11.00)
[2019-09-28] MEDS ORDERED: CALCIUM CHLORIDE 1,000 MG/10 ML SYRINGE IV ONE (11:11)
[2019-09-28] MEDS ORDERED: FUROSEMIDE 40 MG/4 ML VIAL IV ONE (11:11)
[2019-09-28] MEDS ORDERED: SODIUM POLYSTYRENE SULFONATE 15 GM/60 ML SUSPENSION PO ONE (11:11)
[2019-09-28] MEDS ORDERED: ALBUTEROL SULFATE 5 MG/ML NEB SOLUTION BOTTLE NEB ONE (11:11)
--- NOTE | 2019-09-28 13:13 | Internal Med History&Physical ---
Medical - H&P: HPI Patient information: Note initiated : 09/28/19 at 1:09 pm Service Date, if different from initiated Date: [] Patient: Mojgan Mesa a 43 y/o F admitted on for abd pain and nausea. Chief Complaint: [] Chief complaint: Nausea vomiting abdominal pain History of present illness: Ms. Mesa is a 43 year old F who was discharged on September 21 after a prolonged hospitalization for over a month secondary to extensive intra-abdominal abscess following ileal perforation. Patient underwent multiple surgeries. She was discharged in stable state after resumption of oral nutrition and ileostomy care. She now presents with worsening nausea vomiting that has evolved over the last couple of days along with associated abdominal pain. Per patient her symptoms are likely secondary to Percocet. She was evaluated in the ER initial work-up was consistent with hyperkalemia potassium at 6.6. Subsequently nephrology was consulted and patient was started on hyperkalemia protocol. Patient BUN was 109 with creatinine 3.1 along with significant volume depletion. She was started o n crystalloids. Surgery was consulted and hospitalist service was requested for admission in light of renal failure. CT abdomen was ordered Review of systems 10 point review system was performed and is negative except for discussed above Medical - H&P: Meds Home Medications Medication Instructions Recorded Confirmed Type Ibuprofen [Addaprin] 400 mg PO Q4-6HP PRN 08/18/19 09/28/19 History Octreotide Acetate 100 mcg SC TID #90 ampul 09/22/19 09/28/19 Rx Promethazine [Phenergan] 25 mg PO Q4HP PRN #100 tab MDD 4 09/22/19 09/28/19 Rx oxyCODONE/APAP [Percocet 5-325 mg] 1 tab PO Q4H PRN #60 tab 09/22/19 09/28/19 Rx Allergies Allergy/AdvReac Type Severity Reaction Status Date / Time Erythromycin Base Allergy Unknown Unknown Verified 09/28/19 09:41 Penicillins Allergy Unknown Unknown Verified 09/28/19 09:41 contact metal agent AdvReac Intermediate Other Verified 09/28/19 09:41 Medical - H&P: Exam - Constitutional Vitals: Temp Pulse Resp BP Pulse Ox 97.1 F 124 H 20 126/78 98 09/28/19 09:39 09/28/19 12:40 09/28/19 09:39 09/28/19 12:40 09/28/19 12:40 General appearance: no acute distress Exam: Head normocephalic Oral cavity dry No ear nose discharge Neck no lymphadenopathy S1-S2 tachycardia Nonlabored breathing Abdomen ileostomy , minimally tender nondistended Lower extremity no cyanosis clubbing Psych alert cooperative but anxious Neuro nonfocal Medical - H&P: Reslt - Labs CBC & Chem 7: 09/29/19 05:00 09/29/19 05:00 Labs: Short CBC 09/28/19 Range/Units 10:01 WBC 9.4 (4.50-11.00) K/mcL Hgb 16.1 H (11.2-15.7) g/dL Hct 46.3 H (34.1-44.9) % Plt Count 1011 H* (140-440) K/mcL BMP 09/28/19 10:01 Sodium 122 L Potassium 6.6 H* Chloride 76 L Carbon Dioxide 23 BUN 109 H* Creatinine 3.1 H Glucose 136 H Calcium 11.6 H Liver Function 09/28/19 Range/Units 10:01 Total Bilirubin 0.3 (0.0-1.0) mg/dL AST 15 (0-37) U/l ALT 12 (0-40) U/l Alkaline Phosphatase 109 (39-117) U/L Albumin 5.4 H (3.2-5.2) gm/dL Medical - H&P: A/P (1) Acute renal failure Current visit: Yes Status: Acute * Acute renal failure with creatinine over 3 likely prerenal from volume depletion. Start aggressive crystalloids. Nephrology consult * Hyperkalemia 6.6. Started on hyperkalemia protocol. Nephrology consulted * Abdominal pain nausea vomiting. Patient is postsurgical. Await CT abdomen rule out acute abdomen. Surgery consulted. * Nutrition will be as per surgery recommendations. * Thrombocytosis likely reactive and secondary to hemoconcentration. Continue monitoring. * Hypovolemic hyponatremia-sodium 122. Likely secondary to solute loss from recurrent emesis. Continue crystalloids. * History of amphetamine use. Urine drug screen. Patient has not used since prior hospitalization * Full code * Prophylax Heparin Plan * Inpatient admission * Nephrology and surgery consult * Renal failure and hyperkalemia management per nephrology * Resume oral diet * Aggressive crystalloids * Await abdominal imaging
--- NOTE | 2019-09-28 13:48 | Cat Scan Report ---
CLINICAL INFORMATION: Nausea and vomiting. Partial colectomy and ileoanal resection with ileostomy left lower quadrant one month prior COMPARISON: Preoperative abdomen and pelvic CT 08/25/2019. TECHNIQUE: 0.625 mm helical slices were obtained from the mid heart through the subtrochanteric regions. Following reconstruction, 2.5 mm sagittal, coronal and axial reformatted images were processed and reviewed at bone and soft tissue windows.The exam was performed using radiation dose optimization techniques including, but not limited to, automated exposure control, adjustment of the mA and/or kV according to patient size and use of iterative reconstruction technique. FINDINGS: Lung bases show no abnormality - no effusion. The visualized heart is grossly normal. Abdominal images show gallbladder surgically absent. Common bile duct normal caliber 6 mm. The noncontrasted liver, both kidneys, adrenal glands, spleen, pancreas and aorta are normal in size configuration and attenuation without focal lesion. There is no free air or adenopathy. Pelvic images show urinary bladder is normal. The uterus is anteflexed and normal in size 8 x 4 cm. Region of the ovaries are unremarkable. Right hemicolectomy distal ilial resection changes appreciated. There is ileostomy in the left lower quadrant. Moderate enteric contrast is seen within the remaining (transverse, descending and rectosigmoid (colonic segments. The residual colon and small bowel and stomach are all grossly normal. There is mild mesenteric edema and small amounts of free fluid as expected in the postoperative state. There is a laparotomy scar in the anterior central false and true pelvis. IMPRESSION: 1. Right colectomy and partial ileal resection changes with ileostomy in the left lower quadrant. The stomach residual small and large bowel are normal. There is no free air suggest perforation. Small amount of mesenteric edema and free fluid are likely related to recent surgery. Interpreted and Authenticated by: Iván Espinoza 09/28/19
--- NOTE | 2019-09-28 13:57 | Ultrasound Report ---
CLINICAL INFORMATION: arf COMPARISON: None. FINDINGS: Both kidneys are normal and symmetric in size, position and configuration: The right is 11 x 6 cm and the left is 11 x 5 cm. There are 3-4 small cysts ranging up to 9 mm superior pole right kidney. No left renal lesions. Echotexture is elevated both kidneys suggesting medical renal disease. Urinary bladder is grossly normal. IMPRESSION: Mildly hyperechoic kidneys compatible medical renal disease. 3-4 cysts on the right kidney ranging up to 9 mm Interpreted and Authenticated by: Iván Espinoza 09/28/19
[2019-09-28] MEDS ORDERED: POLYETHYLENE GLYCOL 3350 17 GM PACKET PO PRN (14:33)
[2019-09-28] MEDS ORDERED: 0.9 % SODIUM CHLORIDE 1,000 ML IV SCH ×2 (14:33)
[2019-09-28] MEDS ORDERED: ACETAMINOPHEN 325 MG TABLET PO PRN (14:33)
[2019-09-28] MEDS ORDERED: ONDANSETRON 4 MG/2 ML VIAL IV PRN (14:33)
[2019-09-28] MEDS ORDERED: ONDANSETRON 4 MG ODT TABLET SL PRN (14:33)
[2019-09-28 14:34] LABS: Amphetamine Screen,Urine NONE DETECTED (NONDETECTED); Barbiturate Screen,Urine NONE DETECTED (NONDETECTED); Benzodiazepines Screen,Urine NONE DETECTED (NONDETECTED); Cannabinoid Screen,Urine NONE DETECTED (NONDETECTED); Cocaine Screen,Urine NONE DETECTED (NONDETECTED); Opiate Screen,Urine NONE DETECTED (NONDETECTED); Oxycodone, Urine Screen SUSPECT POSITIVE (NONDETECTED); Phencyclidine Screen,Urine NONE DETECTED (NONDETECTED)
[2019-09-28] MEDS ORDERED: HYDROcodone/APAP 5/325MG TABLET PO PRN (14:35)
[2019-09-28] MEDS: 0.9 % SODIUM CHLORIDE 10 ML SYRINGE IV SCH ×2 (15:00→22:01)
--- NOTE | 2019-09-28 15:17 | General Surgery Consult Note ---
History of Present Illness Patient information: Note initiated : 09/28/19 at 3:17 pm Service Date, if different from initiated Date: [] Patient: Mojgan Mesa 43 y/o F admitted on 09/28/19 for abd pain and nausea. Chief Complaint: [] Medications and Allergies Home Medications Medication Instructions Recorded Confirmed Type Ibuprofen [Addaprin] 400 mg PO Q4-6HP PRN 08/18/19 09/28/19 History Octreotide Acetate 100 mcg SC TID #90 ampul 09/22/19 09/28/19 Rx Promethazine [Phenergan] 25 mg PO Q4HP PRN #100 tab MDD 4 09/22/19 09/28/19 Rx oxyCODONE/APAP [Percocet 5-325 mg] 1 tab PO Q4H PRN #60 tab 09/22/19 09/28/19 Rx Allergies Allergy/AdvReac Type Severity Reaction Status Date / Time Erythromycin Base Allergy Unknown Unknown Verified 09/28/19 09:41 Penicillins Allergy Unknown Unknown Verified 09/28/19 09:41 contact metal agent AdvReac Intermediate Other Verified 09/28/19 09:41 Exam Temp Pulse Resp BP Pulse Ox 97.3 F 110 H 18 103/75 100 09/28/19 14:33 09/28/19 14:33 09/28/19 14:33 09/28/19 14:00 09/28/19 14:33 Results - Labs 09/28/19 10:01 09/28/19 10:01 Abnormal lab results 09/28/19 09/28/19 09/28/19 Range/Units 10:01 10:01 10:01 RBC 5.67 H (3.59-5.38) M/mcL Hgb 16.1 H (11.2-15.7) g/dL Hct 46.3 H (34.1-44.9) % Plt Count 1011 H* (140-440) K/mcL Gran % 80.0 H (38.0-78.0) % Lymph % (Auto) 7.3 L (15.5-49.0) % Lymph # (Auto) 0.68 L (1.50-4.80) K/mcL VBG Lactic Acid 2.1 H (0.5-2.0) mmol/L Sodium 122 L (133-145) mmol/L Potassium 6.6 H* (3.3-5.1) mmol/L Chloride 76 L (96-108) mmol/L Anion Gap 23.0 H (8-16) BUN 109 H* (6-20) mg/dl Creatinine 3.1 H (0.6-1.1) mg/dl Glucose 136 H (70-105) mg/dL Calcium 11.6 H (8.6-10.4) mg/dl Total Protein 9.6 H (5.9-8.4) gm/dL Albumin 5.4 H (3.2-5.2) gm/dL Globulin 4.2 H (2.2-3.7) gm/dL Lipase 85 H (7-60) U/L Ur Oxycodone Screen (NONDETECTED) 09/28/19 Range/Units 13:07 RBC (3.59-5.38) M/mcL Hgb (11.2-15.7) g/dL Hct (34.1-44.9) % Plt Count (140-440) K/mcL Gran % (38.0-78.0) % Lymph % (Auto) (15.5-49.0) % Lymph # (Auto) (1.50-4.80) K/mcL VBG Lactic Acid (0.5-2.0) mmol/L Sodium (133-145) mmol/L Potassium (3.3-5.1) mmol/L Chloride (96-108) mmol/L Anion Gap (8-16) BUN (6-20) mg/dl Creatinine (0.6-1.1) mg/dl Glucose (70-105) mg/dL Calcium (8.6-10.4) mg/dl Total Protein (5.9-8.4) gm/dL Albumin (3.2-5.2) gm/dL Globulin (2.2-3.7) gm/dL Lipase (7-60) U/L Ur Oxycodone Screen Suspect positive A (NONDETECTED) Diabetes panel 09/28/19 Range/Units 10:01 Sodium 122 L (133-145) mmol/L Potassium 6.6 H* (3.3-5.1) mmol/L Chloride 76 L (96-108) mmol/L Carbon Dioxide 23 (22-30) mmol/L BUN 109 H* (6-20) mg/dl Creatinine 3.1 H (0.6-1.1) mg/dl Glucose 136 H (70-105) mg/dL Calcium 11.6 H (8.6-10.4) mg/dl AST 15 (0-37) U/l ALT 12 (0-40) U/l Alkaline Phosphatase 109 (39-117) U/L Total Protein 9.6 H (5.9-8.4) gm/dL Albumin 5.4 H (3.2-5.2) gm/dL Calcium panel 09/28/19 Range/Units 10:01 Calcium 11.6 H (8.6-10.4) mg/dl Albumin 5.4 H (3.2-5.2) gm/dL Pituitary panel 09/28/19 Range/Units 10:01 Sodium 122 L (133-145) mmol/L Potassium 6.6 H* (3.3-5.1) mmol/L Chloride 76 L (96-108) mmol/L Carbon Dioxide 23 (22-30) mmol/L BUN 109 H* (6-20) mg/dl Creatinine 3.1 H (0.6-1.1) mg/dl Glucose 136 H (70-105) mg/dL Calcium 11.6 H (8.6-10.4) mg/dl Adrenal panel 09/28/19 Range/Units 10:01 Sodium 122 L (133-145) mmol/L Potassium 6.6 H* (3.3-5.1) mmol/L Chloride 76 L (96-108) mmol/L Carbon Dioxide 23 (22-30) mmol/L BUN 109 H* (6-20) mg/dl Creatinine 3.1 H (0.6-1.1) mg/dl Glucose 136 H (70-105) mg/dL Calcium 11.6 H (8.6-10.4) mg/dl Total Bilirubin 0.3 (0.0-1.0) mg/dL AST 15 (0-37) U/l ALT 12 (0-40) U/l Alkaline Phosphatase 109 (39-117) U/L Total Protein 9.6 H (5.9-8.4) gm/dL Albumin 5.4 H (3.2-5.2) gm/dL All other labs normal.
--- NOTE | 2019-09-28 17:34 | Nephrology Consult Note ---
History of Present Illness - Reason for Consult Patient information: Note initiated : 09/28/19 at 5:32 pm Service Date, if different from initiated Date: [] Patient: Mojgan Mesa 43 y/o F admitted on 09/28/19 for abd pain and nausea. Chief Complaint: [] Consult date: 09/28/19 acute renal failure, hyponatremia, hyperkalemia Requesting physician: Horacio Morales - History of Present Illness I was asked to see this 43-year-old female who is being admitted for complications after presenting to the emergency room with nausea and abdominal pain. In the ER this was attributed to her Percocet medication but the ER physician was surprised to find acute renal failure with a serum creatinine in the 3's, hyperkalemia without acute EKG changes, and marked hyponatremia. When I was called I suggested a renal ultrasound to rule out any obstructive process given the history of intra-abdominal abscess formation, 2 prior surgeries etc., stopping any and all nonsteroidal anti-inflammatory medications, and begin aggressive IV hydration with normal saline at 250cvc/hr. She has had 2 prior surgeries at this institution, the first was an exploratory lap which revealed a number of intra-abdominal abscesses presumably from a leak and terminal ileum. This is followed later after she had developed small bowel obstruction and underwent lysis of adhesions, cecectomy and terminal ileum resection with creation of an ileostomy as outlined below. 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 Vital signs are as follows: Laboratory Tests 09/28/19 10:01 WBC 9.4 Hgb 16.1 H Hct 46.3 H MCV 81.7 Plt Count 1011 H* Gran % 80.0 H Lymph % (Auto) 7.3 L [place] % (Auto) 7.3 Eos % (Auto) 4.2 Baso % (Auto) 1.2 Laboratory Tests 09/28/19 10:01 Sodium 122 L Potassium 6.6 H* Chloride 76 L Carbon Dioxide 23 Anion Gap 23.0 H BUN 109 H* Creatinine 3.1 H GFR Calculation 17 Glucose 136 H Calcium 11.6 H Total Bilirubin 0.3 AST 15 ALT 12 Alkaline Phosphatase 109 Total Protein 9.6 H Albumin 5.4 H Globulin 4.2 H Albumin/Globulin Ratio 1.3 Lipase 85 H Laboratory Tests 09/28/19 13:08 Urine Osmolality 323 Ur Random Sodium 41 Ur Random Potassium 50.0 It seems likely to me that the problem is decreased ECF volume either from third space losses, GI losses, or decreased p.o. intake leading to renal hypoperfusion. This would be made much worse by concomitant nonsteroidal anti- inflammatory medication use which would interfere with the kidneys to maintain adequate glomerular blood flow in the setting of hypo-tension and hypovolemia. Nonsteroidals and acute renal failure would in turn lead to increased serum potassium levels as there is no marked acidosis present. Finally the hyponatremia would be from salt and water losses with replacement by hypotonic fluids in a situation where the ADH levels are near maximum to prevent further dehydration from renal volume loss. Cannot rule out adrenal insufficiency but I cannot imagine why this patient would develop it now but should check her cortisol level from blood drawn in the emergency room which should be elevated at that point as she is under a fair amount of hemodynamic stress. Finally a urine creatinine would help decide if this is more prerenal azotemia (if it is elevated), or she is made to conversion from prerenal azotemia to ATN in which case it may run and up to 2-week course after she has been adequately hydrated. Review of Systems All systems PM: reviewed and no additional remarkable complaints except as stated Past History Past medical history: Polysubstance abuse (THC, Methamphetamine, opiates Elevated LFTs Cholcecystitis Chronic constipation perforated viscus with intra-abdominal abscess No Hx of electrolyte abnormalities, renal failure, or IBD Past surgical history: Cholecystectomy bowel resection and creation of ileostomy lysis of adhesion Past family history: Pertinent family history: Denies any family history. Past social history: Social history: . Unemployed. Functional capacity: independent ambulation Smoking status: Current every day smoker Have you smoked in the last 12 months: Yes Drug use: other Alcohol use: none Medications and Allergies Home Medications Medication Instructions Recorded Confirmed Type Ibuprofen [Addaprin] 400 mg PO Q4-6HP PRN 08/18/19 09/28/19 History Octreotide Acetate 100 mcg SC TID #90 ampul 09/22/19 09/28/19 Rx Promethazine [Phenergan] 25 mg PO Q4HP PRN #100 tab MDD 4 09/22/19 09/28/19 Rx oxyCODONE/APAP [Percocet 5-325 mg] 1 tab PO Q4H PRN #60 tab 09/22/19 09/28/19 Rx Allergies Allergy/AdvReac Type Severity Reaction Status Date / Time Erythromycin Base Allergy Unknown Unknown Verified 09/28/19 09:41 Penicillins Allergy Unknown Unknown Verified 09/28/19 09:41 contact metal agent AdvReac Intermediate Other Verified 09/28/19 09:41 Exam - Vital Signs Vital signs: Temp Pulse Resp BP Pulse Ox 36.6 C 108 H 18 107/67 100 09/28/19 16:33 09/28/19 16:33 09/28/19 16:33 09/28/19 16:33 09/28/19 14:33 - General Appearance General appearance: cachectic, moderate distress, frail, anxious Exam Narrative: Watching the clock for next dose of hydrocodone EENT: ATNC (Terrible dentition c/w prior methamphetamine abuse), PERRL, mucous membranes dry, hearing intact, vision intact Respiratory: no kyphosis, no scoliosis, clear Cardiology: no murmurs, no rub, no gallops, no edema, regular rate, regular rhythm, normal S1, split S1 Gastrointestinal: hypoactive bowel sounds, no tenderness, no guarding (Ileostomy present (+) stool), no organomegaly, no masses Integumentary: no rash, warm and dry Neurologic: no focal deficit, no asterixis, asterixis, CN 3-12 intact Musculoskeletal: no deformities (Muscle wasting), no erythema, no cyanosis, no clubbing Psychiatric: cooperative (Clock watching behavior and requesting hydrocodone) Results - Lab Results 09/28/19 10:01 09/28/19 19:09 Most recent lab results Calcium 11.6 mg/dl (8.6-10.4) H 09/28/19 10:01 Assessment and Plan (1) Acute renal failure 1. Stop NSAIDs 2. Hydrate 3. Anticipate improvement in GFR in <72 hours Status: Acute Priority: High Qualifiers: Acute renal failure type: unspecified Qualified Code(s): N17.9 - Acute kidney failure, unspecified (2) Hyperkalemia 1. No acidosis so combo of NSAIDs, ARF and intracellular shifts with hyponatremia 2. Will correct jovanni correction of ARF and stopping NSAIDs 3. Sderial labs Status: Acute Priority: High (3) Hyponatremia 1, Serial labs 2. NS at fierst, now change to D51/2NS to slow the rate of correction 3. Frequent labs Status: Acute Priority: High - Narrative A/P Narrative: It seems likely to me that the problem is decreased ECF volume either from third space losses, GI losses, or decreased p.o. intake leading to renal hypop erfusion. This would be made much worse by concomitant nonsteroidal anti- inflammatory medication use which would interfere with the kidneys to maintain adequate glomerular blood flow in the setting of hypo-tension and hypovolemia. Nonsteroidals and acute renal failure would in turn lead to increased serum potassium levels as there is no marked acidosis present. Finally the hyponatremia would be from salt and water losses with replacement by hypotonic fluids in a situation where the ADH levels are near maximum to prevent further dehydration from renal volume loss. Cannot rule out adrenal insufficiency but I cannot imagine why this patient would develop it now but should check her cortisol level from blood drawn in the emergency room which should be elevated at that point as she is under a fair amount of hemodynamic stress.
[2019-09-28 19:37] LABS: Thyroid Stimulating Hormone 4.76 uIU/ml (0.27-5.01)
[2019-09-28 20:28] LABS: Calcium 10.5 mg/dl (8.6-10.4); Carbon Dioxide 23 mmol/L (22-30); Glucose 123 mg/dL (70-105)
[2019-09-28 20:29] LABS: Blood Urea Nitrogen 90 mg/dl (6-20); Chloride 89 mmol/L (96-108); Glomerular Filtration Rate 34
[2019-09-28] MEDS ORDERED: ACETAMINOPHEN 650 MG/65 ML BOTTLE IV PRN (20:40)
[2019-09-28] MEDS ORDERED: ACETAMINOPHEN 1,000 MG/100 ML BOTTLE IV ONE (20:44)
[2019-09-28] MEDS ORDERED: OCTREOTIDE ACETATE 1,000 MCG/ML VIAL SQ SCH (21:00)
[2019-09-28] MEDS: OCTREOTIDE ACETATE 100 MCG/ML VIAL SQ SCH (21:50)
[2019-09-28] MEDS: ZOLPIDEM 5 MG TABLET PO PRN (21:50)
[2019-09-28] MEDS: SENNOSIDES/DOCUSATE SODIUM 1 TAB TABLET PO SCH (21:50)
[2019-09-28] MEDS: HEPARIN 5,000 UNIT/ML VIAL SQ SCH (21:50)
[2019-09-28] MEDS ORDERED: HYDROmorphone 0.5 MG/0.5 ML SYRINGE IV PRN ×2 (22:21→22:24)
[2019-09-28] MEDS: ACETAMINOPHEN 650 MG/65 ML BOTTLE IV SCH (22:39)
[2019-09-28] MEDS: DEXTROSE 5%-1/2NS 1,000 ML IV SCH (22:58)
[2019-09-29] MEDS: traMADol 50 MG TABLET PO PRN ×3 (01:09→17:28)
[2019-09-29] MEDS ORDERED: traMADol 50 MG TABLET PO ONE (01:10)
[2019-09-29] MEDS ORDERED: ACETAMINOPHEN 1,000 MG/100 ML BOTTLE IV ONE (05:10)
[2019-09-29] MEDS: ACETAMINOPHEN 650 MG/65 ML BOTTLE IV SCH ×3 (05:45→22:04)
[2019-09-29] MEDS: 0.9 % SODIUM CHLORIDE 10 ML SYRINGE IV SCH ×3 (05:56→20:49)
[2019-09-29 07:01] LABS: Hematocrit 35.3 % (34.1-44.9); Hemoglobin 11.3 g/dL (11.2-15.7); Mean Cell Volume 86.7 fL (80.0-100.0); Mean Platelet Volume 10.6 fL (7.4-10.4); Platelet Count 730 K/mcL (140-440); RBC 4.07 M/mcL (3.59-5.38); Red Cell Distribution Width 15.1 % (11.5-14.5); WBC 4.1 K/mcL (4.50-11.00)
[2019-09-29 08:11] LABS: ALT/SGPT 9 U/l (0-40); AST/SGOT 12 U/l (0-37); Albumin 3.8 gm/dL (3.2-5.2); Albumin/Globulin Ratio 1.4 (1.0-2.3); Alkaline Phosphatase 74 U/L (39-117); Bilirubin,Direct < 0.2 mg/dL (0.0-0.3); Bilirubin,Total 0.2 mg/dL (0.0-1.0); Blood Urea Nitrogen 80 mg/dl (6-20); Calcium 9.5 mg/dl (8.6-10.4); Carbon Dioxide 21 mmol/L (22-30); Chloride 88 mmol/L (96-108); Globulin 2.8 gm/dL (2.2-3.7); Glomerular Filtration Rate 39; Glucose 122 mg/dL (70-105); Lactate Dehydrogenase 88 U/L (94-250); Phosphorous 6.3 mg/dL (2.7-4.5); Triglycerides 261 mg/dl (<150); Uric Acid 11.8 mg/dL (2.5-8.0)
[2019-09-29 08:16] LABS: Eosinophils % (Manual) 13 % (0-7); Lymphocytes % 10 % (15-49); Monocytes % (Manual) 18 % (1-12); Platelet Estimate MK INCR (NORMAL); RBC Morphology NORMAL (NORMAL); Segmented Neutrophils % 59 % (38-78)
[2019-09-29] MEDS: HEPARIN 5,000 UNIT/ML VIAL SQ SCH ×2 (09:19→20:49)
[2019-09-29] MEDS: OCTREOTIDE ACETATE 100 MCG/ML VIAL SQ SCH ×3 (09:19→20:49)
--- NOTE | 2019-09-29 09:47 | Internal Med Progress Note ---
Medical - PN: Subj Patient information: Note initiated : 09/29/19 at 9:45 am Service Date, if different from initiated Date: [] Patient: Mojgan Mesa a 43 y/o F admitted on 09/28/19 for abd pain and nausea. Chief Complaint: [] Interval history: Ms. Mesa is a 43 year old F who was discharged on September 21 after a prolonged hospitalization for over a month secondary to extensive intra-abdominal abscess following ileal perforation. Patient underwent multiple surgeries. She was discharged in stable state after resumption of oral nutrition and ileostomy care. She now presents with worsening nausea vomiting that has evolved over the last couple of days along with associated abdominal pain. Per patient her symptoms are likely secondary to Percocet. She was evaluated in the ER initial work-up was consistent with hyperkalemia potassium at 6.6. Subsequently nephrology was consulted and patient was started on hyperkalemia protocol. Patient BUN was 109 with creatinine 3.1 along with significant volume depletion. She was started on crystalloids. Surgery was consulted and hospitalist service was requested for admission in light of renal failure. CT abdomen was ordered 09/28-patient was tearful and complaining of back and abdominal pain. Started on GI soft diet as per surgery recommendations. Improved platelets down from 1000-> 730. Sodium improved from 1 22-1 27 with potassium improving from 6.6- 4.4 creatinine down from 3.1-1.6. Continue aggressive crystalloids. Pain management on as needed opioids. - Constitutional Vitals: Vital Signs Temp Pulse Resp BP Pulse Ox 97.8 F 85 16 106/74 98 09/29/19 08:00 09/29/19 08:00 09/29/19 08:00 09/29/19 08:00 09/29/19 05:56 Period Temp Pulse Resp BP Sys/Christiansen Pulse Ox Last 24 Hr 97.3 F-99.2 F 72-124 12-25 92-126/61-82 80-100 Intake and Output 09/28/19 09/29/19 09/29/19 21:59 05:59 13:59 Intake Total 2065 797 65 Output Total 1180 700 750 Balance 885 97 -685 Weight 94 lb 12.8 oz Intake & Output: Intake & Output 09/28/19 09/29/19 09/29/19 21:59 05:59 13:59 Intake Total 2064 797 65 Output Total 1180 700 750 Balance 885 97 -685 Weight 94 lb 12.8 oz Intake: IV 2064 797 65 Sodium Chloride 0.9% 1,000 ml @ 1999 797 100 mls/hr IV .Q10H [facility] Rx#: [id number] Output: Void Amount 270 400 550 Stool 910 300 200 Other: Urine Appearance Clear Clear Clear Urine Color Bright Yellow Bright Yellow Urine Odor Normal Stool Size Copious Stool Color Green Green Stool Consistency Watery Liquid General appearance: thin Exam: Significant muscle wasting Anxious and tearful nondistended abdomen, ileostomy bag in place Nonlabored breathing Medical - PN: Obj Da - Labs CBC & Chem 7: 09/29/19 05:00 09/29/19 05:00 Labs: Abnormal Lab Results 09/29/19 09/29/19 09/28/19 05:00 05:00 19:09 WBC 4.1 L RBC Hgb Hct RDW 15.1 H Plt Count 730 H MPV 10.6 H Gran % Lymph % (Auto) Lymph # (Auto) Lymphocytes % 10 L Monocytes % (Manual) 18 H Eosinophils % (Manual) 13 H Platelet Estimate Mk incr A VBG Lactic Acid Sodium 127 L 131 L Potassium Chloride 88 L 89 L Carbon Dioxide 21 L Anion Gap 18.0 H 19.0 H BUN 80 H 90 H Creatinine 1.6 H 1.8 H Glucose 122 H 123 H Uric Acid 11.8 H Calcium 10.5 H Phosphorus 6.3 H* GGT 47 H Lactate Dehydrogenase 88 L Total Protein Albumin Globulin Triglycerides 261 H Lipase Ur Oxycodone Screen 09/28/19 09/28/19 09/28/19 13:07 10:01 10:01 WBC RBC Hgb Hct RDW Plt Count MPV Gran % Lymph % (Auto) Lymph # (Auto) Lymphocytes % Monocytes % (Manual) Eosinophils % (Manual) Platelet Estimate VBG Lactic Acid 2.1 H Sodium 122 L Potassium 6.6 H* Chloride 76 L Carbon Dioxide Anion Gap 23.0 H BUN 109 H* Creatinine 3.1 H Glucose 136 H Uric Acid Calcium 11.6 H Phosphorus GGT Lactate Dehydrogenase Total Protein 9.6 H Albumin 5.4 H Globulin 4.2 H Triglycerides Lipase 85 H Ur Oxycodone Screen Suspect positive A 09/28/19 10:01 WBC RBC 5.67 H Hgb 16.1 H Hct 46.3 H RDW Plt Count 1011 H* MPV Gran % 80.0 H Lymph % (Auto) 7.3 L Lymph # (Auto) 0.68 L Lymphocytes % Monocytes % (Manual) Eosinophils % (Manual) Platelet Estimate VBG Lactic Acid Sodium Potassium Chloride Carbon Dioxide Anion Gap BUN Creatinine Glucose Uric Acid Calcium Phosphorus GGT Lactate Dehydrogenase Total Protein Albumin Globulin Triglycerides Lipase Ur Oxycodone Screen Meds: Medications Acetaminophen (Tylenol) 650 mg PO Q4-6HP PRN; Protocol PRN Reason: Per Pain Protocol/Fever > 101 Last Admin: 09/29/19 01:09 Dose: 650 mg Documented by: Heparin Sodium (Porcine) (Heparin) 5,000 unit SQ Q12 [facility] Last Admin: 09/29/19 09:19 Dose: 5,000 unit Documented by: Hydromorphone HCl (Dilaudid) 0.25 mg IV Q4HP PRN; Protocol PRN Reason: Per Pain Protocol Dextrose/Sodium Chloride (Dextrose 5%-1/2ns Iv Solution) 1,000 mls @ 84 mls/hr IV .[id number] [facility] Stop: 09/29/19 22:03 Last Admin: 09/28/19 22:58 Dose: 84 mls/hr Documented by: Acetaminophen (Ofirmev) 650 mg in 65 mls @ 130 mls/hr IV Q8 [facility]; Protocol Last Infusion: 09/29/19 06:30 Dose: Infused Documented by: Octreotide Acetate (Sandostatin) 100 mcg SQ TID [facility] Last Admin: 09/29/19 09:19 Dose: 100 mcg Documented by: Ondansetron HCl (Zofran Odt) 4 mg SL Q4-6HP PRN; Protocol PRN Reason: Nausea And Vomiting Last Admin: 09/29/19 09:20 Dose: 4 mg Documented by: Ondansetron HCl (Zofran) 4 mg IV Q4-6HP PRN; Protocol PRN Reason: Nausea And Vomiting Polyethylene Glycol (Miralax) 17 gm PO DAILYP PRN PRN Reason: Constipation Senna/Docusate Sodium (Senna Plus Tablet) 1 tab PO HS [facility] Last Admin: 09/28/19 21:50 Dose: Not Given Documented by: Sodium Chloride (Saline Flush) 10 ml IV Q8 [facility] Last Admin: 09/29/19 05:56 Dose: 10 ml Documented by: Tramadol HCl (Ultram) 50 mg PO Q8HP PRN PRN Reason: Pain Last Admin: 09/29/19 09:19 Dose: 50 mg Documented by: Zolpidem Tartrate (Ambien) 5 mg PO HSP PRN PRN Reason: Insomnia Last Admin: 09/28/19 21:50 Dose: 5 mg Documented by: Medical - PN: A/P - Time Spent With Patient Total time spent is greater than 50% in coordination of care (as documented) at patient's floor/unit and/or counseling patient: 25 - 35 minutes (1) Acute renal failure Status: Acute Assessment and plan: * Acute renal failure-improved with crystalloids creatinine down from 3.1-1.6 * Hyperkalemia down from 6.6-4.4 * Abdominal pain nausea vomiting. Much improved. Now on GI soft oral diet/opioids * Back pain, patient endorses history of fall recently. X-ray thoracic lumbar spine * Thrombocytosis likely reactive. Downtrending * Hypovolemic hyponatremia-sodium 127 improving. * History of amphetamine use. Urine drug screen negative * Full code * Prophylax Heparin Plan * Renal failure management per nephrology * X-ray thoracic lumbar spine * Pain management * Resume oral diet * Aggressive crystalloids * Await abdominal imaging Current Visit: Yes Medical - PN: Qual - VTE Deep Vein Thrombosis/Pulmonary Embolism Present on Admission: No
--- NOTE | 2019-09-29 11:14 | XRay Report ---
CLINICAL INFORMATION: back pain COMPARISON: None. FINDINGS: Thoracic spine is normal in curvature alignment disc height. No osseous abnormalities. Soft tissues normal. IMPRESSION: Normal Interpreted and Authenticated by: Iván Espinoza 09/29/19
[2019-09-29] MEDS: DEXTROSE 5%-1/2NS 1,000 ML IV SCH (13:10)
--- NOTE | 2019-09-29 15:15 | General Surgery Progress Note ---
Subjective Patient reports: feels better, pain is less, tolerating a regular diet, flatus, bowel movement, afebrile Narrative: Note initiated : 09/29/19 at 3:13 pm Service Date, if different from initiated Date: [] Patient: Mojgan Mesa 43 y/o F admitted on 09/28/19 for abd pain and nausea. Chief Complaint: [Patient is feeling significantly better. Her nausea and vomiting has resolved. She has much less abdominal pain. Her stoma fluid is thicker still large volumes . Blood count 4.1 hemoglobin 11.3 hematocrit 30 5.. BUN 80 creatinine 1.6 phosphorus 6.3] Objective Temp Pulse Resp BP Pulse Ox 97.2 F 72 16 113/65 100 09/29/19 14:00 09/29/19 14:00 09/29/19 14:00 09/29/19 14:00 09/29/19 14:00 - Additional Data Intake & Output - Last 24 hours: Intake & Output 09/27/19 09/28/19 09/29/19 09/30/19 05:59 05:59 05:59 05:59 Intake Total 3862 1305 Output Total 1880 1200 Balance 1982 105 Weight 94 lb 12.8 oz 94 lb 12.8 oz - General physical appearance well developed, well nourished, no distress, cachectic, chronically ill - Eyes PERRL, normal ocular movement - ENT normal pinna, normal nares, normal mucosa, no hearing loss, no congestion - Neck no masses, no bruits, trachea midline, no lymphadenopathy, no venous distension - Respiratory normal expansion, normal respiratory effort, clear to auscultation - Cardiovascular Cardiovascular exam: Present: normal rate and rhythm. Absent: RRR, tachycardia - Abdomen soft, non tender, bowel sounds (with active bowel sounds), distended (. No distention) - Integumentary no rash, no growths, no abnormal pigmentation - Neurologic normal coordination, normal sensation - Musculoskeletal normal gait, normal posture - Psychiatric oriented to time, oriented to person, oriented to place, speech is normal, memory intact - Labs 09/29/19 05:00 09/29/19 05:00 Diabetes panel 09/28/19 09/29/19 Range/Units 19:09 05:00 Sodium 131 L 127 L (133-145) mmol/L Potassium 5.1 4.4 (3.3-5.1) mmol/L Chloride 89 L 88 L (96-108) mmol/L Carbon Dioxide 23 21 L (22-30) mmol/L BUN 90 H 80 H (6-20) mg/dl Creatinine 1.8 H 1.6 H (0.6-1.1) mg/dl Glucose 123 H 122 H (70-105) mg/dL Calcium 10.5 H 9.5 (8.6-10.4) mg/dl AST 12 (0-37) U/l ALT 9 (0-40) U/l Alkaline Phosphatase 74 (39-117) U/L Total Protein 6.6 (5.9-8.4) gm/dL Albumin 3.8 (3.2-5.2) gm/dL Triglycerides 261 H (<150) mg/dl Thyroid panel 09/28/19 Range/Units 10:01 TSH 4.76 (0.27-5.01) uIU/ml Calcium panel 09/28/19 09/29/19 Range/Units 19:09 05:00 Calcium 10.5 H 9.5 (8.6-10.4) mg/dl Phosphorus 6.3 H* (2.7-4.5) mg/dL Albumin 3.8 (3.2-5.2) gm/dL Pituitary panel 09/28/19 09/28/19 09/29/19 Range/Units 10:01 19:09 05:00 Sodium 131 L 127 L (133-145) mmol/L Potassium 5.1 4.4 (3.3-5.1) mmol/L Chloride 89 L 88 L (96-108) mmol/L Carbon Dioxide 23 21 L (22-30) mmol/L BUN 90 H 80 H (6-20) mg/dl Creatinine 1.8 H 1.6 H (0.6-1.1) mg/dl Glucose 123 H 122 H (70-105) mg/dL Calcium 10.5 H 9.5 (8.6-10.4) mg/dl TSH 4.76 (0.27-5.01) uIU/ml Adrenal panel 09/28/19 09/29/19 Range/Units 19:09 05:00 Sodium 131 L 127 L (133-145) mmol/L Potassium 5.1 4.4 (3.3-5.1) mmol/L Chloride 89 L 88 L (96-108) mmol/L Carbon Dioxide 23 21 L (22-30) mmol/L BUN 90 H 80 H (6-20) mg/dl Creatinine 1.8 H 1.6 H (0.6-1.1) mg/dl Glucose 123 H 122 H (70-105) mg/dL Calcium 10.5 H 9.5 (8.6-10.4) mg/dl Total Bilirubin 0.2 (0.0-1.0) mg/dL AST 12 (0-37) U/l ALT 9 (0-40) U/l Alkaline Phosphatase 74 (39-117) U/L Total Protein 6.6 (5.9-8.4) gm/dL Albumin 3.8 (3.2-5.2) gm/dL Assessment and Plan (1) Sepsis Status: Resolved Current Visit: No (2) Surgical wound present Status: Acute Current Visit: No (3) Short gut syndrome Status: Acute Current Visit: No (4) Drug-induced nausea and vomiting Status: Acute Current Visit: Yes (5) Acute renal failure Status: Acute Current Visit: Yes - Time Spent With Patient Total time spent is greater than 50% in coordination of care (as documented) at patient's floor/unit and/or counseling patient:
--- NOTE | 2019-09-29 18:35 | Nephrology Progress Note ---
Subjective Patient information: Note initiated : 09/29/19 at 6:23 pm Service Date, if different from initiated Date: [] Patient: Mojgan Mesa 43 y/o F admitted on 09/28/19 for abd pain and nausea. Chief Complaint: [] Principal diagnosis: ARF, dehydration, hyperkalemia, hyponatremia Interval history: Seen an examined on evening rounds. Switched IVF to prevent rapid correction of hyponatremia...safe to resume NS Impressive uric acid and Phosphous levels - speaks to degree of ECF volume contraction Her root cause of current issues seems to be substance abuse, in particular nasrcotics with decreased GI motility => constipation => GI bowel leakage => abscess/peritonitis/fistula formation => then dehydration/NSAIDs => ARF/ Hyperkalemia/Hyponatremia/hyperuricemia/ hyperphosphatemia. She is horribly emaciated and cachectic from methamphetamine use, polysubstance abuse, etc. Stogly recommend minimal or no narcotics now and in the fature. No NSAIDs or LLOYD II inhibitors until she is "healthy" and hydrated. I favor [facility] if society every resumes ([facility]). Pertinent ROS: N/A Additional PMFSH (Level 3 Only): Nothing new Objective - Vital Signs Vital signs: Vital Signs Temp Pulse Resp BP Pulse Ox 09/29/19 17:43 36.8 C 20 109/68 98 09/29/19 16:00 37.1 C 16 110/73 100 09/29/19 14:00 36.2 C 72 16 113/65 100 09/29/19 12:00 36.6 C 94 H 16 111/69 100 09/29/19 10:00 36.3 C 86 16 112/70 97 09/29/19 08:00 36.6 C 85 16 106/74 09/29/19 05:56 36.9 C 86 16 114/71 98 09/29/19 04:00 36.8 C 88 16 112/71 98 09/29/19 02:00 36.9 C 84 16 118/72 98 09/29/19 00:00 37.1 C 88 18 113/72 99 09/28/19 22:00 36.6 C 93 H 20 110/69 97 09/28/19 20:00 37.3 C H 91 H 18 123/79 99 Intake and Output 09/29/19 09/29/19 09/29/19 05:59 13:59 21:59 Intake Total 797 1305 545 Output Total 700 1200 1400 Balance 97 105 -855 Intake: IV 797 1065 65 Sodium Chloride 0.9% 1,000 ml @ 797 100 mls/hr IV .Q10H KEEGAN Rx#: [id number] Dextrose 5%-1/2Ns IV Solution 1 1000 ,000 ml @ 84 mls/hr IV .[id number] KEEGAN Rx#:[id number] Oral 240 480 Output: Void Amount 400 650 875 Stool 300 550 525 Other: Meal Lunch Dinner Percent of Meal Consumed 25% 50% Feeding Ability Independent Urine Appearance Clear Clear Clear Urine Color Bright Yellow Pale Pale Urine Odor Normal Stool Color Green Rufino Colored Stool Consistency Liquid Liquid Weight 43.001 kg Patient Weight 09/30/19 05:59 Weight 43.001 kg Intake & Output: Intake & Output 09/29/19 09/29/19 09/29/19 05:59 13:59 21:59 Intake Total 797 1305 545 Output Total 700 1200 1400 Balance 97 105 -855 Weight 43.001 kg Intake: IV 797 1065 65 Sodium Chloride 0.9% 1,000 ml @ 797 100 mls/hr IV .Q10H KEEGAN Rx#: [id number] Dextrose 5%-1/2Ns IV Solution 1 1000 ,000 ml @ 84 mls/hr IV .[id number] KEEGAN Rx#:[id number] Oral 240 480 Output: Void Amount 400 650 875 Stool 300 550 525 Other: Meal Lunch Dinner Percent of Meal Consumed 25% 50% Feeding Ability Independent Urine Appearance Clear Clear Clear Urine Color Bright Yellow Pale Pale Urine Odor Normal Stool Color Green Rufino Colored Stool Consistency Liquid Liquid - General Appearance General appearance: cachectic, chronically ill EENT: ATNC, PERRL, mucous membranes moist Neck: no JVD, no thyromegaly, no carotid bruit Respiratory: no kyphosis Cardiology: no murmurs, no rub, no gallops, no edema, regular rhythm Gastrointestinal: normoactive bowel sounds, no guarding (ileostomy present), no masses Integumentary: no rash, warm and dry Neurologic: no focal deficit, no asterixis, alert and oriented x3 Musculoskeletal: no deformities Psychiatric: mood/affect appropriate - Lab 09/29/19 05:00 09/29/19 05:00 Most recent lab results Calcium 9.5 mg/dl (8.6-10.4) 09/29/19 05:00 Phosphorus 6.3 mg/dL (2.7-4.5) H* 09/29/19 05:00 Magnesium 2.0 mg/dL (1.6-2.5) 09/29/19 05:00 Assessment and Plan (1) Acute renal failure Status: Acute Priority: High Qualifiers: Acute renal failure type: unspecified Qualified Code(s): N17.9 - Acute kidney failure, unspecified (2) Hyperkalemia Status: Acute Priority: High (3) Hyponatremia Status: Acute Priority: High - Narrative A/P Narrative: It seems likely to me that the problem is decreased ECF volume either from third space losses, GI losses, or decreased p.o. intake leading to renal hypoperfusion. This would be made much worse by concomitant nonsteroidal anti- inflammatory medication use which would interfere with the kidneys to maintain adequate glomerular blood flow in the setting of hypo-tension and hypovolemia. Nonsteroidals and acute renal failure would in turn lead to increased serum potassium levels as there is no marked acidosis present. Finally the hyponatremia would be from salt and water losses with replacement by hypotonic fluids in a situation where the ADH levels are near maximum to prevent further dehydration from renal volume loss. Adrenal insufficiency has been ruled out. Change IVF to D5NS so that glucose load will help lower phosphate nove intracellularly
[2019-09-29] MEDS: DEXTROSE 5%-NS 1,000 ML IV SCH (18:51)
[2019-09-29] MEDS: ZOLPIDEM 5 MG TABLET PO PRN (20:06)
[2019-09-29] MEDS: SENNOSIDES/DOCUSATE SODIUM 1 TAB TABLET PO SCH (20:39)
[2019-09-30] MEDS: traMADol 50 MG TABLET PO PRN ×2 (01:04→09:11)
[2019-09-30] MEDS: DEXTROSE 5%-NS 1,000 ML IV SCH (03:05)
[2019-09-30] MEDS: ACETAMINOPHEN 650 MG/65 ML BOTTLE IV SCH (05:51)
[2019-09-30] MEDS: 0.9 % SODIUM CHLORIDE 10 ML SYRINGE IV SCH (05:51)
[2019-09-30 06:26] LABS: Hematocrit 33.1 % (34.1-44.9); Hemoglobin 10.8 g/dL (11.2-15.7); Mean Cell Volume 87.1 fL (80.0-100.0); Mean Corpuscular HGB Conc 32.6 g/dL (31.0-36.0); Mean Platelet Volume 10.5 fL (7.4-10.4); Platelet Count 716 K/mcL (140-440); Red Cell Distribution Width 14.6 % (11.5-14.5); WBC 3.4 K/mcL (4.50-11.00)
[2019-09-30 07:00] LABS: ALT/SGPT 8 U/l (0-40); AST/SGOT 12 U/l (0-37); Albumin 3.9 gm/dL (3.2-5.2); Albumin/Globulin Ratio 1.5 (1.0-2.3); Alkaline Phosphatase 71 U/L (39-117); Bilirubin,Direct < 0.2 mg/dL (0.0-0.3); Bilirubin,Total < 0.2 mg/dL (0.0-1.0); Calcium 9.4 mg/dl (8.6-10.4); Carbon Dioxide 24 mmol/L (22-30); Globulin 2.6 gm/dL (2.2-3.7); Glucose 108 mg/dL (70-105); Lactate Dehydrogenase 102 U/L (94-250); Triglycerides 197 mg/dl (<150)
[2019-09-30 07:14] LABS: Blood Urea Nitrogen 34 mg/dl (6-20); Chloride 101 mmol/L (96-108); Glomerular Filtration Rate 111; Phosphorous 1.9 mg/dL (2.7-4.5); Uric Acid 8.2 mg/dL (2.5-8.0)
[2019-09-30 08:41] LABS: Eosinophils % (Manual) 6 % (0-7); Lymphocytes % 14 % (15-49); Monocytes % (Manual) 10 % (1-12); Platelet Estimate MK INCR (NORMAL); RBC Morphology NORMAL (NORMAL); Segmented Neutrophils % 70 % (38-78)
[2019-09-30] MEDS: OCTREOTIDE ACETATE 100 MCG/ML VIAL SQ SCH (09:11)
[2019-09-30] MEDS: HEPARIN 5,000 UNIT/ML VIAL SQ SCH (09:12)
--- NOTE | 2019-09-30 10:46 | Discharge Summary ---
Medical - DS: Prov Patient information: Note initiated : 09/30/19 at 10:43 am Service Date, if different from initiated Date: [] Patient: Mojgan Mesa 43 y/o F admitted on 09/28/19 for abd pain and nausea. Chief Complaint: [] Date of admission: 09/28/19 14:20 Discharge date: 09/30/19 Primary care physician: Rahul Gamez MD Consults: 09/28/19 Consult to Physician [CONS] Stat Comment: Consulting Provider: Horacio Morales Reason For Exam: Physician to Consult Consult to Physician [CONS] Stat Comment: Consulting Provider: Andreas Ledesma Reason For Exam: Physician to Consult 09/28/19 11:56 Consult to Physician [CONS] Stat Comment: Consulting Provider: Rahul Gamez Reason For Exam: Physician to Consult Medical - DS: Meds - Discharge Medications Prescriptions: Sennosides/Docusate Sodium [Senna Plus Tablet] 1 tab PO HS #30 tab Prescription Printed Acetaminophen [Tylenol] 650 mg PO Q4-6HP PRN #30 tab PRN Reason: Per Pain Protocol/Fever > 101 Prescription Printed traMADol [Ultram] 50 mg PO Q8HP PRN #30 tab PRN Reason: Pain Prescription Printed Active and Home Medications: Home Medications Ibuprofen [Addaprin] 400 mg PO Q4-6HP PRN 08/18/19 [History Confirmed 09/28/19 Last Taken 08/18/19 08:00] Octreotide Acetate 100 mcg SC TID #90 ampul 09/22/19 [Rx Confirmed 09/28/19 Last Taken Unknown] Promethazine [Phenergan] 25 mg PO Q4HP PRN #100 tab MDD 4 09/22/19 [Rx Confirmed 09/28/19 Last Taken Unknown] Acetaminophen [Tylenol] 650 mg PO Q4-6HP PRN #30 tab 09/30/19 [Rx Last Taken Unknown] Sennosides/Docusate Sodium [Senna Plus Tablet] 1 tab PO HS #30 tab 09/30/19 [Rx Last Taken Unknown] traMADol [Ultram] 50 mg PO Q8HP PRN #30 tab 09/30/19 [Rx Last Taken Unknown] Medical - DS: Hosp Hospital Course: Discharge diagnosis * Acute renal failure-improved with crystalloids creatinine down from 2.1-0.6. Tolerating diet. Feels at baseline. * Hyperkalemia resolved * Abdominal pain nausea vomiting. resolved and tolerating soft diet. Feels at baseline and requesting discharge * Back pain, resolved. X-ray thoracic lumbar spine no evidence of fracture. * Thrombocytosis likely reactive. Resolved * Hypovolemic hyponatremia- resolved sodium at 136 * History of amphetamine use. Patient has been abstinent. Brief hospital course Ms. Mesa is a 43 year old F who was discharged on September 21 after a prolonged hospitalization for over a month secondary to extensive intra-abdominal abscess following ileal perforation. Patient underwent multiple surgeries. She was discharged in stable state after resumption of oral nutrition and ileostomy care. She now presents with worsening nausea vomiting that has evolved over the last couple of days along with associated abdominal pain. Per patient her symptoms are likely secondary to Percocet. She was evaluated in the ER initial work-up was consistent with hyperkalemia potassium at 6.6. Subsequently nephrology was consulted and patient was started on hyperkalemia protocol. Patient BUN was 109 with creatinine 3.1 along with significant volume depletion. She was started on crystalloids. Surgery was consulted and hospitalist service was requested for admission in light of renal failure. CT abdomen was ordered 09/28-patient was tearful and complaining of back and abdominal pain. Started on GI soft diet as per surgery recommendations. Improved platelets down from 1000- > 730. Sodium improved from 1 22-1 27 with potassium improving from 6.6-4.4 creatinine down from 3.1-1.6. Continue aggressive crystalloids. Pain management on as needed opioids. 09/29-clinically improved. Tolerating diet. Ambulating. Nausea vomiting resolved. Pain good control. Renal failure resolved with creatinine down to baseline 1.6. Electrolytes normalized. Requesting discharge. Follow-up primary care physician and surgery as outpatient Discharge diagnosis: . - Time Spent with Patient Total time spent providing and/or coordinating discharge services: Greater than 30 minutes Medical - DS: Exam - Constitutional Vitals: Vital Signs Temp Pulse Resp BP Pulse Ox 09/30/19 08:00 100 09/30/19 07:57 97.9 F 72 18 118/73 100 09/30/19 06:00 74 09/30/19 04:00 96.6 F L 85 18 122/81 99 09/30/19 02:00 68 16 108/68 98 09/29/19 23:47 97.3 F 88 16 114/80 94 09/29/19 19:03 98.6 F 73 18 109/76 100 09/29/19 17:43 98.2 F 20 109/68 98 09/29/19 16:00 98.8 F 16 110/73 100 09/29/19 14:00 97.2 F 72 16 113/65 100 09/29/19 12:00 97.8 F 94 H 16 111/69 100 Intake and Output 09/29/19 09/30/19 09/30/19 21:59 05:59 13:59 Intake Total 1422 1645 305 Output Total 1950 1150 550 Balance -528 495 -245 Intake: IV 542 1065 65 Dextrose 5%-1/2Ns IV Solution 1 477 ,000 ml @ 84 mls/hr IV .[id number] KEEGAN Rx#:[id number] Dextrose 5%-Ns IV Solution 1, 1000 000 ml @ 125 mls/hr IV .Q8H KEEGAN Rx#:[id number] Oral 880 580 240 Output: Void Amount 1075 775 350 Stool 875 375 200 Other: Meal Dinner Breakfast Percent of Meal Consumed 50% 75% Feeding Ability Independent Independent Urine Appearance Clear Clear Clear Urine Color Bright Yellow Bright Yellow Pale Urine Odor Normal Normal Normal Stool Size Moderate Copious Stool Color Rufino Colored Rufino Colored Brown Stool Consistency Liquid Liquid Loose Weight 94 lb 6.4 oz Medical - DS: Data Labs on day of discharge: Labs from last 24 hours 09/30/19 09/30/19 05:00 05:00 WBC 3.4 L RBC 3.80 Hgb 10.8 L Hct 33.1 L MCV 87.1 MCH 28.4 MCHC 32.6 RDW 14.6 H Plt Count 716 H MPV 10.5 H Total Counted 100 Seg Neutrophils % 70 Band Neutrophils % Not Reportable Lymphocytes % 14 L Monocytes % (Manual) 10 Eosinophils % (Manual) 6 Platelet Estimate Mk incr A RBC Morphology Normal Sodium 136 Potassium 4.2 Chloride 101 Carbon Dioxide 24 Anion Gap 11.0 BUN 34 H Creatinine 0.6 GFR Calculation 111 Glucose 108 H Uric Acid 8.2 H Calcium 9.4 Phosphorus 1.9 L Magnesium 1.7 Total Bilirubin < 0.2 Direct Bilirubin < 0.2 GGT 39 H AST 12 ALT 8 Alkaline Phosphatase 71 Lactate Dehydrogenase 102 Total Protein 6.5 Albumin 3.9 Globulin 2.6 Albumin/Globulin Ratio 1.5 Triglycerides 197 H Preliminary micro results at discharge 09/28/19 10:43 Wound Culture - Preliminary Abdomen - Lower Gram negative bacillus Medical - DS: A/P - Patient/Caregiver Discharge Instructions Activity: increase activity as tolerated Diet: Regular Diet Prescriptions: Sennosides/Docusate Sodium [Senna Plus Tablet] 1 tab PO HS #30 tab Prescription Printed Acetaminophen [Tylenol] 650 mg PO Q4-6HP PRN #30 tab PRN Reason: Per Pain Protocol/Fever > 101 Prescription Printed traMADol [Ultram] 50 mg PO Q8HP PRN #30 tab PRN Reason: Pain Prescription Printed - Problem Maintenance (1) Acute renal failure Status: Acute Qualifiers: Acute renal failure type: unspecified Qualified Code(s): N17.9 - Acute kidney failure, unspecified - Follow up Plan Follow up with: Andreas Ledesma MD [Physician] - 10/05/19 1:00 pm (Please check in at 12:45 pm) Rahul Gamez MD [Primary Care Provider] - 10/07/19 10:30 am Disposition: Home, Self-Care Care Plan Goals: This discharge packet is provided to you to help keep you informed about your care. We want to ensure you get everything you need when you go home. You will also be receiving a call from us in a few days to follow up with you and see how you are doing since your discharge. This gives us a chance to listen to any concerns you maybe experiencing since you were discharged or any additional needs you may have, as well as providing us feedback on your care experience. We strive to always provide excellent care and thank you for your feedback and for choosing [facility]. Prognosis: Fair Rehab Potential: Fair I certify that the patient requires SNF services: No Overall status at discharge: patient is progressing back to baseline Medical - DS: Qual - VTE Deep Vein Thrombosis/Pulmonary Embolism Present on Admission: No
[2019-10-02 10:24] LABS: Opiate Confirmation POSITIVE (N)
== END 2019-09-30 12:15 | disposition home or self-care (01) | DRG 683 ==
LOC: ED 09:38 → ICU 14:20
PROVIDERS: ADMIT Internal Medicine; ATTEND Internal Medicine

== ENCOUNTER 2019-10-07 17:54 | Inpatient (IN) ==
[2019-10-07 18:35] LABS: Basophils # (Auto) 0.05 K/mcL (0.00-0.30); Basophils % (Auto) 0.5 % (0.0-2.0); Eosinophils # (Auto) 0.05 K/mcL (0.00-0.70); Eosinophils % (Auto) 0.5 % (0.0-7.0); Granulocytes % (Auto) 84.7 % (38.0-78.0); Hematocrit 49.7 % (34.1-44.9); Hemoglobin 16.8 g/dL (11.2-15.7); Lymphocytes # (Auto) 0.95 K/mcL (1.50-4.80); Lymphocytes % (Auto) 8.7 % (15.5-49.0); Mean Cell Volume 83.2 fL (80.0-100.0); Mean Corpuscular HGB Conc 33.8 g/dL (31.0-36.0); Mean Platelet Volume 9.2 fL (7.4-10.4); Monocytes # (Auto) 0.61 K/mcL (0.10-0.90); Monocytes % (Auto) 5.6 % (1.0-12.0); Platelet Count 866 K/mcL (140-440); RBC 5.97 M/mcL (3.59-5.38); Red Cell Distribution Width 14.5 % (11.5-14.5); WBC 10.9 K/mcL (4.50-11.00)
[2019-10-07 18:53] LABS: ALT/SGPT 41 U/l (0-40); AST/SGOT 28 U/l (0-37); Albumin 5.7 gm/dL (3.2-5.2); Alkaline Phosphatase 220 U/L (39-117); Bilirubin,Total 0.5 mg/dL (0.0-1.0); Carbon Dioxide 25 mmol/L (22-30); Glucose 126 mg/dL (70-105)
[2019-10-07 19:04] LABS: Albumin/Globulin Ratio 1.2 (1.0-2.3); Blood Urea Nitrogen 65 mg/dl (6-20); Calcium 12.1 mg/dl (8.6-10.4); Chloride 79 mmol/L (96-108); Globulin 4.6 gm/dL (2.2-3.7); Glomerular Filtration Rate 39
[2019-10-07] MEDS ORDERED: CALCIUM CHLORIDE 1,000 MG/10 ML SYRINGE IV ONE (19:06)
[2019-10-07] MEDS ORDERED: ONDANSETRON 4 MG/2 ML VIAL IV ONE (19:06)
[2019-10-07] MEDS ORDERED: DEXTROSE 50% 50 ML VIAL IV ONE (19:09)
[2019-10-07] MEDS ORDERED: INSULIN REGULAR, HUMAN 1 UNIT/0.01 ML UNIT IV ONE (19:09)
--- NOTE | 2019-10-07 19:12 | Emergency Department Note ---
Abdominal Pain HPI - General Chief Complaint: Abdominal Pain Stated Complaint: abd pain Time Seen by Provider: 10/07/19 18:36 Source: patient Mode of arrival: wheelchair Limitations: no limitations - History of Present Illness HPI Narrative: 43-year-old female patient returns to the emergency department after being evaluated by her general surgeon earlier this morning with chief complaint of worsening pain, nausea, and malaise. Patient has had a considerably difficult several weeks. She was just discharged from the hospital on 09/29 after spending 2 days for acute renal failure, hyperkalemia, ongoing abdominal pain, thrombocytosis, and hyponatremia. Prior to this she was hospitalized for a prolonged period of time secondary to intra-abdominal abscess formation followed an ileal perforation. She was discharged at that time on 09/21. During that prolonged hospitalization she underwent multiple intra-abdominal surgeries. She has now had a bowel resection and currently has a colostomy in place. As mentioned, she just saw her general surgeon in follow-up this morning. A review of that note indicates she was complaining of ongoing pain, weakness, nausea, and insomnia. The general surgeon evaluated her and then started her on Ambien and hydrocodone. She mentions she went home still feeling nauseated. She tells me the hydrocodone has not been effective to control her pain. She complains of exquisite, fulminant pain throughout her body. The worst site being her left abdomen. She is nauseated but not actively vomiting at this time . She denies fever, sweats, chills. She denies shortness of breath. She denies retrosternal chest pain or palpitations. She denies dysuria or hematuria. She denies focal weakness. A review of her active problems shows the following: Incarcerated hernia in the abdominal cavity, iliopsoas abscess to the right, sepsis, postoperative anemia, short gut syndrome, hyperkalemia, methamphetamine abuse, anxiety, polysubstance dependence, choledocholithiasis. - Related Data Home Medications Medication Instructions Recorded Confirmed Ibuprofen [Addaprin] 400 mg PO Q4-6HP PRN 08/18/19 10/07/19 Previous Rx's Medication Instructions Recorded Octreotide Acetate 100 mcg SC TID #90 ampul 09/22/19 Promethazine [Phenergan] 25 mg PO Q4HP PRN #100 tab MDD 4 09/22/19 Acetaminophen [Tylenol] 650 mg PO Q4-6HP PRN #30 tab 09/30/19 Sennosides/Docusate Sodium [Senna 1 tab PO HS #30 tab 09/30/19 Plus Tablet] traMADol [Ultram] 50 mg PO Q8HP PRN #30 tab 09/30/19 hydrocodone 10 mg-acetaminophen 1 tab PO Q6H PRN #60 tab 10/07/19 325 mg tablet zolpidem 10 mg tablet 10 mg PO QHS PRN #30 tab 10/07/19 Allergies Allergy/AdvReac Type Severity Reaction Status Date / Time Erythromycin Base Allergy Unknown Unknown Verified 10/07/19 18:02 Penicillins Allergy Unknown Unknown Verified 10/07/19 18:02 contact metal agent AdvReac Intermediate Other Verified 10/07/19 18:02 Review of Systems All systems ED: reviewed and negative except as stated. Abdominal Pain PMH - Past Medical History Medical history: Reports: other (Methamphetamine drug abuse) Family history: Reports: other (mother - angina.) - Social History Smoking status: Former smoker Physical Exam Limitations: no limitations General appearance: alert, anxious, cachectic, grimacing, in distress, other (Well-developed, cachectic, acutely ill appearing 43-year-old female patient laying supine on the emergency room gurney in obvious distress. She is tachypneic and grimacing throughout the interview. She is cradling the left side of her abdomen.) Head: atraumatic, normocephalic Eye: Present: normal appearance, PERRL, EOMI. Absent: scleral icterus, conjunctival injection ENT: Present: normal oropharynx, mucous membranes moist Neck: Present: normal inspection, full ROM, trachea midline. Absent: lymphadenopathy Chest: Present: symmetric chest wall rise Respiratory: Present: normal lung sounds bilaterally. Absent: respiratory dis tress, rales/crackles, wheezes, stridor, accessory muscle use, prolonged expiratory phase Cardiovascular: Present: normal rhythm, tachycardia. Absent: systolic murmur, diastolic murmur Abdominal: Present: soft, tenderness, guarding, hyperactive bowel sounds, incision (Midline surgical incision to the umbilicus covered with tape. Tape is clean and dry.), other (Colostomy bag to the left lower quadrant filled with green in color fecal material. No obvious blood or hemorrhage.). Absent: distention, rebound, rigidity, organomegaly, mass Abdominal tenderness: Present: LUQ, LLQ, severe Extremities: Present: normal inspection, full ROM, normal capillary refill Neurological: Present: alert, oriented X3 Psychiatric: Present: normal affect, anxious Skin: Present: warm, dry, normal color Course Course Narrative: Patient is acutely ill-appearing so we are going to order screening laboratory studies. Her physical exam does elicit to considerable tenderness to the left abdomen. However, she recently underwent surgery last month involving this area. She has had CT scans of her abdomen recently. Going to defer imaging studies until consultation with the surgeon could be had. Patient is profoundly tender complaining of pain. She was given IV Dilaudid 0.5 mg. Patient was also given Zofran 4 mg IVP. Normal saline 1000 mL was provided as a bolus. A review of her laboratory studies show the following: CBC WBC 10.9, RBC 5.97, hemoglobin 16.8, hematocrit 49.7, platelets 866. CMP sodium 125, potassium 6.0, chloride 79, anion gap 21, BUN 65, creatinine 1.6, glucose 126, calcium 12.1, ALT 41, alkaline phosphatase 220, total protein 10.3, albumin 5.7, globulin 4.6. Lactic acid pending. After reviewing all the data patient was provided 5 units of regular insulin and 25 g of dextrose IV. An EKG was obtained. Calcium was initially ordered to 10 mg but this was deferred until EKG can be reviewed. Due to the patient's worsening clinical status I contacted her general surgeon (Dr. Gamez) and discussed the case at length with him. She appears in the same clinical picture she was prior to admission on 09/27. At this time Dr. Gamez recommended the patient be admitted to observation under his care. He wants me to place and holding orders to help cover her pain, nausea, diet, and wanted me to ensure that her octreotide was continued. He recommended repeat CMP in the morning. We discussed the pros and cons of imaging at this time he recommended against this. She is had multiple CT scans since being in the hospital recently. Afterward, I discussed this treatment plan with the patient who verbalized understanding. Patient is going to be admitted as mentioned. All further treatment decisions, modalities, and ultimate patient disposition will be taken care of by Dr. Gamez in the surgical service. Vital Signs Temperature 97.7 F 10/07/19 17:55 Pulse Rate 110 H 10/07/19 17:55 Respiratory Rate 16 10/07/19 17:55 Blood Pressure 115/93 10/07/19 17:55 Temperature 97.7 F 10/07/19 17:55 Pulse Rate 109 H 10/07/19 19:30 Respiratory Rate 23 H 10/07/19 19:30 Blood Pressure 130/91 10/07/19 19:30 Pulse Oximetry (%) 100 10/07/19 19:30 Abdominal Pain - Lab Data Lab results reviewed: Yes I reviewed the patient's lab results. Result diagrams: 10/07/19 18:14 10/07/19 18:14 Lab Results 10/07/19 10/07/19 Range/Units 18:14 18:14 WBC 10.9 (4.50-11.00) K/mcL RBC 5.97 H (3.59-5.38) M/mcL Hgb 16.8 H (11.2-15.7) g/dL Hct 49.7 H (34.1-44.9) % MCV 83.2 (80.0-100.0) fL MCH 28.1 (26.0-34.0) pg MCHC 33.8 (31.0-36.0) g/dL RDW 14.5 (11.5-14.5) % Plt Count 866 H (140-440) K/mcL MPV 9.2 (7.4-10.4) fL Gran % 84.7 H (38.0-78.0) % Lymph % (Auto) 8.7 L (15.5-49.0) % [place] % (Auto) 5.6 (1.0-12.0) % Eos % (Auto) 0.5 (0.0-7.0) % Baso % (Auto) 0.5 (0.0-2.0) % Gran # 9.21 H (1.80-8.00) K/mcL Lymph # (Auto) 0.95 L (1.50-4.80) K/mcL [place] # (Auto) 0.61 (0.10-0.90) K/mcL Eos # (Auto) 0.05 (0.00-0.70) K/mcL Baso # (Auto) 0.05 (0.00-0.30) K/mcL Sodium 125 L (133-145) mmol/L Potassium 6.0 H* (3.3-5.1) mmol/L Chloride 79 L (96-108) mmol/L Carbon Dioxide 25 (22-30) mmol/L Anion Gap 21.0 H (8-16) BUN 65 H (6-20) mg/dl Creatinine 1.6 H (0.6-1.1) mg/dl GFR Calculation 39 Glucose 126 H (70-105) mg/dL Calcium 12.1 H (8.6-10.4) mg/dl Total Bilirubin 0.5 (0.0-1.0) mg/dL AST 28 (0-37) U/l ALT 41 H (0-40) U/l Alkaline Phosphatase 220 H (39-117) U/L Total Protein 10.3 H (5.9-8.4) gm/dL Albumin 5.7 H (3.2-5.2) gm/dL Globulin 4.6 H (2.2-3.7) gm/dL Albumin/Globulin Ratio 1.2 (1.0-2.3) - EKG Data EKG attestation: Yes I reviewed and interpreted this EKG., Yes There are no EKG findings of acute coronary syndrome Disposition Pt seen by [facility] [facility]/PA only: Yes Clinical Impression: Short gut syndrome, Hyperkalemia Abdominal pain Qualifiers: Abdominal location: generalized Qualified Code(s): R10.84 - Generalized abdominal pain Nausea and vomiting Qualifiers: Vomiting type: unspecified Vomiting Intractability: non-intractable Qualified Code(s): R11.2 - Nausea with vomiting, unspecified Disposition: Xfer As Outpt/Obs ([facility]) Condition: Fair Referrals: Rahul Gamez MD [Primary Care Provider] -
[2019-10-07] MEDS: HYDROmorphone 0.5 MG/0.5 ML SYRINGE IV PRN ×2 (19:46→21:14)
[2019-10-07] MEDS ORDERED: ACETAMINOPHEN 325 MG TABLET PO PRN (19:50)
[2019-10-07] MEDS ORDERED: OCTREOTIDE ACETATE 100 MCG/ML VIAL SQ SCH (21:00)
[2019-10-07] MEDS: 0.9 % SODIUM CHLORIDE 1,000 ML IV SCH (21:00)
[2019-10-07] MEDS ORDERED: ONDANSETRON 4 MG/2 ML VIAL ONE (21:10)
[2019-10-07] MEDS: ONDANSETRON 4 MG/2 ML VIAL IV PRN (21:15)
[2019-10-07] MEDS: 0.9 % SODIUM CHLORIDE 10 ML SYRINGE IV SCH (23:12)
[2019-10-08] MEDS: 0.9 % SODIUM CHLORIDE 1,000 ML IV SCH ×4 (02:02→19:19)
[2019-10-08] MEDS: 0.9 % SODIUM CHLORIDE 10 ML SYRINGE IV SCH ×4 (02:06→21:38)
[2019-10-08] MEDS: HYDROmorphone 0.5 MG/0.5 ML SYRINGE IV PRN ×7 (02:06→21:49)
[2019-10-08] MEDS: ONDANSETRON 4 MG/2 ML VIAL IV PRN ×2 (06:39→21:49)
[2019-10-08 07:22] LABS: ALT/SGPT 26 U/l (0-40); AST/SGOT 18 U/l (0-37); Alkaline Phosphatase 140 U/L (39-117); Bilirubin,Total 0.3 mg/dL (0.0-1.0); Calcium 9.7 mg/dl (8.6-10.4); Carbon Dioxide 25 mmol/L (22-30); Glucose 91 mg/dL (70-105)
[2019-10-08] MEDS ORDERED: DIPHENOXYLATE HCL/ATROPINE 1 TABLET PO PRN (07:23)
[2019-10-08 07:24] LABS: Albumin/Globulin Ratio 1.3 (1.0-2.3); Blood Urea Nitrogen 46 mg/dl (6-20); Chloride 94 mmol/L (96-108); Globulin 3.1 gm/dL (2.2-3.7); Glomerular Filtration Rate 61
[2019-10-08 10:50] LABS: Basophils # (Auto) 0.08 K/mcL (0.00-0.30); Basophils % (Auto) 1.4 % (0.0-2.0); Eosinophils # (Auto) 0.19 K/mcL (0.00-0.70); Eosinophils % (Auto) 3.2 % (0.0-7.0); Granulocytes % (Auto) 73.1 % (38.0-78.0); Hematocrit 37.6 % (34.1-44.9); Hemoglobin 12.2 g/dL (11.2-15.7); Lymphocytes # (Auto) 0.54 K/mcL (1.50-4.80); Lymphocytes % (Auto) 9.2 % (15.5-49.0); Mean Corpuscular HGB Conc 32.4 g/dL (31.0-36.0); Mean Platelet Volume 9.5 fL (7.4-10.4); Monocytes # (Auto) 0.77 K/mcL (0.10-0.90); Monocytes % (Auto) 13.1 % (1.0-12.0); Platelet Count 519 K/mcL (140-440); RBC 4.32 M/mcL (3.59-5.38); Red Cell Distribution Width 14.8 % (11.5-14.5); WBC 5.9 K/mcL (4.50-11.00)
--- NOTE | 2019-10-08 10:52 | General Surg History&Physical ---
History of Present Illness Patient information: Note initiated : 10/08/19 at 10:47 am Service Date, if different from initiated Date: [] Patient: Mojgan Mesa a 43 y/o F admitted on 10/07/19 for abd pain. Chief Complaint: [] HPI: Ms. Mesa is a 43 year old F History admitted for dehydration and hyperkalemia with acute on chronic kidney injury. Patient has a complex history dating back to 17 August when she presented to the emergency room with a large abdominal wall mass. She was found to have retrocecal and retroperitoneal abscess extending to the ileopsoas area. There was also a pelvic abscess that extended through the muscles of the abdominal wall into the subcutaneous tissue. This was drained on 08/18/19. She had extensive severe inflammation and all of the pelvic viscera was poorly identifiable. She was reexplored 3 days later and a very tiny opening in the terminal ileum was noted. This was closed primarily and patched with epiploica. She was widely drained and irrigated. She did not open the and had progressive terminal ileal obstruction. On 09/10 The cecum with with terminal ileum resection and ileostomy was carried out. This left her with short gut due to the severe injury from advanced inflammation. She was finally discharged on 21 September. She returned on 27 September with recurrent nausea and vomiting and high output ileostomy drainage leading to severe dehydration with renal failure and and hyperkalemia. She was treated and the renal failure was corrected. She was started on octreotide to reduce her output and she was tolerating diet at the time of discharge on 29 September.. She was seen in the office on yesterday in the morning and was normal and well except for soft tissue pain and difficulty with her [id number] sleep aids. She states that she was eating however she only weighed 86 pounds. She did not complain of nausea and vomiting in the office. Abdominal exam was benign and his peristomal was functioning normally. She was released from the clinic in apparent stable condition but reported to the emergency room a few hours later complaining of recurrent nausea and vomiting. She was noted to be dehydrated with hyperkalemia and hypercalcemia. She was admitted last evening and has been hydrated. Her potassium is 5.4 BUN is decreased 46 and a creatinine is normal at 1.1. Patient states that she feels better. Her major problem is severe high output ileostomy leading to dehydration. She has poor by mouth intake. She has been no nocturia times and her ileostomy drainage is slightly thicker but she still has high volumes. She is admitted and I will try to slow her small bowel transit time to try to decrease output. Octreotide will be increased to 4 times daily. It is too soon to consider reoperation at this time because of the previous hostile environment in her peritoneal cavity. Review of Systems - Constitutional fatigue, headache(s), lethargy, malaise, weakness, weight loss - EENT Nose, mouth and throat: dizziness, dry mouth, headache(s) - Cardiovascular palpatations, rapid heart rate, no chest pain with activity, no dyspnea on exertion - Respiratory no cough, no dyspnea, no wheezing, no chest congestion - Gastrointestinal abdominal pain, change in bowel habits, cramping, early satiety, nausea, vomiting - Musculoskeletal arthralgias, back pain, muscle cramps, myalgias, stiffness - Integumentary no pruritus, no rash - Neurological dizziness, tremor(s), weakness - Psychiatric anxiety, depression - Endocrine fatigue, palpitations - Hematologic/Lymphatic no easy bleeding, no easy bruising, no lymphadenopathy - Allergic/Immunologic no tongue swelling, no throat swelling, no uticaria, no wheezing, no lip swelling Past History Past medical history: ERCP Cholecystectomy Drainage of retroperitoneal pelvic iliopsoas and abdominal wall abscess September 05 cecum with terminal ileal resection and ileostomy 09/11/19 Past surgical history: As above Past family history: Coronary artery disease Past social history: former smoker Polysubstance drug abuse Medications and Allergies Home Medications Medication Instructions Recorded Confirmed Type Octreotide Acetate 100 mcg SC TID #90 ampul 09/22/19 10/07/19 Rx Promethazine [Phenergan] 25 mg PO Q4HP PRN #100 tab MDD 4 09/22/19 10/07/19 Rx Acetaminophen [Tylenol] 650 mg PO Q4-6HP PRN #30 tab 09/30/19 10/07/19 Rx Sennosides/Docusate Sodium [Senna 1 tab PO HS #30 tab 09/30/19 10/07/19 Rx Plus Tablet] traMADol [Ultram] 50 mg PO Q8HP PRN #30 tab 09/30/19 10/07/19 Rx hydrocodone 10 mg-acetaminophen 1 tab PO Q6H PRN #60 tab 10/07/19 10/07/19 Rx 325 mg tablet zolpidem 10 mg tablet 10 mg PO QHS PRN #30 tab 10/07/19 10/07/19 Rx Allergies Allergy/AdvReac Type Severity Reaction Status Date / Time Erythromycin Base Allergy Unknown Unknown Verified 10/07/19 22:24 Penicillins Allergy Unknown Unknown Verified 10/07/19 22:24 contact metal agent AdvReac Intermediate Other Verified 10/07/19 22:24 Exam Temp Pulse Resp BP Pulse Ox 98.3 F 75 18 98/60 98 10/08/19 06:45 10/08/19 03:22 10/08/19 06:45 10/08/19 06:45 10/08/19 06:45 - General physical appearance well developed, well nourished, moderate distress, severe pain, cachectic, chronically ill - Eyes PERRL, normal ocular movement - ENT normal pinna, normal nares, normal mucosa, no hearing loss, no congestion - Head Head exam IM: Present: atraumatic, normocephalic - Neck no masses, no bruits, trachea midline, no lymphadenopathy, no venous distension - Cardiovascular Cardiovascular exam IM: Present: normal rate and rhythm - Respiratory normal expansion, normal respiratory effort, clear to auscultation - Abdomen Abdomen: Present: soft, tender (mild tenderness; no distention; good active bowel sounds; stoma left lower quadrant), bowel sounds Hernia: Present: none - Genitourinary Present: normal external genitalia - Integumentary Present: no rash, no growths, no abnormal pigmentation - Neurologic Present: normal coordination, normal sensation - Musculoskeletal Present: normal gait, normal posture - Psychiatric Present: oriented to time, oriented to person, oriented to place, speech is normal, memory intact Assessment and Plan (1) Short gut syndrome IV hydration Increase octreotide to 4 times daily And Imodium twice daily Try to encourage diet intake Status: Acute (2) Hyperkalemia Status: Acute Priority: High (3) Acute renal failure Status: Acute Priority: High Qualifiers: Acute renal failure type: unspecified Qualified Code(s): N17.9 - Acute kidney failure, unspecified (4) Anxiety, generalized Status: Acute (5) Drug-induced nausea and vomiting Status: Acute (6) Polysubstance dependence including opioid type drug, episodic abuse Status: Acute (7) Small bowel obstruction due to postoperative adhesions Status: Acute
[2019-10-08] MEDS: OCTREOTIDE ACETATE 100 MCG/ML VIAL SQ SCH (21:37)
[2019-10-08] MEDS: ZOLPIDEM 5 MG TABLET PO PRN (21:49)
[2019-10-09] MEDS: HYDROmorphone 0.5 MG/0.5 ML SYRINGE IV PRN ×2 (02:28→06:52)
[2019-10-09] MEDS: 0.9 % SODIUM CHLORIDE 1,000 ML IV SCH ×3 (03:33→21:30)
[2019-10-09] MEDS: 0.9 % SODIUM CHLORIDE 10 ML SYRINGE IV SCH ×3 (04:17→20:29)
[2019-10-09 06:31] LABS: Basophils # (Auto) 0.05 K/mcL (0.00-0.30); Basophils % (Auto) 1.1 % (0.0-2.0); Eosinophils # (Auto) 0.22 K/mcL (0.00-0.70); Granulocytes % (Auto) 69.5 % (38.0-78.0); Hematocrit 30.8 % (34.1-44.9); Hemoglobin 9.8 g/dL (11.2-15.7); Lymphocytes # (Auto) 0.56 K/mcL (1.50-4.80); Lymphocytes % (Auto) 12.8 % (15.5-49.0); Mean Corpuscular HGB Conc 31.8 g/dL (31.0-36.0); Mean Platelet Volume 9.5 fL (7.4-10.4); Monocytes # (Auto) 0.51 K/mcL (0.10-0.90); Monocytes % (Auto) 11.6 % (1.0-12.0); Platelet Count 433 K/mcL (140-440); RBC 3.46 M/mcL (3.59-5.38); Red Cell Distribution Width 15.1 % (11.5-14.5); WBC 4.4 K/mcL (4.50-11.00)
[2019-10-09] MEDS ORDERED: LORazepam 2 MG/ML VIAL IV ONE (08:06)
[2019-10-09] MEDS: ONDANSETRON 4 MG/2 ML VIAL IV PRN ×3 (09:32→21:27)
[2019-10-09] MEDS: OCTREOTIDE ACETATE 100 MCG/ML VIAL SQ SCH ×3 (09:32→21:29)
[2019-10-09] MEDS: HYDROcodone/APAP 5/325MG TABLET PO PRN ×4 (09:33→21:28)
[2019-10-09 11:12] LABS: Bilirubin,Direct < 0.2 mg/dL (0.0-0.3); Chloride 102 mmol/L (96-108)
[2019-10-09 11:13] LABS: ALT/SGPT 17 U/l (0-40); AST/SGOT 14 U/l (0-37); Albumin 3.5 gm/dL (3.2-5.2); Albumin/Globulin Ratio 1.5 (1.0-2.3); Alkaline Phosphatase 104 U/L (39-117); Bilirubin,Total 0.2 mg/dL (0.0-1.0); Blood Urea Nitrogen 19 mg/dl (6-20); Calcium 8.8 mg/dl (8.6-10.4); Carbon Dioxide 23 mmol/L (22-30); Globulin 2.3 gm/dL (2.2-3.7); Glomerular Filtration Rate 111; Glucose 113 mg/dL (70-105); Lactate Dehydrogenase 102 U/L (94-250); Phosphorous 2.1 mg/dL (2.7-4.5); Triglycerides 232 mg/dl (<150); Uric Acid 6.4 mg/dL (2.5-8.0)
[2019-10-09] MEDS ORDERED: MAGNESIUM SULFATE 32.48 MEQ in DEXTROSE 5% IN WATER 50 ML IV ONE (11:31)
--- NOTE | 2019-10-09 11:38 | General Surgery Progress Note ---
Subjective Patient reports: feels better, pain is less, tolerating a regular diet, flatus, bowel movement, afebrile Narrative: Note initiated : 10/09/19 at 11:35 am Service Date, if different from initiated Date: [] Patient: Mojgan Mesa 43 y/o F admitted on 10/07/19 for abd pain. Chief Complaint: [patient continues to improve. She is complaining of muscle and back pain. She denies abdominal pain. She has not had nausea or vomiting. Her by mouth intake is still marginal. White blood count 4.4, hemoglobin 9.8, hematocrit 30.8, potassium 4.1, BUN 19, creatinine 0.6, phosphorus 2.1, magnesium 1.5.] Objective Temp Pulse Resp BP Pulse Ox 97.9 F 64 18 98/62 100 10/09/19 08:00 10/09/19 08:00 10/09/19 08:00 10/09/19 08:00 10/09/19 08:00 - Additional Data Intake & Output - Last 24 hours: Intake & Output 10/07/19 10/08/19 10/09/19 10/10/19 05:59 05:59 05:59 05:59 Intake Total 1029 3875 Output Total 1125 2875 Balance -96 1000 Weight 89 lb 9.6 oz 93 lb 8 oz - General physical appearance moderate pain, cachectic, chronically ill - Eyes PERRL, normal ocular movement - ENT normal pinna, normal nares, normal mucosa, no hearing loss, no congestion, poor retirement - Neck no masses, no bruits, trachea midline, no lymphadenopathy, no venous distension - Respiratory normal expansion, normal respiratory effort, clear to auscultation - Cardiovascular Cardiovascular exam: Present: normal rate and rhythm, RRR, +S1, +S2. Absent: JVD, tachycardia - Abdomen tender (mild diffuse tenderness worse in the left lateral abdomen;;;;;;;;; good active bowel sounds; no distention; stoma is working nicely with 9 lower incision is taken all) - Integumentary no rash ( 2432), no growths, no abnormal pigmentation - Neurologic normal coordination, normal sensation - Musculoskeletal normal gait, normal posture - Psychiatric oriented to time, oriented to person, oriented to place, speech is normal, me jackson intact - Labs 10/09/19 04:48 10/09/19 10:22 Diabetes panel 10/09/19 Range/Units 10:22 Sodium 134 (133-145) mmol/L Potassium 4.1 (3.3-5.1) mmol/L Chloride 102 (96-108) mmol/L Carbon Dioxide 23 (22-30) mmol/L BUN 19 (6-20) mg/dl Creatinine 0.6 (0.6-1.1) mg/dl Glucose 113 H (70-105) mg/dL Calcium 8.8 (8.6-10.4) mg/dl AST 14 (0-37) U/l ALT 17 (0-40) U/l Alkaline Phosphatase 104 (39-117) U/L Total Protein 5.8 L (5.9-8.4) gm/dL Albumin 3.5 (3.2-5.2) gm/dL Triglycerides 232 H (<150) mg/dl Calcium panel 10/09/19 Range/Units 10:22 Calcium 8.8 (8.6-10.4) mg/dl Phosphorus 2.1 L (2.7-4.5) mg/dL Albumin 3.5 (3.2-5.2) gm/dL Pituitary panel 10/09/19 Range/Units 10:22 Sodium 134 (133-145) mmol/L Potassium 4.1 (3.3-5.1) mmol/L Chloride 102 (96-108) mmol/L Carbon Dioxide 23 (22-30) mmol/L BUN 19 (6-20) mg/dl Creatinine 0.6 (0.6-1.1) mg/dl Glucose 113 H (70-105) mg/dL Calcium 8.8 (8.6-10.4) mg/dl Adrenal panel 10/09/19 Range/Units 10:22 Sodium 134 (133-145) mmol/L Potassium 4.1 (3.3-5.1) mmol/L Chloride 102 (96-108) mmol/L Carbon Dioxide 23 (22-30) mmol/L BUN 19 (6-20) mg/dl Creatinine 0.6 (0.6-1.1) mg/dl Glucose 113 H (70-105) mg/dL Calcium 8.8 (8.6-10.4) mg/dl Total Bilirubin 0.2 (0.0-1.0) mg/dL AST 14 (0-37) U/l ALT 17 (0-40) U/l Alkaline Phosphatase 104 (39-117) U/L Total Protein 5.8 L (5.9-8.4) gm/dL Albumin 3.5 (3.2-5.2) gm/dL Assessment and Plan (1) Short gut syndrome Status: Acute Current Visit: Yes (2) Hyperkalemia Status: Resolved Current Visit: Yes (3) Acute renal failure Status: Resolved Current Visit: No (4) Anxiety, generalized Status: Acute Current Visit: No (5) Drug-induced nausea and vomiting Status: Resolved Current Visit: No (6) Polysubstance dependence including opioid type drug, episodic abuse Status: Chronic Current Visit: No (7) Small bowel obstruction due to postoperative adhesions Status: Chronic Current Visit: No - Time Spent With Patient Total time spent is greater than 50% in coordination of care (as documented) at patient's floor/unit and/or counseling patient:
[2019-10-09] MEDS ORDERED: MAGNESIUM SULFATE 4 GM/100 ML BAG IV ONE (12:00)
[2019-10-09] MEDS ORDERED: POTASSIUM PHOSPHATE 40 MEQ in DEXTROSE 5% IN WATER 500 ML IV ONE (12:00)
[2019-10-09] MEDS: METHOCARBAMOL 750 MG TABLET PO SCH ×2 (15:31→20:28)
[2019-10-09] MEDS: ZOLPIDEM 5 MG TABLET PO PRN (20:28)
[2019-10-09] MEDS: DIPHENOXYLATE HCL/ATROPINE 1 TABLET PO SCH (20:29)
[2019-10-09] MEDS ORDERED: FAMOTIDINE/PF 20 MG/2 ML VIAL IV ONE (21:27)
[2019-10-10] MEDS: HYDROcodone/APAP 5/325MG TABLET PO PRN ×4 (01:50→19:04)
[2019-10-10] MEDS: 0.9 % SODIUM CHLORIDE 1,000 ML IV SCH ×3 (04:16→21:52)
[2019-10-10] MEDS: 0.9 % SODIUM CHLORIDE 10 ML SYRINGE IV SCH ×3 (05:59→21:59)
[2019-10-10 06:09] LABS: Basophils # (Auto) 0.05 K/mcL (0.00-0.30); Basophils % (Auto) 1.2 % (0.0-2.0); Eosinophils # (Auto) 0.27 K/mcL (0.00-0.70); Eosinophils % (Auto) 6.7 % (0.0-7.0); Granulocytes % (Auto) 68.5 % (38.0-78.0); Hematocrit 30.9 % (34.1-44.9); Hemoglobin 9.8 g/dL (11.2-15.7); Lymphocytes # (Auto) 0.47 K/mcL (1.50-4.80); Lymphocytes % (Auto) 11.7 % (15.5-49.0); Mean Cell Volume 89.3 fL (80.0-100.0); Mean Corpuscular HGB Conc 31.7 g/dL (31.0-36.0); Mean Platelet Volume 9.4 fL (7.4-10.4); Monocytes # (Auto) 0.48 K/mcL (0.10-0.90); Monocytes % (Auto) 11.9 % (1.0-12.0); Platelet Count 388 K/mcL (140-440); RBC 3.46 M/mcL (3.59-5.38); Red Cell Distribution Width 14.7 % (11.5-14.5)
[2019-10-10 06:28] LABS: ALT/SGPT 15 U/l (0-40); AST/SGOT 13 U/l (0-37); Albumin 3.4 gm/dL (3.2-5.2); Albumin/Globulin Ratio 1.5 (1.0-2.3); Alkaline Phosphatase 95 U/L (39-117); Bilirubin,Direct < 0.2 mg/dL (0.0-0.3); Bilirubin,Total 0.2 mg/dL (0.0-1.0); Blood Urea Nitrogen 13 mg/dl (6-20); Calcium 8.3 mg/dl (8.6-10.4); Carbon Dioxide 23 mmol/L (22-30); Chloride 101 mmol/L (96-108); Globulin 2.2 gm/dL (2.2-3.7); Glomerular Filtration Rate 105; Glucose 90 mg/dL (70-105); Lactate Dehydrogenase 95 U/L (94-250); Triglycerides 189 mg/dl (<150); Uric Acid 5.9 mg/dL (2.5-8.0)
[2019-10-10] MEDS: METHOCARBAMOL 750 MG TABLET PO SCH ×3 (09:27→20:04)
[2019-10-10] MEDS: ONDANSETRON 4 MG/2 ML VIAL IV PRN ×2 (09:27→15:53)
[2019-10-10] MEDS: OCTREOTIDE ACETATE 100 MCG/ML VIAL SQ SCH ×3 (09:27→21:52)
[2019-10-10] MEDS: DIPHENOXYLATE HCL/ATROPINE 1 TABLET PO SCH ×3 (09:27→20:04)
--- NOTE | 2019-10-10 12:22 | General Surgery Progress Note ---
Subjective Patient reports: feels better, pain is less, tolerating a regular diet, flatus, bowel movement, diarrhea, afebrile Narrative: Note initiated : 10/10/19 at 12:21 pm Service Date, if different from initiated Date: [] Patient: Mojgan Mesa 43 y/o F admitted on 10/09/19 for abd pain. Chief Complaint: [Patient continues to do well. She is tolerating regular diet and she has less watery diarrhea. Her output is now thicker and the volume has decreased. White blood count 4, hemoglobin 9.8, hematocrit 30.9, phosphorus 2, potassium 3.8, BUN 13, creatinine 0.7] Objective Temp Pulse Resp BP Pulse Ox 98.5 F 72 18 100/60 100 10/10/19 07:40 10/10/19 07:40 10/10/19 07:40 10/10/19 07:40 10/10/19 07:40 - Additional Data Intake & Output - Last 24 hours: Intake & Output 10/08/19 10/09/19 10/10/19 10/11/19 05:59 05:59 05:59 05:59 Intake Total 1029 3875 4389.0909 360 Output Total 1125 2875 5525 675 Balance -96 1000 -1135.9091 -315 Weight 89 lb 9.6 oz 93 lb 8 oz 96 lb 9.6 oz - General physical appearance no pain, cachectic, chronically ill - Eyes PERRL, normal ocular movement - ENT normal pinna, normal nares, normal mucosa, no hearing loss, no congestion - Neck no masses, no bruits, trachea midline, no lymphadenopathy, no venous distension - Respiratory normal expansion, normal respiratory effort, clear to auscultation - Cardiovascular Cardiovascular exam: Present: normal rate and rhythm, RRR, +S1, +S2. Absent: JVD, tachycardia - Abdomen soft, tender (mildly tender improved from yesterday;), wound ( incision continues to heal nicely), distended ( no distention noted) - Integumentary no rash, no growths, no abnormal pigmentation - Neurologic normal coordination, normal sensation - Musculoskeletal normal gait, normal posture - Psychiatric oriented to time, oriented to person, oriented to place, speech is normal, memory intact - Labs 10/10/19 04:43 10/10/19 04:43 Diabetes panel 10/10/19 Range/Units 04:43 Sodium 133 (133-145) mmol/L Potassium 3.8 (3.3-5.1) mmol/L Chloride 101 (96-108) mmol/L Carbon Dioxide 23 (22-30) mmol/L BUN 13 (6-20) mg/dl Creatinine 0.7 (0.6-1.1) mg/dl Glucose 90 (70-105) mg/dL Calcium 8.3 L (8.6-10.4) mg/dl AST 13 (0-37) U/l ALT 15 (0-40) U/l Alkaline Phosphatase 95 (39-117) U/L Total Protein 5.6 L (5.9-8.4) gm/dL Albumin 3.4 (3.2-5.2) gm/dL Triglycerides 189 H (<150) mg/dl Calcium panel 10/10/19 Range/Units 04:43 Calcium 8.3 L (8.6-10.4) mg/dl Phosphorus 2.0 L (2.7-4.5) mg/dL Albumin 3.4 (3.2-5.2) gm/dL Pituitary panel 10/10/19 Range/Units 04:43 Sodium 133 (133-145) mmol/L Potassium 3.8 (3.3-5.1) mmol/L Chloride 101 (96-108) mmol/L Carbon Dioxide 23 (22-30) mmol/L BUN 13 (6-20) mg/dl Creatinine 0.7 (0.6-1.1) mg/dl Glucose 90 (70-105) mg/dL Calcium 8.3 L (8.6-10.4) mg/dl Adrenal panel 10/10/19 Range/Units 04:43 Sodium 133 (133-145) mmol/L Potassium 3.8 (3.3-5.1) mmol/L Chloride 101 (96-108) mmol/L Carbon Dioxide 23 (22-30) mmol/L BUN 13 (6-20) mg/dl Creatinine 0.7 (0.6-1.1) mg/dl Glucose 90 (70-105) mg/dL Calcium 8.3 L (8.6-10.4) mg/dl Total Bilirubin 0.2 (0.0-1.0) mg/dL AST 13 (0-37) U/l ALT 15 (0-40) U/l Alkaline Phosphatase 95 (39-117) U/L Total Protein 5.6 L (5.9-8.4) gm/dL Albumin 3.4 (3.2-5.2) gm/dL Assessment and Plan (1) Short gut syndrome Status: Acute Assessment and plan: Still with significant output but stool is thicker than in past 24 hours We'll increase Imodium to 3 times daily Current Visit: Yes (2) Hyperkalemia Status: Resolved Current Visit: Yes (3) Acute renal failure Status: Resolved Current Visit: No (4) Anxiety, generalized Status: Chronic Current Visit: No (5) Drug-induced nausea and vomiting Status: Resolved Current Visit: No (6) Polysubstance dependence including opioid type drug, episodic abuse Status: Chronic Current Visit: No (7) Small bowel obstruction due to postoperative adhesions Status: Chronic Current Visit: No - Time Spent With Patient Total time spent is greater than 50% in coordination of care (as documented) at patient's floor/unit and/or counseling patient:
[2019-10-10] MEDS: ZOLPIDEM 5 MG TABLET PO PRN (20:04)
[2019-10-10] MEDS: CHOLESTYRAMINE/ASPARTAME 4 GM POWD.PACK PO SCH (21:53)
[2019-10-11] MEDS: HYDROcodone/APAP 5/325MG TABLET PO PRN ×4 (02:09→17:30)
[2019-10-11] MEDS: 0.9 % SODIUM CHLORIDE 10 ML SYRINGE IV SCH ×3 (05:25→21:44)
[2019-10-11] MEDS: 0.9 % SODIUM CHLORIDE 1,000 ML IV SCH ×4 (06:01→16:05)
[2019-10-11 06:06] LABS: Basophils # (Auto) 0.06 K/mcL (0.00-0.30); Basophils % (Auto) 1.3 % (0.0-2.0); Eosinophils # (Auto) 0.35 K/mcL (0.00-0.70); Eosinophils % (Auto) 7.8 % (0.0-7.0); Granulocytes % (Auto) 67.2 % (38.0-78.0); Hematocrit 29.6 % (34.1-44.9); Hemoglobin 9.5 g/dL (11.2-15.7); Lymphocytes # (Auto) 0.59 K/mcL (1.50-4.80); Lymphocytes % (Auto) 13.1 % (15.5-49.0); Mean Cell Volume 88.6 fL (80.0-100.0); Mean Corpuscular HGB Conc 32.1 g/dL (31.0-36.0); Mean Platelet Volume 9.8 fL (7.4-10.4); Monocytes # (Auto) 0.48 K/mcL (0.10-0.90); Monocytes % (Auto) 10.6 % (1.0-12.0); Platelet Count 361 K/mcL (140-440); RBC 3.34 M/mcL (3.59-5.38); Red Cell Distribution Width 14.3 % (11.5-14.5); WBC 4.5 K/mcL (4.50-11.00)
[2019-10-11 06:34] LABS: ALT/SGPT 16 U/l (0-40); AST/SGOT 14 U/l (0-37); Albumin 3.2 gm/dL (3.2-5.2); Albumin/Globulin Ratio 1.4 (1.0-2.3); Alkaline Phosphatase 100 U/L (39-117); Bilirubin,Direct < 0.2 mg/dL (0.0-0.3); Bilirubin,Total < 0.2 mg/dL (0.0-1.0); Blood Urea Nitrogen 13 mg/dl (6-20); Calcium 8.5 mg/dl (8.6-10.4); Carbon Dioxide 19 mmol/L (22-30); Chloride 107 mmol/L (96-108); Globulin 2.3 gm/dL (2.2-3.7); Glomerular Filtration Rate 111; Glucose 87 mg/dL (70-105); Lactate Dehydrogenase 105 U/L (94-250); Triglycerides 241 mg/dl (<150); Uric Acid 5.5 mg/dL (2.5-8.0)
[2019-10-11 06:35] LABS: Phosphorous 1.4 mg/dL (2.7-4.5)
[2019-10-11] MEDS: DIPHENOXYLATE HCL/ATROPINE 1 TABLET PO SCH (07:15)
[2019-10-11] MEDS: METHOCARBAMOL 750 MG TABLET PO SCH ×3 (07:15→20:56)
[2019-10-11] MEDS: ONDANSETRON 4 MG/2 ML VIAL IV PRN ×2 (08:21→22:18)
[2019-10-11] MEDS: OCTREOTIDE ACETATE 100 MCG/ML VIAL SQ SCH (08:21)
[2019-10-11] MEDS: CHOLESTYRAMINE/ASPARTAME 4 GM POWD.PACK PO SCH ×3 (08:21→18:25)
--- NOTE | 2019-10-11 12:24 | General Surgery Progress Note ---
Subjective Patient reports: feels better, pain is less, tolerating a regular diet, flatus, diarrhea, afebrile Narrative: Note initiated : 10/11/19 at 12:22 pm Service Date, if different from initiated Date: [] Patient: Mojgan Mesa 43 y/o F admitted on 10/09/19 for abd pain. Chief Com patient continues to improve. She states she is eating most of her meals. She denies nausea. She still has high volume output up to 3000 cc through her stoma inside of the Questran and Imodium and pyridostigmine. She denies abdominal pain. White count 4.5, hemoglobin 9.5, hematocrit 29.6, phosphorus 1.4, potassium 4.4.] Objective Temp Pulse Resp BP Pulse Ox 98 F 67 16 108/65 100 10/11/19 11:17 10/11/19 11:17 10/11/19 11:17 10/11/19 11:17 10/11/19 11:17 - Additional Data Intake & Output - Last 24 hours: Intake & Output 10/09/19 10/10/19 10/11/19 10/12/19 05:59 05:59 05:59 05:59 Intake Total 3875 4389.0909 5890 720 Output Total 2875 5525 5250 1650 Balance 1000 -1135.9091 640 -930 Weight 93 lb 8 oz 96 lb 9.6 oz 100 lb 12.8 oz - General physical appearance no pain, cachectic, chronically ill - Eyes PERRL, normal ocular movement - ENT normal pinna, normal nares, normal mucosa, no hearing loss, no congestion - Neck no masses, no bruits, trachea midline, no lymphadenopathy, no venous distension - Respiratory normal expansion, normal respiratory effort, clear to auscultation - Cardiovascular Cardiovascular exam: Present: normal rate and rhythm, RRR, +S1, +S2. Absent: JVD, tachycardia - Abdomen non tender, bowel sounds (present), surgical scars (none), masses (none) - Integumentary no rash, no growths, no abnormal pigmentation - Neurologic normal coordination, normal sensation - Musculoskeletal normal gait, normal posture - Psychiatric oriented to time, oriented to person, oriented to place, speech is normal, memory intact - Labs 10/11/19 04:50 10/11/19 04:50 Diabetes panel 10/11/19 Range/Units 04:50 Sodium 136 (133-145) mmol/L Potassium 4.4 (3.3-5.1) mmol/L Chloride 107 (96-108) mmol/L Carbon Dioxide 19 L (22-30) mmol/L BUN 13 (6-20) mg/dl Creatinine 0.6 (0.6-1.1) mg/dl Glucose 87 (70-105) mg/dL Calcium 8.5 L (8.6-10.4) mg/dl AST 14 (0-37) U/l ALT 16 (0-40) U/l Alkaline Phosphatase 100 (39-117) U/L Total Protein 5.5 L (5.9-8.4) gm/dL Albumin 3.2 (3.2-5.2) gm/dL Triglycerides 241 H (<150) mg/dl Calcium panel 10/11/19 Range/Units 04:50 Calcium 8.5 L (8.6-10.4) mg/dl Phosphorus 1.4 L (2.7-4.5) mg/dL Albumin 3.2 (3.2-5.2) gm/dL Pituitary panel 10/11/19 Range/Units 04:50 Sodium 136 (133-145) mmol/L Potassium 4.4 (3.3-5.1) mmol/L Chloride 107 (96-108) mmol/L Carbon Dioxide 19 L (22-30) mmol/L BUN 13 (6-20) mg/dl Creatinine 0.6 (0.6-1.1) mg/dl Glucose 87 (70-105) mg/dL Calcium 8.5 L (8.6-10.4) mg/dl Adrenal panel 10/11/19 Range/Units 04:50 Sodium 136 (133-145) mmol/L Potassium 4.4 (3.3-5.1) mmol/L Chloride 107 (96-108) mmol/L Carbon Dioxide 19 L (22-30) mmol/L BUN 13 (6-20) mg/dl Creatinine 0.6 (0.6-1.1) mg/dl Glucose 87 (70-105) mg/dL Calcium 8.5 L (8.6-10.4) mg/dl Total Bilirubin < 0.2 (0.0-1.0) mg/dL AST 14 (0-37) U/l ALT 16 (0-40) U/l Alkaline Phosphatase 100 (39-117) U/L Total Protein 5.5 L (5.9-8.4) gm/dL Albumin 3.2 (3.2-5.2) gm/dL Assessment and Plan (1) Short gut syndrome Status: Acute Assessment and plan: Still with significant output but stool is thicker than in past 24 hours We'll increase Imodium to 4 times daily Questran 4 times daily Neutra-Phos twice daily Decrease IV Current Visit: Yes (2) Hyperkalemia Status: Resolved Current Visit: Yes (3) Acute renal failure Status: Resolved Current Visit: No (4) Anxiety, generalized Status: Chronic Current Visit: No (5) Drug-induced nausea and vomiting Status: Resolved Current Visit: No (6) Polysubstance dependence including opioid type drug, episodic abuse Status: Chronic Current Visit: No (7) Small bowel obstruction due to postoperative adhesions Status: Chronic Current Visit: No - Time Spent With Patient Total time spent is greater than 50% in coordination of care (as documented) at patient's floor/unit and/or counseling patient:
[2019-10-11] MEDS ORDERED: LOPERAMIDE 2 MG CAPSULE PO ONE ×3 (12:36→20:54)
[2019-10-11] MEDS: NEUTRA PHOS 1 PACKET PO SCH ×2 (12:43→20:56)
[2019-10-11] MEDS: LOPERAMIDE 2 MG CAPSULE PO SCH ×3 (12:44→20:56)
[2019-10-11] MEDS: OCTREOTIDE ACETATE 1,000 MCG/ML VIAL IV SCH ×4 (12:45→22:12)
[2019-10-11] MEDS: PROMETHAZINE 25 MG TABLET PO PRN ×2 (12:46→17:30)
[2019-10-11] MEDS ORDERED: OCTREOTIDE ACETATE 100 MCG/ML VIAL SQ ONE (18:00)
[2019-10-11] MEDS: ZOLPIDEM 5 MG TABLET PO PRN (20:56)
[2019-10-11] MEDS ORDERED: NEUTRA PHOS 1 PACKET ONE (20:57)
[2019-10-12] MEDS: HYDROcodone/APAP 5/325MG TABLET PO PRN ×5 (01:25→20:36)
[2019-10-12] MEDS: 0.9 % SODIUM CHLORIDE 10 ML SYRINGE IV SCH ×3 (05:48→20:41)
[2019-10-12 06:53] LABS: ALT/SGPT 28 U/l (0-40); AST/SGOT 27 U/l (0-37); Albumin 3.5 gm/dL (3.2-5.2); Albumin/Globulin Ratio 1.3 (1.0-2.3); Alkaline Phosphatase 118 U/L (39-117); Bilirubin,Direct < 0.2 mg/dL (0.0-0.3); Bilirubin,Total 0.2 mg/dL (0.0-1.0); Blood Urea Nitrogen 12 mg/dl (6-20); Chloride 102 mmol/L (96-108); Globulin 2.8 gm/dL (2.2-3.7); Glomerular Filtration Rate 105; Glucose 93 mg/dL (70-105); Lactate Dehydrogenase 115 U/L (94-250); Triglycerides 258 mg/dl (<150)
[2019-10-12 06:54] LABS: Carbon Dioxide 25 mmol/L (22-30)
[2019-10-12] MEDS: CHOLESTYRAMINE/ASPARTAME 4 GM POWD.PACK PO SCH ×3 (07:09→17:56)
[2019-10-12] MEDS: OCTREOTIDE ACETATE 1,000 MCG/ML VIAL IV SCH ×2 (09:12→13:54)
[2019-10-12] MEDS: LOPERAMIDE 2 MG CAPSULE PO SCH ×4 (09:12→20:37)
[2019-10-12] MEDS: METHOCARBAMOL 750 MG TABLET PO SCH ×3 (09:12→20:37)
[2019-10-12] MEDS: NEUTRA PHOS 1 PACKET PO SCH ×2 (09:13→20:34)
[2019-10-12] MEDS: ONDANSETRON 4 MG/2 ML VIAL IV PRN (09:26)
--- NOTE | 2019-10-12 13:13 | General Surgery Progress Note ---
Subjective Patient reports: feels better, pain is less, tolerating a regular diet, flatus, bowel movement, diarrhea, afebrile Narrative: Note initiated : 10/12/19 at 1:11 pm Service Date, if different from initiated Date: [] Patient: Mojgan Mesa 43 y/o F admitted on 10/09/19 for abd pain. Chief Complaint: [patient is Progressing well.. She has minimal abdominal discomfort. Her muscle pain has improved. She has a very good appetite and is eating large volumes of fluid. Her ileostomy output is primarily liquid in the morning but thickens up during the day. Output is very good. Stoma looks good.] Objective Temp Pulse Resp BP Pulse Ox 98.9 F 62 16 87/56 98 10/12/19 11:28 10/12/19 04:00 10/12/19 11:28 10/12/19 11:28 10/12/19 11:28 - Additional Data Intake & Output - Last 24 hours: Intake & Output 10/10/19 10/11/19 10/12/19 10/13/19 05:59 05:59 05:59 05:59 Intake Total 4389.0909 5890 4867 840 Output Total 5525 5250 6325 1600 Balance -7961.7757 581 -6081 -720 Weight 96 lb 9.6 oz 100 lb 12.8 oz 102 lb 14.4 oz 97 lb 4.8 oz - General physical appearance cachectic, chronically ill - Eyes PERRL, normal ocular movement - ENT normal pinna, normal nares, normal mucosa, no hearing loss, no congestion, poor fdc - Neck no masses, no bruits, trachea midline, no lymphadenopathy, no venous distension - Respiratory normal expansion, normal respiratory effort, clear to auscultation - Cardiovascular Cardiovascular exam: Present: normal rate and rhythm, RRR, +S1, +S2. Absent: JVD, tachycardia - Abdomen non tender, bowel sounds (present), surgical scars ( lower abdominal incision is granulating in nicely), wound (stoma is healing nicely), masses (none) - Integumentary no rash, no growths, no abnormal pigmentation - Neurologic normal coordination, normal sensation - Musculoskeletal normal gait, normal posture - Psychiatric oriented to time, oriented to person, oriented to place, speech is normal, memory intact - Labs 10/11/19 04:50 10/12/19 05:12 Diabetes panel 10/12/19 Range/Units 05:12 Sodium 136 (133-145) mmol/L Potassium 4.6 (3.3-5.1) mmol/L Chloride 102 (96-108) mmol/L Carbon Dioxide 25 (22-30) mmol/L BUN 12 (6-20) mg/dl Creatinine 0.7 (0.6-1.1) mg/dl Glucose 93 (70-105) mg/dL Calcium 9.0 (8.6-10.4) mg/dl AST 27 (0-37) U/l ALT 28 (0-40) U/l Alkaline Phosphatase 118 H (39-117) U/L Total Protein 6.3 (5.9-8.4) gm/dL Albumin 3.5 (3.2-5.2) gm/dL Triglycerides 258 H (<150) mg/dl Calcium panel 10/12/19 Range/Units 05:12 Calcium 9.0 (8.6-10.4) mg/dl Phosphorus 2.0 L (2.7-4.5) mg/dL Albumin 3.5 (3.2-5.2) gm/dL Pituitary panel 10/12/19 Range/Units 05:12 Sodium 136 (133-145) mmol/L Potassium 4.6 (3.3-5.1) mmol/L Chloride 102 (96-108) mmol/L Carbon Dioxide 25 (22-30) mmol/L BUN 12 (6-20) mg/dl Creatinine 0.7 (0.6-1.1) mg/dl Glucose 93 (70-105) mg/dL Calcium 9.0 (8.6-10.4) mg/dl Adrenal panel 10/12/19 Range/Units 05:12 Sodium 136 (133-145) mmol/L Potassium 4.6 (3.3-5.1) mmol/L Chloride 102 (96-108) mmol/L Carbon Dioxide 25 (22-30) mmol/L BUN 12 (6-20) mg/dl Creatinine 0.7 (0.6-1.1) mg/dl Glucose 93 (70-105) mg/dL Calcium 9.0 (8.6-10.4) mg/dl Total Bilirubin 0.2 (0.0-1.0) mg/dL AST 27 (0-37) U/l ALT 28 (0-40) U/l Alkaline Phosphatase 118 H (39-117) U/L Total Protein 6.3 (5.9-8.4) gm/dL Albumin 3.5 (3.2-5.2) gm/dL Assessment and Plan (1) Short gut syndrome Status: Acute Assessment and plan: Still with significant output but stool is thicker than in past 24 hours We'll increase Imodium to 4 times daily Questran 4 times daily Neutra-Phos twice daily Decrease IV Current Visit: Yes (2) Hyperkalemia Status: Resolved Current Visit: Yes (3) Acute renal failure Status: Resolved Current Visit: No (4) Anxiety, generalized Status: Chronic Current Visit: No (5) Drug-induced nausea and vomiting Status: Resolved Current Visit: No (6) Polysubstance dependence including opioid type drug, episodic abuse Status: Chronic Current Visit: No (7) Small bowel obstruction due to postoperative adhesions Status: Chronic Current Visit: No - Time Spent With Patient Total time spent is greater than 50% in coordination of care (as documented) at patient's floor/unit and/or counseling patient:
[2019-10-12] MEDS: PROMETHAZINE 25 MG TABLET PO PRN ×3 (13:36→20:30)
[2019-10-12] MEDS: 0.9 % SODIUM CHLORIDE 1,000 ML IV SCH (15:36)
[2019-10-12] MEDS: OCTREOTIDE ACETATE 100 MCG/ML VIAL IV SCH ×2 (17:56→20:40)
[2019-10-12] MEDS: ZOLPIDEM 5 MG TABLET PO PRN (20:36)
[2019-10-13] MEDS: HYDROcodone/APAP 5/325MG TABLET PO PRN ×4 (02:58→15:09)
[2019-10-13] MEDS: CHOLESTYRAMINE/ASPARTAME 4 GM POWD.PACK PO SCH ×2 (07:07→11:30)
[2019-10-13] MEDS: 0.9 % SODIUM CHLORIDE 1,000 ML IV SCH (07:20)
[2019-10-13] MEDS: 0.9 % SODIUM CHLORIDE 10 ML SYRINGE IV SCH ×2 (07:20→13:32)
[2019-10-13] MEDS: METHOCARBAMOL 750 MG TABLET PO SCH ×2 (09:51→15:09)
[2019-10-13] MEDS: NEUTRA PHOS 1 PACKET PO SCH (09:51)
[2019-10-13] MEDS: PROMETHAZINE 25 MG TABLET PO PRN ×2 (09:51→13:28)
[2019-10-13] MEDS: LOPERAMIDE 2 MG CAPSULE PO SCH ×2 (09:51→13:28)
[2019-10-13] MEDS: OCTREOTIDE ACETATE 100 MCG/ML VIAL IV SCH ×2 (09:52→13:28)
--- NOTE | 2019-10-13 14:21 | Discharge Summary ---
Providers - Providers Patient information: Note initiated : 10/13/19 at 2:16 pm Service Date, if different from initiated Date: [] Patient: Mojgan Mesa 43 y/o F admitted on 10/09/19 for abd pain. Chief Complaint: [] Date of admission: 10/07/19 Discharge date: 10/13/19 Attending physician: Rahul Gamez Hospitalization Hospital Course: 43-year-old female admitted on 07 oct 2019 with complaint of weakness muscle pain abdominal pain and nausea. She was seen in the emergency room and was noted to have dehydration with electrolyte imbalance. She had continued problems with high output via her ileostomy due to short gut syndrome. Her serum sodium was 125 potassium 6 BUN 65 and creatinine 1.6. She also had elevated serum calcium of 12.5. Patient was admitted and started on IV hydratio n. Her potassium corrected after she was adequately hydrated and her serum sodium marty to normal levels. While hospitalized her pyridostigmine was increased to 4 times daily and she was started on Imodium 2 tabs 4 times daily along with Questran to time daily. Even with this combination she is still putting out over 3 L of fluid through her stoma per day. She had increased appetite while hospitalized and her electrolytes have remained stable. She is advised that she needs to be more diligent and eating more and in drinking more liquids. I will try to see her in the office weekly to check her labs. We may have to increase her meds until such time as we can reanastomose her small bowel . At the time of discharge she is doing well. Discharge diagnosis: short gut syndrome Secondary discharge diagnosis: Severe dehydration due to high output ileostomy Reason for admission: dehydration and electrolyte disturbance Procedures: None Pertinent studies/significant findings: None Complications: None Exam Temp Pulse Resp BP Pulse Ox 98.0 F 85 16 98/64 96 10/13/19 12:00 10/13/19 12:00 10/13/19 12:00 10/13/19 12:10/13/19 12:00 - General physical appearance well developed, well nourished, no distress, moderate pain (overall pain has significantly improved) - Eyes PERRL, normal ocular movement - ENT normal pinna, normal nares, normal mucosa, no hearing loss, no congestion - Head Head exam IM: Present: atraumatic, normocephalic - Neck no masses, no bruits, trachea midline, no lymphadenopathy, no venous distension - Cardiovascular Cardiovascular exam IM: Present: normal rate and rhythm - Respiratory normal expansion, normal respiratory effort, clear to percussion, clear to auscultation - Abdomen Abdomen: Present: soft, non tender, bowel sounds, surgical scars ( lower abdominal surgical incision is continuing to granulate in), distended ( no abdominal distention) Hernia: Present: none - Genitourinary Present: normal external genitalia - Integumentary Present: no rash, no growths, no abnormal pigmentation - Neurologic Present: normal coordination, normal sensation - Musculoskeletal Present: normal gait, normal posture - Psychiatric Present: oriented to time, oriented to person, oriented to place, speech is normal, memory intact Discharge Plan - Patient/Caregiver Discharge Instructions Activity: increase activity as tolerated Diet: Regular Diet ( may eat 5-6 meals daily as tolerated) Additional Instructions: Drink plenty of fluids to keep you hydrated. Prescriptions: Zolpidem [Ambien] 10 mg PO HSP PRN #30 tab PRN Reason: Insomnia Transmission Status: Sent to [facility] #[id number] Loperamide [Imodium] 2 mg PO QID #100 Neutra Phos 2 packet PO BID #60 packet Transmission Status: Sent to [facility] #[id number] Promethazine [Phenergan] 25 mg PO Q4HP PRN #120 tab PRN Reason: Nausea And Vomiting Transmission Status: Sent to [facility] #[id number] Cholestyramine/Aspartame [Questran Light] 4 gm PO QID@0700,1200,1800 #120 powd.pack Transmission Status: Sent to [facility] #[id number] Methocarbamol [Robaxin] 750 mg PO TID #90 tab Transmission Status: Sent to [facility] #[id number] Octreotide Acetate [Sandostatin] 100 mcg IV QID #120 vial Transmission Status: Sent to [facility] #[id number] - Follow up Plan Follow up with: Rahul Gamez MD [Primary Care Provider] - 10/21/19 2:30 pm () Disposition: Home, Self-Care Care Plan Goals: This discharge packet is provided to you to help keep you informed about your care. We want to ensure you get everything you need when you go home. You will also be receiving a call from us in a few days to follow up with you and see how you are doing since your discharge. This gives us a chance to listen to any concerns you maybe experiencing since you were discharged or any additional needs you may have, as well as providing us feedback on your care experience. We strive to always provide excellent care and thank you for your feedback and for choosing [facility]. Prognosis: Good Rehab Potential: Good I certify that the patient requires SNF services.: No Overall status at discharge: patient is progressing back to baseline Pending Studies Resuscitation Status Full Code Diet Regular Diet Start FriOct 07 1748 Hydrocodone Bitart/Acetaminophen ([place] 5/325mg) 1 - 2 tab PO Q4HP PRN; Protocol PRN Reason: Per Pain Protocol Last Admin: 10/13/19 11:30 Dose: 2 tab Documented by: Admin: 10/13/19 07:10 Dose: 2 tab Documented by: Admin: 10/13/19 02:58 Dose: 2 tab Documented by: Admin: 10/12/19 20:36 Dose: 1 tab Documented by: Admin: 10/12/19 16:13 Dose: 2 tab Documented by: Admin: 10/12/19 12:08 Dose: 2 tab Documented by: Admin: 10/12/19 07:09 Dose: 2 tab Documented by: Admin: 10/12/19 01:25 Dose: 2 tab Documented by: Admin: 10/11/19 17:30 Dose: 2 tab Documented by: JUAN MIGUEL Admin: 10/11/19 12:45 Dose: 2 tab Documented by: JUAN MIGUEL Admin: 10/11/19 06:05 Dose: 2 tab Documented by: Admin: 10/11/19 02:09 Dose: 2 tab Documented by: Admin: 10/10/19 19:04 Dose: 2 tab Documented by: Admin: 10/10/19 13:30 Dose: 2 tab Documented by: JUAN MIGUEL Admin: 10/10/19 08:40 Dose: 2 tab Documented by: JUAN MIGUEL Admin: 10/10/19 01:50 Dose: 2 tab Documented by: Admin: 10/09/19 21:28 Dose: 2 tab Documented by: Admin: 10/09/19 17:39 Dose: 2 tab Documented by: JUAN MIGUEL Admin: 10/09/19 13:33 Dose: 2 tab Documented by: JUAN MIGUEL Admin: 10/09/19 09:33 Dose: 2 tab Documented by: JUAN MIGUEL Cholestyramine Resin (Questran Light) 4 gm PO QID@0700,1200,1800 [facility] Last Admin: 10/13/19 11:30 Dose: 4 gm Documented by: Admin: 10/13/19 07:07 Dose: 4 gm Documented by: Admin: 10/12/19 17:56 Dose: 4 gm Documented by: Admin: 10/12/19 12:06 Dose: 4 gm Documented by: Admin: 10/12/19 07:09 Dose: 4 gm Documented by: Admin: 10/11/19 18:25 Dose: 4 gm Documented by: JUAN MIGUEL Admin: 10/11/19 14:21 Dose: 4 gm Documented by: JUAN MIGUEL Hydromorphone HCl (Dilaudid) 0.5 mg IV Q2HP PRN; Protocol PRN Reason: Per Pain Protocol Last Admin: 10/09/19 06:52 Dose: 0.5 mg Documented by: JUAN MIGUEL Admin: 10/09/19 02:28 Dose: 0.5 mg Documented by: Admin: 10/08/19 21:49 Dose: 0.5 mg Documented by: Admin: 10/08/19 18:46 Dose: 0.5 mg Documented by: Admin: 10/08/19 15:35 Dose: 0.5 mg Documented by: Admin: 10/08/19 13:16 Dose: 0.5 mg Documented by: Admin: 10/08/19 10:14 Dose: 0.5 mg Documented by: Admin: 10/08/19 06:41 Dose: 0.5 mg Documented by: Admin: 10/08/19 02:06 Dose: 0.5 mg Documented by: ROBIN Sodium Chloride (Sodium Chloride 0.9%) 1,000 mls @ 50 mls/hr IV .Q20H [facility] Last Admin: 10/13/19 07:20 Dose: Not Given Documented by: Admin: 10/12/19 15:36 Dose: 50 mls/hr Documented by: Infusion: 10/12/19 12:05 Dose: 50 mls/hr Documented by: Admin: 10/11/19 16:05 Dose: 50 mls/hr Documented by: JUAN MIGUEL Infusion: 10/11/19 16:05 Dose: 50 mls/hr Documented by: JUAN MIGUEL Admin: 10/11/19 12:45 Dose: 50 mls/hr Documented by: JUAN MIGUEL Loperamide HCl (Imodium) 2 mg PO QID [facility] Admin: 10/13/19 13:28 Dose: 2 mg Documented by: [facility] Admin: 10/13/19 09:51 Dose: 2 mg Documented by: Admin: 10/12/19 20:37 Dose: 2 mg Documented by: Admin: 10/12/19 16:58 Dose: 2 mg Documented by: Admin: 10/12/19 13:36 Dose: 2 mg Documented by: Admin: 10/12/19 09:12 Dose: 2 mg Documented by: Admin: 10/11/19 20:56 Dose: 2 mg Documented by: Admin: 10/11/19 17:30 Dose: 2 mg Documented by: JUAN MIGUEL Admin: 10/11/19 12:44 Dose: 2 mg Documented by: JUAN MIGUEL Methocarbamol (Robaxin) 750 mg PO TID [facility] Admin: 10/13/19 09:51 Dose: 750 mg Documented by: Admin: 10/12/19 20:37 Dose: 750 mg Documented by: Admin: 10/12/19 15:36 Dose: 750 mg Documented by: Admin: 10/12/19 09:12 Dose: 750 mg Documented by: Admin: 10/11/19 20:56 Dose: 750 mg Documented by: Admin: 10/11/19 16:05 Dose: 750 mg Documented by: JUAN MIGUEL Admin: 10/11/19 07:15 Dose: 750 mg Documented by: JUAN MIGUEL Admin: 10/10/19 20:04 Dose: 750 mg Documented by: Admin: 10/10/19 15:53 Dose: 750 mg Documented by: JUAN MIGUEL Admin: 10/10/19 09:27 Dose: 750 mg Documented by: JUAN MIGUEL Admin: 10/09/19 20:28 Dose: 750 mg Documented by: Admin: 10/09/19 15:31 Dose: 750 mg Documented by: JUAN MIGUEL Octreotide Acetate (Sandostatin) 100 mcg IV QID [facility] Admin: 10/13/19 13:28 Dose: 100 mcg Documented by: Admin: 10/13/19 09:52 Dose: 100 mcg Documented by: Admin: 10/12/19 20:40 Dose: 100 mcg Documented by: Admin: 10/12/19 17:56 Dose: 100 mcg Documented by: LIANNE Ondansetron HCl (Zofran) 4 mg IV Q6HP PRN PRN Reason: Nausea And Vomiting Last Admin: 10/12/19 09:26 Dose: 4 mg Documented by: Admin: 10/11/19 22:18 Dose: 4 mg Documented by: Admin: 10/11/19 08:21 Dose: 4 mg Documented by: JUAN MIGUEL Admin: 10/10/19 15:53 Dose: 4 mg Documented by: JUAN MIGUEL Admin: 10/10/19 09:27 Dose: 4 mg Documented by: JUAN MIGUEL Admin: 10/09/19 21:27 Dose: 4 mg Documented by: Admin: 10/09/19 15:31 Dose: 4 mg Documented by: JUAN MIGUEL Admin: 10/09/19 09:32 Dose: 4 mg Documented by: JUAN MIGUEL Admin: 10/08/19 21:49 Dose: 4 mg Documented by: Admin: 10/08/19 06:39 Dose: 4 mg Documented by: Admin: 10/07/19 21:15 Dose: 4 mg Documented by: LEONOR Potassium/Phosphorus/Sodium (Neutra Phos) 2 packet PO BID [facility] Last Admin: 10/13/19 09:51 Dose: 2 packet Documented by: Admin: 10/12/19 20:34 Dose: 2 packet Documented by: Admin: 10/12/19 09:13 Dose: 2 packet Documented by: Admin: 10/11/19 20:56 Dose: 2 packet Documented by: Admin: 10/11/19 12:43 Dose: 2 packet Documented by: JUAN MIGUEL Promethazine HCl (Phenergan) 25 mg PO Q4HP PRN PRN Reason: Nausea And Vomiting Last Admin: 10/13/19 13:28 Dose: 25 mg Documented by: [facility] Admin: 10/13/19 09:51 Dose: 25 mg Documented by: Admin: 10/12/19 20:30 Dose: 25 mg Documented by: Admin: 10/12/19 16:58 Dose: 25 mg Documented by: Admin: 10/12/19 13:36 Dose: 25 mg Documented by: Admin: 10/11/19 17:30 Dose: 25 mg Documented by: JUAN MIGUEL Admin: 10/11/19 12:46 Dose: 25 mg Documented by: JUAN MIGUEL Sodium Chloride (Saline Flush) 10 ml IV Q8 [facility] Last Admin: 10/13/19 13:32 Dose: Not Given Documented by: [facility] Admin: 10/13/19 07:20 Dose: Not Given Documented by: [facility] Admin: 10/12/19 20:41 Dose: Not Given Documented by: Admin: 10/12/19 15:31 Dose: Not Given Documented by: Admin: 10/12/19 05:48 Dose: Not Given Documented by: Admin: 10/11/19 21:44 Dose: Not Given Documented by: Admin: 10/11/19 14:21 Dose: Not Given Documented by: JUAN MIGUEL Admin: 10/11/19 05:25 Dose: Not Given Documented by: Admin: 10/10/19 21:59 Dose: Not Given Documented by: Admin: 10/10/19 13:32 Dose: Not Given Documented by: JUAN MIGUEL Admin: 10/10/19 05:59 Dose: Not Given Documented by: Admin: 10/09/19 20:29 Dose: Not Given Documented by: Admin: 10/09/19 13:34 Dose: Not Given Documented by: JUAN MIGUEL Admin: 10/09/19 04:17 Dose: Not Given Documented by: Admin: 10/08/19 21:38 Dose: Not Given Documented by: Admin: 10/08/19 14:09 Dose: Not Given Documented by: AEMarizol Admin: 10/08/19 04:49 Dose: Not Given Documented by: Admin: 10/08/19 02:06 Dose: 10 ml Documented by: Admin: 10/07/19 23:12 Dose: Not Given Documented by: ROBIN Zolpidem Tartrate (Ambien) 10 mg PO HSP PRN PRN Reason: Insomnia Last Admin: 10/12/19 20:36 Dose: 10 mg Documented by: [email or web address] Admin: 10/11/19 20:56 Dose: 10 mg Documented by: Admin: 10/10/19 20:04 Dose: 10 mg Documented by: Admin: 10/09/19 20:28 Dose: 10 mg Documented by: Admin: 10/08/19 21:49 Dose: 10 mg Documented by: ROBIN Shift Summary 10/13/19 05:46 Shift Summary by Nicole Carranza Slept most of the night. Up ad álvaro in room to BR; voiding & emptying her ostomy. Stool is loose, but less liquid than yesterday - which is the goal. Ostomy bag changed twice d/t not sticking & leaking. Received pain meds twice. Midline dressing changed last night after being contaminated w/stool from the ostomy. Initialized on 10/13/19 05:46 - END OF NOTE
== END 2019-10-13 15:20 | disposition home or self-care (01) | DRG 392 ==
LOC: ED 17:54 → MEDSUR 17:54
PROVIDERS: ADMIT Family Medicine Adult Medicine; ATTEND Family Medicine Adult Medicine

== ENCOUNTER 2019-10-18 06:20 | Inpatient (IN) ==
[2019-10-18] MEDS ORDERED: 0.9 % SODIUM CHLORIDE 1,000 ML IV ONE ×2 (06:43→10:11)
[2019-10-18] MEDS ORDERED: ONDANSETRON 4 MG/2 ML VIAL IV ONE ×2 (06:50→08:21)
--- NOTE | 2019-10-18 08:03 | Emergency Department Note ---
Nausea/Vomiting/Diarrhea HPI - General Chief complaint: Nausea/Vomiting/Diarrhea Stated complaint: nausea, vomitting Time Seen by Provider: 10/18/19 06:44 Source: patient Mode of arrival: wheelchair Limitations: no limitations - History of Present Illness HPI Narrative: 43-year-old female comes in complaining of abdominal pain nausea and vomiting starting today. She was last to the hospital 5 days ago and was released after improvement. She sees Dr. Bayron Gamez, general surgeon, and he did a takedown of adhesions at her last hospital stay. She has been in and out of the hospital several times in the last few months with extended stays for significant electrolyte abnormalities. She has recurrent nausea and vomiting from short gut status post colectomy. She continues to have a colostomy bag that is functioning well. No fever - Related Data Previous Rx's Medication Instructions Recorded Octreotide Acetate 100 mcg SC TID #90 ampul 09/22/19 Acetaminophen [Tylenol] 650 mg PO Q4-6HP PRN #30 tab 09/30/19 Sennosides/Docusate Sodium [Senna 1 tab PO HS #30 tab 09/30/19 Plus Tablet] traMADol [Ultram] 50 mg PO Q8HP PRN #30 tab 09/30/19 hydrocodone 10 mg-acetaminophen 1 tab PO Q6H PRN #60 tab 10/07/19 325 mg tablet Octreotide Acetate 100 mcg SQ QID #120 ampul 10/13/19 loperamide 2 mg capsule 2 mg PO QID #120 cap 10/13/19 methocarbamol 750 mg tablet 750 mg PO TID #90 tab 10/13/19 promethazine 25 mg tablet 25 mg PO Q4HP PRN #120 tab 10/13/19 zolpidem 10 mg tablet 10 mg PO QHS PRN #30 tab 10/13/19 Allergies Allergy/AdvReac Type Severity Reaction Status Date / Time Erythromycin Base Allergy Unknown Unknown Verified 10/18/19 06:28 Penicillins Allergy Unknown Unknown Verified 10/18/19 06:28 ampicillin Allergy Anaphylaxis Verified 10/18/19 06:28 contact metal agent AdvReac Intermediate Other Verified 10/18/19 06:28 Review of Systems All systems ED: reviewed and negative except as stated. Past Medical History - Past Medical History Attestation: Yes: The following information was validated with the patient. PMFSH Narrative: Family History (Last Reviewed 10/07/19 @ 10:59 by Glenda Moreno CMA) Father CAD (coronary artery disease) Grandfather CAD (coronary artery disease) Grandmother CAD (coronary artery disease) Past Surgical History (Last Reviewed 10/07/19 @ 10:59 by Glenda Moreno CMA) History of (Acute) History of ERCP (Acute) History of laparoscopic cholecystectomy (Acute) Medical history: Reports: renal disease, other (Methamphetamine drug abuse) Surgical history ED: Reports: , cholecystectomy, colostomy - Social History smoking status: Former smoker Drug use: Reports: methamphetamine Physical Exam Thin female some distress secondary to pain and nausea. Normocephalic atr aumatic. Conjunctive are clear sclerae white nonicteric. No nasal discharge or congestion. Oropharynx with dry buccal mucosa. Neck is supple without lymphadenopathy or thyromegaly. Heart is regular rate and rhythm no murmur appreciated. Lungs are clear to auscultation bilaterally without wheezes rales rhonchi or respiratory distress. Abdomen is soft mildly diffusely tender. Colostomy bag appears to be in place in good working order abdominal wound site appears to be healing well. No pedal edema. Alert and oriented. Limitations: no limitations Course Vital Signs Temperature 96.7 F L 10/18/19 06:21 Pulse Rate 84 10/18/19 06:21 Respiratory Rate 30 H 10/18/19 06:21 Blood Pressure 123/102 10/18/19 06:21 Pulse Oximetry (%) 99 10/18/19 06:21 Temperature 96.7 F L 10/18/19 06:21 Pulse Rate 84 10/18/19 06:21 Respiratory Rate 30 H 10/18/19 06:21 Blood Pressure 123/102 10/18/19 06:21 Pulse Oximetry (%) 99 10/18/19 06:21 Nausea/Vomiting/Diarrhea - Lab Data Lab results reviewed: Yes I reviewed the patient's lab results. Result diagrams: 10/18/19 07:43 10/18/19 07:43 Disposition Pt seen by BONDERIZER/PA only: No Clinical Impression: Nausea and vomiting Qualifiers: Vomiting type: unspecified Vomiting Intractability: unspecified Qualified Code(s): R11.2 - Nausea with vomiting, unspecified Summary: Patient appears to be doing well and resting in to you, the room and then she starts moaning. It is not clear if this is because she is aroused or if this is symptom amplification. Anyways after assessment ordered work-up with laboratory and x-ray. Treatment started with IV fluids Zofran and Dilaudid Patient will be checked out to Dr. Null at shift change for further care and evaluation Disposition: Still a Patient Condition: Fair Referrals: Bayron Gamez MD [Primary Care Provider] -
[2019-10-18 08:15] LABS: Basophils # (Auto) 0.05 K/mcL (0.00-0.30); Basophils % (Auto) 0.4 % (0.0-2.0); Eosinophils # (Auto) 0.07 K/mcL (0.00-0.70); Eosinophils % (Auto) 0.6 % (0.0-7.0); Granulocytes % (Auto) 88.6 % (38.0-78.0); Hematocrit 43.4 % (34.1-44.9); Hemoglobin 14.7 g/dL (11.2-15.7); Lymphocytes % (Auto) 5.8 % (15.5-49.0); Mean Cell Volume 85.3 fL (80.0-100.0); Mean Corpuscular HGB Conc 33.9 g/dL (31.0-36.0); Monocytes # (Auto) 0.56 K/mcL (0.10-0.90); Monocytes % (Auto) 4.6 % (1.0-12.0); Platelet Count 349 K/mcL (140-440); RBC 5.09 M/mcL (3.59-5.38); Red Cell Distribution Width 15.8 % (11.5-14.5); WBC 12.2 K/mcL (4.50-11.00)
[2019-10-18] MEDS: HYDROmorphone 0.5 MG/0.5 ML SYRINGE IV PRN ×3 (08:25→14:16)
[2019-10-18 08:41] LABS: ALT/SGPT 85 U/l (0-40); AST/SGOT 46 U/l (0-37); Albumin 4.6 gm/dL (3.2-5.2); Alkaline Phosphatase 341 U/L (39-117); Bilirubin,Total 0.3 mg/dL (0.0-1.0); Blood Urea Nitrogen 58 mg/dl (6-20); Calcium 10.4 mg/dl (8.6-10.4); Carbon Dioxide 15 mmol/L (22-30); Globulin 4.5 gm/dL (2.2-3.7); Glomerular Filtration Rate 42; Glucose 112 mg/dL (70-105)
[2019-10-18 08:58] LABS: Chloride 85 mmol/L (96-108)
[2019-10-18 09:30] LABS: POC Blood Urea Nitrogen 64 mg/dl (6-20); POC CO2 21 mmol/L (22-30); POC Calcium, Ionized 0.98 mmol/L (1.16-1.32); POC Chloride 102 mmol/L (96-108); POC Creatinine 1.3 mg/dl (0.6-1.1); POC Glucose, Random 116 mg/dL (70-105); POC Potassium 7.4 mmol/L (3.3-5.1); POC Sodium 125 mmol/L (133-145)
--- NOTE | 2019-10-18 09:35 | XRay Report ---
CLINICAL INFORMATION: nausea and vomiting COMPARISON: 09/28/2019 FINDINGS: The GI tract is decompressed suggesting poor oral intake, vomiting and/or diarrhea. No free air, soft tissue mass or organomegaly. Multiple surgical clips in the right abdomen seen as before. IMPRESSION: Decompressed GI tract otherwise negative Interpreted and Authenticated by: Iván Espinoza 10/18/19
[2019-10-18] MEDS ORDERED: ALBUTEROL SULFATE 5 MG/ML NEB SOLUTION BOTTLE NEB ONE (09:37)
[2019-10-18] MEDS ORDERED: SODIUM BICARBONATE 50 MEQ/50 ML VIAL IV ONE (09:37)
[2019-10-18] MEDS ORDERED: INSULIN REGULAR, HUMAN 1 UNIT/0.01 ML UNIT IV ONE (09:37)
[2019-10-18] MEDS ORDERED: DEXTROSE 50% 50 ML VIAL IV ONE (09:37)
[2019-10-18] MEDS ORDERED: CALCIUM CHLORIDE 1,000 MG in DEXTROSE 5% IN WATER 50 ML IV ONE (09:37)
[2019-10-18] MEDS ORDERED: FUROSEMIDE 40 MG/4 ML VIAL IV ONE (09:37)
[2019-10-18] MEDS ORDERED: CALCIUM CHLORIDE 1,000 MG/10 ML SYRINGE IV ONE (09:40)
[2019-10-18] MEDS ORDERED: PROMETHAZINE 25 MG/ML VIAL IV ONE (09:47)
[2019-10-18] MEDS ORDERED: DEXTROSE 5% IV ONE (11:15)
[2019-10-18] MEDS ORDERED: WATER IV ONE (11:15)
[2019-10-18] MEDS ORDERED: CALCIUM GLUCONATE IV ONE (11:15)
--- NOTE | 2019-10-18 12:11 | Cat Scan Report ---
CLINICAL INFORMATION: Abdominal pain COMPARISON: 09/28/2019 TECHNIQUE: 0.625 mm helical slices were obtained from the mid heart through the subtrochanteric regions. Following reconstruction, 2.5 mm sagittal, coronal and axial reformatted images were processed and reviewed at bone and soft tissue windows.The exam was performed using radiation dose optimization techniques including, but not limited to, automated exposure control, adjustment of the mA and/or kV according to patient size and use of iterative reconstruction technique. FINDINGS: Lung bases show no abnormality - no effusion. The visualized heart is grossly normal. Abdominal images show gallbladder surgically absent. Common bile duct normal caliber 6 mm. The noncontrasted liver, both kidneys, adrenal glands, spleen, pancreas and aorta are normal in size configuration and attenuation without focal lesion. There is no free air or adenopathy. Pelvic images show urinary bladder is normal. The uterus is anteflexed And mildly enlarged - 10 x 4.5 cm. Region of the ovaries are unremarkable. Right hemicolectomy and distal ilial resection changes appreciated. There is ileostomy in the left lower quadrant. Moderate enteric contrast is seen within the remaining (transverse, descending and rectosigmoid (colonic segments. The residual colon and small bowel and stomach are all grossly normal. There is mild mesenteric edema and small amounts of free fluid as expected in the postoperative state. There is a laparotomy scar in the anterior central false and true pelvis. No change IMPRESSION: 1. Right colectomy and partial ileal resection changes with ileostomy in the left lower quadrant. The stomach residual small and large bowel are normal. There is no free air suggest perforation. Small amount of mesenteric edema and free fluid are likely related to recent surgery.. 2. Mild uterine enlargement. Most common cause would be adenomyosis Interpreted and Authenticated by: Iván Espinoza 10/18/19
--- NOTE | 2019-10-18 12:43 | Emergency Department Note ---
Nausea/Vomiting/Diarrhea HPI - General Chief complaint: Nausea/Vomiting/Diarrhea Stated complaint: nausea, vomitting Time Seen by Provider: 10/18/19 06:44 Source: patient Mode of arrival: wheelchair Limitations: no limitations - History of Present Illness HPI Narrative: This individual is here because of abdominal pain and nausea and vomiting. She was recently discharged from this hospital for similar and had adhesio lysis a hospitalization before that on August 17 she says. She reports that she has been drinking a lot of Pedialyte these past 5 days. She has no personal history of hepatitis nor exposures. She has kept herself quite isolated and only been around her who has no GI symptoms. Her onset of pain was around 4 this morning. She degrades pain in her abdomen and back. See history and physical dictated by Dr. Richardson. I am seeing patient in follow- up after change in shift. Patient denies dizziness. - Related Data Previous Rx's Medication Instructions Recorded Sennosides/Docusate Sodium [Senna 1 tab PO HS #30 tab 09/30/19 Plus Tablet] hydrocodone 10 mg-acetaminophen 1 tab PO Q6H PRN #60 tab 10/07/19 325 mg tablet Octreotide Acetate 100 mcg SQ QID #120 ampul 10/13/19 loperamide 2 mg capsule 2 mg PO QID #120 cap 10/13/19 methocarbamol 750 mg tablet 750 mg PO TID #90 tab 10/13/19 promethazine 25 mg tablet 25 mg PO Q4HP PRN #120 tab 10/13/19 zolpidem 10 mg tablet 10 mg PO QHS PRN #30 tab 10/13/19 Allergies Allergy/AdvReac Type Severity Reaction Status Date / Time Erythromycin Base Allergy Unknown Unknown Verified 10/18/19 06:28 Penicillins Allergy Unknown Unknown Verified 10/18/19 06:28 ampicillin Allergy Anaphylaxis Verified 10/18/19 06:28 contact metal agent AdvReac Intermediate Other Verified 10/18/19 06:28 Past Medical History - Past Medical History Medical history: Reports: renal disease, other (Methamphetamine drug abuse) Surgical history ED: Reports: , cholecystectomy, colostomy - Social History smoking status: Former smoker Drug use: Reports: methamphetamine Physical Exam Limitations: no limitations Course Vital Signs Temperature 96.7 F L 10/18/19 06:21 Pulse Rate 84 10/18/19 06:21 Respiratory Rate 30 H 10/18/19 06:21 Blood Pressure 123/102 10/18/19 06:21 Pulse Oximetry (%) 99 10/18/19 06:21 Temperature 98.3 F 10/18/19 20:01 Pulse Rate 103 H 10/18/19 18:01 Respiratory Rate 13 10/18/19 20:01 Blood Pressure 95/70 10/18/19 20:01 Pulse Oximetry (%) 98 10/18/19 18:01 Nausea/Vomiting/Diarrhea - [facility] Narrative Medical decision making narrative: Labs have come back with a white count that is elevated compared to recently at 12.2. Lactic acid is markedly elevated at 4.1. Potassium is 7.9, alkaline phosphatase 341, liver function tests elevated at 46 and 85. Lipase added. Potassium comes back with a 7.9 and a POC to repeat this is ordered. POC Chem-8 demonstrates a potassium of 7.4. BUN and creatinine are mildly elevated at 58 and 1.5 which is high compared to her recent discharge. Hyperkalemia protocol initiated. 10:40 AM - calcium chloride being infused in the back of the right hand caused immediate severe redness from the back of her hand all the way to her elbow of her forearm on the right side. When I came to reassess patient the redness was group home up on the radial aspect and two thirds of the way up on the ulnar aspect and was less severe than it was and her pain was decreasing. 10:45 AM - I spoke with Juan, pharmacist who will help with trying to identify any treatment. 11:01 AM - Dr. Gamez, general surgeon, is willing to consult on this patient but recommends admission to the hospitalist due to her multiple circumstances and metabolic disorders. He does recommend going ahead with a CT scan of the abdomen without contrast. CT scan of the abdomen demonstrates no free air or acute blockage pattern or picture or abscess. Some small areas of mild edema compatible with recent surgery, etc. IV access is of some concern with 2 IV sites not functional and a smaller catheter for the third. I will discuss with hospitalist. Hospitalist pending consultation. Repeat potassium was obtained and is down to 4.3. This was at 11:36 AM. 1:20 PM - I spoke with Dr. Quinn, hospitalist, who is willing to accept this patient. I am ordering BMP and lactic acid for trending for him. Patient is already received approximately 2 L he is able to see on the chart. We will hold on additional fluids for right now. - Lab Data Result diagrams: 10/18/19 07:43 10/18/19 16:40 Lab Results 10/18/19 10/18/19 10/18/19 Range/Units 07:12 07:43 07:43 WBC 12.2 H (4.50-11.00) K/mcL RBC 5.09 (3.59-5.38) M/mcL Hgb 14.7 (11.2-15.7) g/dL Hct 43.4 (34.1-44.9) % POC Hct (36.0-48.0) % MCV 85.3 (80.0-100.0) fL MCH 28.9 (26.0-34.0) pg MCHC 33.9 (31.0-36.0) g/dL RDW 15.8 H (11.5-14.5) % Plt Count 349 (140-440) K/mcL MPV 9.0 (7.4-10.4) fL Gran % 88.6 H (38.0-78.0) % Lymph % (Auto) 5.8 L (15.5-49.0) % Mellette % (Auto) 4.6 (1.0-12.0) % Eos % (Auto) 0.6 (0.0-7.0) % Baso % (Auto) 0.4 (0.0-2.0) % Gran # 10.78 H (1.80-8.00) K/mcL Lymph # (Auto) 0.70 L (1.50-4.80) K/mcL Mellette # (Auto) 0.56 (0.10-0.90) K/mcL Eos # (Auto) 0.07 (0.00-0.70) K/mcL Baso # (Auto) 0.05 (0.00-0.30) K/mcL VBG Lactic Acid 4.1 H* (0.5-2.0) mmol/L POC Sodium (133-145) mmol/L Sodium 122 L (133-145) mmol/L POC Potassium (3.3-5.1) mmol/L Potassium 7.9 H* (3.3-5.1) mmol/L POC Chloride (96-108) mmol/L Chloride 85 L (96-108) mmol/L Carbon Dioxide 15 L (22-30) mmol/L POC Total CO2 (22-30) mmol/L Anion Gap 22.0 H (8-16) POC BUN (6-20) mg/dl BUN 58 H (6-20) mg/dl Creatinine 1.5 H (0.6-1.1) mg/dl POC Creatinine (0.6-1.1) mg/dl GFR Calculation 42 Glucose 112 H (70-105) mg/dL POC Glucose (70-105) mg/dL Calcium 10.4 (8.6-10.4) mg/dl POC WB Ioniz Calcium (1.16-1.32) mmol/L Magnesium 1.9 (1.6-2.5) mg/dL Total Bilirubin 0.3 (0.0-1.0) mg/dL AST 46 H (0-37) U/l ALT 85 H (0-40) U/l Alkaline Phosphatase 341 H (39-117) U/L Total Protein 9.1 H (5.9-8.4) gm/dL Albumin 4.6 (3.2-5.2) gm/dL Globulin 4.5 H (2.2-3.7) gm/dL Albumin/Globulin Ratio 1.0 (1.0-2.3) Lipase (7-60) U/L Procalcitonin (<0.10) ng/mL 10/18/19 10/18/19 10/18/19 Range/Units 09:21 11:36 11:36 WBC (4.50-11.00) K/mcL RBC (3.59-5.38) M/mcL Hgb (11.2-15.7) g/dL Hct (34.1-44.9) % POC Hct 45.0 (36.0-48.0) % MCV (80.0-100.0) fL MCH (26.0-34.0) pg MCHC (31.0-36.0) g/dL RDW (11.5-14.5) % Plt Count (140-440) K/mcL MPV (7.4-10.4) fL Gran % (38.0-78.0) % Lymph % (Auto) (15.5-49.0) % Mellette % (Auto) (1.0-12.0) % Eos % (Auto) (0.0-7.0) % Baso % (Auto) (0.0-2.0) % Gran # (1.80-8.00) K/mcL Lymph # (Auto) (1.50-4.80) K/mcL Mellette # (Auto) (0.10-0.90) K/mcL Eos # (Auto) (0.00-0.70) K/mcL Baso # (Auto) (0.00-0.30) K/mcL VBG Lactic Acid (0.5-2.0) mmol/L POC Sodium 125 L (133-145) mmol/L Sodium (133-145) mmol/L POC Potassium 7.4 H* (3.3-5.1) mmol/L Potassium 4.3 (3.3-5.1) mmol/L POC Chloride 102 (96-108) mmol/L Chloride (96-108) mmol/L Carbon Dioxide (22-30) mmol/L POC Total CO2 21 L (22-30) mmol/L Anion Gap (8-16) POC BUN 64 H (6-20) mg/dl BUN (6-20) mg/dl Creatinine (0.6-1.1) mg/dl POC Creatinine 1.3 H (0.6-1.1) mg/dl GFR Calculation Glucose (70-105) mg/dL POC Glucose 116 H (70-105) mg/dL Calcium (8.6-10.4) mg/dl POC WB Ioniz Calcium 0.98 L (1.16-1.32) mmol/L Magnesium (1.6-2.5) mg/dL Total Bilirubin (0.0-1.0) mg/dL AST (0-37) U/l ALT (0-40) U/l Alkaline Phosphatase (39-117) U/L Total Protein (5.9-8.4) gm/dL Albumin (3.2-5.2) gm/dL Globulin (2.2-3.7) gm/dL Albumin/Globulin Ratio (1.0-2.3) Lipase 39 (7-60) U/L Procalcitonin 0.09 (<0.10) ng/mL Disposition Pt seen by [facility]/PA only: No Clinical Impression: Hyperkalemia, Hyponatremia, Elevated LFTs, Elevated alkaline phosphatase level Nausea and vomiting Qualifiers: Vomiting type: unspecified Vomiting Intractability: unspecified Qualified Code(s): R11.2 - Nausea with vomiting, unspecified Abdominal pain Qualifiers: Abdominal location: generalized Qualified Code(s): R10.84 - Generalized abdominal pain ARF (acute renal failure) Qualifiers: Acute renal failure type: unspecified Qualified Code(s): N17.9 - Acute kidney failure, unspecified Disposition: Xfer As Inpt ([facility]) Condition: Serious
--- NOTE | 2019-10-18 14:16 | Internal Med History&Physical ---
Medical - H&P: [facility] Patient information: Note initiated : 10/18/19 at 2:11 pm Service Date, if different from initiated Date: [] Patient: Mojgan Mesa a 43 y/o F admitted on for N/V. Chief Complaint: [] History of present illness: Ms. Mesa is a 43 year old F Presents ED for nausea vomiting myalgias hot flashes. Patient has had multiple hospitalizations recently. She was hospitalized on the first and found to have abdominal abscess. She first had a exploratory laparotomy and drainage of several large abscesses. Second surgery was a peritoneal washout closure of ileum perforation with wound VAC placement on the august. Third surgery was on September 10 which included a terminal ileal resection with ileostomy. She was hospitalized for most a month. She was then hospitalized October 07- for dehydration. She felt she was doing well until this morning at 4 AM when she wake up with nausea and vomiting no specific abdominal pain but she had muscle aches everywhere and hot flashes and chills. As well as headache. Has been drinking Pedialyte lately. Denies any diarrhea but states her ostomy output is a little bit looser today. In the ER she was evaluated and found to have hyponatremia with severe hyperkalemia treated with a hyperkalemia protocol. Repeat was within normal limits. She has metabolic acidosis with a lactic acidosis. She has acute kidney injury. Case was discussed with Dr. Gamez, the general surgeon. Patient was hydrated in the ED. Review of Systems: Pertinent positives as above. Denies fever/chest or abdominal pain/cough/dyspnea/diarrhea. Remaining 10 point review of system reviewed negative Medical - H&P: [facility] Medical history: Medical History (Last Updated 10/18/19 @ 12:40 by Esteban Nlul DO) Short gut syndrome (Chronic) Methamphetamine abuse, episodic (Chronic) Anxiety, generalized (Chronic) Marijuana use (Chronic) Polysubstance dependence including opioid type drug, episodic abuse (Chronic) Nausea and vomiting (Chronic) Abdominal pain (Resolved) Acute cholecystitis (Resolved) Acute renal failure (Resolved) Anemia (Resolved) Chest pain (Resolved) Choledocholithiasis with acute cholecystitis with obstruction (Resolved) Colostomy complication (Resolved) Elevated LFTs (Resolved) Elevated alkaline phosphatase level (Resolved) Enterocutaneous fistula (Resolved) Fistula (Resolved) Iliopsoas abscess on right (Resolved) Incarcerated hernia of abdominal cavity (Resolved) Oligouria (Resolved) Postoperative anemia due to acute blood loss (Resolved) Postoperative ileus (Resolved) Sepsis (Resolved) Small bowel obstruction (Resolved) Small bowel obstruction due to postoperative adhesions (Resolved) Surgical wound present (Resolved) Thrombocytosis (Resolved) Past Surgical History (Last Reviewed 10/07/19 @ 10:59 by Glenda Moreno CMA) History of (Acute) History of ERCP (Acute) History of laparoscopic cholecystectomy (Acute) Family History (Last Reviewed 10/07/19 @ 10:59 by Glenda Moreno CMA) Father CAD (coronary artery disease) Grandfather CAD (coronary artery disease) Grandmother CAD (coronary artery disease) Social History (Last Updated 10/07/19 @ 12:33 by Rahul Gamez MD) Patient quit smoking 5 years ago Denies alcohol use Uses marijuana occasionally Lives with her Medical - H&P: Meds Home Medications Medication Instructions Recorded Confirmed Type Octreotide Acetate 100 mcg SC TID #90 ampul 09/22/19 10/18/19 Rx Acetaminophen [Tylenol] 650 mg PO Q4-6HP PRN #30 tab 09/30/19 10/18/19 Rx Sennosides/Docusate Sodium [Senna 1 tab PO HS #30 tab 09/30/19 10/18/19 Rx Plus Tablet] hydrocodone 10 mg-acetaminophen 1 tab PO Q6H PRN #60 tab 10/07/19 10/18/19 Rx 325 mg tablet Octreotide Acetate 100 mcg SQ QID #120 ampul 10/13/19 10/18/19 Rx loperamide 2 mg capsule 2 mg PO QID #120 cap 10/13/19 10/18/19 Rx methocarbamol 750 mg tablet 750 mg PO TID #90 tab 10/13/19 10/18/19 Rx promethazine 25 mg tablet 25 mg PO Q4HP PRN #120 tab 10/13/19 10/18/19 Rx zolpidem 10 mg tablet 10 mg PO QHS PRN #30 tab 10/13/19 10/18/19 Rx Allergies Allergy/AdvReac Type Severity Reaction Status Date / Time Erythromycin Base Allergy Unknown Unknown Verified 10/18/19 06:28 Penicillins Allergy Unknown Unknown Verified 10/18/19 06:28 ampicillin Allergy Anaphylaxis Verified 10/18/19 06:28 contact metal agent AdvReac Intermediate Other Verified 10/18/19 06:28 Medical - H&P: Exam - Constitutional Vitals: Temp Pulse Resp BP Pulse Ox 96.7 F L 99 H 17 106/77 100 10/18/19 06:21 10/18/19 13:59 10/18/19 13:59 10/18/19 13:30 10/18/19 13:59 Exam: General: Alert, Awake, No acute Distress Eyes/N/T: EOMI, PERRL, dry MM Head/Neck: neck supple, normocephalic atraumatic CV: Mildly tacky but regular, No murmurs, normal s1/s2 Pulm: Clear b/l, no wheezing/rhonchi/rales Abd: soft, nontender, decreased BS x4, ostomy with output Ext: no clubbing/cyanosis/edema Neuro: Alert, no focal deficits, moves all extremities, CN 2-12 grossly intact, symmetrical strength b/l upper/lower, sensations intact b/l upper/lower Skin: warm/dry Medical - H&P: Reslt - Labs CBC & Chem 7: 10/18/19 07:43 10/18/19 11:36 Labs: Short CBC 10/18/19 Range/Units 07:43 WBC 12.2 H (4.50-11.00) K/mcL Hgb 14.7 (11.2-15.7) g/dL Hct 43.4 (34.1-44.9) % Plt Count 349 (140-440) K/mcL BMP 10/18/19 10/18/19 07:43 11:36 Sodium 122 L Potassium 7.9 H* 4.3 Chloride 85 L Carbon Dioxide 15 L BUN 58 H Creatinine 1.5 H Glucose 112 H Calcium 10.4 Liver Function 10/18/19 Range/Units 07:43 Total Bilirubin 0.3 (0.0-1.0) mg/dL AST 46 H (0-37) U/l ALT 85 H (0-40) U/l Alkaline Phosphatase 341 H (39-117) U/L Albumin 4.6 (3.2-5.2) gm/dL Medical - H&P: A/P - Narrative A/P Narrative: A: *Nausea/vomiting: -CT a/p no acute path *Hyperkalemia/hyponatremia: *Metabolic (lactic) acidosis: 2/2 volume depletion *PEACE w/Volume depletion & Hemoconcentration: prerenal *h/o recent abdominal abscesses w/surgical I&D , lysis of adhesions , ileostomy: * P: -IVF's, f/u lactate -f/u Na/K -clear liquid diet for now -Dr. Gamez consulted -monitor ostomy outpt - -ambulation -ppx: lovenox
[2019-10-18] MEDS ORDERED: 0.9 % SODIUM CHLORIDE 1,000 ML IV SCH (14:57)
[2019-10-18] MEDS ORDERED: ACETAMINOPHEN 325 MG TABLET PO PRN (14:57)
[2019-10-18] MEDS ORDERED: ONDANSETRON 4 MG/2 ML VIAL IV PRN (14:57)
[2019-10-18] MEDS ORDERED: PROMETHAZINE 25 MG TABLET PO PRN (14:57)
[2019-10-18] MEDS ORDERED: MAGNESIUM SULFATE 2 GM/50 ML BAG IV PRN (14:57)
[2019-10-18] MEDS ORDERED: POTASSIUM CHLORIDE 40 MEQ in DEXTROSE 5% IN WATER 500 ML IV PRN (14:57)
[2019-10-18] MEDS ORDERED: POTASSIUM CHLORIDE 20 MEQ TABLET PO PRN ×2 (14:57)
[2019-10-18] MEDS ORDERED: ZOLPIDEM 5 MG TABLET PO PRN (14:57)
[2019-10-18] MEDS ORDERED: HYDROcodone/APAP 10/325MG TABLET PO PRN (14:57)
[2019-10-18 15:20] LABS: Appearance,Urine HAZY; Bacteria,Urine FEW /hpf (0); Bilirubin,Urine NEG (NEG); Color,Urine YELLOW; Glucose,Urine (UA) NEGATIVE (NEG); Ictotest,Urine NEG (NEG); Ketones,Urine NEG (NEG); Leukocyte Esterase,Urine NEG /uL (NEG); Mucus,Urine FEW /hpf (0); Nitrate,Urine NEG (NEG); Protein,Urine 100 mg/dL (NEG); Specific Gravity,Urine 1.021 (1.000-1.035); Urine Blood 0.2 mg/dL (<0.03); Urine Hyaline Cast 32 /lpf (0-2); Urine RBC 69 /hpf (0-1); Urine Squamous Epithelial Cell 6 /hpf (0-4); Urine Transitional Epi Cells 1 /hpf (0-2); Urine WBC 2 /hpf (0-4); Urobilinogen,Urine NEG (NEG)
[2019-10-18 15:21] LABS: Culture Indicated,Urine NO
[2019-10-18 15:22] LABS: Amphetamine Screen,Urine NONE DETECTED (NONDETECTED); Barbiturate Screen,Urine NONE DETECTED (NONDETECTED); Benzodiazepines Screen,Urine NONE DETECTED (NONDETECTED); Cannabinoid Screen,Urine SUSPECT POSITIVE (NONDETECTED); Cocaine Screen,Urine NONE DETECTED (NONDETECTED); Opiate Screen,Urine SUSPECT POSITIVE (NONDETECTED); Oxycodone, Urine Screen NONE DETECTED (NONDETECTED); Phencyclidine Screen,Urine NONE DETECTED (NONDETECTED)
--- NOTE | 2019-10-18 15:35 | General Surgery Consult Note ---
History of Present Illness Patient information: Note initiated : 10/18/19 at 3:34 pm Service Date, if different from initiated Date: [] Patient: Mojgan Mesa 43 y/o F admitted on 10/18/19 for N/V. Chief Complaint: [] Medications and Allergies Home Medications Medication Instructions Recorded Confirmed Type Sennosides/Docusate Sodium [Senna 1 tab PO HS #30 tab 09/30/19 10/18/19 Rx Plus Tablet] hydrocodone 10 mg-acetaminophen 1 tab PO Q6H PRN #60 tab 10/07/19 10/18/19 Rx 325 mg tablet Octreotide Acetate 100 mcg SQ QID #120 ampul 10/13/19 10/18/19 Rx loperamide 2 mg capsule 2 mg PO QID #120 cap 10/13/19 10/18/19 Rx methocarbamol 750 mg tablet 750 mg PO TID #90 tab 10/13/19 10/18/19 Rx promethazine 25 mg tablet 25 mg PO Q4HP PRN #120 tab 10/13/19 10/18/19 Rx zolpidem 10 mg tablet 10 mg PO QHS PRN #30 tab 10/13/19 10/18/19 Rx Allergies Allergy/AdvReac Type Severity Reaction Status Date / Time Erythromycin Base Allergy Unknown Unknown Verified 10/18/19 06:28 Penicillins Allergy Unknown Unknown Verified 10/18/19 06:28 ampicillin Allergy Anaphylaxis Verified 10/18/19 06:28 contact metal agent AdvReac Intermediate Other Verified 10/18/19 06:28 Exam Temp Pulse Resp BP Pulse Ox 97.8 F 106 H 22 93/78 100 10/18/19 14:57 10/18/19 14:50 10/18/19 14:57 10/18/19 14:57 10/18/19 14:57 Results - Labs 10/18/19 07:43 10/18/19 11:36 Abnormal lab results 10/18/19 10/18/19 10/18/19 Range/Units 07:12 07:43 07:43 WBC 12.2 H (4.50-11.00) K/mcL RDW 15.8 H (11.5-14.5) % Gran % 88.6 H (38.0-78.0) % Lymph % (Auto) 5.8 L (15.5-49.0) % Gran # 10.78 H (1.80-8.00) K/mcL Lymph # (Auto) 0.70 L (1.50-4.80) K/mcL VBG Lactic Acid 4.1 H* (0.5-2.0) mmol/L POC Sodium (133-145) mmol/L Sodium 122 L (133-145) mmol/L POC Potassium (3.3-5.1) mmol/L Potassium 7.9 H* (3.3-5.1) mmol/L Chloride 85 L (96-108) mmol/L Carbon Dioxide 15 L (22-30) mmol/L POC Total CO2 (22-30) mmol/L Anion Gap 22.0 H (8-16) POC BUN (6-20) mg/dl BUN 58 H (6-20) mg/dl Creatinine 1.5 H (0.6-1.1) mg/dl POC Creatinine (0.6-1.1) mg/dl Glucose 112 H (70-105) mg/dL POC Glucose (70-105) mg/dL POC WB Ioniz Calcium (1.16-1.32) mmol/L AST 46 H (0-37) U/l ALT 85 H (0-40) U/l Alkaline Phosphatase 341 H (39-117) U/L Total Protein 9.1 H (5.9-8.4) gm/dL Globulin 4.5 H (2.2-3.7) gm/dL Urine Protein (NEG) mg/dL Urine Occult Blood (<0.03) mg/dL Urine RBC (0-1) /hpf Ur Squamous Epith Cells (0-4) /hpf Urine Bacteria (0) /hpf Hyaline Casts (0-2) /lpf Urine Opiates Screen (NONDETECTED) U Marijuana (THC) Screen (NONDETECTED) 10/18/19 10/18/19 10/18/19 Range/Units 09:21 14:57 14:57 WBC (4.50-11.00) K/mcL RDW (11.5-14.5) % Gran % (38.0-78.0) % Lymph % (Auto) (15.5-49.0) % Gran # (1.80-8.00) K/mcL Lymph # (Auto) (1.50-4.80) K/mcL VBG Lactic Acid (0.5-2.0) mmol/L POC Sodium 125 L (133-145) mmol/L Sodium (133-145) mmol/L POC Potassium 7.4 H* (3.3-5.1) mmol/L Potassium (3.3-5.1) mmol/L Chloride (96-108) mmol/L Carbon Dioxide (22-30) mmol/L POC Total CO2 21 L (22-30) mmol/L Anion Gap (8-16) POC BUN 64 H (6-20) mg/dl BUN (6-20) mg/dl Creatinine (0.6-1.1) mg/dl POC Creatinine 1.3 H (0.6-1.1) mg/dl Glucose (70-105) mg/dL POC Glucose 116 H (70-105) mg/dL POC WB Ioniz Calcium 0.98 L (1.16-1.32) mmol/L AST (0-37) U/l ALT (0-40) U/l Alkaline Phosphatase (39-117) U/L Total Protein (5.9-8.4) gm/dL Globulin (2.2-3.7) gm/dL Urine Protein 100 A (NEG) mg/dL Urine Occult Blood 0.2 A (<0.03) mg/dL Urine RBC 69 H (0-1) /hpf Ur Squamous Epith Cells 6 H (0-4) /hpf Urine Bacteria Few A (0) /hpf Hyaline Casts 32 H (0-2) /lpf Urine Opiates Screen Suspect positive A (NONDETECTED) U Marijuana (THC) Screen Suspect positive A (NONDETECTED) Diabetes panel 10/18/19 10/18/19 Range/Units 07:43 11:36 Sodium 122 L (133-145) mmol/L Potassium 7.9 H* 4.3 (3.3-5.1) mmol/L Chloride 85 L (96-108) mmol/L Carbon Dioxide 15 L (22-30) mmol/L BUN 58 H (6-20) mg/dl Creatinine 1.5 H (0.6-1.1) mg/dl Glucose 112 H (70-105) mg/dL Calcium 10.4 (8.6-10.4) mg/dl AST 46 H (0-37) U/l ALT 85 H (0-40) U/l Alkaline Phosphatase 341 H (39-117) U/L Total Protein 9.1 H (5.9-8.4) gm/dL Albumin 4.6 (3.2-5.2) gm/dL Calcium panel 10/18/19 Range/Units 07:43 Calcium 10.4 (8.6-10.4) mg/dl Albumin 4.6 (3.2-5.2) gm/dL Pituitary panel 10/18/19 10/18/19 Range/Units 07:43 11:36 Sodium 122 L (133-145) mmol/L Potassium 7.9 H* 4.3 (3.3-5.1) mmol/L Chloride 85 L (96-108) mmol/L Carbon Dioxide 15 L (22-30) mmol/L BUN 58 H (6-20) mg/dl Creatinine 1.5 H (0.6-1.1) mg/dl Glucose 112 H (70-105) mg/dL Calcium 10.4 (8.6-10.4) mg/dl Adrenal panel 10/18/19 10/18/19 Range/Units 07:43 11:36 Sodium 122 L (133-145) mmol/L Potassium 7.9 H* 4.3 (3.3-5.1) mmol/L Chloride 85 L (96-108) mmol/L Carbon Dioxide 15 L (22-30) mmol/L BUN 58 H (6-20) mg/dl Creatinine 1.5 H (0.6-1.1) mg/dl Glucose 112 H (70-105) mg/dL Calcium 10.4 (8.6-10.4) mg/dl Total Bilirubin 0.3 (0.0-1.0) mg/dL AST 46 H (0-37) U/l ALT 85 H (0-40) U/l Alkaline Phosphatase 341 H (39-117) U/L Total Protein 9.1 H (5.9-8.4) gm/dL Albumin 4.6 (3.2-5.2) gm/dL All other labs normal. Assessment and Plan (1) ARF (acute renal failure) Status: Acute Qualifiers: Acute renal failure type: unspecified Qualified Code(s): N17.9 - Acute kidney failure, unspecified (2) Hyperkalemia Status: Acute (3) Hyponatremia Status: Acute (4) Short gut syndrome Status: Chronic (5) Nausea and vomiting Status: Chronic Qualifiers: Vomiting type: unspecified Vomiting Intractability: unspecified Qualified Code(s): R11.2 - Nausea with vomiting, unspecified
[2019-10-18] MEDS: CHOLESTYRAMINE/ASPARTAME 4 GM POWD.PACK PO SCH ×2 (16:49→20:35)
[2019-10-18] MEDS: METHOCARBAMOL 750 MG TABLET PO SCH ×2 (16:49→20:35)
[2019-10-18] MEDS: LOPERAMIDE 2 MG CAPSULE PO SCH ×2 (16:49→20:35)
[2019-10-18] MEDS: HYDROcodone/APAP 5/325MG TABLET PO PRN ×2 (17:04→20:35)
[2019-10-18 18:00] LABS: C-Reactive Protein < 0.3 mg/dl (0.0-0.8); Carbon Dioxide 23 mmol/L (22-30); Glomerular Filtration Rate 61; Glucose 116 mg/dL (70-105)
[2019-10-18 18:14] LABS: Blood Urea Nitrogen 47 mg/dl (6-20); Chloride 83 mmol/L (96-108)
[2019-10-18 20:19] LABS: Appearance,Urine CLEAR; Bacteria,Urine 0 /hpf (0); Bilirubin,Urine NEG (NEG); Color,Urine YELLOW; Culture Indicated,Urine NO; Glucose,Urine (UA) NEGATIVE (NEG); Ketones,Urine NEG (NEG); Leukocyte Esterase,Urine NEG /uL (NEG); Mucus,Urine FEW /hpf (0); Nitrate,Urine NEG (NEG); Protein,Urine NEG (NEG); Specific Gravity,Urine 1.012 (1.000-1.035); Urine Blood 0.2 mg/dL (<0.03); Urine Hyaline Cast 10 /lpf (0-2); Urine RBC 3 /hpf (0-1); Urine Squamous Epithelial Cell 5 /hpf (0-4); Urine WBC 1 /hpf (0-4); Urobilinogen,Urine NEG (NEG)
[2019-10-18] MEDS: FAMOTIDINE 20 MG TABLET PO SCH (20:35)
[2019-10-18] MEDS: 0.9 % SODIUM CHLORIDE 10 ML SYRINGE IV SCH (20:36)
[2019-10-19] MEDS: HYDROcodone/APAP 5/325MG TABLET PO PRN ×6 (00:18→21:52)
[2019-10-19] MEDS: 0.9 % SODIUM CHLORIDE 10 ML SYRINGE IV SCH ×3 (04:34→20:27)
[2019-10-19 07:03] LABS: Basophils # (Auto) 0.05 K/mcL (0.00-0.30); Basophils % (Auto) 0.9 % (0.0-2.0); Eosinophils # (Auto) 0.23 K/mcL (0.00-0.70); Eosinophils % (Auto) 4.3 % (0.0-7.0); Granulocytes % (Auto) 68.1 % (38.0-78.0); Hemoglobin 11.6 g/dL (11.2-15.7); Lymphocytes # (Auto) 0.73 K/mcL (1.50-4.80); Lymphocytes % (Auto) 13.7 % (15.5-49.0); Mean Cell Volume 87.3 fL (80.0-100.0); Mean Corpuscular HGB Conc 33.1 g/dL (31.0-36.0); Mean Platelet Volume 9.7 fL (7.4-10.4); Monocytes # (Auto) 0.69 K/mcL (0.10-0.90); Platelet Count 348 K/mcL (140-440); RBC 4.01 M/mcL (3.59-5.38); Red Cell Distribution Width 16.6 % (11.5-14.5); WBC 5.3 K/mcL (4.50-11.00)
[2019-10-19 07:41] LABS: ALT/SGPT 53 U/l (0-40); AST/SGOT 24 U/l (0-37); Albumin 4.1 gm/dL (3.2-5.2); Albumin/Globulin Ratio 1.3 (1.0-2.3); Alkaline Phosphatase 229 U/L (39-117); Bilirubin,Direct < 0.2 mg/dL (0.0-0.3); Bilirubin,Total 0.4 mg/dL (0.0-1.0); Blood Urea Nitrogen 45 mg/dl (6-20); Calcium 9.6 mg/dl (8.6-10.4); Carbon Dioxide 21 mmol/L (22-30); Globulin 3.2 gm/dL (2.2-3.7); Glomerular Filtration Rate 61; Glucose 78 mg/dL (70-105); Lactate Dehydrogenase 100 U/L (94-250); Triglycerides 268 mg/dl (<150)
[2019-10-19 07:44] LABS: Chloride 91 mmol/L (96-108); Phosphorous 4.2 mg/dL (2.7-4.5)
[2019-10-19] MEDS ORDERED: MAGNESIUM SULFATE 2 GM/50 ML BAG IV ONE (07:50)
--- NOTE | 2019-10-19 07:52 | Internal Med Progress Note ---
Medical - PN: Subj Patient information: Note initiated : 10/19/19 at 7:47 am Service Date, if different from initiated Date: [] Patient: Mojgan Mesa 43 y/o F admitted on 10/18/19 for N/V. Chief Complaint: [] Interval history: Ms. Mesa is a 43 year old F Presents ED for nausea vomiting myalgias hot flashes. Patient has had multiple hospitalizations recently. She was hospitalized on the first and found to have abdominal abscess. She first had a exploratory laparotomy and drainage of several large abscesses. Second surgery was a peritoneal washout closure of ileum perforation with wound VAC placement on the august. Third surgery was on September 10 which included a terminal ileal resection with ileostomy. She was hospitalized for most a month. She was then hospitalized October 07- for dehydration. She felt she was doing well until this morning at 4 AM when she wake up with nausea and vomiting no specific abdominal pain but she had muscle aches everywhere and hot flashes and chills. As well as headache. Has been drinking Pedialyte lately. Denies any diarrhea but states her ostomy output is a little bit looser today. In the ER she was evaluated and found to have hyponatremia with severe hyperkalemia treated with a hyperkalemia protocol. Repeat was within normal limits. She has metabolic acidosis with a lactic acidosis. She has acute kidney injury. Case was discussed with Dr. Gamez, the general surgeon. Patient was hydrated in the ED. / Slept well. Feeling much better today. Electrolytes improved. Hydration significantly improved. No nausea vomitus morning. Review of Systems: denies headache/fever/chills/nausea/vomiting/chest or abdominal pain/cough/dyspnea/diarrhea. Otherwise see above. - Constitutional Vitals: Vital Signs Temp Pulse Resp BP Pulse Ox 98.6 F 103 H 21 92/75 97 10/19/19 04:01 10/18/19 18:01 10/19/19 04:01 10/19/19 04:01 10/19/19 04:01 Period Temp Pulse Resp BP Sys/[place] Pulse Ox Last 24 Hr 97.8 F-98.9 F 80-117 7-40 83-126/59-89 82-100 Intake and Output 10/18/19 10/19/19 10/19/19 21:59 05:59 13:59 Intake Total 640 360 Output Total 950 950 375 Balance -310 590 -375 Weight 40.568 kg Intake & Output: Intake & Output 10/18/19 10/19/19 10/19/19 21:59 05:59 13:59 Intake Total 640 360 Output Total 950 950 375 Balance -310 590 -375 Weight 40.568 kg Intake: Oral 640 360 Output: Void Amount 300 600 225 Stool 650 350 150 Other: Meal Dinner Percent of Meal Consumed 75% Feeding Ability Independent Urine Appearance Clear Clear Clear Urine Color Bright Yellow Bright Yellow Pale Urine Odor Normal Normal Normal Stool Color Green Green Stool Consistency Liquid Exam: General: Alert, Awake, No acute Distress Eyes/N/T: EOMI, Head/Neck: neck supple, CV: Mildly tacky but regular, No murmurs, Pulm: Clear b/l, no wheezing/rhonchi/rales Abd: soft, nontender, decreased BS x4, ostomy with output Ext: no clubbing/cyanosis/edema Neuro: Alert, no focal deficits, moves all extremities, Skin: warm/dry Medical - PN: Obj Da - Labs CBC & Chem 7: 10/19/19 04:34 10/19/19 04:34 Labs: Abnormal Lab Results 10/19/19 10/19/19 10/18/19 04:34 04:34 19:07 WBC RDW 16.6 H Gran % Lymph % (Auto) 13.7 L [place] % (Auto) 13.0 H Gran # Lymph # (Auto) 0.73 L VBG Lactic Acid POC Sodium Sodium 129 L POC Potassium Potassium Chloride 91 L Carbon Dioxide 21 L POC Total CO2 Anion Gap 17.0 H POC BUN BUN 45 H Creatinine POC Creatinine Glucose POC Glucose Uric Acid 9.0 H Calcium POC WB Ioniz Calcium Magnesium 1.4 L GGT 260 H AST ALT 53 H Alkaline Phosphatase 229 H Total Protein Globulin Triglycerides 268 H Urine Protein Urine Occult Blood 0.2 A Urine RBC 3 H Ur Squamous Epith Cells 5 H Urine Bacteria Hyaline Casts 10 H Urine Opiates Screen U Marijuana (THC) Screen 10/18/19 10/18/19 10/18/19 16:40 16:40 14:57 WBC RDW Gran % Lymph % (Auto) [place] % (Auto) Gran # Lymph # (Auto) VBG Lactic Acid 3.5 H POC Sodium Sodium 127 L POC Potassium Potassium Chloride 83 L Carbon Dioxide POC Total CO2 Anion Gap 21.0 H POC BUN BUN 47 H Creatinine POC Creatinine Glucose 116 H POC Glucose Uric Acid Calcium 11.0 H POC WB Ioniz Calcium Magnesium GGT AST ALT Alkaline Phosphatase Total Protein Globulin Triglycerides Urine Protein 100 A Urine Occult Blood 0.2 A Urine RBC 69 H Ur Squamous Epith Cells 6 H Urine Bacteria Few A Hyaline Casts 32 H Urine Opiates Screen U Marijuana (THC) Screen 10/18/19 10/18/19 10/18/19 14:57 09:21 07:43 WBC RDW Gran % Lymph % (Auto) [place] % (Auto) Gran # Lymph # (Auto) VBG Lactic Acid POC Sodium 125 L Sodium 122 L POC Potassium 7.4 H* Potassium 7.9 H* Chloride 85 L Carbon Dioxide 15 L POC Total CO2 21 L Anion Gap 22.0 H POC BUN 64 H BUN 58 H Creatinine 1.5 H POC Creatinine 1.3 H Glucose 112 H POC Glucose 116 H Uric Acid Calcium POC WB Ioniz Calcium 0.98 L Magnesium GGT AST 46 H ALT 85 H Alkaline Phosphatase 341 H Total Protein 9.1 H Globulin 4.5 H Triglycerides Urine Protein Urine Occult Blood Urine RBC Ur Squamous Epith Cells Urine Bacteria Hyaline Casts Urine Opiates Screen Suspect positive A U Marijuana (THC) Screen Suspect positive A 10/18/19 10/18/19 07:43 07:12 WBC 12.2 H RDW 15.8 H Gran % 88.6 H Lymph % (Auto) 5.8 L [place] % (Auto) Gran # 10.78 H Lymph # (Auto) 0.70 L VBG Lactic Acid 4.1 H* POC Sodium Sodium POC Potassium Potassium Chloride Carbon Dioxide POC Total CO2 Anion Gap POC BUN BUN Creatinine POC Creatinine Glucose POC Glucose Uric Acid Calcium POC WB Ioniz Calcium Magnesium GGT AST ALT Alkaline Phosphatase Total Protein Globulin Triglycerides Urine Protein Urine Occult Blood Urine RBC Ur Squamous Epith Cells Urine Bacteria Hyaline Casts Urine Opiates Screen U Marijuana (THC) Screen Meds: Medications Acetaminophen (Tylenol) 650 mg PO Q6HP PRN PRN Reason: PAIN/FEVER > 101 Hydrocodone Bitart/Acetaminophen ([place] 5/325mg) 1 tab PO Q4HP PRN PRN Reason: PAIN LEVEL 3-6 Last Admin: 10/19/19 04:34 Dose: 1 tab Documented by: Cholestyramine Resin (Questran Light) 4 gm PO QID KEEGAN Last Admin: 10/18/19 20:35 Dose: 4 gm Documented by: Enoxaparin Sodium (Lovenox) 30 mg SQ DAILY [facility] Famotidine (Pepcid) 20 mg PO BID [facility] Last Admin: 10/18/19 20:35 Dose: 20 mg Documented by: Potassium Chloride 40 meq/ (Dextrose) 520 mls @ 130 mls/hr IV UD PRN PRN Reason: Potassium < 3 Magnesium Sulfate (Magnesium Sulfate) 2 gm in 50 mls @ 50 mls/hr IV UD PRN PRN Reason: Magnesium </= 1.6 Loperamide HCl (Imodium) 2 mg PO QID [facility] Last Admin: 10/18/19 20:35 Dose: 2 mg Documented by: Methocarbamol (Robaxin) 750 mg PO TID [facility] Last Admin: 10/18/19 20:35 Dose: 750 mg Documented by: Ondansetron HCl (Zofran) 4 mg IV Q4HP PRN PRN Reason: Nausea And Vomiting Potassium Chloride (Kdur) 40 meq PO UD PRN PRN Reason: Potssium is 3-3.5 Potassium Chloride (Kdur) 40 meq PO UD PRN PRN Reason: Potassium < 3 Promethazine HCl (Phenergan) 25 mg PO Q4HP PRN PRN Reason: Nausea And Vomiting Sodium Chloride (Saline Flush) 10 ml IV Q8 [facility] Last Admin: 10/19/19 04:34 Dose: 10 ml Documented by: Zolpidem Tartrate (Ambien) 10 mg PO QHS PRN PRN Reason: insomnia Last Admin: 10/18/19 21:35 Dose: 10 mg Documented by: Medical - PN: A/P - Time Spent With Patient Total time spent is greater than 50% in coordination of care (as documented) at patient's floor/unit and/or counseling patient: - Narrative A/P Narrative: A: *Nausea/vomiting: none o/n -CT a/p no acute path *Hyperkalemia/hyponatremia: improved *Metabolic (lactic) acidosis: 2/2 volume depletion -resolved *PEACE w/Volume depletion & Hemoconcentration: prerenal -improved *h/o recent abdominal abscesses w/surgical I&D , lysis of adhesions , ileostomy: *Short gut syndrome: *hypomag: P: -IVF's -Diet advanced to regular -Dr. Gamez consulted -monitor ostomy outpt -mag replace -ambulation -ppx: [employer] Medical - PN: Qual - Stroke Symptom Onset Unknown: No - VTE Deep Vein Thrombosis/Pulmonary Embolism Present on Admission: No
[2019-10-19] MEDS ORDERED: 0.9 % SODIUM CHLORIDE 500 ML IV SCH ×2 (08:00→10:47)
[2019-10-19] MEDS ORDERED: ENOXAPARIN 30 MG/0.3 ML SYRINGE SQ SCH (09:00)
--- NOTE | 2019-10-19 09:57 | Discharge Summary ---
Medical - DS: Prov Patient information: Note initiated : 10/19/19 at 9:56 am Service Date, if different from initiated Date: [] Patient: Mojgan Mesa 43 y/o F admitted on 10/18/19 for N/V. Chief Complaint: [] Date of admission: 10/18/19 14:56 Discharge date: 10/21/19 Primary care physician: Rahul Gamez MD Consults: 10/18/19 Consult to Physician [CONS] Stat Comment: Consulting Provider: William Quinn Reason For Exam: Physician to Consult Consult to Physician [CONS] Stat Comment: Consulting Provider: Rahul Gamez Reason For Exam: Physician to Consult Medical - DS: Meds - Discharge Medications Prescriptions: Sodium Chloride 1 gm PO BID #60 tab Transmission Status: Pending to [facility] #[id number] Active and Home Medications: Home Medications Sennosides/Docusate Sodium [Senna Plus Tablet] 1 tab PO HS #30 tab 09/30/19 [Rx Confirmed 10/18/19 Last Taken 10/17/19 21:00] hydrocodone 10 mg-acetaminophen 325 mg tablet 1 tab PO Q6H PRN #60 tab 10/07/19 [Rx Confirmed 10/18/19 Last Taken 10/18/19 03:00] Octreotide Acetate 100 mcg SQ QID #120 ampul 10/13/19 [Rx Confirmed 10/18/19 Last Taken 10/18/19 03:00] loperamide 2 mg capsule 2 mg PO QID #120 cap 10/13/19 [Rx Confirmed 10/18/19 Last Taken 10/18/19 03:00] methocarbamol 750 mg tablet 750 mg PO TID #90 tab 10/13/19 [Rx Confirmed 10/18/19 Last Taken 10/18/19 03:00] promethazine 25 mg tablet 25 mg PO Q4HP PRN #120 tab 10/13/19 [Rx Confirmed 10/18/19 Last Taken 10/17/19 21:00] zolpidem 10 mg tablet 10 mg PO QHS PRN #30 tab 10/13/19 [Rx Confirmed 10/18/19 Last Taken 10/17/19 21:00] Home Medications Sennosides/Docusate Sodium [Senna Plus Tablet] 1 tab PO HS #30 tab 09/30/19 [Rx Confirmed 10/18/19 Last Taken 10/17/19 21:00] hydrocodone 10 mg-acetaminophen 325 mg tablet 1 tab PO Q6H PRN #60 tab 10/07/19 [Rx Confirmed 10/18/19 Last Taken 10/18/19 03:00] Octreotide Acetate 100 mcg SQ QID #120 ampul 10/13/19 [Rx Confirmed 10/18/19 Last Taken 10/18/19 03:00] loperamide 2 mg capsule 2 mg PO QID #120 cap 10/13/19 [Rx Confirmed 10/18/19 Last Taken 10/18/19 03:00] methocarbamol 750 mg tablet 750 mg PO TID #90 tab 10/13/19 [Rx Confirmed 10/18/19 Last Taken 10/18/19 03:00] promethazine 25 mg tablet 25 mg PO Q4HP PRN #120 tab 10/13/19 [Rx Confirmed 10/18/19 Last Taken 10/17/19 21:00] zolpidem 10 mg tablet 10 mg PO QHS PRN #30 tab 10/13/19 [Rx Confirmed 10/18/19 Last Taken 10/17/19 21:00] Sodium Chloride 1 gm PO BID #60 tab 10/21/19 [Rx Last Taken Unknown] Medical - DS: Hosp Hospital Course: Ms. Mesa is a 43 year old F Presents ED for nausea vomiting myalgias hot flashes. Patient has had multiple hospitalizations recently. She was hospitalized on the first and found to have abdominal abscess. She first had a exploratory laparotomy and drainage of several large abscesses. Second surgery was a peritoneal washout closure of ileum perforation with wound VAC placement on the august. Third surgery was on September 10 which included a terminal ileal resection with ileostomy. She was hospitalized for most a month. She was then hospitalized October 07- for dehydration. She felt she was doing well until this morning at 4 AM when she wake up with nausea and vomiting no specific abdominal pain but she had muscle aches everywhere and hot flashes and chills. As well as headache. Has been drinking Pedialyte lately. Denies any diarrhea but states her ostomy output is a little bit looser today. In the ER she was evaluated and found to have hyponatremia with severe hyperkalemia treated with a hyperkalemia protocol. Repeat was within normal limits. She has metabolic acidosis with a lactic acidosis. She has acute kidney injury. Case was discussed with Dr. Gamez, the general surgeon. Patient was hydrated in the ED. 10/18 Slept well. Feeling much better today. Electrolytes improved. Hydration significantly improved. No nausea vomitus morning. 10/19 Patient high ostomy output yesterday. But she does note that overnight started to thicken up. Sodium dropped today to 126. 10/20 Patient doing well. Sodium come up to 130, supplemental salt tabs. He is feeling well. A: *Short Bowel syndrome: with high output ostomy *Nausea/vomiting: none since admit -CT a/p no acute path *Hyperkalemia/hyponatremia: improved but sodium dropped. from high ostomy outpt yesterday, but pt states overnight starting to thicken *Metabolic (lactic) acidosis: / volume depletion -improved *PEACE w/Volume depletion & Hemoconcentration: prerenal -improved *h/o recent abdominal abscesses w/surgical I&D , lysis of adhesions , ileostomy: *hypomag: resolved Discharge diagnosis: Nausea vomiting hyperkalemia hyponatremia lactic acidosis PEACE Secondary discharge diagnosis: Short gut syndrome - Time Spent with Patient Total time spent providing and/or coordinating discharge services: Greater than 30 minutes Medical - DS: Exam - Constitutional Vitals: Vital Signs Temp Pulse Resp BP BP Pulse Ox 10/19/19 08:00 98.4 F 18 103/69 100 10/19/19 04:01 98.6 F 21 92/75 97 10/19/19 02:01 14 83/64 96 10/19/19 02:00 12 98 10/19/19 00:01 98.9 F 12 96/59 10/18/19 22:01 13 87/67 10/18/19 20:01 98.3 F 13 95/70 10/18/19 18:01 103 H 17 95/72 98 10/18/19 17:56 102 H 10 L 95/74 98 10/18/19 16:31 104 H 22 103/75 100 10/18/19 16:23 102 H 14 109/70 100 10/18/19 16:17 98.2 F 109 H 14 103/74 98 10/18/19 16:16 103 H 14 98 10/18/19 15:46 104 H 7 L 103/74 99 06/01/20 15:31 117 H 18 109/89 100 10/18/19 15:17 105 H 8 L 96/83 98 10/18/19 15:01 114 H 22 99/79 100 10/18/19 14:57 97.8 F 22 93/78 100 10/18/19 14:56 100 10/18/19 14:51 98.3 F 97 H 93/78 82 L 10/18/19 14:50 97.8 F 106 H 22 101/73 100 10/18/19 14:31 106 H 13 101/73 95 10/18/19 14:01 98 H 13 111/84 100 10/18/19 13:59 99 H 17 100 10/18/19 13:30 111 H 9 L 106/77 100 10/18/19 13:00 109 H 14 104/73 98 10/18/19 12:32 114 H 16 97 10/18/19 12:31 114 H 14 103/75 97 10/18/19 12:01 115 H 13 114/77 100 10/18/19 12:00 114 H 19 100 10/18/19 11:00 16 108/79 10/18/19 10:45 40 H 97 10/18/19 10:31 18 104/82 99 10/18/19 10:17 100 H 14 98 10/18/19 10:15 98 H 14 109/80 99 10/18/19 10:01 85 14 102/77 99 Intake and Output 10/18/19 10/19/19 10/19/19 21:59 05:59 13:59 Intake Total 640 360 240 Output Total 950 950 650 Balance -310 -590 -410 Intake: Oral 640 360 240 Output: Void Amount 300 600 375 Stool 650 350 275 Other: Meal Dinner Breakfast Percent of Meal Consumed 75% 75% Feeding Ability Independent Urine Appearance Clear Clear Clear Urine Color Bright Yellow Bright Yellow Pale Urine Odor Normal Normal Normal Stool Color Green Green Stool Consistency Liquid Weight 40.568 kg Medical - DS: Data Labs on day of discharge: Labs from last 24 hours 10/19/19 10/19/19 10/19/19 04:34 04:34 04:34 WBC 5.3 RBC 4.01 Hgb 11.6 Hct 35.0 MCV 87.3 MCH 28.9 MCHC 33.1 RDW 16.6 H Plt Count 348 MPV 9.7 Gran % 68.1 Lymph % (Auto) 13.7 L [place] % (Auto) 13.0 H Eos % (Auto) 4.3 Baso % (Auto) 0.9 Gran # 3.61 Lymph # (Auto) 0.73 L [place] # (Auto) 0.69 Eos # (Auto) 0.23 Baso # (Auto) 0.05 VBG Lactic Acid 1.7 Sodium 129 L Potassium 5.1 Chloride 91 L Carbon Dioxide 21 L Anion Gap 17.0 H BUN 45 H Creatinine 1.1 GFR Calculation 61 Glucose 78 Uric Acid 9.0 H Calcium 9.6 Phosphorus 4.2 Magnesium 1.4 L Total Bilirubin 0.4 Direct Bilirubin < 0.2 GGT 260 H AST 24 ALT 53 H Alkaline Phosphatase 229 H Lactate Dehydrogenase 100 C-Reactive Protein Total Protein 7.3 Albumin 4.1 Globulin 3.2 Albumin/Globulin Ratio 1.3 Triglycerides 268 H Lipase Procalcitonin Urine Color Urine Appearance Urine pH Ur Specific [place] Urine Protein Urine Glucose (UA) Urine Ketones Urine Occult Blood Urine Nitrate Urine Bilirubin Urine Ictotest Urine Urobilinogen Ur Leukocyte Esterase Urine RBC Urine WBC Ur Squamous Epith Cells Ur Transition Epith Cell Urine Bacteria Hyaline Casts Urine Mucus Ur Culture Indicated? Urine Opiates Screen Ur Opiates Confirm Ur Oxycodone Screen Urine Methadone Screen Ur Methadone Confirm Ur Barbiturates Screen Ur Barbiturate Confirm Ur Phencyclidine Scrn Urine PCP Confirm Ur Amphetamines Screen U Amphetamines Confirm U Benzodiazepines Scrn U Benzodiazepine Confm Urine Cocaine Screen Urine Cocaine Confirm U Cannabinoids Confirm U Marijuana (THC) Screen 10/18/19 10/18/19 10/18/19 19:07 16:40 16:40 WBC RBC Hgb Hct MCV MCH MCHC RDW Plt Count MPV Gran % Lymph % (Auto) [place] % (Auto) Eos % (Auto) Baso % (Auto) Gran # Lymph # (Auto) [place] # (Auto) Eos # (Auto) Baso # (Auto) VBG Lactic Acid 3.5 H Sodium 127 L Potassium 4.6 Chloride 83 L Carbon Dioxide 23 Anion Gap 21.0 H BUN 47 H Creatinine 1.1 GFR Calculation 61 Glucose 116 H Uric Acid Calcium 11.0 H Phosphorus Magnesium Total Bilirubin Direct Bilirubin GGT AST ALT Alkaline Phosphatase Lactate Dehydrogenase C-Reactive Protein < 0.3 Total Protein Albumin Globulin Albumin/Globulin Ratio Triglycerides Lipase Procalcitonin Urine Color Yellow Urine Appearance Clear Urine pH 5.0 Ur Specific [place] 1.012 Urine Protein Neg Urine Glucose (UA) Negative Urine Ketones Neg Urine Occult Blood 0.2 A Urine Nitrate Neg Urine Bilirubin Neg Urine Ictotest Urine Urobilinogen Neg Ur Leukocyte Esterase Neg Urine RBC 3 H Urine WBC 1 Ur Squamous Epith Cells 5 H Ur Transition Epith Cell Urine Bacteria 0 Hyaline Casts 10 H Urine Mucus Few Ur Culture Indicated? No Urine Opiates Screen Ur Opiates Confirm Ur Oxycodone Screen Urine Methadone Screen Ur Methadone Confirm Ur Barbiturates Screen Ur Barbiturate Confirm Ur Phencyclidine Scrn Urine PCP Confirm Ur Amphetamines Screen U Amphetamines Confirm U Benzodiazepines Scrn U Benzodiazepine Confm Urine Cocaine Screen Urine Cocaine Confirm U Cannabinoids Confirm U Marijuana (THC) Screen 10/18/19 10/18/19 10/18/19 14:57 14:57 11:36 WBC RBC Hgb Hct MCV MCH MCHC RDW Plt Count MPV Gran % Lymph % (Auto) [place] % (Auto) Eos % (Auto) Baso % (Auto) Gran # Lymph # (Auto) [place] # (Auto) Eos # (Auto) Baso # (Auto) VBG Lactic Acid Sodium Potassium Chloride Carbon Dioxide Anion Gap BUN Creatinine GFR Calculation Glucose Uric Acid Calcium Phosphorus Magnesium Total Bilirubin Direct Bilirubin GGT AST ALT Alkaline Phosphatase Lactate Dehydrogenase C-Reactive Protein Total Protein Albumin Globulin Albumin/Globulin Ratio Triglycerides Lipase Procalcitonin 0.09 Urine Color Yellow Urine Appearance Hazy Urine pH 5.0 Ur Specific [place] 1.021 Urine Protein 100 A Urine Glucose (UA) Negative Urine Ketones Neg Urine Occult Blood 0.2 A Urine Nitrate Neg Urine Bilirubin Neg Urine Ictotest Neg Urine Urobilinogen Neg Ur Leukocyte Esterase Neg Urine RBC 69 H Urine WBC 2 Ur Squamous Epith Cells 6 H Ur Transition Epith Cell 1 Urine Bacteria Few A Hyaline Casts 32 H Urine Mucus Few Ur Culture Indicated? No Urine Opiates Screen Suspect positive A Ur Opiates Confirm Not Reportable Ur Oxycodone Screen None detected Urine Methadone Screen None detected Ur Methadone Confirm Not Reportable Ur Barbiturates Screen None detected Ur Barbiturate Confirm Not Reportable Ur Phencyclidine Scrn None detected Urine PCP Confirm Not Reportable Ur Amphetamines Screen None detected U Amphetamines Confirm Not Reportable U Benzodiazepines Scrn None detected U Benzodiazepine Confm Not Reportable Urine Cocaine Screen None detected Urine Cocaine Confirm Not Reportable U Cannabinoids Confirm Not Reportable U Marijuana (THC) Screen Suspect positive A 10/18/19 10/18/19 11:36 09:21 WBC RBC Hgb Hct MCV MCH MCHC RDW Plt Count MPV Gran % Lymph % (Auto) [place] % (Auto) Eos % (Auto) Baso % (Auto) Gran # Lymph # (Auto) [place] # (Auto) Eos # (Auto) Baso # (Auto) VBG Lactic Acid Sodium Potassium 4.3 Chloride Carbon Dioxide Anion Gap BUN Creatinine GFR Calculation Glucose Uric Acid Calcium Phosphorus Magnesium Total Bilirubin Direct Bilirubin GGT AST ALT Alkaline Phosphatase Lactate Dehydrogenase C-Reactive Protein Total Protein Albumin Globulin Albumin/Globulin Ratio Triglycerides Lipase 39 Procalcitonin Urine Color Urine Appearance Urine pH Ur Specific [place] Urine Protein Urine Glucose (UA) Urine Ketones Urine Occult Blood Urine Nitrate Urine Bilirubin Urine Ictotest Urine Urobilinogen Ur Leukocyte Esterase Urine RBC Urine WBC Ur Squamous Epith Cells Ur Transition Epith Cell Urine Bacteria Hyaline Casts Urine Mucus Ur Culture Indicated? Urine Opiates Screen Ur Opiates Confirm Ur Oxycodone Screen Urine Methadone Screen Ur Methadone Confirm Ur Barbiturates Screen Ur Barbiturate Confirm Ur Phencyclidine Scrn Urine PCP Confirm Ur Amphetamines Screen U Amphetamines Confirm U Benzodiazepines Scrn U Benzodiazepine Confm Urine Cocaine Screen Urine Cocaine Confirm U Cannabinoids Confirm U Marijuana (THC) Screen Medical - DS: A/P - Patient/Caregiver Discharge Instructions Activity: increase activity as tolerated Diet: Regular Diet (<800ml pure water/day, use sports drinks) Other Amb Orders: Basic Metabolic Panel Time Frame: 1 Week, Location: None Selected - Follow up Plan Follow up with: Rahul Gamez MD [Primary Care Provider] - Disposition: Home, Self-Care Prognosis: Fair Rehab Potential: Fair Overall status at discharge: patient is back to baseline Medical - DS: Qual - VTE Deep Vein Thrombosis/Pulmonary Embolism Present on Admission: No
[2019-10-19] MEDS: FAMOTIDINE 20 MG TABLET PO SCH ×2 (10:07→20:27)
[2019-10-19] MEDS: LOPERAMIDE 2 MG CAPSULE PO SCH ×4 (10:08→20:27)
[2019-10-19] MEDS: CHOLESTYRAMINE/ASPARTAME 4 GM POWD.PACK PO SCH ×4 (10:08→20:27)
[2019-10-19] MEDS: METHOCARBAMOL 750 MG TABLET PO SCH ×3 (10:08→20:27)
[2019-10-19] MEDS ORDERED: POTASSIUM CHLORIDE 40 MEQ in DEXTROSE 5% IN WATER 500 ML IV PRN (10:47)
[2019-10-19] MEDS ORDERED: POTASSIUM CHLORIDE 20 MEQ TABLET PO PRN ×2 (10:47)
[2019-10-19] MEDS ORDERED: ACETAMINOPHEN 325 MG TABLET PO PRN (10:47)
[2019-10-19] MEDS ORDERED: MAGNESIUM SULFATE 2 GM/50 ML BAG IV PRN (10:47)
[2019-10-19] MEDS ORDERED: PROMETHAZINE 25 MG TABLET PO PRN (10:47)
[2019-10-19] MEDS: OCTREOTIDE ACETATE 100 MCG/ML VIAL SQ SCH ×2 (17:10→20:26)
[2019-10-19] MEDS: ONDANSETRON 4 MG/2 ML VIAL IV PRN (17:29)
--- NOTE | 2019-10-19 17:32 | General Surgery Progress Note ---
Subjective Patient reports: feels better, pain is less, tolerating a regular diet, flatus, bowel movement, diarrhea, afebrile Narrative: Note initiated : 10/19/19 at 5:30 pm Service Date, if different from initiated Date: [] Patient: Mojgan Mesa 43 y/o F admitted on 10/18/19 for N/V. Chief Complaint: [patient continues to improve. Her renal status is significantly improved. She still has high volume output. She is tolerating regular diet without difficulty. Have discussed the possibility of having home TPN for the patient but this is not possible because of lack of insurance.] Objective Temp Pulse Resp BP Pulse Ox 98.2 F 103 H 20 111/70 100 10/19/19 16:00 10/18/19 18:01 10/19/19 16:00 10/19/19 16:00 10/19/19 16:00 - Additional Data Intake & Output - Last 24 hours: Intake & Output 10/17/19 10/18/19 10/19/19 10/20/19 05:59 05:59 05:59 05:59 Intake Total 2597 1969 Output Total 1900 2175 Balance 697 -205 Weight 89 lb 7 oz 89 lb 7 oz - General physical appearance well developed, well nourished, no distress - Eyes PERRL, normal ocular movement - ENT normal pinna, normal nares, normal mucosa, no hearing loss, no congestion - Neck no masses, no bruits, trachea midline, no lymphadenopathy, no venous distension - Respiratory normal expansion, normal respiratory effort, clear to auscultation - Cardiovascular Cardiovascular exam: Present: normal rate and rhythm, +S1, +S2 - Abdomen non tender, bowel sounds (present), surgical scars (none), masses (none) - Integumentary no rash, no growths, no abnormal pigmentation - Neurologic normal coordination, normal sensation - Musculoskeletal normal gait, normal posture - Psychiatric oriented to time, oriented to person, oriented to place, speech is normal, memory intact - Labs 10/19/19 04:34 10/19/19 04:34 Diabetes panel 10/18/19 10/19/19 Range/Units 16:40 04:34 Sodium 127 L 129 L (133-145) mmol/L Potassium 4.6 5.1 (3.3-5.1) mmol/L Chloride 83 L 91 L (96-108) mmol/L Carbon Dioxide 23 21 L (22-30) mmol/L BUN 47 H 45 H (6-20) mg/dl Creatinine 1.1 1.1 (0.6-1.1) mg/dl Glucose 116 H 78 (70-105) mg/dL Calcium 11.0 H 9.6 (8.6-10.4) mg/dl AST 24 (0-37) U/l ALT 53 H (0-40) U/l Alkaline Phosphatase 229 H (39-117) U/L Total Protein 7.3 (5.9-8.4) gm/dL Albumin 4.1 (3.2-5.2) gm/dL Triglycerides 268 H (<150) mg/dl Calcium panel 10/18/19 10/19/19 Range/Units 16:40 04:34 Calcium 11.0 H 9.6 (8.6-10.4) mg/dl Phosphorus 4.2 (2.7-4.5) mg/dL Albumin 4.1 (3.2-5.2) gm/dL Pituitary panel 10/18/19 10/19/19 Range/Units 16:40 04:34 Sodium 127 L 129 L (133-145) mmol/L Potassium 4.6 5.1 (3.3-5.1) mmol/L Chloride 83 L 91 L (96-108) mmol/L Carbon Dioxide 23 21 L (22-30) mmol/L BUN 47 H 45 H (6-20) mg/dl Creatinine 1.1 1.1 (0.6-1.1) mg/dl Glucose 116 H 78 (70-105) mg/dL Calcium 11.0 H 9.6 (8.6-10.4) mg/dl Adrenal panel 10/18/19 10/19/19 Range/Units 16:40 04:34 Sodium 127 L 129 L (133-145) mmol/L Potassium 4.6 5.1 (3.3-5.1) mmol/L Chloride 83 L 91 L (96-108) mmol/L Carbon Dioxide 23 21 L (22-30) mmol/L BUN 47 H 45 H (6-20) mg/dl Creatinine 1.1 1.1 (0.6-1.1) mg/dl Glucose 116 H 78 (70-105) mg/dL Calcium 11.0 H 9.6 (8.6-10.4) mg/dl Total Bilirubin 0.4 (0.0-1.0) mg/dL AST 24 (0-37) U/l ALT 53 H (0-40) U/l Alkaline Phosphatase 229 H (39-117) U/L Total Protein 7.3 (5.9-8.4) gm/dL Albumin 4.1 (3.2-5.2) gm/dL Assessment and Plan (1) ARF (acute renal failure) Status: Acute Assessment and plan: Renal status significantly improved Current Visit: Yes (2) Hyperkalemia Status: Resolved Current Visit: Yes (3) Hyponatremia Status: Acute Current Visit: Yes (4) Short gut syndrome Status: Chronic Current Visit: No (5) Nausea and vomiting Status: Resolved Current Visit: Yes - Time Spent With Patient Total time spent is greater than 50% in coordination of care (as documented) at patient's floor/unit and/or counseling patient:
[2019-10-19] MEDS: ZOLPIDEM 5 MG TABLET PO PRN (20:27)
[2019-10-20] MEDS: HYDROcodone/APAP 5/325MG TABLET PO PRN ×5 (03:56→21:52)
[2019-10-20] MEDS: 0.9 % SODIUM CHLORIDE 10 ML SYRINGE IV SCH ×3 (05:14→23:02)
[2019-10-20 08:24] LABS: ALT/SGPT 49 U/l (0-40); AST/SGOT 28 U/l (0-37); Albumin/Globulin Ratio 1.2 (1.0-2.3); Alkaline Phosphatase 236 U/L (39-117); Bilirubin,Direct < 0.2 mg/dL (0.0-0.3); Bilirubin,Total 0.3 mg/dL (0.0-1.0); Calcium 9.4 mg/dl (8.6-10.4); Carbon Dioxide 18 mmol/L (22-30); Globulin 3.4 gm/dL (2.2-3.7); Glomerular Filtration Rate 90; Glucose 94 mg/dL (70-105); Lactate Dehydrogenase 108 U/L (94-250); Triglycerides 188 mg/dl (<150); Uric Acid 8.1 mg/dL (2.5-8.0)
[2019-10-20 08:25] LABS: Blood Urea Nitrogen 26 mg/dl (6-20); Chloride 95 mmol/L (96-108); Phosphorous 2.1 mg/dL (2.7-4.5)
[2019-10-20] MEDS: METHOCARBAMOL 750 MG TABLET PO SCH ×3 (09:28→21:43)
[2019-10-20] MEDS: FAMOTIDINE 20 MG TABLET PO SCH ×2 (09:28→21:43)
[2019-10-20] MEDS: CHOLESTYRAMINE/ASPARTAME 4 GM POWD.PACK PO SCH ×4 (09:28→21:44)
[2019-10-20] MEDS: OCTREOTIDE ACETATE 100 MCG/ML VIAL SQ SCH ×4 (09:29→21:47)
[2019-10-20] MEDS: LOPERAMIDE 2 MG CAPSULE PO SCH ×4 (09:29→21:43)
[2019-10-20] MEDS: ENOXAPARIN 30 MG/0.3 ML SYRINGE SQ SCH (09:30)
[2019-10-20] MEDS: ONDANSETRON 4 MG/2 ML VIAL IV PRN ×4 (09:30→21:54)
--- NOTE | 2019-10-20 09:31 | Internal Med Progress Note ---
Medical - PN: Subj Patient information: Note initiated : 10/20/19 at 9:20 am Service Date, if different from initiated Date: [] Patient: Mojgan Mesa 43 y/o F admitted on 10/18/19 for N/V. Chief Complaint: [] Interval history: Ms. Mesa is a 43 year old F Presents ED for nausea vomiting myalgias hot flashes. Patient has had multiple hospitalizations recently. She was hospitalized on the first and found to have abdominal abscess. She first had a exploratory laparotomy and drainage of several large abscesses. Second surgery was a peritoneal washout closure of ileum perforation with wound VAC placement on the august. Third surgery was on September 10 which included a terminal ileal resection with ileostomy. She was hospitalized for most a month. She was then hospitalized October 07- for dehydration. She felt she was doing well until this morning at 4 AM when she wake up with nausea and vomiting no specific abdominal pain but she had muscle aches everywhere and hot flashes and chills. As well as headache. Has been drinking Pedialyte lately. Denies any diarrhea but states her ostomy output is a little bit looser today. In the ER she was evaluated and found to have hyponatremia with severe hyperkalemia treated with a hyperkalemia protocol. Repeat was within normal limits. She has metabolic acidosis with a lactic acidosis. She has acute kidney injury. Case was discussed with Dr. Gamez, the general surgeon. Patient was hydrated in the ED. 10/18 Slept well. Feeling much better today. Electrolytes improved. Hydration significantly improved. No nausea vomitus morning. 10/19 Patient high ostomy output yesterday. But she does note that overnight started to thicken up. Sodium dropped today to 126. Review of Systems: denies headache/fever/chills/nausea/vomiting/chest or abdominal pain/cough/dyspnea/diarrhea. Otherwise see above. - Constitutional Vitals: Vital Signs Temp Pulse Resp BP Pulse Ox 97.2 F 76 12 102/79 100 10/20/19 08:00 10/20/19 08:00 10/20/19 08:00 10/20/19 08:00 10/20/19 08:00 Period Temp Pulse Resp BP Sys/[place] Pulse Ox Last 24 Hr 97.2 F-98.7 F 76-95 05-07 95-111/61-97 99-100 Intake and Output 10/19/19 10/20/19 10/20/19 21:59 05:59 13:59 Intake Total 1999 1219 Output Total 1800 1300 Balance 200 -80 Weight 40.37 kg Intake & Output: Intake & Output 10/19/19 10/20/19 10/20/19 21:59 05:59 13:59 Intake Total 1999 1219 Output Total 1800 1300 Balance 200 -80 Weight 40.37 kg Intake: IV 50 500 Sodium Chloride 0.9% 500 ml @ 500 50 mls/hr IV .Q10H COUNTS INCLUDE 234 BEDS AT THE [facility] Rx#: [id number] Oral 1950 720 Output: Void Amount 475 600 Stool 1325 700 Other: Meal Dinner Percent of Meal Consumed 75% Urine Appearance Clear Clear Urine Color Bright Yellow Pale Urine Odor Normal # Voids 1 Exam: General: Alert, Awake, No acute Distress Eyes/N/T: EOMI, Head/Neck: neck supple, CV: RRR, No murmurs, Pulm: Clear b/l, no wheezing/rhonchi/rales Abd: soft, nontender, decreased BS x4, ostomy with output Ext: no clubbing/cyanosis/edema Neuro: Alert, no focal deficits, moves all extremities, Skin: warm/dry Medical - PN: Obj Da - Labs CBC & Chem 7: 10/19/19 04:34 10/20/19 05:52 Labs: Abnormal Lab Results 10/20/19 10/19/19 10/19/19 05:52 04:34 04:34 WBC RDW 16.6 H Gran % Lymph % (Auto) 13.7 L [place] % (Auto) 13.0 H Gran # Lymph # (Auto) 0.73 L VBG Lactic Acid POC Sodium Sodium 126 L 129 L POC Potassium Potassium Chloride 95 L 91 L Carbon Dioxide 18 L 21 L POC Total CO2 Anion Gap 17.0 H POC BUN BUN 26 H 45 H Creatinine POC Creatinine Glucose POC Glucose Uric Acid 8.1 H 9.0 H Calcium POC WB Ioniz Calcium Phosphorus 2.1 L Magnesium 1.4 L GGT 277 H 260 H AST ALT 49 H 53 H Alkaline Phosphatase 236 H 229 H Total Protein Globulin Triglycerides 188 H 268 H Urine Protein Urine Occult Blood Urine RBC Ur Squamous Epith Cells Urine Bacteria Hyaline Casts Urine Opiates Screen U Marijuana (THC) Screen 10/18/19 10/18/19 10/18/19 19:07 16:40 16:40 WBC RDW Gran % Lymph % (Auto) [place] % (Auto) Gran # Lymph # (Auto) VBG Lactic Acid 3.5 H POC Sodium Sodium 127 L POC Potassium Potassium Chloride 83 L Carbon Dioxide POC Total CO2 Anion Gap 21.0 H POC BUN BUN 47 H Creatinine POC Creatinine Glucose 116 H POC Glucose Uric Acid Calcium 11.0 H POC WB Ioniz Calcium Phosphorus Magnesium GGT AST ALT Alkaline Phosphatase Total Protein Globulin Triglycerides Urine Protein Urine Occult Blood 0.2 A Urine RBC 3 H Ur Squamous Epith Cells 5 H Urine Bacteria Hyaline Casts 10 H Urine Opiates Screen U Marijuana (THC) Screen 10/18/19 10/18/19 10/18/19 14:57 14:57 09:21 WBC RDW Gran % Lymph % (Auto) [place] % (Auto) Gran # Lymph # (Auto) VBG Lactic Acid POC Sodium 125 L Sodium POC Potassium 7.4 H* Potassium Chloride Carbon Dioxide POC Total CO2 21 L Anion Gap POC BUN 64 H BUN Creatinine POC Creatinine 1.3 H Glucose POC Glucose 116 H Uric Acid Calcium POC WB Ioniz Calcium 0.98 L Phosphorus Magnesium GGT AST ALT Alkaline Phosphatase Total Protein Globulin Triglycerides Urine Protein 100 A Urine Occult Blood 0.2 A Urine RBC 69 H Ur Squamous Epith Cells 6 H Urine Bacteria Few A Hyaline Casts 32 H Urine Opiates Screen Suspect positive A U Marijuana (THC) Screen Suspect positive A 10/18/19 10/18/19 10/18/19 07:43 07:43 07:12 WBC 12.2 H RDW 15.8 H Gran % 88.6 H Lymph % (Auto) 5.8 L [place] % (Auto) Gran # 10.78 H Lymph # (Auto) 0.70 L VBG Lactic Acid 4.1 H* POC Sodium Sodium 122 L POC Potassium Potassium 7.9 H* Chloride 85 L Carbon Dioxide 15 L POC Total CO2 Anion Gap 22.0 H POC BUN BUN 58 H Creatinine 1.5 H POC Creatinine Glucose 112 H POC Glucose Uric Acid Calcium POC WB Ioniz Calcium Phosphorus Magnesium GGT AST 46 H ALT 85 H Alkaline Phosphatase 341 H Total Protein 9.1 H Globulin 4.5 H Triglycerides Urine Protein Urine Occult Blood Urine RBC Ur Squamous Epith Cells Urine Bacteria Hyaline Casts Urine Opiates Screen U Marijuana (THC) Screen Meds: Medications Acetaminophen (Tylenol) 650 mg PO Q6HP PRN PRN Reason: PAIN/FEVER > 101 Hydrocodone Bitart/Acetaminophen ([place] 5/325mg) 1 tab PO Q4HP PRN PRN Reason: PAIN LEVEL 3-6 Last Admin: 10/20/19 08:27 Dose: 1 tab Documented by: Cholestyramine Resin (Questran Light) 4 gm PO QID COUNTS INCLUDE 234 BEDS AT THE [facility] Last Admin: 10/19/19 20:27 Dose: 4 gm Documented by: Enoxaparin Sodium (Lovenox) 30 mg SQ DAILY COUNTS INCLUDE 234 BEDS AT THE [facility] Famotidine (Pepcid) 20 mg PO BID COUNTS INCLUDE 234 BEDS AT THE [facility] Last Admin: 10/19/19 20:27 Dose: 20 mg Documented by: Potassium Chloride 40 meq/ (Dextrose) 520 mls @ 130 mls/hr IV UD PRN PRN Reason: Potassium < 3 Magnesium Sulfate (Magnesium Sulfate) 2 gm in 50 mls @ 50 mls/hr IV UD PRN PRN Reason: Magnesium </= 1.6 Loperamide HCl (Imodium) 2 mg PO QID COUNTS INCLUDE 234 BEDS AT THE [facility] Last Admin: 10/19/19 20:27 Dose: 2 mg Documented by: Methocarbamol (Robaxin) 750 mg PO TID COUNTS INCLUDE 234 BEDS AT THE [facility] Last Admin: 10/19/19 20:27 Dose: 750 mg Documented by: Octreotide Acetate (Sandostatin) 100 mcg SQ QID COUNTS INCLUDE 234 BEDS AT THE [facility] Last Admin: 10/19/19 20:26 Dose: 100 mcg Documented by: Ondansetron HCl (Zofran) 4 mg IV Q4HP PRN PRN Reason: Nausea And Vomiting Last Admin: 10/19/19 17:29 Dose: 4 mg Documented by: Potassium Chloride (Kdur) 40 meq PO UD PRN PRN Reason: Potssium is 3-3.5 Potassium Chloride (Kdur) 40 meq PO UD PRN PRN Reason: Potassium < 3 Promethazine HCl (Phenergan) 25 mg PO Q4HP PRN PRN Reason: Nausea And Vomiting Sodium Chloride (Saline Flush) 10 ml IV Q8 COUNTS INCLUDE 234 BEDS AT THE [facility] Last Admin: 10/20/19 05:14 Dose: 10 ml Documented by: Zolpidem Tartrate (Ambien) 10 mg PO HSP PRN PRN Reason: insomnia Last Admin: 10/19/19 20:27 Dose: 10 mg Documented by: Medical - PN: A/P - Time Spent With Patient Total time spent is greater than 50% in coordination of care (as documented) at patient's floor/unit and/or counseling patient: - Narrative A/P Narrative: A: *Nausea/vomiting: none since admit -CT a/p no acute path *Hyperkalemia/hyponatremia: improved but sodium dropped. from high ostomy outpt yesterday, but pt states overnight starting to thicken *Metabolic (lactic) acidosis: 2/2 volume depletion -improved *PEACE w/Volume depletion & Hemoconcentration: prerenal -improved *h/o recent abdominal abscesses w/surgical I&D , lysis of adhesions , ileostomy: *Short Bowel syndrome: *hypomag: resolved P: -IVF's NS today, may need oral salt solution (?st deisy's soln) -Diet advanced to regular -Dr. Gamez following -monitor ostomy outpt -mag replace -ambulation -ppx: [employer] Medical - PN: Qual - Stroke Symptom Onset Unknown: No - VTE Deep Vein Thrombosis/Pulmonary Embolism Present on Admission: No
[2019-10-20] MEDS ORDERED: 0.9 % SODIUM CHLORIDE 1,000 ML IV SCH (09:45)
[2019-10-20 12:04] LABS: Sodium, Urine Random < 20 mmol/L
[2019-10-20 12:05] LABS: Osmolality,Urine 318 mOsm/kg (80-1000)
[2019-10-20] MEDS ORDERED: SODIUM CHLORIDE 1 GM TABLET PO ONE (14:39)
--- NOTE | 2019-10-20 15:30 | General Surgery Progress Note ---
Subjective Patient reports: feels better, pain is less, flatus, bowel movement, diarrhea, afebrile Narrative: Note initiated : 10/20/19 at 3:30 pm Service Date, if different from initiated Date: [] Patient: Mojgan Mesa 43 y/o F admitted on 10/18/19 for N/V. Chief Complaint: [Patient is clinically improved. She is still putting out close to 3 L of fluid per 24 Hours. Will add codeine 60 mg 4 times daily for its constipating effect to try to decrease her volume output and reduce the chances for continued electrolyte and fluid loss with dehydration. BUN 26, creatinine 0.8, white count 5.3, hemoglobin 11.6, hematocrit 35] Objective Temp Pulse Resp BP Pulse Ox 98.2 F 70 12 102/71 99 10/20/19 12:00 10/20/19 12:00 10/20/19 12:00 10/20/19 12:00 10/20/19 12:00 - Additional Data Intake & Output - Last 24 hours: Intake & Output 10/18/19 10/19/19 10/20/19 10/21/19 05:59 05:59 05:59 05:59 Intake Total 2597 3820 600 Output Total 1900 4350 1900 Balance 697 -530 -1300 Weight 89 lb 7 oz 89 lb - General physical appearance no pain, cachectic, chronically ill - Eyes PERRL, normal ocular movement - ENT normal pinna, normal nares, normal mucosa, no hearing loss, no congestion - Neck no masses, no bruits, trachea midline, no lymphadenopathy, no venous distension - Respiratory normal expansion, normal respiratory effort, clear to auscultation - Cardiovascular Cardiovascular exam: Present: normal rate and rhythm, RRR, +S1, +S2. Absent: JVD, tachycardia - Abdomen non tender, bowel sounds (present), surgical scars (stoma is functioning normal but still with high volume output), masses (none) - Integumentary no rash, no growths, no abnormal pigmentation - Neurologic normal coordination, normal sensation - Musculoskeletal normal gait, normal posture - Psychiatric oriented to time, oriented to person, oriented to place, speech is normal, memory intact - Labs 10/19/19 04:34 10/20/19 05:52 Diabetes panel 10/20/19 Range/Units 05:52 Sodium 126 L (133-145) mmol/L Potassium 4.6 (3.3-5.1) mmol/L Chloride 95 L (96-108) mmol/L Carbon Dioxide 18 L (22-30) mmol/L BUN 26 H (6-20) mg/dl Creatinine 0.8 (0.6-1.1) mg/dl Glucose 94 (70-105) mg/dL Calcium 9.4 (8.6-10.4) mg/dl AST 28 (0-37) U/l ALT 49 H (0-40) U/l Alkaline Phosphatase 236 H (39-117) U/L Total Protein 7.4 (5.9-8.4) gm/dL Albumin 4.0 (3.2-5.2) gm/dL Triglycerides 188 H (<150) mg/dl Calcium panel 10/20/19 Range/Units 05:52 Calcium 9.4 (8.6-10.4) mg/dl Phosphorus 2.1 L (2.7-4.5) mg/dL Albumin 4.0 (3.2-5.2) gm/dL Pituitary panel 10/20/19 Range/Units 05:52 Sodium 126 L (133-145) mmol/L Potassium 4.6 (3.3-5.1) mmol/L Chloride 95 L (96-108) mmol/L Carbon Dioxide 18 L (22-30) mmol/L BUN 26 H (6-20) mg/dl Creatinine 0.8 (0.6-1.1) mg/dl Glucose 94 (70-105) mg/dL Calcium 9.4 (8.6-10.4) mg/dl Adrenal panel 10/20/19 Range/Units 05:52 Sodium 126 L (133-145) mmol/L Potassium 4.6 (3.3-5.1) mmol/L Chloride 95 L (96-108) mmol/L Carbon Dioxide 18 L (22-30) mmol/L BUN 26 H (6-20) mg/dl Creatinine 0.8 (0.6-1.1) mg/dl Glucose 94 (70-105) mg/dL Calcium 9.4 (8.6-10.4) mg/dl Total Bilirubin 0.3 (0.0-1.0) mg/dL AST 28 (0-37) U/l ALT 49 H (0-40) U/l Alkaline Phosphatase 236 H (39-117) U/L Total Protein 7.4 (5.9-8.4) gm/dL Albumin 4.0 (3.2-5.2) gm/dL Assessment and Plan (1) ARF (acute renal failure) Status: Resolved Assessment and plan: Renal status significantly improved Current Visit: Yes (2) Hyperkalemia Status: Resolved Current Visit: Yes (3) Hyponatremia Status: Acute Current Visit: Yes (4) Short gut syndrome Status: Chronic Assessment and plan: Codeine 60 mg 4 times daily to reduce intestinal output Current Visit: No (5) Nausea and vomiting Status: Resolved Current Visit: Yes - Time Spent With Patient Total time spent is greater than 50% in coordination of care (as documented) at patient's floor/unit and/or counseling patient:
[2019-10-20] MEDS ORDERED: ACETAMINOPHEN W/CODEINE #3 1 TABLET PO PRN (15:35)
[2019-10-20] MEDS: ZOLPIDEM 5 MG TABLET PO PRN (21:43)
[2019-10-20] MEDS: SODIUM CHLORIDE 1 GM TABLET PO SCH (21:43)
[2019-10-21] MEDS: 0.9 % SODIUM CHLORIDE 10 ML SYRINGE IV SCH (04:57)
[2019-10-21] MEDS: HYDROcodone/APAP 5/325MG TABLET PO PRN (07:40)
[2019-10-21] MEDS: METHOCARBAMOL 750 MG TABLET PO SCH (08:50)
[2019-10-21] MEDS: SODIUM CHLORIDE 1 GM TABLET PO SCH (08:51)
[2019-10-21] MEDS: LOPERAMIDE 2 MG CAPSULE PO SCH (08:52)
[2019-10-21] MEDS: FAMOTIDINE 20 MG TABLET PO SCH (08:52)
[2019-10-21] MEDS: CHOLESTYRAMINE/ASPARTAME 4 GM POWD.PACK PO SCH (08:53)
[2019-10-21] MEDS: ENOXAPARIN 30 MG/0.3 ML SYRINGE SQ SCH (08:53)
[2019-10-21 08:58] LABS: ALT/SGPT 48 U/l (0-40); AST/SGOT 32 U/l (0-37); Albumin 4.1 gm/dL (3.2-5.2); Albumin/Globulin Ratio 1.2 (1.0-2.3); Alkaline Phosphatase 246 U/L (39-117); Bilirubin,Direct < 0.2 mg/dL (0.0-0.3); Bilirubin,Total 0.3 mg/dL (0.0-1.0); Calcium 9.4 mg/dl (8.6-10.4); Carbon Dioxide 20 mmol/L (22-30); Chloride 100 mmol/L (96-108); Globulin 3.4 gm/dL (2.2-3.7); Glomerular Filtration Rate 90; Glucose 96 mg/dL (70-105); Lactate Dehydrogenase 108 U/L (94-250); Triglycerides 171 mg/dl (<150); Uric Acid 7.3 mg/dL (2.5-8.0)
[2019-10-21 09:01] LABS: Blood Urea Nitrogen 20 mg/dl (6-20); Phosphorous 1.7 mg/dL (2.7-4.5)
[2019-10-21] MEDS ORDERED: NEUTRA PHOS 1 PACKET PO ONE (09:08)
[2019-10-21] MEDS: OCTREOTIDE ACETATE 100 MCG/ML VIAL SQ SCH (10:55)
[2019-10-21] MEDS: ONDANSETRON 4 MG/2 ML VIAL IV PRN (11:00)
[2019-10-22 11:52] LABS: Cannabinoid Confirmation POSITIVE (N); Opiate Confirmation POSITIVE (N)
== END 2019-10-21 12:40 | disposition home or self-care (01) | DRG 641 ==
LOC: ED 06:20 → ICU 14:50 → MEDSUR 10-19 17:44
PROVIDERS: ADMIT Internal Medicine; ATTEND Internal Medicine